=== PATIENT | female | born 1975 | race Caucasian/White ===

== ENCOUNTER 2021-12-11 12:40 | Outpatient (REF) | payer BC, SELFPAY ==
--- NOTE | ~2021-12-11 | US_ITS ---
EXAMINATION: US PELVIS CLINICAL INFORMATION: Abnormal uterine bleeding. COMPARISON: None. TECHNIQUE: Ultrasound of the pelvis is performed using both transabdominal and transvaginal transducers along with Doppler. Transvaginal imaging is performed due to inadequate visualization transabdominally. FINDINGS: UTERUS: The uterus is anteverted, retroflexed and measures 8.8 cm in length, 3.6 mL in AP and 5.4 cm in transverse dimension. The double wall endometrial thickness is 0.9 cm. The uterus is smooth in contour and has normal myometrial echogenicity. No visible fibroid. ADNEXA: Both ovaries are visualized. There is normal color flow to the adnexa. There is no ovarian torsion. There is no pelvic ascites or fluid collection. Right ovary measures 2.2 x 2.6 x 1.9 cm. Left ovary measures 3.1 x 2.0 x 1.8 cm cm. US/US pelvic and transvaginal IMPRESSION: Unremarkable uterus and ovaries.
== END 2021-12-11 12:41 | disposition home or self-care (01) ==
LOC: HO.US 12:40
PROVIDERS: Visit Provider Family Medicine
DX: N93.9 Abnormal uterine and vaginal bleeding, unspecified (principal); N39.9 Disorder of urinary system, unspecified
CPT/HCPCS: 76830; 76856

== ENCOUNTER 2022-01-14 08:00 | Outpatient (REF) | payer OTHER, SELFPAY ==
--- NOTE | ~2022-01-14 | MR_ITS ---
EXAMINATION: MR BREAST WITHOUT AND WITH CONTRAST, BILATERAL CLINICAL INFORMATION: 46-year-old for high-risk screening. COMPARISON: MRI 12/14/2019, 04/09/2019, 02/20/2018 and 01/28/2017. Correlation to mammogram of 03/14/2021. TECHNIQUE: Imaging was performed with a dedicated breast coil. Prior to the administration of contrast, bilateral axial T1 and bilateral axial T2-weighted sequences were obtained. After the uneventful administration of?9 mL of Gadavist, dynamic contrast-enhanced VIBRANT series through the breasts in the axial plane were performed. Subtracted images were performed and reviewed. A delayed sagittal sequence through both breasts was acquired. Additionally, CAD post-processing, including maximum intensity projections, 3-D reconstructions and kinetic analysis, were performed an independent workstation and reviewed by the interpreting radiologist is a portion of this exam. FINDINGS: Breast tissue is heterogeneously dense. The patient's fibroglandular tissue demonstrates moderate background enhancement. LEFT BREAST: There are scattered foci of enhancement demonstrating subthreshold and progressive-type kinetics. There are no new areas of mass or non-mass enhancement. There are no secondary signs of malignancy such as nipple inversion or duct enhancement. There are no additional findings on T2-weighted imaging or kinetic curve analysis. RIGHT BREAST: There is a susceptibility artifact at 2 o'clock, 3 cm from the nipple, from prior benign ultrasound biopsy. There is no associated enhancement. There are scattered foci of enhancement demonstrating subthreshold and progressive-type kinetics. There is a stable area of non-mass enhancement at 10 o'clock, 3.3 cm from the nipple, which has been present on MRIs dating back to 2017 and considered benign (axial MR sequence #100, image 46/114). There are no new areas of mass or non-mass enhancement suspicious of malignancy. The previously described oval mass consistent with a biopsy-proven fibroadenoma has been surgically removed. There are no additional findings on T2-weighted imaging or kinetic curve analysis. There is no suspicious internal mammary chain or axillary adenopathy. Limited views of the chest and abdomen are unremarkable. MR/MR breast BI wo/w con IMPRESSION: No new MRI findings suspicious of malignancy in either breast. ASSESSMENT: Left Breast: BI-RADS Category 2 - Benign Right Breast: BI-RADS Category 2 - Benign RECOMMENDATIONS: Routine mammographic imaging as per most recent study and MRI as per high-risk protocol.
== END 2022-01-14 08:01 | disposition home or self-care (01) ==
LOC: HO.MRI 08:00
PROVIDERS: Visit Provider Family Medicine
DX: N64.89 Other specified disorders of breast (principal); Z80.3 Family history of malignant neoplasm of breast
CPT/HCPCS: 77049; A9585

== ENCOUNTER 2022-10-11 19:37 | Outpatient (REF) | payer MEDICAID, SELFPAY ==
[2022-10-12 05:51] LABS: CT PCR NOT DETECTED (Not Detect.); NG PCR NOT DETECTED (Not Detect.)
[2022-10-12 12:06] LABS: BV Int Neg Control Negative (Negative); BV Int Pos Control Positive (Positive)
[2022-10-16 09:44] LABS: HPV mRNA E6/E7 rflx Not Detected (Not Detected)
== END 2022-10-11 19:38 | disposition home or self-care (01) ==
LOC: HO.HHCLNP 19:37
PROVIDERS: Visit Provider Advanced Practice Midwife
DX: Z12.4 Encounter for screening for malignant neoplasm of cervix (principal); N93.9 Abnormal uterine and vaginal bleeding, unspecified; Z20.2 Contact with and (suspected) exposure to infections with a predominantly sexual mode of transmission
CPT/HCPCS: 0353U; 87480; 87510; 87624; 87660; 88142

== ENCOUNTER 2022-12-01 11:02 | Outpatient (REF) | payer MEDICAID, SELFPAY ==
--- NOTE | ~2022-12-01 | US_ITS ---
EXAMINATION: US PELVIS COMPLETE CLINICAL INFORMATION: Abnormal uterine bleeding COMPARISON: Pelvic ultrasound 12/11/2021 TECHNIQUE: Transabdominal and transvaginal imaging was performed. FINDINGS: The uterus is of normal size and echogenicity measuring 7.9 x 3.6 x 4.8 cm. A regular homogeneous endometrium is identified measuring 0.8 cm. Nabothian cysts in the cervix. Few dystrophic calcifications in the cervix. Right ovary is normal in size and appearance. The right ovary measures 2.2 x 0.9 x 2.0 cm for a volume of 2.0 mL. The left ovary was not identified. No adnexal mass. There is no pelvic free fluid. US/US pelvic and transvaginal IMPRESSION: 1. Endometrium measures 8 mm in thickness. 2. Unremarkable right ovary. The left ovary was not identified. No adnexal mass.
== END 2022-12-01 11:03 | disposition home or self-care (01) ==
LOC: HO.US 11:02
PROVIDERS: Visit Provider Advanced Practice Midwife
DX: N93.9 Abnormal uterine and vaginal bleeding, unspecified (principal)
CPT/HCPCS: 76830; 76856

== ENCOUNTER 2023-02-07 07:25 | Outpatient (AMB) | payer MEDICAID, SELFPAY ==
--- NOTE | 2023-02-07 07:26 | MHC.OFFVIS ---
Intake Vital Signs 02/07/23 07:33 Height 5 ft 4 in Weight 203 lb BMI 34.8 Intake Visit Reasons: AUB/EMB/PCP Referral Air Bag Buffer Required: Yes Air Bag Buffer Language: Community Fundraiser Name: Chika HORAN Information Interpreted: non-clinical & clinical Sales Contract Administrator: Sales Contract Administrator Present (Chika HORAN) Accompanied by: Self / Same As Patient Allergies aspirin Allergy (Unknown, Unverified 02/07/23 07:34) swelling, itchy eyes;swelling of face Is last menstrual period known: Yes Last menstrual period: 02/04/23 HPI HPI Comments History of Present Illness Details Presenting referred from PCP regarding abnormal uterine bleeding and endometrial cells on co testing done in 10/27 which showed Negative Pap/HPV, endometrial cells present. Ultrasound done in 11/27 showed the following: IMPRESSION: 1. Endometrium measures 8 mm in thickness. 2. Unremarkable right ovary. The left ovary was not identified. No adnexal mass. Last screening mammogram was in 03/29, the patient scheduled for another screening mammogram in 03/30 [facility] Medical History Anxiety Depression Surgical History H/O breast biopsy Hx of tubal ligation Family History Father HTN (hypertension) Diabetes Parkinson disease Mother Diabetes Maternal Aunt Breast cancer Paternal Grandmother Breast cancer Social History Household Members: Significant Other Housing: Apartment Alcohol intake: current Alcohol intake frequency: holidays/special occasions only Patient Tobacco Use Status: Never used Tobacco Current occupational status: employed 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 Sexual orientation: Straight/Heterosexual Gender identity: Female Female Reproductive History Menstrual Date of last menstrual period: 02/04/23 Review of Systems Const All systems reviewed & are unremarkable except as noted in HPI and below Card Reports as per HPI Resp Reports as per HPI GI Reports as per HPI and Reports no additional complaints Reports as per HPI Physical Exam Vital Signs: BMI result Body Mass Index 34.8 Const General: cooperative, healthy appearing and comfortable Chest Chest palpation & inspection: normal inspection of the chest and normal palpation of entire chest wall Breast/axilla inspection: normal inspection of the breasts and normal inspection of the axillae Breast/axilla palpation: normal palpation of the breasts, normal palpation of the axillae and no axillary lymphadenopathy Resp Effort & Inspection: normal respiratory effort Auscultation: clear to auscultation bilaterally Percussion: percussion normal Cardio Palpation: normal PMI Rate: regular rate Rhythm: regular rhythm Heart sounds: no murmurs and no rubs Peripheral pulses: Peripheral pulses 2+ throughout GI Inspection: Yes normal to inspection Palpation (GI): Soft to palpation, nontender, no guarding, not rigid and No hepatosplenomegaly present Percussion: Yes normal to percussion Auscultation: normal bowel sounds Rectal Exam - Female: deferred General: Yes bladder normal to palpation External Female Exam: No lesion Speculum Exam - Vagina: normal appearance of the vagina, normal palpation, normal vaginal discharge and not erythematous Speculum Exam - Cervix: normal appearance of the cervix and normal palpation Bimanual exam- vagina & uterus: normal bimanual exam, normal palpation, uterine size normal, bladder normal to palpation, consistency normal and normal palpation Bimanual Exam- Adnexa, other: normal adnexae, no masses and no tenderness Office Procedures Endometrial Biopsy Details: The patient was counseled regarding the indication and benefits of endometrial sampling to rule out endometrial pathology including not limited to endometrial hyperplasia or endometrial cancer and others; The alternatives (Either do nothing vs. hysteroscopy D&C) & the risks were discussed with the patient including but not limited: pain, uterine perforation, bleeding, infection, possible injury to bladder, bowel, ureter, possible need for blood transfusion with all its possible risks. The patient verbalized understanding all questions answered and signed consent. UPT done in the office was negative The patient was placed into the dorsal lithotomy position; a speculum was inserted in the vagina. Using aseptic technique for the procedure, the cervix was cleansed with Betadine. The anterior lip of the cervix was grasped with a single tooth tenaculum. The uterus was sounded to 7 cm with a 4 mm Pipelle was used. Tissues samples were obtained and placed in formalin, in a patient labeled container and sent to the pathology department. At the end of the procedure, there was minimal bleeding noted The patient tolerated the procedure well and was discharged in good condition with the following instructions: Nothing in the vagina until the bleeding stops. No sex until the bleeding stops, to call if any of the following occurs: fever (>100.4), flu-like symptoms, abdominal pain, heavy bleeding, four smelling vaginal discharge. The patient was instructed to schedule a Follow up appointment in 2 weeks to discuss pathology results of the biopsy and treatment options. This note was generated with a voice recognition program. Some errors may have been overlooked during the review of this note. Sometimes these errors may affect the content or meaning of a given sentence. [id number] Biopsy Assessment & Plan Assessment & Plan (1) Abnormal uterine bleeding: Code(s): N93.9 - Abnormal uterine and vaginal bleeding, unspecified Plan: GC and chlamydia taken CBC, TSH, prolactin, FSH/LH, HCG order and pelvic ultrasound recently done and was unremarkable. Discussed with the patient the different causes of abnormal bleeding including thyroid disorders, uterine and ovarian pathology, endometrial hyperplasia, carcinoma and other potential causes. Discussed with the patient the work up including CBC (to r/o anemia), TSH, pelvic Ultrasound, endometrial biopsy to r/o endometrial pathology. All questions answered and the patient verbalized understanding. Instructed the patient to schedule an appointment for an endometrial biopsy in 2 weeks. (2) Unexplained endometrial cells on cervical Pap smear: Code(s): R87.618 - Other abnormal cytological findings on specimens from cervix uteri Plan: Discussed the patient the finding on Pap smear, endometrial cells present, recommended endometrial sampling to rule out endometrial pathology including hyperplasia , polyp or cancer were discussed with the patient. Recommended to the patient that the next step is an endometrial sampling via hysteroscopy D&C possible polypectomy versus endometrial biopsy to r/o endometrial pathology including hyperplasia or cancer. All the pros and cons risks and benefits of each approach were discussed with the patient, endometrial biopsy being less invasive, office procedure with less sensitivity and inability diagnose a polyp and removal versus hysteroscopy done under anesthesia more invasive more sensitive to endometrial cancer and possibility of diagnosing and endometrial polyp with the possibility of polypectomy. All questions were answered pt verbalized understanding and decided to proceed with endometrial biopsy. EMB done, see procedure (3) Family history of breast cancer: Code(s): Z80.3 - Family history of malignant neoplasm of breast Plan: Discussed with the patient her family history of breast cancer might increased her risk for Breast ca. Mammogram scheduled for 03/30, no Breast MRI ordered Will refer to Dr Mazzucco for possible Genetic Ca counseling and possible testing. All questions answered, the patient verbalized understanding and agreed with the plan Orders: Orders TSH reflex Free T4 Today N93.9 - Abnormal uterine and vaginal bleeding, unspecified Prolactin Today N93.9 - Abnormal uterine and vaginal bleeding, unspecified AMB Endometrial Biopsy Today N93.9 - Abnormal uterine and vaginal bleeding, unspecified, R87.618 - Other abnormal cytological findings on specimens from cervix uteri Lutenizing Hormone Today N93.9 - Abnormal uterine and vaginal bleeding, unspecified HCG Quantitative Today N93.9 - Abnormal uterine and vaginal bleeding, unspecified Follicle Stimulating Hormone Today N93.9 - Abnormal uterine and vaginal bleeding, unspecified Complete Blood Count no Diff Today N93.9 - Abnormal uterine and vaginal bleeding, unspecified US pelvic and transvaginal Today N93.9 - Abnormal uterine and vaginal bleeding, unspecified Coding Level of Care Code New Pt Level 3 (75197) Procedure Only Diagnoses Abnormal uterine bleeding N93.9 Unexplained endometrial cells on cervical Pap smear R87.618 Family history of breast cancer Z80.3 CPT Codes Endometrial Biopsy - CPT: 42912-Ydmgksaoupe Biopsy ([id number])
[2023-02-07 07:33] VITALS: BMI 34.8
== END 2023-02-07 08:07 | disposition home or self-care (01) ==
LOC: HO.HWS 07:25
PROVIDERS: PCP Family Medicine; Visit Provider Obstetrics & Gynecology
DX: N93.9 Abnormal uterine and vaginal bleeding, unspecified (principal); R87.618 Other abnormal cytological findings on specimens from cervix uteri; Z80.3 Family history of malignant neoplasm of breast; Z32.02 Encounter for pregnancy test, result negative
CPT/HCPCS: 58100; 99203

== ENCOUNTER 2023-02-07 07:25 | Outpatient (REF) | payer MEDICAID, SELFPAY | END 2023-02-07 07:26 | disposition home or self-care (01) | LOC: HO.LNP 07:25 | PROVIDERS: PCP Family Medicine; Visit Provider Obstetrics & Gynecology | DX: N93.9 Abnormal uterine and vaginal bleeding, unspecified (principal); R87.618 Other abnormal cytological findings on specimens from cervix uteri; Z80.3 Family history of malignant neoplasm of breast | CPT/HCPCS: 0353U; 58100; 81025; 83001; 83002; 84146; 84443; 84702; 85027; 88305; 99202 ==

== ENCOUNTER 2023-02-07 08:16 | Outpatient (REF) | payer MEDICAID, SELFPAY ==
[2023-02-07 09:16] LABS: Hematocrit 43.5 % (37.0-47.0); Hemoglobin 14.3 g/dl (12.0-16.0); Mean Corpuscular HGB Conc 32.9 g/dl (31.0-35.0); Mean Corpuscular Volume 91.4 fL (80.0-98.0); Mean Platelet Volume 11.3 fL (9.4-12.3); Platelet Count 293 X10*3/uL (160-400); Red Blood Count 4.76 X10*6/uL (4.20-5.50); Red Cell Distribution Width 12.2 % (11.0-16.0); White Blood Count 6.6 X10*3/uL (4.8-10.8)
[2023-02-07 10:10] LABS: HCG Quantitative < 2 mIU/mL; TSH reflex Free T4 0.99 uIU/mL (0.32-4.0)
[2023-02-08 10:57] LABS: CT PCR NOT DETECTED (Not Detect.); NG PCR NOT DETECTED (Not Detect.)
[2023-02-08 13:04] LABS: Follicle Stimulating Hormone 24.3 mIU/mL; Lutenizing Hormone 19.4 mIU/mL; Prolactin 16.2 ng/mL
== END 2023-02-07 08:17 | disposition home or self-care (01) ==
LOC: HO.LAB 08:16
PROVIDERS: PCP Family Medicine; Visit Provider Obstetrics & Gynecology
DX: N93.9 Abnormal uterine and vaginal bleeding, unspecified (principal)
CPT/HCPCS: 0353U; 83001; 83002; 84146; 84443; 84702; 85027

== ENCOUNTER 2023-03-10 10:17 | Outpatient (REF) | payer MEDICAID, SELFPAY | END 2023-03-10 10:18 | disposition home or self-care (01) | LOC: HO.US 10:17 | PROVIDERS: PCP Family Medicine; Visit Provider Obstetrics & Gynecology | DX: N93.9 Abnormal uterine and vaginal bleeding, unspecified (principal) | CPT/HCPCS: 76830; 76856 ==

== ENCOUNTER 2023-03-17 09:13 | Outpatient (AMB) | payer MEDICAID, SELFPAY ==
--- NOTE | 2023-03-17 09:22 | MHC.OFFVIS ---
Intake Vital Signs 03/17/23 09:31 Height 5 ft 4 in Weight 202 lb 13.204 oz BMI 34.8 BP 120/82 Intake Visit Reasons: EMB results/Ultrasound follow up Corn Crop Supervisor Required: Yes Corn Crop Supervisor Language: Mesmerist Name: Chika HORAN Information Interpreted: non-clinical & clinical Accompanied by: Mother Allergies aspirin Allergy (Unknown, Unverified 03/17/23 09:32) swelling, itchy eyes;swelling of face Post menopausal: Yes HPI HPI Comments History of Present Illness Details The patient is presenting for follow-up to discuss the results of her abnormal uterine bleeding workup and options of treatment. The following workup was done.: H&H= 14.3/43.5 TSH, hCG, prolactin GC and chlamydia were negative. FSH 24.3/LH 19.4 post in the menopausal range Endometrial biopsy pathology showed lytic endometrium with no evidence of hyperplasia and/or malignancy. Co testing was done was negative. Mammogram scheduled for 03/26/22 at [facility] Pelvic ultrasound showed the following: Uterus: The uterus is anteverted and anteflexed. The uterus measures 8.8 x 3.9 x 5.2 cm. There is trace endocervical free fluid. Cervical calcifications are suspected. The double wall endometrial thickness is 0.8 mm. The uterus is smooth in contour and has normal myometrial echogenicity. No visible fibroid. Adnexa: Both ovaries are visualized. There is normal color flow to the adnexa. There is no ovarian torsion. There is no pelvic ascites or fluid collection. Right ovary measures 1.8 x 0.7 x 0.8 cm, volume 0.5 mL. Left ovary measures 2.0 x 1.0 x 1.2 cm, volume 1.3 mL. 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 Sexual orientation: Straight/Heterosexual Gender identity: Female Review of Systems Const All systems reviewed & are unremarkable except as noted in HPI and below Reports as per HPI and Reports no additional complaints GI Reports no additional complaints Reports no additional complaints Physical Exam Vital Signs: Last Vital Signs BP 120/82 03/17/23 09:31 BMI result Body Mass Index 34.8 Assessment & Plan Assessment & Plan (1) Abnormal uterine bleeding: Code(s): N93.9 - Abnormal uterine and vaginal bleeding, unspecified Plan: Discussed with the patient the results of the work up done and options of treatment including Lysteda, BCP's, Mirena IUD, endometrial ablation and hysterectomy. All pros, cons, risks and benefits if each option was discussed with the patient and the patient decided to think about it and get back to us. All questions answered the patient verbalized understanding. (2) Unexplained endometrial cells on cervical Pap smear: Code(s): R87.618 - Other abnormal cytological findings on specimens from cervix uteri Plan: Discussed with the patient the results are EMB, the patient was reassured. Instructions given the patient to call in case of recurrence of her abnormal uterine bleeding. All questions answered, the patient verbalized understanding. Coding Level of Care Code Est Pt Level 3 (68377) Diagnoses Abnormal uterine bleeding N93.9 Unexplained endometrial cells on cervical Pap smear R87.618
[2023-03-17 09:31] VITALS: BP 120/82; BMI 34.8
== END 2023-03-17 09:46 | disposition home or self-care (01) ==
LOC: HO.HWS 09:13
PROVIDERS: PCP Family Medicine; Referring Provider Family Medicine; Visit Provider Obstetrics & Gynecology
DX: N93.9 Abnormal uterine and vaginal bleeding, unspecified (principal); R87.618 Other abnormal cytological findings on specimens from cervix uteri
CPT/HCPCS: 99213

== ENCOUNTER → 2023-03-17 09:13 | Outpatient (BNVA) | payer MEDICAID, SELFPAY | PROVIDERS: PCP Family Medicine; Visit Provider Obstetrics & Gynecology | DX: N93.9 Abnormal uterine and vaginal bleeding, unspecified (principal); R87.618 Other abnormal cytological findings on specimens from cervix uteri | CPT/HCPCS: 99212 ==

== ENCOUNTER 2023-04-11 08:03 | Outpatient (REF) | payer MEDICAID, SELFPAY ==
--- NOTE | ~2023-04-11 | MR_ITS ---
EXAMINATION: MR BREAST WITHOUT AND WITH CONTRAST, BILATERAL CLINICAL INFORMATION: High-risk screening. COMPARISON: MRI 01/14/2022. Outside MRI 12/14/2019. TECHNIQUE: Imaging was performed with a dedicated breast coil. Prior to the administration of contrast, bilateral axial T1 and bilateral axial T2 weighted sequences were obtained. After the uneventful administration of?9 mL of Gadavist, dynamic contrast-enhanced VIBRANT series through the breasts in the axial plane were performed. Subtracted images were performed and reviewed. A delayed sagittal sequence through both breasts was acquired. Additionally, CAD post-processing, including maximum intensity projections, 3-D reconstructions and kinetic analysis, were performed an independent workstation and reviewed by the interpreting radiologist is a portion of this exam. FINDINGS: The patient's fibroglandular tissue demonstrates moderate background enhancement. LEFT BREAST: There are patchy areas of nonmass enhancement present diffusely throughout the left breast. No definite suspicious masslike or non-masslike enhancement. No abnormal skin thickening or nipple retraction. No abnormal architectural distortion. Review of the T2 weighted images demonstrates no fibrocystic changes or dilated ducts. Review of kinetic images reveals no additional findings. RIGHT BREAST: Similar to the contralateral side, there are patchy areas of nonmass enhancement present diffusely throughout the right breast. Relative nonmass enhancement along the lateral aspect of the right breast is a stable finding compared to the 2021 and 2019 MRI's. No suspicious masslike or non-masslike enhancement. No abnormal skin thickening or nipple retraction. No abnormal architectural distortion. Review of the T2 weighted images demonstrates no fibrocystic changes or dilated ducts. Review of kinetic images reveals no additional findings. There is no suspicious internal mammary chain or axillary adenopathy. Limited views of the chest and abdomen are unremarkable. MR/MR breast BI wo/w con IMPRESSION: Mildly limited exam. No MR specific evidence of malignancy. ASSESSMENT: LEFT BREAST: BI-RADS 1-Negative RIGHT BREAST: BI-RADS 1-Negative RECOMMENDATIONS: Clinical follow-up. Continued annual mammographic surveillance. Further breast MRI as risk factors dictate.
[2023-04-11] MEDS: gadobutroL 10 ML VIAL IVPUSH (09:08)
== END 2023-04-11 08:04 | disposition home or self-care (01) ==
LOC: HO.MRI 08:03
PROVIDERS: PCP Family Medicine; Visit Provider Family Medicine
DX: Z91.89 Other specified personal risk factors, not elsewhere classified (principal); Z80.3 Family history of malignant neoplasm of breast
CPT/HCPCS: 77049; A9585

== ENCOUNTER 2023-06-22 08:45 | Outpatient (REF) | payer MEDICAID, SELFPAY ==
--- NOTE | ~2023-06-22 | XR_ITS ---
EXAMINATION: XR SHOULDER, LEFT CLINICAL INFORMATION: Left shoulder pain COMPARISON: None available. TECHNIQUE: AP external rotation, Grashey, scapular Y, and axillary views of the left shoulder. FINDINGS: The bones and soft tissues are normal. No fracture. Glenohumeral and acromioclavicular alignment is anatomic with normal joint space. No abnormal soft tissue calcifications. XR/XR shoulder LT min 2V IMPRESSION: Normal left shoulder.
--- NOTE | ~2023-06-22 | XR_ITS ---
EXAMINATION: XR SHOULDER, RIGHT CLINICAL INFORMATION: Right shoulder pain COMPARISON: None available. TECHNIQUE: AP external rotation, Grashey, scapular Y, and axillary views of the right shoulder. FINDINGS: The bones and soft tissues are normal. No fracture. Glenohumeral and acromioclavicular alignment is anatomic with normal joint space. No abnormal soft tissue calcifications. XR/XR shoulder RT min 2V IMPRESSION: Normal right shoulder.
[2023-06-22 09:45] LABS: MANUAL DIFF FLAG NO
[2023-06-22 10:14] LABS: Basophils Percent Auto 0.6 % (0-2); Eosinophils Absolute Auto 0.2 X10*3/uL (0.0-0.4); Eosinophils Percent Auto 2.6 % (0-4); Hematocrit 42.2 % (37.0-47.0); Hemoglobin 14.3 g/dl (12.0-16.0); Imm Gran Abs Auto 0.02 X10*3/uL (0.00-0.03); Imm Gran Pct Auto 0.3 % (0.0-0.4); Lymphocytes Absolute Auto 1.9 X10*3/uL (1.2-4.9); Lymphocytes Percent Auto 27.1 % (20-40); Mean Corpuscular HGB Conc 33.9 g/dl (31.0-35.0); Mean Corpuscular Hemoglobin 30.2 pg (27.0-33.0); Mean Platelet Volume 11.1 fL (9.4-12.3); Monocytes Absolute Auto 0.5 X10*3/uL (0.1-1.2); Monocytes Percent Auto 6.8 % (2-11); Neutrophils Absolute Auto 4.4 x10*3/uL (2.0-8.3); Neutrophils Percent Auto 62.6 % (45-73); Platelet Count 289 X10*3/uL (160-400); Red Blood Count 4.74 X10*6/uL (4.20-5.50); Red Cell Distribution Width 12.2 % (11.0-16.0)
[2023-06-22 11:31] LABS: Alanine Aminotransferase 18 U/L (0-31); Albumin Level 4.2 g/dL (3.5-5.0); Alkaline Phosphatase 87 U/L (39-117); Anion Gap 10 (12-20); Aspartate Amino Transferase 17 U/L (5-31); Bilirubin Total 0.3 mg/dL (0.0-1.0); Blood Urea Nitrogen 10 mg/dL (9-16); Calcium 9.4 mg/dL (8.4-10.2); Carbon Dioxide 26 mmol/L (22-29); Chloride 106 mmol/L (96-108); Estimated Glomerular Filt Rate > 60; Glucose Random 95 mg/dL (60-115); Potassium 4.3 mmol/L (3.3-5.1); Sodium 138 mmol/L (135-145); Total Protein 7.8 g/dL (6.5-8.0)
[2023-06-22 11:41] LABS: Erythrocyte Sedimentation Rate 13 MM/HR (0-20)
[2023-06-23 20:48] LABS: Transglutaminase IgA <1.0 U/mL
[2023-06-25 12:59] LABS: Endomysial IgA Antibody Negative (Negative)
== END 2023-06-22 08:46 | disposition home or self-care (01) ==
LOC: HO.XRAY 08:45
PROVIDERS: PCP Family Medicine; Visit Provider Physician Assistant
DX: K52.9 Noninfective gastroenteritis and colitis, unspecified (principal); R10.9 Unspecified abdominal pain; K21.9 Gastro-esophageal reflux disease without esophagitis; M25.511 Pain in right shoulder; G89.29 Other chronic pain; M25.512 Pain in left shoulder
CPT/HCPCS: 36415; 73030; 80053; 85025; 85652; 86140; 86231; 86364; 99212

== ENCOUNTER 2023-06-22 08:45 | Outpatient (AMB) | payer MEDICAID, SELFPAY ==
--- NOTE | 2023-06-22 08:55 | MHC.OFFVIS ---
Intake Vital Signs 06/22/23 08:58 Height 5 ft 4 in Weight 202 lb BMI 34.7 BP 133/57 L Blood Pressure Location Lt brachial Position Sitting Pulse 76 Intake Visit Reasons: Chronic Diarrhea Intake Note: Patient new consult for Chronic diarrhea. Patient cc: nauseas, abdominal pain with bloating, acid reflex, between diarrhea and constipation. Channel Supervisor Required: Yes Channel Supervisor Name: [facility] [place] Accompanied by: Self / Same As Patient Allergies aspirin Allergy (Unknown, Verified 06/22/23 08:55) swelling, itchy eyes;swelling of face Medication List - Last Reconciled 06/22/23 by Julieta Das PA-C albuterol sulfate 90 mcg/actuation (Ventolin HFA) 2 puffs inhalation Q4H PRN amitriptyline 10 mg PO BEDTIME kfwjosekpt-sosqinpphrhfb-iprd 50-325-40 mg 1 tab PO Q12H PRN cetirizine 10 mg PO QAM cholecalciferol (vitamin D3) 50 mcg PO QAM fluoxetine 20 mg PO DAILY fluticasone propionate 50 mcg/actuation 2 sprays intranasal DAILY hydroxyzine pamoate 25 mg PO Q6H PRN omeprazole 20 mg PO DAILY HPI HPI Comments History of Present Illness Details 48-year-old female referred with chronic diarrhea- for 3 year- 3-4 times a esi-etsmgix-ood has never had stool study Occasional nonspecific abdominal cramping-she is being followed by [facility] for abnormal menses- She was taking iron supplements however is no longer taking them, she is unsure of reasoning She has had no recent travel or new medications- 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 Colonoscopy- 5 yrs ago - normal-she saw pcp- given fiber - no better- actuallly worse Appetite ok- no wt loss Acid reflux for years- never had an EGD- has breakthrough sx- for years- She has no nausea, vomiting, hematemesis, hematochezia fever chills PFSH Medical History (Updated 06/22/23 @ 09:40 by Julieta Das PA-C) Anxiety Depression Surgical History H/O breast biopsy Hx of tubal ligation Family History Father HTN (hypertension) Diabetes Parkinson disease Mother Diabetes Maternal Aunt Breast cancer Paternal Grandmother Breast cancer Social History Household Members: Significant Other Housing: Apartment Alcohol intake: current Alcohol intake frequency: holidays/special occasions only Patient Tobacco Use Status: Never used Tobacco Current occupational status: employed 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 Sexual orientation: Straight/Heterosexual Gender identity: Female Review of Systems Const All systems reviewed & are unremarkable except as noted in HPI and below Card Denies chest pain and Denies dyspnea Resp Denies dyspnea GI Denies abdominal pain, Denies hematochezia, Reports GI cramping, Reports heartburn, Reports diarrhea, Denies nausea, Denies vomiting and Denies hematemesis Reports abnormal menses Psych Reports anxiety Physical Exam Vital Signs: Last Vital Signs Pulse 76 06/22/23 08:58 BP 133/57 L 06/22/23 08:58 BMI result Body Mass Index 34.7 Const General: cooperative, healthy appearing, comfortable and no acute distress Orientation/consciousness: patient oriented x3 Limitations: language barrier Eyes Sclerae: sclerae normal Resp Effort & Inspection: normal respiratory effort and able to speak in complete sentences Auscultation: clear to auscultation bilaterally Cardio Rate: regular rate Rhythm: regular rhythm Heart sounds: S1 normal heart sound present and S2 normal heart sound present GI Palpation (GI): Soft to palpation and nontender Auscultation: normal bowel sounds Rectal Exam - Female: deferred Skin General skin exam: no rashes or lesions noted Neuro General: patient oriented x3 Extrem General: Yes full ROM Psych Appearance: grossly normal and well kempt Mental Status: mental status grossly normal Speech and movement: Normal speech and movement present and Clear speech present Affect: normal affect Attitude: cooperative Thought content: Normal thought content present Insight: Good insight present (Psych) Judgement: Good judgement present (Psych) Assessment & Plan Assessment & Plan (1) Chronic diarrhea: Comment: r/o infectious vs chronic Code(s): K52.9 - Noninfective gastroenteritis and colitis, unspecified Plan: Lab Stool study Colonoscopy (2) Abdominal pain: Comment: Diffuse, non specific, intermittent Code(s): R10.9 - Unspecified abdominal pain Plan: Monitor CBC (3) Acid reflux: Code(s): K21.9 - Gastro-esophageal reflux disease without esophagitis Plan: Continue PPI Reflux precaution Avoid culprit EGDr/o pud, nonulcer despite, esophagitis other findings to account for her sx Orders: Orders Calprotectin, Fecal Today R19.7 - Diarrhea, unspecified Endomysial IgA rflx Titer Today K21.9 - Gastro-esophageal reflux disease without esophagitis, K52.9 - Noninfective gastroenteritis and colitis, unspecified, R10.9 - Unspecified abdominal pain GI Panel Today R19.7 - Diarrhea, unspecified EGD/Spencer Combo - GI Use Only Today K21.9 - Gastro-esophageal reflux disease without esophagitis, K52.9 - Noninfective gastroenteritis and colitis, unspecified, R10.9 - Unspecified abdominal pain Comprehensive Met. Panel Today K58.9 - Irritable bowel syndrome without diarrhea Complete Blood Count Auto Diff Today K52.9 - Noninfective gastroenteritis and colitis, unspecified C Reactive Protein Today K21.9 - Gastro-esophageal reflux disease without esophagitis, K52.9 - Noninfective gastroenteritis and colitis, unspecified, R10.9 - Unspecified abdominal pain CDiff Gene PCR Today R19.7 - Diarrhea, unspecified Transglutaminase IgA Today R19.7 - Diarrhea, unspecified Erythrocyte Sedimentation Rate Today R19.7 - Diarrhea, unspecified Medications: New polyethylene glycol 3350 (Miralax) Take as directed by mouth the day before your procedure. 238 grams PO ONCE 1 day PRN 238 grams 0RF laxative effect bisacodyl (Dulcolax (bisacodyl)) Day before procedure @ 12 noon Take 4 tablets by mouth followed by large glass of water 20 mg (4 x 5 mg) PO ONCE 1 day PRN 4 tabs 0RF colonoscopy prep Z12.11 - Encounter for screening for malignant neoplasm of colon Patient Instructions: EGD colonoscopy MiraLax Gatorade prep Labs and stool studies Imodium, Reflux precautions PPI Avoid culprits Will follow-up 46 weeks for progress and review lab Coding Level of Care Code New Pt Level 3 (11972) Diagnoses Chronic diarrhea K52.9 Abdominal pain R10.9 Acid reflux K21.9 Time Spent (min) 30 Comment 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
[2023-06-22 08:58] VITALS: BP 133/57; PULSE 76; BMI 34.7
== END 2023-06-22 09:50 | disposition home or self-care (01) ==
PROVIDERS: PCP Family Medicine; Visit Provider Physician Assistant
DX: K52.9 Noninfective gastroenteritis and colitis, unspecified (principal); R10.9 Unspecified abdominal pain; K21.9 Gastro-esophageal reflux disease without esophagitis
CPT/HCPCS: 99203

== ENCOUNTER 2023-07-07 17:30 | Outpatient (REF) | payer MEDICAID, SELFPAY ==
[2023-07-07 18:53] LABS: CDiff Gene PCR NEGATIVE (Negative)
[2023-07-08 15:27] LABS: Adenovirus F 40/41 Not Detected (Not Detect.); Astrovirus Not Detected (Not Detect.); Campylobacter Not Detected (Not Detect.); Cryptosporidium Not Detected (Not Detect.); Cyclospora cayetanensis Not Detected (Not Detect.); E. coli EAEC Not Detected (Not Detect.); E. coli EPEC Not Detected (Not Detect.); E. coli ETEC Not Detected (Not Detect.); E. coli STEC Not Detected (Not Detect.); Entamoeba histolytica Not Detected (Not Detect.); Giardia lamblia Not Detected (Not Detect.); Norovirus GI/GII Not Detected (Not Detect.); Plesiomonas shigelloides Not Detected (Not Detect.); Rotavirus A Not Detected (Not Detect.); Salmonella Not Detected (Not Detect.); Sapovirus Not Detected (Not Detect.); Shigella sp./EIEC Not Detected (Not Detect.); Vibrio Not Detected (Not Detect.); Vibrio Cholerae Not Detected (Not Detect.); Yersinia enterocolitica Not Detected (Not Detect.)
[2023-07-14 23:19] LABS: Calprotectin, Fecal 20 mcg/g
== END 2023-07-07 17:31 | disposition home or self-care (01) ==
LOC: HO.LNP 17:30
PROVIDERS: Visit Provider Physician Assistant
DX: R19.7 Diarrhea, unspecified (principal)
CPT/HCPCS: 83993; 87493; 87507

== ENCOUNTER 2023-07-12 09:54 | Outpatient (REF) | payer MEDICAID, SELFPAY | END 2023-07-12 09:55 | disposition home or self-care (01) | LOC: HO.MAMMO 09:54 | PROVIDERS: PCP Family Medicine; Visit Provider Surgery | DX: M79.621 Pain in right upper arm (principal) | CPT/HCPCS: 99202 ==

== ENCOUNTER 2023-07-12 09:54 | Outpatient (AMB) | payer MEDICAID, SELFPAY ==
--- NOTE | 2023-07-12 09:56 | A.OFFVIS_ITS ---
Vital Signs 07/12/23 10:13 Height 5 ft 4 in Weight 202 lb BMI 34.7 BP 134/70 Blood Pressure Location Rt brachial Position Sitting Pulse 79 Intake Visit Reasons: axillary mass Intake Note: This patient presents for an assessment for right axillary mass. Patient c/o; Onset 2 months, reports there was a bulge, reports occasional pain and burning sensation, reports increase in size. Supervisor Machine Workers Required: Yes Supervisor Machine Workers Language: Meal Cook Name: Liliane Accompanied by: Self / Same As Patient Allergies aspirin Allergy (Unknown, Verified 06/22/23 08:55) swelling, itchy eyes;swelling of face Medication List - Last Reconciled 07/12/23 by Corky Goodrich MD albuterol sulfate 90 mcg/actuation (Ventolin HFA) 2 puffs inhalation Q4H PRN amitriptyline 10 mg PO BEDTIME bisacodyl (Dulcolax (bisacodyl)) 20 mg (4 x 5 mg) PO ONCE PRN 1 day ngcjusctbv-cigirrfowsazg-zegh 50-325-40 mg 1 tab PO Q12H PRN cetirizine 10 mg PO QAM cholecalciferol (vitamin D3) 50 mcg PO QAM fluoxetine 20 mg PO DAILY fluticasone propionate 50 mcg/actuation 2 sprays intranasal DAILY hydroxyzine pamoate 25 mg PO Q6H PRN omeprazole 20 mg PO DAILY polyethylene glycol 3350 (Miralax) 238 grams PO ONCE PRN 1 day HPI Comments Details: 48-year-old female patient presenting for evaluation of pain in the right axilla. She reports a previous lump in the right axilla that was excised at an outside institution approximately 4 years ago. This was reported as benign although the exact diagnosis is not known by the patient. She tolerated the procedure well but now reports the onset of pain for the past 2 months in the right axilla. She reports this started after receiving an immunization in the right shoulder. She denies palpating any enlarged mass in either axilla. She denies fever, chills, or other associated symptoms. She previously underwent MRI of the breast due to a high risk status which was negative for any suspicious findings in the axilla (April 2023). 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 Sexual orientation: Straight/Heterosexual Gender identity: Female Review of Systems Const All systems reviewed & are unremarkable except as noted in HPI and below Denies chills, Denies fever(s), Denies headache(s), Denies poor appetite and Denies weakness ENT Denies headache(s) Card Denies chest pain, Denies irregular heart rhythm, Denies palpitations and Denies dyspnea Resp Denies cough, Denies excessive phlegm production and Denies dyspnea GI Denies abdominal pain, Denies bloating, Denies change in bowel habits, Denies constipation, Denies heartburn, Denies diarrhea, Denies nausea and Denies vomiting Denies urinary frequency Musc Denies back pain, Denies muscle weakness and Denies numbness Skin/Breast Details: Right axillary pain as noted in HPI Denies changing lesions and Denies unusual bruising Neuro Denies headache(s), Denies numbness, Denies paresthesias and Denies weakness Psych Denies anxiety and Denies depression Endo Denies palpitations Moody/Lymph Denies lymphadenopathy Physical Exam Const General: cooperative and no acute distress Nutritional Appearance: well nourished Orientation/consciousness: patient oriented x3 Limitations: no limitations HEENT Head: Yes normocephalic and Yes atraumatic Ears: hearing grossly normal bilaterally Chest Other: Right axilla with a well-healed incision. No definite palpable masses appreciated. There is tenderness to deep palpation. Left axilla with no palpable lymphadenopathy or tenderness. Resp Effort & Inspection: normal respiratory effort, no audible wheezes, no cough and no respiratory distress Cardio Jugular venous distension: no JVD GI Inspection: Yes normal to inspection Skin Other: Warm, dry, no rash Neuro General: patient oriented x3 Extrem General: Yes no clubbing, cyanosis or edema Assessment & Plan Assessment & Plan (1) Pain in right axilla: Code(s): M79.621 - Pain in right upper arm Category: Medical Plan 48-year-old female patient presenting with complaints of pain in the right axilla which may be related to previous immunization performed in the right arm. Examination reveals tenderness but no definite palpable lymphadenopathy. The pain does seem to radiate down the right arm as well which is also suggestive of lymphadenopathy. I recommended further evaluation with an ultrasound of the right axilla. She will return following the study to review the results and discuss treatment options. She expressed understanding and agrees with the plan. Orders: Orders US breast RT limited Today M79.621 - Pain in right upper arm Coding Level of Care Code New Pt Level 4 (13583) Diagnoses Pain in right axilla M79.621
[2023-07-12 10:13] VITALS: BP 134/70; PULSE 79; BMI 34.7
== END 2023-07-12 10:22 | disposition home or self-care (01) ==
PROVIDERS: PCP Family Medicine; Referring Provider Family Medicine; Visit Provider Surgery
DX: M79.621 Pain in right upper arm (principal)
CPT/HCPCS: 99204

== ENCOUNTER 2023-07-13 12:44 | Outpatient (REF) | payer MEDICAID, SELFPAY ==
--- NOTE | ~2023-07-13 | US_ITS ---
EXAMINATION: US DIAGNOSTIC ULTRASOUND BREAST, RIGHT CLINICAL INFORMATION: Palpable abnormality right axillary region. Recent immunizations. COMPARISON: Correlation made with MRI breast 04/11/2023. TECHNIQUE: Ultrasound of the right breast and axilla was performed with real-time carr scale imaging and color Doppler. FINDINGS: There is no focal suspicious finding. There is no solid mass, architectural abnormality, or edema in the soft tissue planes. There are no pathologic right axillary lymph nodes. Approximately 4 right axillary lymph nodes are visualized, all with no evidence of abnormal cortical thinning, and all with normal morphology. Results are discussed with the patient at time of visit. US/US breast RT limited mamm only IMPRESSION: Normal appearing lymph nodes within the right axilla. No pathologic nodes identified. No suspicious masses. Recommend clinical management. ASSESSMENT: BI-RADS 2 - Benign Findings RECOMMENDATION: 1. Patient should be managed based on the clinical impression. 2. Otherwise, routine annual screening mammography. This patient's information was entered into a reminder system with a target due date for their next mammogram.
== END 2023-07-13 12:45 | disposition home or self-care (01) ==
LOC: HO.MAMMO 12:44
PROVIDERS: PCP Family Medicine; Visit Provider Surgery
DX: M79.621 Pain in right upper arm (principal)
CPT/HCPCS: 76642

== ENCOUNTER → 2023-07-13 13:00 | Outpatient (BNV) | payer MEDICAID, SELFPAY | PROVIDERS: PCP Family Medicine; Visit Provider Radiology Diagnostic Radiology | DX: N63.31 Unspecified lump in axillary tail of the right breast (principal) | CPT/HCPCS: 76642 ==

== ENCOUNTER 2023-07-20 14:47 | Outpatient (AMB) | payer MEDICAID, SELFPAY ==
--- NOTE | 2023-07-20 14:49 | A.OFFVIS_ITS ---
Vital Signs 07/20/23 14:50 Height 5 ft 4 in Weight 202 lb BMI 34.7 BP 119/56 L Blood Pressure Location Lt brachial Position Sitting Pulse 81 Intake Visit Reasons: 4 week follow up Intake Note: Patient follow up for abdominal pain and lab results. Patient cc: abdominal pain with bloating, diarrhea, and acid reflex Civil Design Specialist Required: Yes Accompanied by: Self / Same As Patient Allergies aspirin Allergy (Unknown, Verified 07/20/23 14:49) swelling, itchy eyes;swelling of face Medication List - Last Reconciled 07/20/23 by Julieta Das PA-C albuterol sulfate 90 mcg/actuation (Ventolin HFA) 2 puffs inhalation Q4H PRN amitriptyline 10 mg PO BEDTIME bisacodyl (Dulcolax (bisacodyl)) 20 mg (4 x 5 mg) PO ONCE PRN 1 day zbgxuikhms-yrtbovkzsqyzs-trok 50-325-40 mg 1 tab PO Q12H PRN cetirizine 10 mg PO QAM cholecalciferol (vitamin D3) 50 mcg PO QAM fluoxetine 20 mg PO DAILY fluticasone propionate 50 mcg/actuation 2 sprays intranasal DAILY hydroxyzine pamoate 25 mg PO Q6H PRN omeprazole 20 mg PO DAILY polyethylene glycol 3350 (Miralax) 238 grams PO ONCE PRN 1 day HPI Comments Details: A 40-year-old female see in initially with multiple GI complaints chronic diarrhea, acid reflux-she was scheduled for EGD colonoscopy here today follow-up for progress , she is doing fairly well appetite has been okay she has made dietary modifications-PPI daily Bowels -loose Imodium is beneficial-abdominal cramping typically resolved after BM Reviewed blood were celiac panel normal, stool studies are negative She has no nausea, vomiting fever or chills PFSH Medical History Anxiety Depression Surgical History H/O breast biopsy Hx of tubal ligation Family History Father HTN (hypertension) Diabetes Parkinson disease Mother Diabetes Maternal Aunt Breast cancer Paternal Grandmother Breast cancer Maternal Grandmother Colon cancer Social History Household Members: Significant Other Housing: Apartment Alcohol intake: current Alcohol intake frequency: holidays/special occasions only Patient Tobacco Use Status: Never used Tobacco Current occupational status: employed 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 Sexual orientation: Straight/Heterosexual Gender identity: Female Review of Systems Const All systems reviewed & are unremarkable except as noted in HPI and below Card Denies chest pain GI Denies abdominal pain, Reports heartburn, Denies nausea and Denies vomiting Physical Exam Vital Signs: Last Vital Signs Pulse 81 07/20/23 14:50 BP 119/56 L 07/20/23 14:50 BMI result Body Mass Index 34.7 Const General: cooperative, healthy appearing, comfortable, no acute distress and well developed Orientation/consciousness: patient oriented x3 Cardio Rate: regular rate Rhythm: regular rhythm Heart sounds: S1 normal heart sound present and S2 normal heart sound present GI Palpation (GI): Soft to palpation and nontender Auscultation: normal bowel sounds Neuro General: patient oriented x3 Extrem General: Yes full ROM Psych Appearance: grossly normal and well kempt Mental Status: mental status grossly normal Speech and movement: Normal speech and movement present Affect: Anxious affect present Attitude: cooperative Thought process: Normal thought process present Thought content: Normal thought content present Assessment & Plan Assessment & Plan (1) Acid reflux: Code(s): K21.9 - Gastro-esophageal reflux disease without esophagitis Category: Medical (2) Chronic diarrhea: Comment: r/o infectious vs chronic Code(s): K52.9 - Noninfective gastroenteritis and colitis, unspecified Category: Medical Plan Reviewed EGD colonoscopy-order resubmitted Reflux precautions Continue PPI avoid culprits Patient Instructions: Reviewed EGD colonoscopy Reflux precautions Continue PPI avoid culprits Coding Level of Care Code Est Pt Level 3 (08927) Diagnoses Acid reflux K21.9 Chronic diarrhea K52.9 Time Spent (min) 25
[2023-07-20 14:50] VITALS: BP 119/56; PULSE 81; BMI 34.7
== END 2023-07-20 16:32 | disposition home or self-care (01) ==
PROVIDERS: PCP Family Medicine; Visit Provider Physician Assistant
DX: K21.9 Gastro-esophageal reflux disease without esophagitis (principal); K52.9 Noninfective gastroenteritis and colitis, unspecified
CPT/HCPCS: 99213

== ENCOUNTER → 2023-07-20 14:47 | Outpatient (BNVA) | payer MEDICAID, SELFPAY | PROVIDERS: PCP Family Medicine; Visit Provider Physician Assistant | DX: K21.9 Gastro-esophageal reflux disease without esophagitis (principal); K52.9 Noninfective gastroenteritis and colitis, unspecified | CPT/HCPCS: 99212 ==

== ENCOUNTER 2023-07-26 13:36 | Outpatient (AMB) | payer MEDICAID, SELFPAY ==
--- NOTE | 2023-07-26 13:38 | MHC.OFFVIS ---
Vital Signs 07/26/23 13:45 Height 5 ft 4 in Weight 205 lb BMI 35.2 BP 140/65 H Blood Pressure Location Lt brachial Position Sitting Pulse 72 Intake Visit Reasons: Breast US follow-up Intake Note: Patient is seen in office for ultrasound results, following pain in right upper arm. Pt c/o: here for results, no changes since last visit us: 07/13/23 Insulation Manager Required: Yes Insulation Manager Language: Die Engraving Supervisor Name: Lacey HORAN Information Interpreted: non-clinical & clinical Accompanied by: Self / Same As Patient Allergies aspirin Allergy (Unknown, Verified 07/26/23 13:43) swelling, itchy eyes;swelling of face Medication List - Last Reconciled 07/26/23 by Corky Goodrich MD albuterol sulfate 90 mcg/actuation (Ventolin HFA) 2 puffs inhalation Q4H PRN amitriptyline 10 mg PO BEDTIME bisacodyl (Dulcolax (bisacodyl)) 20 mg (4 x 5 mg) PO ONCE PRN 1 day qpoldhnakm-glutraoqkkqor-ppyj 50-325-40 mg 1 tab PO Q12H PRN cetirizine 10 mg PO QAM cholecalciferol (vitamin D3) 50 mcg PO QAM fluoxetine 20 mg PO DAILY fluticasone propionate 50 mcg/actuation 2 sprays intranasal DAILY hydroxyzine pamoate 25 mg PO Q6H PRN omeprazole 20 mg PO DAILY polyethylene glycol 3350 (Miralax) 238 grams PO ONCE PRN 1 day HPI Comments Details: 48-year-old female patient presenting for evaluation of pain in the right axilla. She reports a previous lump in the right axilla that was excised at an outside institution approximately 4 years ago. This was reported as benign although the exact diagnosis is not known by the patient. She tolerated the procedure well but now reports the onset of pain for the past 2 months in the right axilla. She reports this started after receiving an immunization in the right shoulder. She denies palpating any enlarged mass in either axilla. She denies fever, chills, or other associated symptoms. She previously underwent MRI of the breast due to a high risk status which was negative for any suspicious findings in the axilla (April 2023). She returns today following a right breast ultrasound with examination of the right axilla. This revealed for mildly enlarged lymph nodes with normal architecture felt to be benign. The patient continues to have discomfort in the armpit essentially unchanged from the previous visit. 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 Sexual orientation: Straight/Heterosexual Gender identity: Female Review of Systems Const All systems reviewed & are unremarkable except as noted in HPI and below Denies chills, Denies fever(s), Denies headache(s), Denies poor appetite and Denies weakness ENT Denies headache(s) Card Denies chest pain, Denies irregular heart rhythm, Denies palpitations and Denies dyspnea Resp Denies cough, Denies excessive phlegm production and Denies dyspnea GI Denies abdominal pain, Denies bloating, Denies change in bowel habits, Denies constipation, Denies heartburn, Denies diarrhea, Denies nausea and Denies vomiting Denies urinary frequency Musc Denies back pain, Denies muscle weakness and Denies numbness Skin/Breast Details: Right axillary pain as noted in HPI Denies changing lesions and Denies unusual bruising Neuro Denies headache(s), Denies numbness, Denies paresthesias and Denies weakness Psych Denies anxiety and Denies depression Endo Denies palpitations Moody/Lymph Denies lymphadenopathy Physical Exam Vital Signs: Last Vital Signs Pulse 72 07/26/23 13:45 BP 140/65 H 07/26/23 13:45 BMI result Body Mass Index 35.2 Const General: cooperative and no acute distress Nutritional Appearance: well nourished Orientation/consciousness: patient oriented x3 Limitations: no limitations HEENT Head: Yes normocephalic and Yes atraumatic Ears: hearing grossly normal bilaterally Chest Other: Exam deferred Resp Effort & Inspection: normal respiratory effort, no audible wheezes, no cough and no respiratory distress Cardio Jugular venous distension: no JVD GI Inspection: Yes normal to inspection Skin Other: Warm, dry, no rash Neuro General: patient oriented x3 Extrem General: Yes no clubbing, cyanosis or edema Assessment & Plan Assessment & Plan (1) Pain in right axilla: Code(s): M79.621 - Pain in right upper arm Category: Medical Plan 48-year-old female patient presenting for evaluation of right axillary pain. Workup with an ultrasound did reveal for lymph nodes with normal architecture in the right axilla corresponding to the area of pain. Pathologic nodes were identified. A copy of the report was provided to the patient. These appear to be reactive nodes possibly due to her previous immunizations. I recommended observation with no surgical intervention. She expressed understanding and agrees with the plan. Coding Level of Care Code Est Pt Level 3 (60282) Diagnoses Pain in right axilla M79.621
[2023-07-26 13:45] VITALS: BP 140/65; PULSE 72; BMI 35.2
== END 2023-07-26 14:16 | disposition home or self-care (01) ==
PROVIDERS: PCP Family Medicine; Visit Provider Surgery
DX: M79.621 Pain in right upper arm (principal)
CPT/HCPCS: 99213

== ENCOUNTER → 2023-07-26 13:36 | Outpatient (BNVA) | payer MEDICAID, SELFPAY | PROVIDERS: PCP Family Medicine; Visit Provider Surgery | DX: M79.621 Pain in right upper arm (principal) | CPT/HCPCS: 99212 ==

== ENCOUNTER 2023-11-24 06:59 | Day surgery (SDC) | payer MEDICAID, SELFPAY ==
[2023-11-22 11:26] VITALS: BMI 34.7
--- NOTE | 2023-11-23 10:02 | HO.ANESPROP2 ---
Documented by User: Isatu Sena NP 11/23/23 10:03 HPI - Anesthesia Eval Consult details Narrative: 48yo F for Upper Endoscopy and Colonoscopy PMFSH Active Problems Active Problems: All Active Problems Pain in right axilla (Acute) Acid reflux (Acute) Abdominal pain (Acute) Chronic diarrhea (Acute) Family history of breast cancer (Acute) Unexplained endometrial cells on cervical Pap smear (Acute) Abnormal uterine bleeding (Acute) Past Medical History Medical History Anxiety Depression Family History Family History Father HTN (hypertension) Diabetes Parkinson disease Mother Diabetes Maternal Aunt Breast cancer Paternal Grandmother Breast cancer Maternal Grandmother Colon cancer Surgical History Surgical History H/O breast biopsy Hx of tubal ligation Social History Social History Household Members: Significant Other Housing: Apartment Alcohol intake: current Alcohol intake frequency: holidays/special occasions only Patient Tobacco Use Status: Never used Tobacco Advance Directives: No Advance Directives Information Provided: Yes Current occupational status: employed 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 Sexual orientation: Straight/Heterosexual Gender identity: Female Meds Allergies Allergy/AdvReac Type Severity Reaction Status Date / Time aspirin Allergy Unknown swelling, Verified 07/26/23 13:43 itchy eyes;swelling of face Home Medications ?Medication ?Instructions ?Recorded ?Confirmed ?Last Taken ?Type albuterol sulfate 90 mcg/actuation 2 puff inhalation Q4H PRN wheezing 02/07/23 07/26/23 Unknown History aerosol inhaler (Ventolin HFA) amitriptyline 10 mg tablet 10 mg PO BEDTIME 02/07/23 07/26/23 Unknown History rlcfdwsqyk-[id number]-rrwaiiii 1 tab PO Q12H PRN headache 02/07/23 07/26/23 Unknown History 50 mg-325 mg-40 mg tablet cetirizine 10 mg tablet 10 mg PO QAM 02/07/23 07/26/23 Unknown History cholecalciferol (vitamin D3) 50 50 mcg PO QAM 02/07/23 07/26/23 Unknown History mcg (2,000 unit) capsule fluoxetine 20 mg capsule 20 mg PO DAILY 02/07/23 07/26/23 Unknown History fluticasone propionate 50 2 spray intranasal DAILY 02/07/23 07/26/23 Unknown History mcg/actuation nasal spray,suspension hydroxyzine pamoate 25 mg capsule 25 mg PO Q6H PRN anxiety 02/07/23 07/26/23 Unknown History omeprazole 20 mg capsule,delayed 20 mg PO DAILY 02/07/23 07/26/23 Unknown History release Exam Height,Weight and Vital Signs: Height 5 ft 4 in Weight 91.626 kg Assessment and Plan Assessment Anesthesia Assessment: Chart Reviewed Documented by User: Kaylyn Medina MD 11/24/23 07:36 [facility] Past Medical History Medical History Anxiety Depression Functional capacity: wheelchair bound Family History Family History Father HTN (hypertension) Diabetes Parkinson disease Mother Diabetes Maternal Aunt Breast cancer Paternal Grandmother Breast cancer Maternal Grandmother Colon cancer Family history of problems with anesthesia: No Surgical History Surgical History H/O breast biopsy Hx of tubal ligation History of Problems with Anesthesia: No Social History Social History Household Members: Significant Other Housing: Apartment Alcohol intake: current Alcohol intake frequency: holidays/special occasions only Patient Tobacco Use Status: Never used Tobacco Advance Directives: No Advance Directives Information Provided: Yes Current occupational status: employed 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 Sexual orientation: 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/Heterosexual Gender identity: Female Meds Allergies Allergy/AdvReac Type Severity Reaction Status Date / Time aspirin Allergy Unknown swelling, Verified 07/26/23 13:43 itchy eyes;swelling of face Home Medications ?Medication ?Instructions ?Recorded ?Confirmed ?Last Taken ?Type albuterol sulfate 90 mcg/actuation 2 puff inhalation Q4H PRN wheezing 02/07/23 07/26/23 Unknown History aerosol inhaler (Ventolin HFA) amitriptyline 10 mg tablet 10 mg PO BEDTIME 02/07/23 07/26/23 Unknown History ddulzxddcj-gdbpysslnmqoj-dcytnfrc 1 tab PO Q12H PRN headache 02/07/23 07/26/23 Unknown History 50 mg-325 mg-40 mg tablet cetirizine 10 mg tablet 10 mg PO QAM 02/07/23 07/26/23 Unknown History cholecalciferol (vitamin D3) 50 50 mcg PO QAM 02/07/23 07/26/23 Unknown History mcg (2,000 unit) capsule fluoxetine 20 mg capsule 20 mg PO DAILY 02/07/23 07/26/23 Unknown History fluticasone propionate 50 2 spray intranasal DAILY 02/07/23 07/26/23 Unknown History mcg/actuation nasal spray,suspension hydroxyzine pamoate 25 mg capsule 25 mg PO Q6H PRN anxiety 02/07/23 07/26/23 Unknown History omeprazole 20 mg capsule,delayed 20 mg PO DAILY 02/07/23 07/26/23 Unknown History release Exam Airway Mallampati Class: II (crown lateral) TM Dist: >3cm Neck ROM: Full Heart: rrr Lungs: cta Assessment and Plan Assessment Anesthesia Assessment: Anesthesia Plan Discussed Final Anesthetic Review Family History of Problems with Anesthesia: No History of Problems with Anesthesia: No NPO: Yes ASA Class: II Final Preanesthetic Review: No Changes in Pt Med Stat, Meds/Allgs Chart Reviewed and Consent Obtained/Reviewed Patient Risk: Low Procedure Risk: Low Anesthetic Plan Anesthetic Plan: MAC: Disposition: Standard PACU
[2023-11-24 07:24] VITALS: BMI 35.9
--- NOTE | 2023-11-24 07:34 | P.HPSUR_ITS ---
Pre-Procedural Eval Section A - 24 Hr Update-Section A only Date of Service: 11/24/23 Section B - Complete if H&P > 30 days Chief Complaint: Noninfective gastroenteritis and colitis,gerd, Details of Present Illness: mother with advanced polyp Relevant Family History (Specify if Yes): Yes Relevant Social History: None Present Medications: see Short Stay Collaborative assessment Medical History: Significant History (Anxiety Depression) History of Previous Operations: Relevant previous surgery/procedure and date(s) (H/O breast biopsy Hx of tubal ligation) Allergies: Allergies Allergy/AdvReac Type Severity Reaction Status Date / Time aspirin Allergy Unknown swelling, Verified 07/26/23 13:43 itchy eyes;swelling of face Review of Systems Sugical H&P ROS: Negative: Constitution, Cardiovascular, Respiratory, Neuro logical, Psychiatric, Hem-Onc, Allergic/Immunologic, Gastrointestinal, Genitourinary, Musculoskeletal, Integumentary, Endocrine and Eyes/Ears/Nose/Throat Exam Surgical H&P Exam: Normal: HEENT, Normal: Heart, Normal: Lungs, Normal: Extremities, Normal: Abdomen, Normal: Skin and Normal: Neurological Plan Diagnosis/Plan: Unchanged I have reviewed the history and physical and performed a pertinent physical examination on my patient. No changes have occurred unless specified. Time Spent With Patient Time: Total time managing care of this patient today ____ minutes.
[2023-11-24 07:50] VITALS: BP 149/83; PULSE 90; RESP 18; TEMP 36.7; O2SAT 96
[2023-11-24] MEDS: Lactated Ringers 1,000 ML 100 ML IVCONT (07:56)
--- NOTE | 2023-11-24 08:28 | P.OPN-COLO_ITS ---
Colonoscopy Operative Note Operative Note Date of Service: 11/24/23 Narrative: Operative Information Procedure Description: EGD, Colonoscopy Indication: bloating, gerd, diarrhea Anesthesia: MAC FLEXIBLE TRANSORAL UPPER GASTROINTESTINAL ENDOSCOPY AND COLONOSCOPY PROCEDURE NOTE UPPER ENDOSCOPY Consent: Indications for the procedure and potential complications of bleeding, perforation, reaction to medications and missed diagnosis were discussed with the patient and informed consent was obtained. Instrument: Olympus GIF H 190 J mid size upper endoscope Monitoring: Vital signs and clinical assessment, continuous EKG monitoring, Pulse oximetry, Carbon Dioxide monitoring and blood pressure monitoring were done throughout the procedure. Procedure: The patient was placed in the left lateral decubitis position and pre-procedure medications were administered and a bite block was placed. The endoscope was inserted into the mouth and advanced under direct vision to the third part of duodenum. A careful inspection was made as the upper endoscope was withdrawn including a retroflexed examination of the proximal stomach; Findings and interventions are described below. Findings: Larynx:normal Esophagus: GE junction at 38 cm, diaphragm hiatus at 38 cm, mild erythema at GEJ bx taken from GEj and distal esophagus Stomach: Patchy erythema, scarring. Biopsies were obtained. Grade 2 flap valve on retroflexed examination of the cardia. small gastric polyp 3-4 mm removed with cold forceps Duodenum: Normal bulb and descending duodenum, bx taken Intervention: Biopsies as noted above, COLONOSCOPY Instrument: Olympus variable stiffness pediatric scope 190L Colonoscopy Monitoring: Vital signs and clinical assessment, continuous EKG monitoring, Pulse oximetry, Carbon Dioxide monitoring and blood pressure monitoring were done throughout the procedure. Colon withdrawal time was 10 minutes. Procedure: The patient was placed in the left lateral decubitis position and pre-procedure medications were administered. After a digital rectal examination of the ano-rectum, the video colonoscope was inserted into the rectum and advanced through the colon to the cecum/TI. The colonoscope was slowly withdrawn in a retrograde panoramic fashion and the colon mucosa was carefully examined including a retroflexed view of the rectum. Findings and interventions are described below. Procedure Difficulty:moderate Findings: Terminal Ileum-normal, bx taken Random colon bx taken Cecum:normal Ascending Colon: 8 mm sessile polyp removed with cold snare Transverse Colon -normal Descending Colon:normal Sigmoid Colon: mild diverticulosis Rectum: Retroflexion with small internal hemorrhoids, grade I Anorectum - normal Colon preparation: [place] Bowel Preparation Scale Right colon; 2 Transverse colon: 2 Left colon; 2 (0 = Unprepared colon segment with mucosa not seen due to solid stool that cannot be cleared. 1 = Portion of mucosa of the colon segment seen, but other areas of the colon segment not well seen due to staining, residual stool and/or opaque liquid. 2 = Minor amount of residual staining, small fragments of stool and/or opaque liquid, but mucosa of colon segment seen well. 3 = Entire mucosa of colon segment seen well with no residual staining, small fragments of stool or opaque liquid) Impression and Post Procedure Diagnosis: Endoscopy Findings: gastric polyp gastritis esophagitis, mild Colonoscopy Findings: diverticulosis colon polyp internal hemorrhoids Plan: Await Pathology results Repeat Colonoscopy in 5 years due to polyp or earlier if clinically indicated High fiber diet leaflet avoid straining at stool, epsom salts and sitz bath, anusol supps or cream if H pylori pos then treat Above findings were reviewed with the patient and relevant handouts were provided if indicated.
[2023-11-24 08:52] VITALS: BP 101/58; PULSE 94; RESP 16; TEMP 36.6; O2SAT 96
[2023-11-24 09:07] VITALS: BP 130/64; PULSE 86; RESP 18; TEMP 36.4; O2SAT 95
== END 2023-11-24 09:49 | disposition home or self-care (01) ==
PROVIDERS: PCP Family Medicine; Visit Provider Internal Medicine Gastroenterology
PROC: (CPT 43239; principal; 2023-11-24 08:50)
DX: K31.7 Polyp of stomach and duodenum (principal); K29.70 Gastritis, unspecified, without bleeding; K20.80 Other esophagitis without bleeding; D12.2 Benign neoplasm of ascending colon; K57.30 Diverticulosis of large intestine without perforation or abscess without bleeding; K64.0 First degree hemorrhoids; K21.9 Gastro-esophageal reflux disease without esophagitis; K52.9 Noninfective gastroenteritis and colitis, unspecified
CPT/HCPCS: 43239; 45385; 45380; 88305; 88313; 88342; J1100; J1596; J2250; J2704

== ENCOUNTER → 2023-11-24 06:59 | Outpatient (BNV) | payer MEDICAID, SELFPAY | PROVIDERS: PCP Family Medicine; Visit Provider Internal Medicine Gastroenterology | DX: K21.00 Gastro-esophageal reflux disease with esophagitis, without bleeding (principal); K31.7 Polyp of stomach and duodenum; K29.70 Gastritis, unspecified, without bleeding; R19.7 Diarrhea, unspecified; K57.30 Diverticulosis of large intestine without perforation or abscess without bleeding; D12.2 Benign neoplasm of ascending colon; K64.0 First degree hemorrhoids | CPT/HCPCS: 43239; 45380; 45385 ==

== ENCOUNTER 2023-11-25 06:01 | Outpatient (REF) | payer MEDICAID, SELFPAY ==
[2023-11-25 07:58] LABS: Hematocrit 38.9 % (37.0-47.0); Hemoglobin 13.1 g/dl (12.0-16.0); Mean Corpuscular HGB Conc 33.7 g/dl (31.0-35.0); Mean Corpuscular Hemoglobin 29.8 pg (27.0-33.0); Mean Corpuscular Volume 88.6 fL (80.0-98.0); Mean Platelet Volume 11.1 fL (9.4-12.3); Platelet Count 276 X10*3/uL (160-400); Red Blood Count 4.39 X10*6/uL (4.20-5.50); Red Cell Distribution Width 12.7 % (11.0-16.0); White Blood Count 8.5 X10*3/uL (4.8-10.8)
[2023-11-25 08:06] LABS: Estimated Average Glucose 105 mg/dL; Hemoglobin A1c % 5.3 % (<6.0); Total Hemoglobin (HGBA1C) 3256.7163 umol/L
[2023-11-25 08:30] LABS: Alanine Aminotransferase 22 U/L (0-31); Albumin Level 4.1 g/dL (3.5-5.0); Alkaline Phosphatase 76 U/L (39-117); Anion Gap 12 (12-20); Aspartate Amino Transferase 20 U/L (5-31); Bilirubin Direct 0.1 mg/dL (0.0-0.5); Bilirubin Total 0.3 mg/dL (0.0-1.0); Blood Urea Nitrogen 6 mg/dL (9-16); Calcium 9.2 mg/dL (8.4-10.2); Carbon Dioxide 25 mmol/L (22-29); Chloride 106 mmol/L (96-108); Cholesterol 265 mg/dL (<200); Estimated Glomerular Filt Rate > 60; Glucose Random 94 mg/dL (60-115); HDL Cholesterol 72 mg/dL (>40); Iron 75 mcg/dL (30-160); LDL Cholesterol Calculated 163 mg/dL (<100); Percent Iron Saturation 24 % (15-50); Potassium 3.3 mmol/L (3.3-5.1); Sodium 140 mmol/L (135-145); Total Iron Binding Capacity 311 mcg/dL (228-428); Total Protein 7.6 g/dL (6.5-8.0); Triglycerides 151 mg/dL (<150); Unsaturated Iron Binding 236 ug/dL
[2023-11-25 08:58] LABS: Ferritin 40 ng/mL (10-250); Thyroid Stimulating Hormone 0.67 uIU/mL (0.32-4.0); Vitamin D 25-OH Total 41.1 ng/mL (>30)
[2023-11-25 09:02] LABS: Folate 13.3 ng/mL (> or = 4.0); Vitamin B12 837 pg/mL (200-900)
[2023-11-25 09:05] LABS: Hepatitis A Antibody IgG REACTIVE (Nonreactive); ~Hepatitis A Antibody IgG 11.65 S/CO (0.00-0.99)
[2023-11-25 09:10] LABS: HBc Num1 0.12 S/CO (0.00-0.79); HBsAGNum1 0.28 S/CO (0.00-0.99); HIV AB/AG Nonreactive (Nonreactive); HIV Num 1 0.05 S/CO (0.00-0.99); Hepatitis B Core Antibody Nonreactive (Nonreactive); Hepatitis B Surface Antigen Negative (Negative); ~HepC Num1 0.08 S/CO (0.00-0.79); ~Hepatitis B Surface Antibody REACTIVE (Nonreactive); ~Hepatitis C Antibody Nonreactive (Nonreactive)
[2023-11-28 13:08] LABS: RPR Rapid Plasma Reagin NON-REACTIVE (NON-REACTIVE)
== END 2023-11-25 06:02 | disposition home or self-care (01) ==
LOC: HO.LAB 06:01
PROVIDERS: PCP Family Medicine; Visit Provider Family Medicine
DX: Z00.00 Encounter for general adult medical examination without abnormal findings (principal); F41.9 Anxiety disorder, unspecified; J45.20 Mild intermittent asthma, uncomplicated; G43.909 Migraine, unspecified, not intractable, without status migrainosus; K21.9 Gastro-esophageal reflux disease without esophagitis; K52.9 Noninfective gastroenteritis and colitis, unspecified; N93.9 Abnormal uterine and vaginal bleeding, unspecified; D64.9 Anemia, unspecified; Z80.3 Family history of malignant neoplasm of breast; M79.601 Pain in right arm; M79.602 Pain in left arm; R03.0 Elevated blood-pressure reading, without diagnosis of hypertension; Z68.36 Body mass index [BMI] 36.0-36.9, adult
CPT/HCPCS: 80048; 80061; 80076; 82306; 82607; 82728; 82746; 83036; 83540; 84439; 84443; 85027; 86592; 86704; 86706; 86708; 86803; 87340; 87389; 87491; 87591

== ENCOUNTER 2023-12-05 17:57 | Outpatient (REF) | payer MEDICAID, SELFPAY ==
[2023-12-06 04:40] LABS: CT PCR NOT DETECTED (Not Detect.); NG PCR NOT DETECTED (Not Detect.)
== END 2023-12-05 17:58 | disposition home or self-care (01) ==
LOC: HO.HHCLNP 17:57
PROVIDERS: Visit Provider Family Medicine
DX: Z11.3 Encounter for screening for infections with a predominantly sexual mode of transmission (principal)
CPT/HCPCS: 87491; 87591

== ENCOUNTER 2023-12-06 08:50 | Outpatient (REF) | payer MEDICAID, SELFPAY ==
--- NOTE | 2023-12-06 09:19 | EMG_ITS ---
Bilateral median and ulnar motor and sensory studies were performed. Bilateral antecubital, medial, and lateral sensory studies were performed, and bilateral radial sensory studies were performed. Needle examination was performed. IMPRESSION: 1. Mild bilateral median neuropathy across carpal tunnel. 2. Mild left ulnar neuropathy across cubital tunnel. MD JOSE Morales/RENETTA / [phone]
== END 2023-12-06 08:51 | disposition home or self-care (01) ==
LOC: HO.NEURO 08:50
PROVIDERS: PCP Family Medicine; Visit Provider Family Medicine
DX: M79.601 Pain in right arm (principal); M79.602 Pain in left arm
CPT/HCPCS: 95886; 95913

== ENCOUNTER 2023-12-30 10:32 | Emergency (ER) | payer MEDICAID, SELFPAY ==
[2023-12-30 10:50] VITALS: BP 129/60; PULSE 98; RESP 16; TEMP 36.8; O2SAT 98; BMI 36.1
--- NOTE | 2023-12-30 11:04 | ECG_ITS ---
Test Reason : DIZZINESS Blood Pressure : / mmHG Vent. Rate : 100 BPM Atrial Rate : 100 BPM P-R Int : 148 ms QRS Dur : 078 ms QT Int : 350 ms P-R-T Axes : 023 044 -08 degrees QTc Int : 451 ms Normal sinus rhythm Possible Left atrial enlargement ST & T wave abnormality, consider inferior ischemia Abnormal ECG No previous ECGs available Referred By: Hilary Kang Electronically Signed By:Pepe Baker
--- NOTE | 2023-12-30 11:05 | ED_ITS ---
HPI - General Adult General Chief complaint: Abdominal Pain Stated complaint: dizziness-abd pain Time Seen by Provider: 12/30/23 13:33 Source: patient and dna sequencing associate (all interactions with this patient were facilitated with an [facility] seismic interpreter) Mode of arrival: ambulatory Limitations: language barrier (all interactions with this patient were facilitated with an [facility] seismic interpreter) History of Present Illness ED Provider: Fely Arciniega PA-C HPI narrative: Patient is a 48 year old assigned female at with no reported medical history presenting to the emergency department today with dizziness and nausea after using a medication not prescribed to her. Patient states that her doctor prescribed semaglutide but insurance declined it and the patient used her brother's instead. Patient's brother's dose was higher than her prescribed dose. Patient states that since then she has had dizziness and nausea. Patient denies any lightheadedness, abdominal pain, vomiting, fever, chills, blurry vision, double vision, loss of vision, chest pain, difficulty breathing, shortness of breath, back pain, night sweats, pain with urination, increased urinary frequency, increased urinary urgency, blood in her urine or stool, syncope or a near syncopal episode, recent trauma or falls, bowel incontinence, bladder incontinence, or any other complaints at this time. Relieving factors: none Exacerbating factors: none Associated symptoms: nausea/vomiting Treatments prior to arrival: none Related Data Home Medications ?Medication ?Instructions ?Recorded ?Confirmed albuterol sulfate 90 mcg/actuation 2 puff inhalation Q4H PRN wheezing 02/07/23 11/24/23 aerosol inhaler (Ventolin HFA) amitriptyline 10 mg tablet 10 mg PO BEDTIME 02/07/23 11/24/23 oikagumygw-lepekqkplvjvt-ncuwcqfa 1 tab PO Q12H PRN headache 02/07/23 11/24/23 50 mg-325 mg-40 mg tablet cetirizine 10 mg tablet 10 mg PO QAM 02/07/23 11/24/23 cholecalciferol (vitamin D3) 50 50 mcg PO QAM 02/07/23 11/24/23 mcg (2,000 unit) capsule fluoxetine 20 mg capsule 20 mg PO DAILY 02/07/23 11/24/23 fluticasone propionate 50 2 spray intranasal DAILY 02/07/23 11/24/23 mcg/actuation nasal spray,suspension hydroxyzine pamoate 25 mg capsule 25 mg PO Q6H PRN anxiety 02/07/23 11/24/23 omeprazole 20 mg capsule,delayed 20 mg PO DAILY 02/07/23 11/24/23 release Allergies Allergy/AdvReac Type Severity Reaction Status Date / Time aspirin Allergy Unknown swelling, Verified 12/30/23 11:01 itchy eyes;swelling of face Review of Systems 2 Constitutional: Constitutional: Reports no additional constitutional complaints, Denies chills, Denies fever(s) and Denies night sweats Eyes: Eyes: Reports no additional eye complaints, Denies blurry vision, Denies change in vision, Denies diplopia, Denies eye discharge, Denies loss of vision and Denies eye pain ENT: Reports dizziness Cardiovascular: Cardiovascular: Reports no additional cardiovascular complaints, Denies chest pain, Denies lightheadedness, Denies Loss of Consciousness and Denies dyspnea Respiratory: Respiratory: Reports no additional respiratory complaints and Denies dyspnea Gastrointestinal: Gastrointestinal: Reports no additional gastrointestinal complaints, Denies abdominal pain, Denies melena, Denies hematochezia, Denies change in bowel habits, Denies change in stool character and Reports nausea Genitourinary: Genitourinary: Denies hematuria, Denies urinary frequency, Denies dysuria, Denies urinary incontinence, Denies urinary hesitancy and Denies urinary urgency Musculoskeletal: Musculoskeletal: Reports no additional musculoskeletal complaints, Denies numbness and Denies tingling Neurologic: Reports dizziness, Denies loss of vision, Denies numbness and Denies tingling Psychiatric: Psychiatric: Reports no additional psychiatric complaints Endocrine: Endocrine: Reports no additional endocrine complaints Hematologic/Lymphatic: Hematologic/Lymphatic: Reports no additional hematologic/lymphatic complaints Allergic/Immunologic: Allergic/Immunologic: Reports no additional allergic/immunologic complaints [facility] Past Medical History Attestation statement: The following information was validated with the patient. Source: old records reviewed and nursing notes reviewed Medical History Asthma Anxiety Depression Surgical History H/O breast biopsy Hx of tubal ligation Family History Family History Father HTN (hypertension) Diabetes Parkinson disease Mother Diabetes Maternal Aunt Breast cancer Paternal Grandmother Breast cancer Maternal Grandmother Colon cancer Social History Social History Household Members: Significant Other Housing: Apartment Are you a primary specialist wound care to a significant other at home: No Do you presently have visiting nurse or other home services: No Alcohol intake: current Alcohol intake frequency: holidays/special occasions only Patient Tobacco Use Status: Never used Tobacco Advance Directives: No Advance Directives Information Provided: No Current occupational status: employed 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 Sexual orientation: Straight/Heterosexual Gender identity: Female Physical Exam ED Vital Signs: Vital Signs - 24 hr 12/30/23 10:50 Temperature 98.3 F Pulse Rate 98 Respiratory Rate 16 Blood Pressure 129/60 Pulse Oximetry 98 Oxygen Delivery Method Room Air BMI result Body Mass Index 36.1 Const General: cooperative, no acute distress, alert and awake Nutritional Appearance: well nourished Orientation/consciousness: patient oriented x3 Limitations: no limitations HENMT Head: Yes normal to inspection and Yes atraumatic Ears: hearing grossly normal bilaterally and external ears normal General nose exam: Normal external nose present, no nasal discharge noted and no epistaxis Face and sinus: Yes normal facial exam, No abrasion and No laceration Mouth: Normal oral and palatal mucosa present, no drooling and no muffled voice Eyes General: appearance normal, both eyes and all related structures Periorbital: periorbital findings normal Eyelids: Yes eyelids normal Conjunctivae: conjunctivae normal Pupils: Equal, round and reactive pupils present EOM: EOMs intact bilaterally Neck Neck: Yes normal visual inspection, Yes full ROM and Yes no lymphadenopathy Chest Chest palpation & inspection: normal inspection of the chest Resp Effort & Inspection: normal respiratory effort and able to speak in complete sentences GI Inspection: Yes normal to inspection Neuro General: patient oriented x3 and moves all extremities Cranial nerves: Yes Equal, round and reactive pupils present Cognition (Neuro): normal cognition Extrem General: Yes normal to inspection, Yes full ROM and Yes capillary refill normal Psych Appearance: grossly normal Mental Status: mental status grossly normal Affect: normal affect Attitude: cooperative Thought process: Normal thought process present Thought content: Normal thought content present Insight: Good insight present (Psych) Course Course Course Narrative: This is an RME performed by Judy Kang CNP: Additional HPI, ROS, PE not included below will be deferred to primary provider. Patient is a 48-year-old female who presents emergency department for evaluation. She reports that recently her doctor had tried to prescribe her semaglutide, unfortunately her insurance would not cover the medication. She reports on 12/26/2023 she took an injection of her brother's semaglutide, and of note the dosage was higher than the dosage her doctor was going to start her on but she did not know this at that time. She reports soon after she started feeling dizziness, nausea, chills, does balance, and continues to feel this way. Discussed with patient this may be secondary to medication side effect especially if she has taken a higher dose Exam: Vital signs stable, steady gait, no neurological deficits Plan: Serum labs, ECG Medical Decision Making Medical Decision Making [facility] Narrative: Patient is a 48 year old assigned female at with no reported medical history presenting to the emergency department today with dizziness and nausea after using a medication that was not prescribed to her. Patient's physical exam was unremarkable. Patient's blood work was unremarkable. Patient's urine showed no acute process. Patient's EKG was unremarkable. I explained my physical exam findings as well as all test results to the patient. I answered all questions asked by the patient. I stressed the importance of the patient taking her medication as directed (either prescribed or as the over the counter packaging recommends). I stressed the importance of the patient following up with her primary care provider. I stressed the importance of the patient returning to the emergency department immediately if her symptoms were to worsen or if she were to develop any dizziness, shortness of breath, difficulty breathing, chest pain, blurry vision, loss of vision, nausea, vomiting, abdominal pain, fever, chills, back pain, or any other complaints. Patient verbalized agreement and understanding with this treatment plan and discharge. Differential Diagnosis Differential Diagnoses: The differential diagnosis associated with the presentation includes Medication reaction Adverse medication effect Admission/Observation Consideration of admission/observation: Escalation of care including admission/observation considered Patient would have been admitted to the hospital had her work up had any findings where hospital admission was appropriate and her clinical presentation warranted hospital admission. Lab Data [facility] Lab Attestation statement: I reviewed the patient's lab results. My interpretation of these results are in the [facility] Rationale portion of this note. 12/30/23 11:23 12/30/23 11:23 Labs: Lab Results 12/30/23 Range/Units 11:23 WBC 8.1 (4.8-10.8) X10*3/uL RBC 5.39 D (4.20-5.50) X10*6/uL Hgb 15.8 D (12.0-16.0) g/dl Hct 45.5 (37.0-47.0) % MCV 84.4 (80.0-98.0) fL MCH 29.3 (27.0-33.0) pg MCHC 34.7 (31.0-35.0) g/dl RDW 12.1 (11.0-16.0) % Plt Count 365 D (160-400) X10*3/uL MPV 10.7 (9.4-12.3) fL Immature Gran % (Auto) 0.4 (0.0-0.4) % Neut % (Auto) 61.2 (45-73) % Lymph % (Auto) 26.3 (20-40) % [place] % (Auto) 9.5 (2-11) % Eos % (Auto) 2.1 (0-4) % Baso % (Auto) 0.5 (0-2) % Lymph # (Auto) 2.1 (1.2-4.9) X10*3/uL [place] # (Auto) 0.8 (0.1-1.2) X10*3/uL Eos # (Auto) 0.2 (0.0-0.4) X10*3/uL Baso # (Auto) 0.0 (0.0-0.2) X10*3/uL Abs Immat Gran (auto) 0.03 (0.00-0.03) X10*3/uL Absolute Neuts (auto) 5.0 (2.0-8.3) x10*3/uL Absolute Nucleated RBC 0.000 (0.0-0.012) X10*3/uL Nucleated RBC % (auto) 0.0 (0.0-0.2) /100WBC PT 11.6 (10.9-12.4) SEC INR 1.0 (0.9-1.1) Sodium 136 (135-145) mmol/L Potassium 3.2 L (3.3-5.1) mmol/L Chloride 95 L (96-108) mmol/L Carbon Dioxide 28 (22-29) mmol/L Anion Gap 16 (12-20) BUN 14 (9-16) mg/dL Creatinine 1.02 (0.5-1.4) mg/dL Estim Creat Clear Calc 78.3 Estimated GFR 58 Random Glucose 101 (60-115) mg/dL Calcium 10.1 D (8.4-10.2) mg/dL Magnesium 2.1 (1.6-2.6) mg/dL Total Bilirubin 0.5 (0.0-1.0) mg/dL AST 62 H (5-31) U/L ALT 115 H (0-31) U/L Alkaline Phosphatase 102 (39-117) U/L Troponin I High Sens < 2.7 (<3.5-17.0) ng/L B-Natriuretic Peptide < 10 (<100) pg/mL Total Protein 9.0 H (6.5-8.0) g/dL Albumin 4.8 (3.5-5.0) g/dL Lipase 25 (8-78) U/L Urine Color Dark Yellow Urine Appearance Cloudy Urine pH 5.0 (5.0-9.0) Ur Specific [place] >= 1.030 H (1.005-1.025) Urine Protein 30 (1+) H (Neg-Trace) mg/dL Urine Glucose (UA) Negative (Negative) mg/dL Urine Ketones Trace (Negative) mg/dL Urine Blood Large (3+) H (Negative) Urine Nitrite Negative (Negative) Ur Leukocyte Esterase Trace H (Negative) Urine RBC >20 H (0-2) /HPF Urine WBC 6-10 H (0-5) /HPF Ur Squamous Epith Cells >20 (0-2) /HPF Urine Bacteria Trace (None Seen) Hyaline Casts 11-20 (0-2) /LPF Granular Casts Present Influenza Type A (PCR) NEGATIVE (Negative) Influenza Type B (PCR) NEGATIVE (Negative) RSV RNA Qual (PCR) NEGATIVE (Negative) SARS-CoV-2 RNA (RT-PCR) NEGATIVE (Negative) Independent Interpretation I performed an independent interpretation of an: EKG Interpretation: Vent. Rate: 100 BPM Atrial Rate: 100 BPM P-R Int: 148 ms QRS Dur: 078 ms QT Int: 350 ms P-R-T Axes: 023 044 -08 degrees QTc Int: 451 ms Normal sinus rhythm Possible Left atrial enlargement ST & T wave abnormality, consider inferior ischemia Abnormal ECG No previous ECGs available DD/ 1105 Discharge Plan Discharge Clinical Impression: Adverse drug effect Patient Disposition: Home, Self-Care Instructions: Medication Safety for Older Adults (ED) Additional Instructions: Please do not take others medications. Please only take medications prescribed to you. Follow up with your primary care provider. Return to the emergency department immediately if your symptoms worsen or if you develop any dizziness, shortness of breath, difficulty breathing, chest pain, blurry vision, loss of vision, nausea, vomiting, abdominal pain, fever, chills, back pain, or any other complaints. No tome medicamentos de otras personas. [place] s?lo los medicamentos que le hayan recetado. Scar un seguimiento con miramontes m?dico de cabecera. Acuda inmediatamente al servicio de urgencias si kaela s?ntomas empeoran o si presenta mareos, falta de aire, dificultad para respirar, dolor tor?cico, visi?n borrosa, p?rdida de visi?n, n?useas, v?mitos, dolor abdominal, fiebre, escalofr?os, dolor de espalda o cualquier otra molestia. Prescriptions: No Action ebmepvggor-dhpjixfevtbsu-linz 50-325-40 mg tablet 1 tab PO Q12H PRN (Reason: headache) fluticasone propionate 50 mcg/actuation spray,suspension 2 spray intranasal DAILY albuterol sulfate [Ventolin HFA] 90 mcg/actuation HFA aerosol inhaler 2 puff inhalation Q4H PRN (Reason: wheezing) hydroxyzine pamoate 25 mg capsule 25 mg PO Q6H PRN (Reason: anxiety) amitriptyline 10 mg tablet 10 mg PO BEDTIME omeprazole 20 mg capsule,delayed release(DR/EC) 20 mg PO DAILY cholecalciferol (vitamin D3) 50 mcg (2,000 unit) capsule 50 mcg PO QAM cetirizine 10 mg tablet 10 mg PO QAM fluoxetine 20 mg capsule 20 mg PO DAILY Referrals: Ada Caruso DO [Primary Care Provider] - Print Language: French
[2023-12-30 11:31] LABS: MANUAL DIFF FLAG NO
[2023-12-30 11:34] LABS: Basophils Percent Auto 0.5 % (0-2); Eosinophils Absolute Auto 0.2 X10*3/uL (0.0-0.4); Eosinophils Percent Auto 2.1 % (0-4); Hematocrit 45.5 % (37.0-47.0); Hemoglobin 15.8 g/dl (12.0-16.0); Imm Gran Abs Auto 0.03 X10*3/uL (0.00-0.03); Imm Gran Pct Auto 0.4 % (0.0-0.4); Lymphocytes Absolute Auto 2.1 X10*3/uL (1.2-4.9); Lymphocytes Percent Auto 26.3 % (20-40); Mean Corpuscular HGB Conc 34.7 g/dl (31.0-35.0); Mean Corpuscular Hemoglobin 29.3 pg (27.0-33.0); Mean Corpuscular Volume 84.4 fL (80.0-98.0); Mean Platelet Volume 10.7 fL (9.4-12.3); Monocytes Absolute Auto 0.8 X10*3/uL (0.1-1.2); Monocytes Percent Auto 9.5 % (2-11); Neutrophils Percent Auto 61.2 % (45-73); Platelet Count 365 X10*3/uL (160-400); Red Blood Count 5.39 X10*6/uL (4.20-5.50); Red Cell Distribution Width 12.1 % (11.0-16.0); White Blood Count 8.1 X10*3/uL (4.8-10.8)
[2023-12-30 11:37] LABS: Prothrombin Time 11.6 SEC (10.9-12.4)
[2023-12-30 11:43] LABS: Appearance Urine Cloudy; Color Urine Dark Yellow; Glucose Urine UA Negative (Negative); Leukocyte Esterase Urine Trace (Negative); Nitrite Urine Negative (Negative); Specific Gravity - Urine >= 1.030 (1.005-1.025); UMIC TRIGGER UACC YES; Urine Blood Large (3+) (Negative); Urine Ketones Trace mg/dL (Negative); Urine Protein 30 (1+) mg/dL (Neg-Trace)
[2023-12-30 11:46] LABS: Alanine Aminotransferase 115 U/L (0-31); Albumin Level 4.8 g/dL (3.5-5.0); Alkaline Phosphatase 102 U/L (39-117); Anion Gap 16 (12-20); Aspartate Amino Transferase 62 U/L (5-31); Bilirubin Total 0.5 mg/dL (0.0-1.0); Blood Urea Nitrogen 14 mg/dL (9-16); Calcium 10.1 mg/dL (8.4-10.2); Carbon Dioxide 28 mmol/L (22-29); Chloride 95 mmol/L (96-108); Creatinine Clr Calc Pharmacy 78.3; Estimated Glomerular Filt Rate 58; Glucose Random 101 mg/dL (60-115); Lipase 25 U/L (8-78); Magnesium 2.1 mg/dL (1.6-2.6); Potassium 3.2 mmol/L (3.3-5.1); Sodium 136 mmol/L (135-145)
[2023-12-30 11:51] LABS: B Type Natriuretic Peptide < 10 pg/mL (<100)
[2023-12-30 11:56] LABS: Troponin-I High Sensitivity < 2.7 ng/L (<3.5-17.0)
[2023-12-30 12:02] LABS: Bacteria Urine Trace (None Seen); Granular Casts Urine Present; RBC Urine >20 /HPF (0-2); Squamous Epithelial Cell Urine >20 /HPF (0-2); UACC Culture Trigger YES
[2023-12-30 12:09] LABS: Influenza A PCR NEGATIVE (Negative); Influenza B PCR NEGATIVE (Negative); Resp Syncy Virus RNA Qual PCR NEGATIVE (Negative); SARS COV2 PCR INHOUSE NEGATIVE (Negative)
[2023-12-30 13:54] VITALS: BP 123/79; PULSE 101; RESP 16; TEMP 36.3; O2SAT 96
== END 2023-12-30 13:55 | disposition home or self-care (01) ==
PROVIDERS: Nurse Practitioner Family; Emergency Provider Emergency Medicine Emergency Medical Services; PCP Family Medicine
DX: R42 Dizziness and giddiness (principal); R11.0 Nausea; R10.9 Unspecified abdominal pain; R94.31 Abnormal electrocardiogram [ECG] [EKG]; Z79.899 Other long term (current) drug therapy; Z03.818 Encounter for observation for suspected exposure to other biological agents ruled out; Z79.85 Long-term (current) use of injectable non-insulin antidiabetic drugs
CPT/HCPCS: 0241U; 36415; 80053; 81001; 83690; 83735; 83880; 84484; 85025; 85610; 87086; 93005; 99283

== ENCOUNTER → 2023-12-30 11:04 | Outpatient (BNV) | payer MEDICAID, SELFPAY | PROVIDERS: Emergency Provider Emergency Medicine Emergency Medical Services; PCP Family Medicine; Visit Provider Internal Medicine Cardiovascular Disease | DX: R42 Dizziness and giddiness (principal); R94.31 Abnormal electrocardiogram [ECG] [EKG] | CPT/HCPCS: 93010 ==

== ENCOUNTER 2024-02-06 09:04 | Outpatient (REF) | payer MEDICAID, SELFPAY ==
[2024-02-07 15:01] LABS: H Pylori Breath Test Positive (Negative)
== END 2024-02-06 09:05 | disposition home or self-care (01) ==
LOC: HO.LNP 09:04
PROVIDERS: PCP Family Medicine; Visit Provider Internal Medicine Gastroenterology
DX: A04.8 Other specified bacterial intestinal infections (principal)
CPT/HCPCS: 83013; 99211

== ENCOUNTER 2024-04-16 09:43 | Outpatient (AMB) | payer BC, SELFPAY ==
--- NOTE | 2024-04-16 10:05 | AM.OFFVISNUR ---
Intake Visit Reasons: H Pylori Re-test Allergies aspirin Allergy (Unknown, Verified 02/20/24 11:53) swelling, itchy eyes;swelling of face Nursing Note Patient presents for collection of?H Pylori?breath test. Patient has been fasting for 1 hour (nothing to eat, drink, no chewing gum or smoking) has not taken any antacid medication for at least 2 weeks and has no allergies to artificial sweeteners.?? Assessment & Plan Assessment & Plan (1) H. pylori infection: Code(s): A04.8 - Other specified bacterial intestinal infections Category: Medical (2) Acid reflux: Code(s): K21.9 - Gastro-esophageal reflux disease without esophagitis Category: Medical (3) Abdominal pain: Comment: Diffuse, non specific, intermittent Code(s): R10.9 - Unspecified abdominal pain Category: Medical Plan Patient presents for collection of?H Pylori?breath test. Patient has been fasting for 1 hour (nothing to eat, drink, no chewing gum or smoking) has not taken any antacid medication for at least 2 weeks and has no allergies to artificial sweeteners.???This test checks for an overgrowth of bacteria in your stomach. We all have bacteria but some may have more than others. It is treatable. if the test comes back negative there is nothing else to do. If the test result is positive we will treat you with 2 antibiotics and a medication to decrease the acid in your stomach (PPI) for 2 weeks. Two weeks after you have completed the treatment we will retest you to make sure the overgrowth has resolved. Patient Instructions: Process for specimen collection and reason for testing was explained to the patient. Specimen collection. Patient instructed to take a deep breath and then exhale into the blue bag, filling it up as much as possible. Patient instructed to drink a mixture of water and the artificial sweetener with a straw. A 15 minute wait period was observed. Patient instructed to take a deep breath and then exhale into the pink bag, filling it up as much as possible. Coding Level of Care Code Established Pt Est Pt Level 1 (45766) Patient Type Established Medical Decision Making Straight Forward Diagnoses H. pylori infection A04.8 Acid reflux K21.9 Abdominal pain R10.9
== END 2024-04-16 10:21 | disposition home or self-care (01) ==
PROVIDERS: PCP Family Medicine; Visit Provider Internal Medicine Gastroenterology
DX: A04.8 Other specified bacterial intestinal infections (principal); K21.9 Gastro-esophageal reflux disease without esophagitis; R10.9 Unspecified abdominal pain

== ENCOUNTER 2024-04-16 09:43 | Outpatient (REF) | payer BC, SELFPAY ==
--- OUTSIDE RECORDS SUMMARY | 2024-04-16 16:48 | XMS_ITS | Encounter Summary ---
Author Organization [employer] Address [address] [place] [address] Care Team Providers Care Managing Cognitive Engineer Name Role Phone Ada Caruso Primary Care Provider [phone] Encounter Details Date Type Department Care Team ([facility] st Contact Info) Description 05/14/2022 Orders Only [facility] MEDICINE [address] [place], [place] [phone] Karin Shepherd MD [address] [place], [place] [phone] Iron deficiency anemia, unspecified iron deficiency anemia type (Primary Dx) Social History Tobacco Use Types Packs/Day Years Used Date Smoking Tobacco: Never Passive Smoke Exposure: Never Smokeless Tobacco: Never Alcohol Use Standard Drinks/Week Comments Never 0 (1 standard drink = 0.6 oz pur e alcohol) Comments Unknown Sex and Gender Information Value Date Recorded Sex Assigned at Female 01/04/2022 10:15 AM EDT Legal Sex Female 10:15 AM EDT Gender Identity Female 01/04/2022 10:15 AM EDT Sexual Orientation Straight 01/04/2022 10 :15 AM EDT COVID-19 Exposure Response Date Recorded In the last 10 days, have jen bucio been in contact with someone who was confirmed or suspected to have Coronavirus/COVID-19? No / Unsure 05/12/2022 9:58 AM EST documented as of this encounter Miscellaneous Notes * Result Encounter Note - Karin Shepherd MD - 05/14/2022 3:57 PM EST Please let patent know that her hemoglobin has gone up to 8.5, great work! She needs to stay on thehigh dose supplement until her hemoglobin is between 10 and 11. Is she having any side effects that we need to manage? We can recheck her hemoglobin in 2-3 months and followup with PCP for ongoing mgmt. Thank you documented in this encounter Plan of Treatment Not on file documented as of this encounter Procedures Procedure Name Priority Date/Time Associated Diagnosis Comments CBC MORPHOLOGY Routine 05/27/2022 1:42 PM EDT CBC WITH AUTO DIFFERENTIAL Routine 05/27/2022 1:42 PM EDT Iron deficiency anemia, unspecified iron deficiency anemia type documented in this encounter Results * CBC MORPHOLOGY (05/27/2022 1:42 PM EDT) Pathologist [facility] [place] CBC MORPHOLOGY [facility] Comment:Polychromasia 1 + 05/27/2022 1:42 PM EDT 05/27/2022 1:42 PM EDT us Karin Shepherd MD LAB BLOOD ORDERABLES Final Res ult [facility] [address], [place] [address] [facility] [place] [facility] [address] [place] [address] * (ABNORMAL) CBC auto differential (05/27/2022 1:42 PM EDT) Pathologist [facility] [place] White Blood Cell Count 8.6 3.8 - 10.8 Thousand/ uL [facility] Red Blood Cell Count 4.04 3.80 - 5.10 Million/u L [facility] Hemoglobin 8.5(L) 11.7 - 15.5 g/dL [facility] Hematocrit 28.2(L) 35.0 - 45.0 % [facility] MCV 69.8(L) 80.0 - 100.0 fL [facility] MCH 21.0(L) 27.0 - 33.0 pg [facility] MCHC 30.1(L) 32.0 - 36.0 g/dL [facility] RDW 19.3(H) 11.0 - 15.0 % [facility] Platelet Count 223 140 - 400 Thousand/ uL [facility] [place] [facility] MPV 10.5 7.5 - 12.5 fL [facility] Absolute Neutrophils 4,223 1,500 - 7,800 cells/uL [facility] Absolute Lymphocytes 3,552 850 - 3,900 cells/uL [facility] Absolute Monocytes 619 200 - 950 cells/uL [facility] Absolute Eosinophils 146 15 - 500 cells/uL [facility] Absolute Basophils 60 0 - 200 cells/uL [facility] [place] [facility] Neutrophils 49.1 % [facility] [place] [facility] Lymphocytes 41.3 % [facility] [place] [facility] Monocytes 7.2 % [facility] [place] [facility] Eosinophils 1.7 % [facility] [place] [facility] Basophils 0.7 % [facility] Referrals [place] [facility] Blood Venous blood specimen / Unknown 05/27/2022 1:42 PM EDT 05/27/2022 1:42 PM EDT us Karin Shepherd MD LAB BLOOD ORDERABLES Final Res ult Performing Organization Address City/State/[facility] Co de Phone Number [facility] [address], [place] [address] [place] [facility] [address] [place] [address] documented in this encounter Visit Diagnoses Diagnosis Iron deficiency anemia, unspecified iron deficiency anemia type- Primary documented in this encounter Additional Health Concerns Assessment Noted Time PHQ-9 Depression Total Score: 9 05/13/19 23 10:46 AM EST documented as of this encounter Care Teams Managing Cognitive Engineer Relationship Specialty Start Date End Date Ada Caruso DO [address] [place] [id number] PCP - General Family Medicine 07/13/21 documented as of this encounter
--- OUTSIDE RECORDS SUMMARY | 2024-04-16 16:48 | XMS_ITS | Encounter Summary ---
Author Organization [employer] Address [address] [facility] [address] [place] [address] Care Team Providers Care Digitizer Name Role Phone Ada Caruso DO Primary Care Provider [phone] Reason for Visit * Reason Comments Med Refill Encounter Details Date Type Department Care Team (Late st Contact Info) Description 09/24/2023 Refill [facility] [address] [place], [place] [id number] Ada Caruso DO [address] [place] [address] Nonintractable chronic migraine Social History Tobacco Use Types Packs/Day Years Used Date Smoking Tobacco: Never Passive Smoke Exposure: Never Smokeless Tobacco: Never Alcohol Use Standard Drinks/Week Comments Never 0 (1 standard drink = 0.6 oz pur e alcohol) Depression Answer Date Recorded Patient Health Questionnaire-9 Score 0 08/11/2022 Housing Stability Answer Date Recorded What is your housing situation today? I have margot andre 12/28/[address] you li ve. Do you have problems with any of the following? None of the above 12/28/2022 Food Insecurity Answer Date Recorded Within the past 12 months, y ou worried that your food would run out before you got money to buy more: Never True 06/16/2023 Within the past 12 months,th e food you bought just didn't last and you didn't have enough money to get more: Never True 01/2024 Transportation Answer Date Recorded In the past 12 months, has l ack of transportation kept you from medical appts, meetings, work or from getting things needed for daily living? No 12/28/2022 Utilities Answer Date Recorded In the past 12 months, has t he electric, gas, oil or water company threatened to shut off services in your home? No 12/28/2022 Depression Answer Date Recorded Patient Health Questionnaire-2 Score 0 08/11/2022 Comments No Sex and Gender Information Value Date Recorded Sex Assigned at Female 01/04/2022 10:15 AM EDT Legal Sex Female 10:15 AM EDT Gender Identity Female 01/04/2022 10:15 AM EDT Sexual Orientation Straight 01/04/2022 10 :15 AM EDT documented as of this encounter Plan of Treatment Not on file documented as of this encounter Visit Diagnoses Diagnosis Nonintractable chronic migraine documented in this encounter Additional Health Concerns Assessment Noted Time PHQ-9 Depression Total Score: 0 08/12/19 23 9:19 AM EDT documented as of this encounter Care Teams Digitizer Relationship Specialty Start Date End Date Ada Caruso DO [address] [place] [id number] PCP - General Family Medicine 07/13/21 documented as of this encounter
--- OUTSIDE RECORDS SUMMARY | 2024-04-16 16:48 | XMS_ITS | Clinical Summary ---
Author Organization [facility] Address [address] [place] [address] Phone Care Team Providers Care Fire Boss Name Role Phone Yari Lerma MD Primary Care Provider [phone] Allergies Active Allergy Reactions Criticality Noted Date Comments Aspirin Wheezing High 12/28/2016 Other Reaction(s): Hives/Urticaria Reaction occurred 1997 Ibuprofen 04/16/2019 Graded challenge, patient developed diffuse itching and red splotches on face with 100 mg dose Other 11/15/2018 Beta-blockers, beta adrenergic blocking agents-GERD Topiramate Hallucinations 04/14/2021 Medications cholecalciferol (VITAMIN D-3) 50 mcg (2,000 unit) capsule Take 1 capsule (2,000 Units total) by mouth 1 (one) time each day. 10/13/19 22 Active propranoloL (INDERAL) 10 mg tablet Take 10 mg by mouth 2 times daily. Active albuterol HFA (PROAIR HFA ; PROVENTIL HFA ; VENTOLIN HFA) 90 mcg/actuation inhaler Inhale 2 Puffs into the lungs every 4 hours as needed for Cough or Wheezing. 05/20/19 22 Active fluticasone propionate (FLONASE) 50 mcg/actuation nasal spray SPRAY 2 SPRAYS INTO EACH NOSTRIL EVERY DAY 02/01/20 23 Active clobetasoL (TEMOVATE) 0.05 % cream Apply 1 Application topically 2 (two) times a day. 04/14/19 22 Active triamcinolone (KENALOG) 0.1 % cream Apply to affected area BID up to 2 weeks 04/14/19 22 Active cetirizine (ZyrTEC) 10 mg tablet Take 1 tablet by mouth Once. Take 1 Tab by mouth Once. 04/14/19 22 Active omeprazole (PriLOSEC) [address] capsule Take 1 capsule (20 mg total) by mouth 1 (one) time each day. 02/13/20 21 Active butalbital-acetami nophen-caffeine (FIORICET, ESGIC) 50-325-40 mg per tablet TAKE 1 TABLET BY MOUTH AT ONCE FOR MIGRAINE, MAY REPAEAT ONCE IN 2 HOURS IF NEEDED, MAX 2 TABLETS DAILY 01/07/20 21 Active olopatadine (PATANOL) 0.1 % ophthalmic solution Place 1 Drop into both eyes 2 times daily as needed for Allergies. 08/08/19 20 Active acetaminophen (TYLENOL) 500 mg tablet Take 2 tablets (1,000 mg total) by mouth every 8 (eight) hours. 30 tablet 03/23/19 25 Active ondansetron ODT (ZOFRAN-ODT) 4 mg disintegrating tablet Let 1 tablet dissolve under the tongue three times daily as needed for nausea or vomiting. 10 tablet 03/23/19 25 025 Active Problems Problem Noted Date Diagnosed Date Asthma 02/21/2024 Migraine headache 02/21/2024 GERD (gastroesophageal reflux disease) 9 Irritable bowel syndrome 11/15/2018 Perennial allergic rhinitis 11/15/2018 Prediabetes 11/15/2018 Eczema 08/17/2018 Nasal polyps 08/17/2018 Encounters Date Type Department Care Team Description 03/28/2024 2:28 PM EST - 03/28/2024 11:59 PM [facility] Hospital Encounter Radiology Department [address] [address] Encounter for screening mammogram for breast cancer Discharge Disposition: Home or Self Care 03/23/2024 12:43 AM EST - 03/23/2024 5:35 AM [facility] Emergency [facility] [address] [place] [address] Generalized abdominal pain (Primary Dx); Enterocolitis Discharge Disposition: Home or Self Care from Last 3 Months Immunizations Name Administration Dates Next Due Hepatitis B (Zewfogx-M-Vrmjr , Recombivax HB-Adult) 19yo and older 03/29/2007,07/30/2004,07/03/2004 Influenza Quadravalent, MDCK , 0.5ml, preservative free (Flucelvax) 6mo and older 12/10/2020,11/27/2019 Influenza, Unspecified 12/05/2018 Pfizer (ages 12 & older) Bivalent, COVID-19 11/06 Pfizer SARS-CoV-2 COVID-19, mRNA, LNP-S, preservative free 12/31/2020 Td Tetanus diptheria (Tdvax) 7yo and older 04/14,02/09/2000 Tdap Tetanus diptheria acell ular pertussis (Boostrix; Adacel) 7yo and older 01/09/2009 Surgical History Surgery Date Site/Laterality Comments OTHER SURGICAL HISTORY PROCEDURE: [place] LIG/TRNSXJ FLP TUBE ABDL/VAG APPR UNI/BI OTHER SURGICAL HISTORY 02/27/2016 Right PROCEDURE: ---- OTHER ----; COMMENT: Excision of lipoma of the right axilla BREAST BIOPSY 05/26/2015 Right PROCEDURE: BX BREAST; PERC NEEDLE CORE W/IMAG GUID; COMMENT: fibroadenoma COLONOSCOPY 04/12/2019 PROCEDURE: HISTORICAL COLONOSCOPY; COMMENT: negative BREAST SURGERY PROCEDURE: [place] UNLISTED PROCEDURE BREAST Medical History Medical History Date Comments Asthma DX:Asthma Migraine headache DX:Migraine he adache At high risk for breast cancer 03/23/2018 D X:At high risk for breast cancer; COMMENT: 07/2016 patient Genetic testing negative; recommend annual MRI and mammography, clincial breast exam q 6 months Eczema 08/17/2018 DX:Eczema Nasal polyps 08/17/2018 DX:Nasal polyps Allergic rhinitis 11/15/2018 DX:Allergic rh initis Irritable bowel syndrome 11/15/2018 DX:Irri table bowel syndrome GERD (gastroesophageal reflux disease) 11/15/2018 DX:GERD (gastroesophageal reflux disease) Prediabetes 11/15/2018 DX:Prediabetes Abnormal MRI, breast 03/2019 DX:Abnormal MRI, breast; COMMENT: us ordered History of colonoscopy 04/2019 DX:Histor y of colonoscopy; COMMENT: repeat in 5 yrs Family History Medical History Relation Name Comments Breast cancer Aunt maternal Melanoma Brother Prostate cancer Father 01/2017 skin cancer Colon cancer Maternal Grandmother Diabetes Mother hypertension, a rthritis, melanoma, cancer colon Breast cancer Other 1 maternal first cousin Breast cancer Other 2 Maternal cousin Uterine cancer Other 2 Maternal cousin Prostate cancer Paternal Grandfather Breast cancer Paternal Grandmother Relation Name Status Comments Aunt maternal Other Brother Other Father Alive Maternal Grandmother Other Mother Alive Other 1 maternal Other 2 Maternal cousin Alive Paternal Grandfather Other Paternal Grandmother Other Social History Tobacco Use Types Packs/Day Years Used Date Smoking Tobacco: Never Smokeless Tobacco: Never Alcohol Use Standard Drinks/Week Comments No 0 (1 standard drink = 0.6 oz pur e alcohol) Comments No Sex and Gender Information Value Date Recorded Sex Assigned at Female 03/23/2024 12:51 AM EST Legal Sex Female 8:55 PM EST Gender Identity Female 03/23/2024 12:51 AM EST Sexual Orientation Straight 03/23/2024 12 :51 AM EST Obstetrics History Para Term AB IAB SAB Ectopic Multiple Livin g Live Births 2 2 2 2 Date Outcome GA Total Labor Labor/2nd/3rd Weight Sex Type Anes PTL Hanh A1 A5 Name Clin Term Term Last Filed Vital Signs Vital Sign Reading Time Taken Comments Blood Pressure 113/55 03/23/2024 5:05 AM EST Pulse 82 03/23/2024 5:05 AM EST Temperature 36.7 ??C (98.1 ??F) 03/23/2024 5:05 AM ES T Respiratory Rate 18 03/23/2024 5:05 AM EST Oxygen Saturation 96% 03/23/2024 5:05 AM EST Inhaled Oxygen Concentration - - Weight 92.1 kg (203 lb) 03/22/2024 9:39 PM EST Height 162.6 cm (5' 4 ) 03/22/2024 9:39 PM EST Body Mass Index 34.84 03/22/2024 9:39 PM EST Plan of Treatment Health Maintenance Due Date Last Done Comments Social Influencers of Health Screening 02/13/2022 Colorectal Cancer Screening: Colonoscopy 04/12/2024 04/12/2019 Depression Screening 11/22/2024 11/23/2023 Hypertension/CHF/CAD Annual BMP Blood Test 03/22/2025 03/22/2024, 12/30/2023, 01/06/2021 Cervical Cancer Screening: HPV 11/24/2025 11/24/2020 Breast Cancer Screening 03/28/2026 03/28/19 25, 03/26/2023, 03/20/2022, Additional history exists Cholesterol Screening (Lipid Panel) 11/24/2028 11/25/2023, 01/06/2021 DTaP,Tdap,and Td Vaccines (4 - Td or Tdap) 04/14/2031 04/14/2021, 01/09/2009, 02/09/2000 Hepatitis B Vaccines Completed 06/16/2023, 03/29/2007, 07/30/2004, Additional history exists Pneumococcal Vaccine: Pediatrics (0 to 5 Years) and At-Risk Patients (6 to 64 Years) Completed 06/16/2023 Influenza Vaccine Completed 11/23/2023, , 11/23/2021, Additional history exists HIV Screening Completed 11/25/2023, 01/06/2021 Hepatitis C Screening Completed 11/25/2023, 021 COVID-19 Vaccine Completed 12/23/2023, 08/2022, 11/27/2021, Additional history exists HIB Vaccines Aged Out No longer eligi ble based on patient's age to complete this topic HPV Vaccines Aged Out No longer eligi ble based on patient's age to complete this topic Hepatitis A Vaccines Aged Out No long er eligible based on patient's age to complete this topic IPV Vaccines Aged Out No longer eligi ble based on patient's age to complete this topic MMR Vaccines Aged Out No longer eligi ble based on patient's age to complete this topic Meningococcal ACWY Vaccine Aged Out N o longer eligible based on patient's age to complete this topic Meningococcal B Vacine Aged Out No lo nger eligible based on patient's age to complete this topic RSV Immunization Patients Under 20 months Aged Out No longer eligible based on patient's age to complete this topic Varicella Vaccines Aged Out No longer eligible based on patient's age to complete this topic Procedures Procedure Name Priority Date/Time Associated Diagnosis Comments MG MAMMO DIGITAL SCREENING W FAWAD BILAT Routine 03/28/2024 2:38 PM EST Encounter for screening mammogram for breast cancer CT ABDOMEN PELVIS W CONTRAST STAT 03/23/2024 4:16 AM EST POC , URINE DIAGNOSTIC STAT 03/23/2024 3:45 AM EST KEMP URINE CULTURE TUBE STAT 03/23/2024 3:45 AM EST URINALYSIS WITH REFLEX MICROSCOPIC AND CULTURE STAT 03/23/2024 3:45 AM EST URINALYSIS WITH REFLEX MICROSCOPIC AND CULTURE STAT 03/23/2024 3:45 AM EST CBC WITH AUTO DIFFERENTIAL STAT 03/22/2024 10:07 PM EST LIPASE STAT 03/22/2024 10:07 PM EST COMPREHENSIVE METABOLIC PANEL STAT 03/22/2024 10:07 PM EST CBC AND DIFFERENTIAL STAT 03/22/2024 10:07 PM EST RESPIRATORY VIRUS PANEL MOLECULAR STUDY STAT 03/22/2024 9:42 PM EST HEPATITIS C SCREENING Routine 01/06/2021 HIV SCREENING Routine 01/06/2021 LIPID PANEL Routine 01/06/2021 HM HPV Routine 11/24/2020 HM COLONOSCOPY Routine 04/12/2019 from Last 3 Months or Most Recently Relevant to Health Maintenance Results * MG Mammo Digital Screening w Fawad bilat (03/28/2024 2:38 PM EST) Anatomical Region Laterality Modality Breast Bilateral Mammography 03/29/2024 1:01 PM EST Impressions 03/29/2024 1:08 PM EST 1. No mammographic evidence of malignancy 2. Heterogeneous breast parenchyma BI-RADS CATEGORY: 2 - BENIGN RECOMMENDATION: Screening bilateral mammogram is recommended in 1 year. Mammo Location: [facility], [address] [place] [address], [id number], . -------- FINAL REPORT -------- Dictated By: Nicki Underwood Dictated Date: 03/29/2024 13:01 ET Assigned Physician: Nicki Underwood Reviewed and Electronically Signed By: Nicki Underwood Signed Date: 03/29/2024 13:08 ET Workstation ID: [id number] Transcribed By: Self Edit Transcribed Date: 03/29/2024 13:01 ET Narrative 03/29/2024 1:08 PM EST A BILATERAL DIGITAL 3D SCREENING MAMMOGRAPHY HISTORY: Routine screening. ??Family history of breast cancer in grandmother and aunt COMPARISON: Multiple priors dating back to 03/14/2021 Technique: Bilateral full field digital mammography (3D) was performed using standard CC and MLO projections CAD ??was used to evaluate this mammogram. FINDINGS: Right: No suspicious masses, groups of microcalcification or areas of architectural distortion identified. Stable typically benign parenchymal asymmetries. Left: No suspicious masses, groups of microcalcification or areas of architectural distortion identified. Stable typically benign parenchymal asymmetries. BREAST DENSITY: C - The breasts are heterogeneously dense which may obscure small masses. Procedure Note Nicki Underwood MD - 03/29/2024 A BILATERAL DIGITAL 3D SCREENING MAMMOGRAPHY HISTORY: Routine screening. Family history of breast cancer ingrandmother and aunt COMPARISON: Multiple priors dating back to 03/14/2021 Technique: Bilateral full field digital mammography (3D) was performedusing standard CC and MLO projections CAD was used to evaluate this mammogram. FINDINGS: Right: No suspicious masses, groups of microcalcification or areas ofarchitectural distortion identified. Stable typically benign parenchymalasymmetries. Left: No suspicious masses, groups of microcalcification or areas ofarchitectural distortion identified. Stable typically benign parenchymalasymmetries. BREAST DENSITY: C - The breasts are heterogeneously dense which mayobscure small masses. IMPRESSION: 1. No mammographic evidence of malignancy 2. Heterogeneous breast parenchyma BI-RADS CATEGORY: 2 - BENIGN RECOMMENDATION: Screening bilateral mammogram is recommended in 1 year. Mammo Location: [facility], [address] [place] [address], [id number], . -------- FINAL REPORT -------- Dictated By: Nicki Underwood Dictated Date: 03/29/2024 13:01 ET Assigned Physician: Nicki Underwood Reviewed and Electronically Signed By: Nicki Underwood Signed Date: 03/29/2024 13:08 ET Workstation ID: [id number] Transcribed By: Self Edit Transcribed Date: 03/29/2024 13:01 ET us Mayo Heath MD IMG BI PROCEDURES Final Result * CT Abdomen Pelvis w Contrast (03/23/2024 4:16 AM EST) Anatomical Region Laterality Modality Body Computed Tomogra phy 03/23/2024 4:36 AM EST Impressions 03/23/2024 4:36 AM EST Possible diffuse enterocolitis. This document has been electronically signed by: Devon Whaley MD on 03/23/2024 04:36:07 Narrative 03/23/2024 4:[address] abdomen and pelvis with contrast Comparison: None Findings: The lung bases are clear. Hepatomegaly with steatosis. Diffuse fluid-filled bowel with mucosal hyperemia throughout the colon and small bowel, suggestive of enterocolitis. Normal appendix. Anteverted uterus with prominent fluid-filled uterine cavity, may be physiologic. Right ovarian cysts measuring 3.2 cm. This may be further evaluated with ultrasound. No acute fracture. Procedure Note Devon Whaley MD - 03/23/2024 CT abdomen and pelvis with contrast Comparison: None Findings: The lung bases are clear. Hepatomegaly with steatosis. Diffuse fluid-filled bowel with mucosal hyperemia throughout the colonand small bowel, suggestive of enterocolitis. Normal appendix. Anteverted uterus with prominent fluid-filled uterine cavity, may be physiologic. Right ovarian cysts measuring 3.2 cm. This may be further evaluated with ultrasound. No acute fracture. IMPRESSION: Possible diffuse enterocolitis. This document has been electronically signed by: Devon Whaley MD on 03/23/2024 04:36:07 us Argelia MOREIRA IMG CT PROCEDURES Final Result * (ABNORMAL) Urinalysis with reflex microscopic and culture (03/23/2024 3:45 AM EST) Specific [place] Urine 1.041(H) 1.003 - 1.030 LAB URINALYSIS - AUTOMATED METHOD 03/23/2024 4:48 AM [facility] pH, Urine 5.0 5.0 - 8.0 pH LAB URINALYSIS - AUTOMATED METHOD 03/23/2024 4:48 AM [facility] Leukocytes, Urine Negative Negative LAB URINALYSIS - AUTOMATED METHOD 03/23/2024 4:48 AM [facility] Nitrite, Urine Negative Negative LAB URINALYSIS - AUTOMATED METHOD 03/23/2024 4:48 AM [facility] Protein, Urine Trace <=Trace mg/dL LAB URINALYSIS - AUTOMATED METHOD 03/23/2024 4:48 AM [facility] Glucose, Urine Negative Negative mg/dL LAB URINALYSIS - AUTOMATED METHOD 03/23/2024 4:48 AM [facility] Ketones, Urine Trace(A) Negative mg/dL LAB URINALYSIS - AUTOMATED METHOD 03/23/2024 4:48 AM [facility] Urobilinogen , Urine 0.2 0.2 - 1.0 mg/dL LAB URINALYSIS - AUTOMATED METHOD 03/23/2024 4:48 AM [facility] Bilirubin, Urine Negative Negative LAB URINALYSIS - AUTOMATED METHOD 03/23/2024 4:48 AM [facility] Blood, Urine Moderate(A) Negative LAB URINALYSIS - AUTOMATED METHOD 03/23/2024 4:48 AM [facility] RBC, Urine 35(H) 0 - 4 /HPF LAB URINALYSIS - AUTOMATED METHOD 03/23/2024 4:48 AM [facility] WBC, Urine 3.2 0 - 4 /HPF LAB URINALYSIS - AUTOMATED METHOD 03/23/2024 4:48 AM [facility] Squamous Epithelial, Urine 69(H) 0 - 60 /LPF LAB URINALYSIS - AUTOMATED METHOD 03/23/2024 4:48 AM [facility] Bacteria, Urine Negative Negative /HPF LAB URINALYSIS - AUTOMATED METHOD 03/23/2024 4:48 AM [facility] Hyaline Casts, Urine 0 0 - 3 /LPF LAB URINALYSIS - AUTOMATED METHOD 03/23/2024 4:48 AM [facility] Urine Urine specimen obtained by clean catch procedure / Unknown Non-blood Collection / Unknown 03/23/2024 3:45 AM EST 03/23/2024 3:57 AM EST us Volodymyr MOREIRA LAB URINE ORDERABLES Final Resul t Performing Organization Address [facility]/ZIP Co de Phone Number [facility] [address] [place] [address], [place] [phone] * Kemp urine culture tube (03/23/2024 3:45 AM EST) Extra Tube Hold for add-ons. 03/23/2024 5:01 AM [facility] Comment:Auto resulted. Urine Urine specimen obtained by clean catch procedure / Unknown Non-blood Collection / Unknown 03/23/2024 3:45 AM EST 03/23/2024 3:57 AM EST Volodymyr MOREIRA LAB URINE ORDERABLES Final Resul t Performing Organization Address [facility]/ZIP Co de Phone Number [facility] [address] [place] [address], [place] [phone] * POC , urine manually resulted (03/23/2024 3:45 AM EST) HCG, Ur POC Negative Negative POC hCG Int QC Pass? Yes Yes EXPIRATION DATE POC 2024-08-02 LOT NUMBER POC [id number] Urine Urine specimen obtained by clean catch procedure / Unknown 03/23/2024 3:45 AM EST Volodymyr MOREIRA POINT OF CARE TEST ENTER/EDIT OR DERABLES Final Result * (ABNORMAL) CBC auto differential (03/22/2024 10:07 PM EST) WBC 11.1(H) 4.8 - 10.8 K/mcL LAB HEMETOLOGY METHOD 03/22/2024 10:23 PM [facility] RBC 4.60 3.80 - 4.80 M/mcL LAB HEMETOLOGY METHOD 03/22/2024 10:23 PM [facility] Hemoglobin 13.1 11.5 - 16.0 g/dL LAB HEMETOLOGY METHOD 03/22/2024 10:23 PM [facility] Hematocrit 40.3 35.0 - 47.0 % LAB HEMETOLOGY METHOD 03/22/2024 10:23 PM [facility] MCV 87.0 79.0 - 98.0 FL LAB HEMETOLOGY METHOD 03/22/2024 10:23 PM [facility] MCH 28.3 27.0 - 32.0 pcg LAB HEMETOLOGY METHOD 03/22/2024 10:23 PM [facility] MCHC 32.5 32.0 - 37.0 g/dL LAB HEMETOLOGY METHOD 03/22/2024 10:23 PM [facility] RDW 13.2 11.0 - 15.0 % LAB HEMETOLOGY METHOD 03/22/2024 10:23 PM [facility] Platelets 287 130 - 400 K/mcL LAB HEMETOLOGY METHOD 03/22/2024 10:23 PM [facility] MPV 10.6 7.0 - 11.0 FL LAB HEMETOLOGY METHOD 03/22/2024 10:23 PM [facility] NRBC 0.0 <1.0 % LAB HEMETOLOGY METHOD 03/22/2024 10:23 PM [facility] NRBC Absolute 0.00 <0.10 K/mcL LAB HEMETOLOGY METHOD 03/22/2024 10:23 PM [facility] Neutrophils Relative 90.1 % LAB HEMETOLOGY METHOD 03/22/2024 10:23 PM [facility] Lymphocytes Relative 4.6 % LAB HEMETOLOGY METHOD 03/22/2024 10:23 PM [facility] Monocytes Relative 4.6 % LAB HEMETOLOGY METHOD 03/22/2024 10:23 PM [facility] Eosinophils Relative 0.2 % LAB HEMETOLOGY METHOD 03/22/2024 10:23 PM [facility] Basophils Relative 0.1 % LAB HEMETOLOGY METHOD 03/22/2024 10:23 PM [facility] Immature Granulocytes Relative 0.4 % LAB HEMETOLOGY METHOD 03/22/2024 10:23 PM [facility] Neutrophils Absolute 10.03(H) 1.50 - 7.00 K/mcL LAB HEMETOLOGY METHOD 03/22/2024 10:23 PM [facility] Lymphocytes Absolute 0.51(L) 1.00 - 5.00 K/mcL LAB HEMETOLOGY METHOD 03/22/2024 10:23 PM [facility] Monocytes Absolute 0.51 0.20 - 1.00 K/mcL LAB HEMETOLOGY METHOD 03/22/2024 10:23 PM [facility] Eosinophils Absolute 0.02 0.00 - 0.50 K/mcL LAB HEMETOLOGY METHOD 03/22/2024 10:23 PM [facility] Basophils Absolute 0.01 0.00 - 0.20 K/mcL LAB HEMETOLOGY METHOD 03/22/2024 10:23 PM EST [facility] Immature Granulocytes Absolute 0.04(H) 0.00 - 0.03 K/mcL LAB HEMETOLOGY METHOD 03/22/2024 10:23 PM [facility] Blood Venous blood specimen / Unknown Venipuncture / Unknown 03/22/2024 10:07 PM EST 03/22/2024 10:16 PM EST [facility] Aldo Foreman LAB BLOOD ORDERABLES Priyanka l Result Performing Organization Address City/[facility]/ZIP Co de Phone Number [facility] [address] [place] [address], [place] [phone] * Lipase (03/22/2024 10:07 PM EST) Pathologist [facility] [place] Lipase 18 13 - 75 unit/L LAB CHEMISTRY METHOD 03/22/2024 10:56 PM [facility] Blood Venous blood specimen / Unknown Venipuncture / Unknown 03/22/2024 10:07 PM EST 03/22/2024 10:16 PM EST Amy Foreman LAB BLOOD ORDERABLES Priyanka l Result Performing Organization Address City/[facility]/ZIP Co de Phone Number [facility] [address] [place] [address], [place] [phone] * (ABNORMAL) Comprehensive metabolic panel (03/22/2024 10:07 PM EST) Sodium 137 133 - 145 mmol/L LAB CHEMISTRY METHOD 03/22/2024 10:56 PM [facility] Potassium 3.5 3.5 - 5.5 mmol/L LAB CHEMISTRY METHOD 03/22/2024 10:56 PM [facility] Chloride 102 96 - 110 mmol/L LAB CHEMISTRY METHOD 03/22/2024 10:56 PM EST [facility] CO2 29 21 - 32 mmol/L LAB CHEMISTRY METHOD 03/22/2024 10:56 PM [facility] Anion Gap 6 3 - 11 LAB CHEMISTRY METHOD 03/22/2024 10:56 PM [facility] Glucose 150(H) 70 - 100 mg/dL LAB CHEMISTRY METHOD 03/22/2024 10:56 PM [facility] BUN 14 5 - 25 mg/dL LAB CHEMISTRY METHOD 03/22/2024 10:56 PM [facility] Creatinine 0.91 0.50 - 1.10 mg/dL LAB CHEMISTRY METHOD 03/22/2024 10:56 PM [facility] eGFR 77 >=60 mL/min/1. 73m2 LAB CHEMISTRY METHOD 03/22/2024 10:56 PM [facility] Comment:Calculation based on the??Chronic Kidney Disease Epidemiology Collaboration (CKD-EPI) equation refit??without adjustment for race. BUN/Creatinine Ratio 15.4 LAB CHEMISTRY METHOD 03/22/2024 10:56 PM [facility] Calcium 8.8 8.5 - 10.5 mg/dL LAB CHEMISTRY METHOD 03/22/2024 10:56 PM [facility] AST (SGOT) 26 10 - 42 unit/L LAB CHEMISTRY METHOD 03/22/2024 10:56 PM [facility] ALT (SGPT) 40 10 - 60 unit/L LAB CHEMISTRY METHOD 03/22/2024 10:56 PM [facility] Alkaline Phosphatase 95 42 - 121 unit/L LAB CHEMISTRY METHOD 03/22/2024 10:56 PM [facility] Total Protein 7.8 6.0 - 8.0 g/dL LAB CHEMISTRY METHOD 03/22/2024 10:56 PM [facility] Albumin 3.7 3.2 - 5.0 g/dL LAB CHEMISTRY METHOD 03/22/2024 10:56 PM [facility] Total Bilirubin 0.4 0.0 - 1.4 mg/dL LAB CHEMISTRY METHOD 03/22/2024 10:56 PM EST [facility] Blood Venous blood specimen / Unknown Venipuncture / Unknown 03/22/2024 10:07 PM EST 03/22/2024 10:16 PM EST Amy Foreman DO LAB BLOOD ORDERABLES Priyanka l Result [facility] [address] [place] [address], [place] [phone] * Respiratory virus panel molecular study (03/22/2024 9:42 PM EST) Pathologist [facility] [place] Adenovirus Detection by PCR Not Detected Not Detected LAB MICROBIOLOGY METHOD 03/22/2024 10:56 PM [facility] Influenza A PCR Not Detected Not Detected LAB MICROBIOLOGY METHOD 03/22/2024 10:56 PM [facility] Influenza B PCR Not Detected Not Detected LAB MICROBIOLOGY METHOD 03/22/2024 10:56 PM EST [facility] Coronavirus 229E Not Detected Not Detected LAB MICROBIOLOGY METHOD 03/22/2024 10:56 PM [facility] Coronavirus HKU1 Not Detected Not Detected LAB MICROBIOLOGY METHOD 03/22/2024 10:56 PM [facility] Coronavirus OC43 Not Detected Not Detected LAB MICROBIOLOGY METHOD 03/22/2024 10:56 PM EST [facility] Coronavirus NL63 Not Detected Not Detected LAB MICROBIOLOGY METHOD 03/22/2024 10:56 PM [facility] Parainfluenza Virus 1 Not Detected Not Detected LAB MICROBIOLOGY METHOD 03/22/2024 10:56 PM [facility] Parainfluenza Virus 2 Not Detected Not Detected LAB MICROBIOLOGY METHOD 03/22/2024 10:56 PM [facility] Parainfluenza Virus 3 Not Detected Not Detected LAB MICROBIOLOGY METHOD 03/22/2024 10:56 PM EST [facility] Parainfluenza Virus 4 Not Detected Not Detected LAB MICROBIOLOGY METHOD 03/22/2024 10:56 PM EST [facility] RSV PCR Not Detected Not Detected LAB MICROBIOLOGY METHOD 03/22/2024 10:56 PM [facility] Human Metapneumovirus A and B Not Detected Not Detected LAB MICROBIOLOGY METHOD 03/22/2024 10:56 PM [facility] Rhinovirus/Entero virus Not Detected Not Detected LAB MICROBIOLOGY METHOD 03/22/2024 10:56 PM EST [facility] Bordetella pertussis Not Detected Not Detected LAB MICROBIOLOGY METHOD 03/22/2024 10:56 PM [facility] Bordetella parapertussis Not Detected Not Detected LAB MICROBIOLOGY METHOD 03/22/2024 10:56 PM [facility] Mycoplasma pneumo by PCR Not Detected Not Detected LAB MICROBIOLOGY METHOD 03/22/2024 10:56 PM [facility] Chlamydia pneumoniae Not Detected Not Detected LAB MICROBIOLOGY METHOD 03/22/2024 10:56 PM [facility] SARS COV-2 Not Detected Not Detected LAB MICROBIOLOGY METHOD 03/22/2024 10:56 PM [facility] Swab Both anterior nares / Unknown Non-blood Collection / Unknown 03/22/2024 9:42 PM EST 03/22/2024 10:03 PM EST [facility] - 03/22/2024 10:56 PM EST Testing was performed using the [employer] Respiratory Pathogen PCR Assay. All results must be correlated with the clinical findings. Results should not be used as the sole basis for diagnosis. False Negative results may occur from the presence of sequence variants in the region targeted by the assay or the presence of inhibitors. Results may be affected by concurrent antiviral/antimicrobial therapy or levels of organisms that are below the limit of detection. Amy Foreman DO LAB MICROBIOLOGY - GENERA L ORDERABLES Final Result [facility] [address] [place] [address], * HIV Screening (01/06/2021) [facility] HIV Screening abstracted [facility] Provider HEALTH MAINTENANCE Final Result * Hepatitis C Screening (01/06/2021) [facility] Hepatitis C Screening abstracted [facility] Provider HEALTH MAINTENANCE Final Result * (ABNORMAL) Lipid panel (01/06/2021) [facility] LDL/HDL Ratio 4 0 - 4 Triglycerides 174(A) 0 - 150 mg/dL Cholesterol 211(A) 0 - 200 mg/dL HDL 61 >=40 mg/dL LDL Cholesterol 116(A) 0 - 100 mg/dL Blood Venous blood specimen / Unknown [facility] Provider LAB BLOOD ORDERABLES Priyanka l Result * Cervical Cancer Screening: HPV (11/24/2020) [facility] Cervical Cancer Screening: HPV abstracted, negative [facility] Provider HEALTH MAINTENANCE Final Result * Colonoscopy (04/12/2019) [facility] Colonoscopy abstracted, no interpretation Anatomical Region Laterality Modality Other [facility] Provider HEALTH MAINTENANCE Final Result from Last 3 Months or Most Recently Relevant to Health Maintenance Additional Health Concerns Infection Onset Date Last Indicated Gastrointestinal Rule-Out 03/23/20242024 Insurance Setup DOMESTIC Care Teams Fire Boss Relationship Specialty Start Date End Date Yari Lerma MD [address] [place] [address] PCP - General Internal Medicine 10/31/20
--- OUTSIDE RECORDS SUMMARY | 2024-04-16 16:48 | XMS_ITS | Encounter Summary ---
Author Organization [employer] Address [address] [place] [address] Care Team Providers Care Language And Literature Division Chair Name Role Phone Yari Lerma MD Primary Care Provider Reason for Visit * Imaging (Routine) - Pending Review Specialty Diagnoses / Procedures Referred By Elizabeth sharma Referred To Contact Radiology Diagnoses Encounter for screening mammogram for breast cancer Procedures MG Mammo Digital Screening w Fawad bilat MG Mammo Digital Screening w Fawad bilat MG Mammo Digital Screening w Fawad bilat Mayo Heath MD [address] [place] [address] [address] [facility] [employer] [place] [address] Phone: tel: fax: [facility] Referral ID Status Reason Start Date Expiration Date V isits Requested Visits Authorized [id number] Pending Review 12/22/2023 12/21/2024 1 1 Encounter Details Date Type Department Care Team (Latest Contact Info) Description 03/28/2024 2:28 PM EST - 03/28/2024 11:59 PM EST Hospital Encounter Radiology Department - [address] [address] Encounter for screening mammogram for breast cancer Discharge Disposition: Home or Self Care Social History Tobacco Use Types Packs/Day Years [...] Orientation Straight 03/23/2024 12 :51 AM EST documented as of this encounter Functional Status * Are you deaf or do you have serious difficulty hearing? Answer Date of Assessment Author No 03/23/2024 1:12 AM Andreina Lindquist RN * Are you blind or do you have serious difficulty seeing, even when wearing glasses? Answer Date of Assessment Author No 03/23/2024 1:12 AM Andreina Lindquist RN * Do you have serious difficulty walking or climbing stairs? Answer Date of Assessment Author No 03/23/2024 1:12 AM Andreina Lindquist RN * Do you have serious difficulty dressing or bathing? Answer Date of Assessment Author No 03/23/2024 1:12 AM Andreina Lindquist RN * Because of a physical, mental, or emotional condition, do you have serious difficulty doing errandsalone such as visiting the doctor? Answer Date of Assessment Author No 03/23/2024 1:12 AM Andreina Lindquist RN documented as of this encounter Mental Status * Because of a physical, mental, or emotional condition, do you have serious difficulty concentrating, remembering, or making decisions? (5 years old or older) Answer Entry Date Author No 03/23/2024 1:12 AM Andreina Lindquist RN documented in this encounter Medications at Time of Discharge acetaminophen (TYLENOL) 500 mg tablet Take 2 tablets (1,000 mg total) by mouth every 8 (eight) hours. 30 tablet 03/23/2024 albuterol HFA (PROAIR HFA ; PROVENTIL HFA ; VENTOLIN HFA) 90 mcg/actuation inhaler Inhale 2 Puffs into the lungs every 4 hours as needed for Cough or Wheezing. 05/19/2021 butalbital-acetamin ophen-caffeine (FIORICET, ESGIC) 50-325-40 mg per tablet TAKE 1 TABLET BY MOUTH AT ONCE FOR MIGRAINE, MAY REPAEAT ONCE IN 2 HOURS IF NEEDED, MAX 2 TABLETS DAILY 01/06/2021 cetirizine (ZyrTEC) 10 mg tablet Take 1 tablet by mouth Once. Take 1 Tab by mouth Once. 04/14/2021 cholecalciferol (VITAMIN D-3) 50 mcg (2,000 unit) capsule Take 1 capsule (2,000 Units total) by mouth 1 (one) time each day. 10/12/2021 clobetasoL (TEMOVATE) 0.05 % cream Apply 1 Application topically 2 (two) times a day. 04/14/2021 fluticasone propionate (FLONASE) 50 mcg/actuation nasal spray SPRAY 2 SPRAYS INTO EACH NOSTRIL EVERY DAY 01/31/2023 olopatadine (PATANOL) 0.1 % ophthalmic solution Place 1 Drop into both eyes 2 times daily as needed for Allergies. 08/08/2019 omeprazole (PriLOSEC) [address] capsule Take 1 capsule (20 mg total) by mouth 1 (one) time each day. 02/12/2021 propranoloL (INDERAL) 10 mg tablet Take 10 mg by mouth 2 times daily. triamcinolone (KENALOG) 0.1 % cream Apply to affected area BID up to 2 weeks 04/14/2021 ondansetron ODT (ZOFRAN-ODT) 4 mg disintegrating tablet Let 1 tablet dissolve under the tongue three times daily as needed for nausea or vomiting. 10 tablet 03/23/2024 03/30/19 25 documented as of this encounter Discharge Disposition Disposition Code Departure Means Destination Home or Self Care documented in this encounter Plan of Treatment Not on file documented as of this encounter Procedures Procedure Name Priority Date/Time Associated Diagnosis Comments MG MAMMO DIGITAL SCREENING W FAWAD BILAT Routine 03/28/2024 2:38 PM EST Encounter for screening mammogram for breast cancer documented in this encounter Results * MG Mammo Digital Screening w Fawad bilat (03/28/2024 2:38 PM EST) Anatomical Region Laterality Modality Breast Bilateral Mammography 03/29/2024 1:01 PM EST Impressions 03/29/2024 1:08 PM EST 1. No mammographic evidence of malignancy 2. Heterogeneous breast parenchyma BI-RADS CATEGORY: 2 - BENIGN RECOMMENDATION: Screening bilateral mammogram is recommended in 1 year. Mammo Location: [facility], [address] [place] [address], [id number], . -------- FINAL REPORT -------- Dictated By: Nicki Underwood Dictated Date: 03/29/2024 13:01 ET Assigned Physician: Nicki Underwood Reviewed and Electronically Signed By: Nicki Underwood Signed Date: 03/29/2024 13:08 ET Workstation ID: [id number] Transcribed By: Self Edit Transcribed Date: 03/29/2024 [...] is recommended in 1 year. Mammo Location: [facility], [address] [place] [address], [address], . -------- FINAL REPORT -------- Dictated By: Nicki Underwood Dictated Date: 03/29/2024 13:01 ET Assigned Physician: Nicki Underwood Reviewed and Electronically Signed By: Nicki Underwood Signed Date: 03/29/2024 13:08 ET Workstation ID: [id number] Transcribed By: Self Edit Transcribed Date: 03/29/2024 13:01 ET Mayo Heath MD IMG BI PROCEDURES Final Result documented in this encounter Visit Diagnoses Diagnosis Encounter for screening mammogram for breast cancer documented in this encounter Additional Health Concerns Infection Onset Date Last Indicated Resolved Time Gastrointestinal Rule-Out 03/23/2024 03/23/2024 documented as of this encounter Care Teams Language And Literature Division Chair Relationship Specialty Start Date End Date Yari Lerma MD [address] [place] [address] PCP - General Internal Medicine 10/31/20 documented as of this encounter
--- OUTSIDE RECORDS SUMMARY | 2024-04-16 16:48 | XMS_ITS | Encounter Summary ---
Author Organization [facility] Address [address] [place] [address] Care Team Providers Care Car Supplier Name Role Phone Yari Lerma MD Primary Care Provider [phone] [facility], Pcp Primary Care Provider Unavailabl e Encounter Details Date Type Department Care Team Description 01/07/2021 Orders Only Adult Medicine [address] [address] Teresa Murray PA-C Social History Tobacco Use Types Packs/Day Years Used Date Smoking Tobacco: Never Smokeless Tobacco: Never Alcohol Use Standard Drinks/Week Comments No 0 (1 standard drink = 0.6 oz pur e alcohol) occ Sex Assigned at Date Recorded Not on file Job Start Date Occupation Industry Not on file Not on file Not on file COVID-19 Exposure Response Date Recorded In the last month, have you been in contact with someone who was confirmed or suspected to have Coronavirus / COVID-19? No / Unsure 01/06/2021 8:24 AM EDT documented as of this encounter Plan of Treatment Not on file documented as of this encounter Visit Diagnoses Not on filedocumented in this encounter Care Teams Car Supplier Relationship Specialty Start Date End Date Yari Lerma MD [address] [place] [address] PCP - General Internal Medicine 10/31/20 03/24/23 [facility], [address] [address] PCP - General Internal Medicine 03/25/23 documented as of this encounter
--- OUTSIDE RECORDS SUMMARY | 2024-04-16 16:48 | XMS_ITS | Encounter Summary ---
Author Organization [facility] Address [address] [place] [address] Care Team Providers Care It Investment/Portfolio Manager Name Role Phone Porsche Etienne DO Primary Care Pro vider Unavailable Yari Lerma MD Primary Care Provider [phone] [facility] Primary Care Provider Unavailabl e Reason for Visit * Reason Onset Date Comments refill request 12/25/2018 Encounter Details Date Type Department Care Team Description 12/25/2018 Telephone Adult Medicine [address] [address] Porsche Etienne DO refill request Social History Tobacco Use Types Packs/Day Years Used Date Smoking Tobacco: Never Smokeless Tobacco: Never Alcohol Use Standard Drinks/Week Comments No 0 (1 standard drink = 0.6 oz pur e alcohol) occ Sex Assigned at Date Recorded Not on file Job Start Date Occupation Industry Not on file Not on file Not on file documented as of this encounter Miscellaneous Notes * Telephone Encounter - Jooj Galvan L.P.N. - 12/27/2018 1:58 PM EDT Patient states she takes the Fioricet when she rios her menses , before and after, also she does need it prn at night rq # 60 tablets * Telephone Encounter - Porsche Talavera DO - 12/26/2018 3:28 PM EDT How many does the insurance allow? * Telephone Encounter - Rosa Freeman M.A. - 12/26/2018 3:00 PM EDT Pt would like to know why she only got 9 tablets for Fioricet 50-325-40mg. Please advise * Telephone Encounter - Porsche Talavera DO - 12/26/2018 2:39 PM EDT Albuterol and omeprazole sent in . Was there something else? * Telephone Encounter - Ina Linder M.A. - 12/25/2018 9:36 AM EDT Pt was seen 12/20/18 by pcp. Pt states she was advised that new meds would be sent to her pharmacy,however no meds ordered, please advise * Telephone Encounter - Lynda Rivera - 12/25/2018 9:26 AM EDT Who is calling? The patient Name of the medication What is the specific problem or interaction? Patient was seen on 12/20/18 and was told by provider she will fax new medications to her pharmacy, patient does not know the names of which medication, patient has went to pharmacy and nothing was faxed to pharmacy. Please advise. If the patient is having a problem with taking the med - how long has the problem been going on? N/A documented in this encounter Plan of Treatment Not on file documented as of this encounter Visit Diagnoses Not on filedocumented in this encounter Care Teams It Investment/Portfolio Manager Relationship Specialty Start Date End Date Porsche Etienne DO PCP - General Internal Medicine 10/18/18 10/30/20 Yari Lerma MD [address] [place] [address] PCP - General Internal Medicine 10/31/20 03/24/[address] [address] PCP - General Internal Medicine 03/25/23 documented as of this encounter
--- OUTSIDE RECORDS SUMMARY | 2024-04-16 16:48 | XMS_ITS | Encounter Summary ---
Author Organization [facility] Address [address] [place] [address] Care Team Providers Care Vending Machine Filler Name Role Phone Yari Crabtree MD Primary Care Provider [phone] [facility], Pcp Primary Care Provider Unavailabl e Reason for Visit * Reason Onset Date Comments APPOINTMENT 03/25/2021 Encounter Details Date Type Department Care Team Description 03/25/2021 Telephone Adult Medicine [address] [phone] Yari Crabtree MD [address] [place] [phone] APPOINTMENT Social History Tobacco Use Types Packs/Day Years [...] have Coronavirus / COVID-19? No / Unsure 03/14/2021 12:58 PM EST documented as of this encounter Miscellaneous Notes * Telephone Encounter - Kyle Clem - 03/27/2021 2:04 PM EST Spoke with Darcy @ 1:55P today (03/27/21) and scheduled her for a Follow-up appointment with PCP on 04/14/2021. * Telephone Encounter - Sailaja Kathleen M.A. - 03/26/2021 10:05 AM EST Left voicemail for pt to call back * Telephone Encounter - Yari Crabtree MD - 03/25/2021 12:16 PM EST Can offer routine next available appt * Telephone Encounter - Karolina Ackerman - 03/25/2021 11:[address] crabtree Patient requesting a in office viist to discuss csc for butabital please advise * Telephone Encounter - Kyle Nj - 03/25/2021 11:40 AM EST Darcy needs an In-office appointment scheduled as soon as possible to see PCP for Contract. Thereare no appointments available. Please schedule. documented in this encounter Plan of Treatment Not on file documented as of this encounter Visit Diagnoses Not on filedocumented in this encounter Care Teams Vending Machine Filler Relationship Specialty Start Date End Date Yari Crabtree MD [address] [place] [address] PCP - General Internal Medicine 10/31/20 03/24/23 [facility], [address] [address] PCP - General Internal Medicine 03/25/23 documented as of this encounter
--- OUTSIDE RECORDS SUMMARY | 2024-04-16 16:48 | XMS_ITS | Encounter Summary ---
Author Organization [facility] Address [address] [place] [address] Care Team Providers Care Fashion Designer Name Role Phone Porsche Etienne DO Primary Care Pro vider Unavailable Yari Lerma MD Primary Care Provider [phone] [facility], Pcp Primary Care Provider Unavailabl e Encounter Details Date Type Department Care Team Description 12/10/2019 Finance Consultant Report Medical Records [address] [place] [address] Abstract, Provider Social History Tobacco Use Types Packs/Day Years [...] have Coronavirus / COVID-19? No / Unsure 11/27/2019 8:07 AM EDT documented as of this encounter Plan of Treatment Not on file documented as of this encounter Visit Diagnoses Not on filedocumented in this encounter Care Teams Fashion Designer Relationship Specialty Start Date End Date Porsche Etienne DO PCP - General Internal Medicine 10/18/18 10/30/20 Yari Lerma MD [address] [place] [id number] PCP - General Internal Medicine 10/31/20 03/24/23 [facility], Pcp [address] [place] [address] PCP - General Internal Medicine 03/25/23 documented as of this encounter
--- OUTSIDE RECORDS SUMMARY | 2024-04-16 16:48 | XMS_ITS | Encounter Summary ---
Author Organization [facility] Address [address] [place] [address] [address] [place] [address] Care Team Providers Care Securities Analyst Name Role Phone Ada Caruso DO Primary Care Provider Reason for Visit * Reason Onset Date Comments Nurse Triage 10/07/2022 Encounter Details Date Type Department Care Team ([facility] st Contact Info) Description 10/07/2022 Telephone [facility] MEDICINE [address] [place], [place] [phone] Ada Caruso DO [address] [place], [place] [phone] Nurse Triage Social History Tobacco Use Types Packs/Day Years Used Date Smoking Tobacco: Never Passive Smoke Exposure: Never Smokeless Tobacco: Never Alcohol Use Standard Drinks/Week Comments Never 0 (1 standard drink = 0.6 oz pur e alcohol) Depression Answer Date Recorded Patient Health Questionnaire-9 Score 0 08/11/2022 Depression Answer Date Recorded Patient Health Questionnaire-2 Score 0 08/11/2022 Comments Unknown Sex and Gender Information Value Date Recorded Sex Assigned at Female 01/04/2022 10:15 AM EDT Legal Sex Female 10:15 AM EDT Gender Identity Female 01/04/2022 10:15 AM EDT Sexual Orientation Straight 01/04/2022 10 :15 AM EDT documented as of this encounter Miscellaneous Notes * Telephone Encounter - Amanda Randolph RN - 10/07/2022 11:09 AM EDT Triage call with [employer] Chronic Condition Nurse ID [id number] Pt reports period in September was from to . Pt reports for several months now has had spottingbetween periods and pain. Pt reports after Pt had two days of spotting which was very mucus like and transparent. Apt with TERRANCE Bhagat 10/11/22 @ 1000AM. Insurance is verified as active prior to booking. Protocol Used: Vaginal Bleeding - Abnormal (Adult) Protocol-Based Disposition: See in Office or Video Visit within 2 Weeks Positive Triage Question: * Bleeding or spotting between regular periods occurs more than three cycles (3 months) this past year * All higher-acuity triage questions were negative Care Advice Discussed: * Reasons To Call Back - Severe abdomen pain or lightheadedness occurs - test is positive - Bleeding worsens - Bleeding or spotting lasts over 7 days - You become worse * Telephone Encounter - Amanda Randolph RN - 10/07/2022 9:52 AM EDT Triage call with [employer] Chronic Condition Nurse ID [id number] Pt didn't answer. Left voice message to call [facility] At [phone]. * Telephone Encounter - Sarah Reardon - 10/07/2022 9:37 AM EDT Symptom: Vaginal Bleeding - Not Outcome: Schedule an appointment to be seen within 24 hours Reason: unusual color/discharge The caller accepted this outcome Please contact pt at [phone] (Czech) documented in this encounter Plan of Treatment Not on file documented as of this encounter Visit Diagnoses Not on filedocumented in this encounter Additional Health Concerns Assessment Noted Time PHQ-9 Depression Total Score: 0 08/12/19 23 9:19 AM EDT documented as of this encounter Care Teams Securities Analyst Relationship Specialty Start Date End Date Ada Caruso DO [address] [place] [address] PCP - General Family Medicine 07/13/21 documented as of this encounter
--- OUTSIDE RECORDS SUMMARY | 2024-04-16 16:48 | XMS_ITS | Encounter Summary ---
Author Organization [facility] Address [address] [place] [address] Care Team Providers Care Brake Adjuster Name Role Phone Porsche Etienne DO Primary Care Pro vider Unavailable Yari Lerma MD Primary Care Provider [phone] [facility], [facility] Primary Care Provider Unavailabl e Reason for Visit * Reason Comments E-prescribe Rx Request Encounter Details Date Type Department Care Team Description 01/02/2020 Refill Adult Medicine [address] [address] Porsche Etienne DO E-prescribe Rx Request Social History Tobacco Use Types Packs/Day Years [...] encounter Miscellaneous Notes * Telephone Encounter - Irma Mccain M.A. - 01/03/2020 4:[address] Raymundo Talavera, Pt asking to have Fioricet filled Pt is not on csc for this. please review and advise * Telephone Encounter - Theresa Davis PA-C - 01/03/2020 10:19 AM EDT Not appropriate for refills. Will need to see PCP to see if this is appropriate for continued use. * Telephone Encounter - Araceli Clayton - 01/03/2020 9:27 AM EDT Patient would like script to be: E-PRESCRIBED/FAXED TO PHARMACY WHEN WAS THE PATIENT'S LAST APPOINTMENT IN ADULT MEDICINE? 11/27/19 WHEN WAS THE LAST TIME THE PATIENT SAW THEIR PCP? Same as above Does patient have an upcoming appointment? No-patient refused appointment, will call back to book appointment (THE MEDICATION REQUESTED IS ON THE MED LIST ABOVE) All of the medications requested were on the CURRENT MEDS list Did you check the Pharmacy information above?: YES Patient wants: 30 -day supply Is this a mail order prescription request ? NO If the refill is from a FAXED refill request what is the RX # listed on the fax? N/A Patients current insurance carrier is: Payor: [employer] / Plan: POS $20/30 TRE [facility] [id number] [facility] TRADITNAL / Product Type: POS [id number] documented in this encounter Plan of Treatment Not on file documented as of this encounter Visit Diagnoses Not on filedocumented in this encounter Care Teams Brake Adjuster Relationship Specialty Start Date End Date Porsche Etienne DO PCP - General Internal Medicine 10/18/18 10/30/20 Yari Lerma MD [address] [place] [address] PCP - General Internal Medicine 10/31/20 03/24/23 [facility], Pcp [address] [place] [address] PCP - General Internal Medicine 03/25/23 documented as of this encounter
--- OUTSIDE RECORDS SUMMARY | 2024-04-16 16:48 | XMS_ITS | Encounter Summary ---
Author Organization [employer] Address [address] [facility] 7[address] [place] [address] Care Team Providers Care Programming Intern Name Role Phone Ada Caruso DO Primary Care Provider [phone] Reason for Visit * Reason Comments Med Refill Encounter Details Date Type Department Care Team (Late st Contact Info) Description 03/23/2023 Refill [facility] MEDICINE [address] [place], [place] [phone] Ada Caruso DO [address] [place] [address] Depression, unspecified depression type Social History Tobacco Use Types Packs/Day Years [...] before you got money to buy more: Not on file 12/28/2022 Within the past 12 months,th e food you bought just didn't last and you didn't have enough money to get more: Never True Transportation Answer Date Recorded In the past [...] as of this encounter Visit Diagnoses Diagnosis Depression, unspecified depression type documented in this encounter Additional Health Concerns Assessment Noted Time PHQ-9 Depression Total Score: 0 08/12/19 23 9:19 AM EDT documented as of this encounter Care Teams Programming Intern Relationship Specialty Start Date End Date Ada Caruso DO [address] [place] [address] PCP - General Family Medicine 07/13/21 documented as of this encounter
--- OUTSIDE RECORDS SUMMARY | 2024-04-16 16:48 | XMS_ITS | Encounter Summary ---
Author Organization [facility] Address [address] [place] [address] Care Team Providers Care Squeegee Finisher Name Role Phone Porsche Etienne DO Primary Care Pro vider Unavailable Yari Lerma MD Primary Care Provider [phone] [facility], Pcp Primary Care Provider Unavailabl e Encounter Details Date Type Department Care Team Description 12/26/2018 Orders Only Adult Medicine [address] [address] Porsche Etienne DO Social History Tobacco Use Types Packs/Day Years Used Date Smoking Tobacco: Never Smokeless Tobacco: Never Alcohol Use Standard Drinks/Week Comments No 0 (1 standard drink = 0.6 oz pur e alcohol) occ Sex Assigned at Date Recorded Not on file Job Start Date Occupation Industry Not on file Not on file Not on file documented as of this encounter Plan of Treatment Not on file documented as of this encounter Visit Diagnoses Not on filedocumented in this encounter Care Teams Squeegee Finisher Relationship Specialty Start Date End Date Porsche Etienne DO PCP - General Internal Medicine 10/18/18 10/30/20 Yari Lerma MD [address] [place] [address] [phone] PCP - General Internal Medicine 10/31/20 03/24/23 [facility], [address] [address] PCP - General Internal Medicine 03/25/23 documented as of this encounter
--- OUTSIDE RECORDS SUMMARY | 2024-04-16 16:48 | XMS_ITS | Clinical Summary ---
Author Organization [employer] Address [address] [place] [address] [address] [place] [address] Care Team Providers Care Gas Welder Name Role Phone ZulyAda Primary Care Provider [phone] Allergies Active Allergy Reactions Criticality Noted Date Comments Aspirin Wheezing High 05/01/2010 Other reaction(s): Facial swelling & difficulty breathing, Hives/Urticaria, swelling: facial Reaction occurred 1997 Other Reaction(s): swelling, itchy eyes;swelling of face Allergy Beta Adrenergic Blockers 05/01/2010 Beta-blockers, beta adrenergic blocking agents-GERD Other reaction(s): GERD Ibuprofen 04/16/2019 Graded challenge, patient developed diffuse itching and red splotches on face with 100 mg dose Topiramate Hallucinations 04/14/2021 Medications biotin 1 MG capsule Active ferrous gluconate (Fergon) 324 (38 Fe) MG tabletIndicatio ns:Iron deficiency anemia, unspecified iron deficiency anemia type TAKE 1 TABLET BY MOUTH WITH BREAKFAST 90 tablet 3 05/08/19 24 Active polycarbophil (FiberCon) 625 MG tablet Take 1 tablet (625 mg) by mouth 2 times daily. 180 tablet 3 06/16/19 24 025 Active Probiotic Product (Probiotic Daily) capsule Take 1 capsule by mouth in the morning. 90 capsule 3 06/16/19 24 025 Active cetirizine (ZyrTEC) 10 MG tablet TAKE 1 TABLET BY MOUTH EVERY DAY IN THE MORNING 90 tablet 3 07/27/19 24 Active fluticasone (Flonase) 50 MCG/ACT nasal spray SPRAY 2 SPRAYS INTO EACH NOSTRIL EVERY DAY 48 mL 08/08/19 24 Active cholecalciferol VITAMIN D (Vitamin D-3) 50 MCG (1999 UT) capsule TAKE 1 CAPSULE BY MOUTH EVERY MORNING 90 capsule 3 08/23/19 24 Active albuterol 108 (90 Base) MCG/ACT inhaler INHALE 2 PUFFS INTO THE LUNGS EVERY 4 HOURS NEEDED FOR COUGH OR WHEEZING. 8.5 g 11 11/21/19 24 Active Blood Pressure kit 1 each 1 (one) time per week. 1 kit 11/23/19 24 Active hydroCHLOROthia zide (HYDRODiuril) 25 MG tablet Take 1 tablet (25 mg) by mouth Once per day. 90 tablet 3 12/23/19 24 Active Semaglutide-Billy ght Management (Wegovy) 0.25 MG/0.5ML solution auto-injectorIn dications:BMI 36.0-36.9,adult Inject 0.25 mg under the skin 1 (one) time per week. 2 mL 3 12/23/19 24 Active ondansetron (Zofran) 4 MG tablet Take 1 tablet (4 mg) by mouth every 8 (eight) hours if needed for nausea or vomiting. 12 tablet 12/27/19 24 Active Semaglutide-Billy ght Management (Wegovy) 0.5 MG/0.5ML solution auto-injector INJECT ONE PEN (=0.5 MG) SUBCUTANEOUSLY ONCE A WEEK 2 mL 01/11/20 24 Active omeprazole (PriLOSEC) [address] capsule Take 1 capsule (20 mg) by mouth before breakfast and before evening meal. TAKE 1 CAPSULE BY MOUTH EVERY DAY BEFORE A MEAL 180 capsule 3 01/17/20 24 025 Active amitriptyline (Elavil) 10 MG tablet Take 1 tablet (10 mg) by mouth at bedtime. 30 tablet 5 01/17/20 24 025 Active hydrOXYzine pamoate (Vistaril) 25 MG capsuleIndicati ons:Depression, unspecified depression type TAKE 1 CAPSULE BY MOUTH EVERY 6 HOURS NEEDED FOR ANXIETY 40 capsule 3 01/17/20 24 Active baclofen (Lioresal) 10 MG tablet Take 1 tablet (10 mg) by mouth if needed in the morning, at noon, and at bedtime for muscle spasms. 60 tablet 3 01/17/20 24 025 Active lidocaine (Lidoderm) 5 % patch Apply 1 patch topically if needed each day for mild pain (pain). Remove & discard patch within 12 hours or as directed by MD. 30 patch 3 01/17/20 24 Active acetaminophen (Tylenol 8 Hour) 650 MG ER tablet Take 1 tablet (650 mg) by mouth every 8 (eight) hours if needed for mild pain. Do not crush, chew, or split. 60 tablet 1 01/17/20 24 025 Active famotidine (Pepcid) 40 MG/5ML suspension Take 5 mL (40 mg) by mouth at bedtime. 150 mL 3 01/18/20 24 025 Active FLUoxetine (PROzac) 40 MG capsule Take 1 capsule (40 mg) by mouth Once per day. 90 capsule 3 03/09/19 25 026 Active butalbital-acet aminophen-caffe ine 50-325-40 MG tabletIndicatio ns:Nonintractab le chronic migraine TAKE 1 TABLET BY MOUTH EVERY 12 HOURS NEEDED FOR HEADACHE 20 tablet 1 03/14/19 25 Active Active Problems Problem Noted Date Diagnosed Date Chronic diarrhea 07/25/2023 Anxiety 12/10/2022 Anemia 12/10/2022 Family history of breast cancer 12/10/2022 History of COVID-19 05/12/2022 Chronic gastroesophageal reflux disease 11/16/19 19 Prediabetes 11/15/2018 Nasal polyps 08/17/2018 Mild intermittent asthma 04/02/2015 Eczema 04/02/2015 Irritable bowel syndrome 04/02/2015 Chronic migraine 04/02/2015 Allergic rhinitis 04/02/2015 Resolved Problems Problem Noted Date Diagnosed Date Resolved Date Asthma 04/21/2022 12/10/2022 Encounters Date Type Department Care Team Description 03/13/2024 Refill [facility] [address] [place] [address] [place] MD Nonintractable chronic migraine 03/09/2024 Refill [facility] [address] [place] [address] Ada Caruso DO 02/10/2024 Telephone [facility] [address] [place] [address] Ada Caruso DO Medication Question 02/10/2024 Telephone [facility] [address] [place] [phone] Ada Caruso DO Prior Authorization ([employer] [facility] Request: Stephanie) 01/20/2024 Orders Only [facility] [address] [place] [phone] Ada Caruso DO Bilateral carpal tunnel syndrome (Primary Dx) 01/18/2024 Refill [facility] [address] [place] [address] Ada Caruso DO 01/17/2024 12:00 PM EST Office Visit [address] [address] Ada Caruso DO Chronic gastroesophageal reflux disease (Primary Dx); Neck pain; Acute bilateral low back pain without sciatica; Depression, unspecified depression type 01/17/[address] [address] Ada Caruso DO 01/17/2024 Travel from Last 3 Months Immunizations Name Administration Dates Next Due Hep B, Adolescent or Pediatric 03/29/2007,2004,07/03/2004 Hep B, adult 06/16/2023 Influenza Injectable Quadriv alant Preservative Free IIV4 MDCK 12/10/2020,11/27/2019 Influenza injectable quadriv alent preservative free 12/10/2022,11/23/2021 Influenza, IIV3, injectable 12/20/2020 Influenza, Unspecified 12/05/2018 Influenza, seasonal, injecta ble, preservative free 11/23/2023 Pfizer Covid-19 Vaccine 12+ 12/23/2023,1 ,12/31/2020,2020,03/05/2020 Pfizer Covid-19 Vaccine 12+ Bivalent 11/27/2021 Pneumococcal Conjugate PCV 20 06/16/2023 TD (adult), 2 Lf tetanus tox oid, preservative free, adsorbed 04/14/2021,02/09/2000 Tdap 01/09/2009 Social History Tobacco Use Types Packs/Day Years Used Date Smoking Tobacco: Never Passive Smoke Exposure: Never Smokeless Tobacco: Never Tobacco Cessation:Counseling Given: Not Answered Alcohol Use Standard Drinks/Week Comments Never 0 (1 standard drink = 0.6 oz pur e alcohol) Depression Answer Date Recorded Patient Health Questionnaire-9 Score 4 11/23/2023 Patient Health Questionnaire-9 Score 4 11/23/2023 Last PHQ-9: Questionnaire Data Not on file 0 11/23/2023 Housing Stability Answer Date Recorded What is [...] Answer Date Recorded Patient Health Questionnaire-2 Score 2 11/23/2023 Comments No Sex and Gender Information Value Date Recorded Sex Assigned at Female 01/04/2022 10:15 AM EDT Legal Sex Female 10:15 AM EDT Gender Identity Female 01/04/2022 10:15 AM EDT Sexual Orientation Straight 01/04/2022 10 :15 AM EDT Last Filed Vital Signs Vital Sign Reading Time Taken Comments Blood Pressure 139/78 01/17/2024 12:15 PM EST Pulse 77 01/17/2024 12:15 PM EST Temperature 36.1 ??C (97 ??F) 01/17/2024 12:15 PM EST Respiratory Rate 18 01/17/2024 12:15 PM EST Oxygen Saturation 98% 01/17/2024 12:15 PM EST Inhaled Oxygen Concentration - - Weight 94.1 kg (207 lb 6.4 oz) 01/17/2024 12:15 PM EST Height 162.6 cm (5' 4 ) 01/17/2024 12:15 PM EST Body Mass Index 35.6 01/17/2024 12:15 PM EST Plan of Treatment Health Maintenance Due Date Last Done Comments CT Colonography 1975 Colonoscopy 1975 Colorectal Cancer Screening 1975 FIT DNA/Cologuard 1975 FIT 1975 FOBT 1975 Sigmoidoscopy 1975 Alcohol/Substance Use Screening 1987 Family Planning (PISQ) 1990 Hepatitis B Vaccines (2 of 3 - 19+ 3-dose series) 07/14/2023 06/16/2023, 03/29/2007, 03/29/2007, Additional history exists SDOH Screening 06/15/2024 06/16/2023 Depression Screening 11/22/2024 11/23/2023, 11/23/19 Diabetes: Hemoglobin A1C 11/24/2024 11/25/2023, 03/0 11/2022 Tobacco Screening 01/16/2025 01/17/2024 Zoster Vaccines (1 of 2) 2025 Pap Smear 10/11/2025 10/11/2022 Mammogram 03/28/2026 03/28/2024, 05/0 10/2023, 04/11/2023, Additional history exists Cervical Cancer Screening 10/12/2027 HPV/Cotest 10/12/2027 10/11/2022 Lipid Panel 11/24/2028 11/25/2023, 05/13/2022 DTaP/Tdap/Td Vaccines (3 - Td or Tdap) 04/14/2031 04/14/2021, 01/09/2009, 02/09/2000 RSV Patients and Patients Aged 60 years or older (1 - 1-dose 75+ series) 2050 Pneumococcal Vaccine: Pediatrics (0 to 5 Years) and At-Risk Patients (6 to 49) Years) Completed 06/16/2023 Influenza Vaccine Completed 11/23/2023, , 11/23/2021, Additional history exists HIV Screening Completed 11/25/2023, 05/13/2022 Hepatitis C Screening Completed 11/25/2023, 023 COVID-19 Vaccine Completed 12/23/2023, 08/2022, 11/27/2021, Additional [...] patient's age to complete this topic Meningococcal Vaccine Aged Out No sonal dominic eligible based on patient's age to complete this topic RSV under 20 months Aged Out No longe r eligible based on patient's age to complete this topic Rotavirus Vaccines Aged Out No longer eligible based on patient's age to complete this topic Procedures Procedure Name Priority Date/Time Associated Diagnosis Comments HEPATITIS C AB W/REFL TO HCV RNA, QN, PCR Routine 11/25/2023 6:16 AM EDT Healthcare maintenance HIV 1/2 ANTIGEN/ANTIBODY, FOURTH GENERATION W/RFL Routine 11/25/2023 6:16 AM EDT Healthcare maintenance HEMOGLOBIN A1C Routine 11/25/2023 6:16 AM EDT Healthcare maintenance LIPID PANEL, STANDARD Routine 11/25/2023 6:16 AM EDT Healthcare maintenance BI US BREAST LIMITED RIGHT Routine 07/13/2023 1:25 PM EDT HPV MRNA E6/E7 REFLEX TO HPV 16, 18/45 Routine 10/11/2022 10:21 AM EDT PAP SMEAR Routine 10/11/2022 10:21 AM EDT from Last 3 Months or Most Recently Relevant to Health Maintenance Results * Hepatitis C Antibody with Reflex to HCV, RNA, Quantitative, Real-Time PCR (11/25/2023 6:16 AM EDT) Hepatitis C Antibody Nonreactive Nonreactive [facility] Comment:Antibodies to HCV no t detected; does not exclude early acuteHCV infection. Blood Venous blood specimen / Unknown 11/25/2023 6:16 AM EDT 11/25/2023 6:16 AM EDT Ada Zuly DO LAB BLOOD ORDERABLES Final R esult Performing Organization Address City/[facility]/ZIP Co de Phone Number [facility] [address] [place] [address] [phone] * HIV-1/2 Antigen and Antibodies, Fourth Generation, with Reflexes (11/25/2023 6:16 AM EDT) HIV AB/AG Nonreactive Nonreactive [facility] Comment:HIV-1 p24 Ag and/or HIV-1/HIV-2 Ab not detected.A test result that is nonreactive does not exclude thepossibility of exposure to or infection with HIV-1 and/orHIV-2. Nonreactive results in this assay for individualswith prior exposure to HIV-1 and/or HIV-2 may be due toantigen and antibody levels that are below the limit ofdetection of this assay.The iSpot[employer]tv HIV Ag/Ab Combo assay result andsupplemental assay results should be interpreted inconjunction with the patient's clinical presentation,history and other laboratory results. If the results areinconsistent with clinical evidence, additional testing issuggested to confirm the result. Blood Venous blood specimen / Unknown 11/25/2023 6:16 AM EDT 11/25/2023 6:16 AM EDT Ada Caruso DO LAB BLOOD ORDERABLES Final R esult [facility] [address] [place] [address] [phone] * Hemoglobin A1c (11/25/2023 6:16 AM EDT) Hemoglobin A1c 5.3 <6.0 % [facility] Comment:Hemoglobin A1C Refer ence Range Adults: 4.8 - 6.0 % Non diabetic: < 6.0 % Goal: < 7.0 %Additional Action Suggested: > 8.0 %Note: Hemoglobin A1c results are invalid for patients with abnormal amounts of HbF. Blood transfusions may impact the HbA1c concentration in the patient sample. Estimated Average Glucose 105 mg/dL [facility] Comment:eAG = Estimated ave rage glucose which is %A1C expressed asaverage glucose, using the formula of the U6D-PnnucoeVgmtxwd Glucose study (ADAG), Diabetes Care, Vol.31,#8,Oct. 2007 Blood Venous blood specimen / Unknown 11/25/2023 6:16 AM EDT 11/25/2023 6:16 AM EDT us Ada Caruso DO LAB BLOOD ORDERABLES Final R esult [facility] [address] [place] [address] [phone] * (ABNORMAL) Lipid Panel, Standard (11/25/2023 6:16 AM EDT) Triglycerides 151(H) <150 mg/dL [facility] Comment:Desirable Triglyceri de: less than 150 mg/dLBorderline High Triglyceride 150-199 mg/dLHigh Triglyceride: 200-499 mg/dLVery High Triglyceride: greater than or equal to 5OO mg/dL Cholesterol 265(H) <200 mg/dL [facility] Comment:Desirable Cholestero l: less than 200 mg/dLBorderline High Cholesterol: 200-239 mg/dLHigh Cholesterol: greater than 239 mg/dL LDL Cholesterol Calculated 163(H) <100 mg/dL [facility] Comment:Desirable LDL: less than 100 mg/dLNear Optimal/Above Optimal LDL: 110- 129 mg/dLBorderline High LDL: 130-159 mg/dLHigh LDL: 160-189 mg/dLVery High LDL: greater than or equal to 190 mg/dL HDL Cholesterol 72 >40 mg/dL [facility] Comment:Desirable HDL: great er than 40 mg/dL Note: This HDL assay may give artificially low results in patients with liver disease. Blood Venous blood specimen / Unknown 11/25/2023 6:16 AM EDT 11/25/2023 6:16 AM EDT us Ada Caruso DO LAB BLOOD ORDERABLES Final R esult Performing Organization Address [facility]/ZIP Co de Phone Number [facility] [address] [place] [address] [phone] * HPV mRNA E6/E7 w/Reflex to HPV Genotypes 16, 18/45 (10/11/2022 10:21 AM EDT) HPV nRNA E6/E7 Not Detected Not Detected [facility] Comment:Methodology: Transcr iption-Mediated AmplificationThis assay detects E6/E7 viral messenger RNA (mRNA) from 14high-risk HPV types (16,18,31,33,35,39,45,51,52,56,58,59,66,68).Cervical sources are required for HPV testing.If a vaginal source from a patient who has had atotal hysterectomy with removal of cervix wassubmitted, please contact the testing laboratoryfor alternative testing options.For additional information, please refer tohttp://education.Storefront/faq/CCZ769y6(This link if provided for information/educational purposes only.)THIS TEST WAS PERFORMED AT:[address] [place] [id number] JEFFREY MD HPV mRNA E6/E7 [facility] HPV 16 RNA [facility] HPV 18/45 RNA [facility] 10/11/2022 10:2 1 AM EDT 10/12/2022 10:40 AM EDT Rachel Curry CNM LAB CYTOLOGY ORDERABLES F inal Result Performing Organization Address [facility] Co de Phone Number [facility] [address] [place] [address] [phone] * Pap Smear (10/11/2022 10:21 AM EDT) 10/11/2022 10:2 1 AM EDT 10/12/2022 10:40 AM EDT [facility] - 11/01/2022 10:24 AM EDT ----- ------- Name: Colon,Darcy ?Age/Sex: 47/F ? : 1975 Unit#: [id number] ?? Attend Dr: RACHEL CURRY CNM ?Re10/11/22 ?Status: DEP REF ? Location: HO.HHCLNP ? Disch: ? ----- ------- SPEC : [id number] ?RECD: 10/12/22-1040 ? STATUS: ??SOUT ? REQ NUM: [id number] ? CARLOS: 10/11/22-1021 ? SUBM DR: RACHEL CURRY CNM ? ENTERED: ??10/13/22-1159 ?SP TYPE: Pap Smr ?OTHR : ? ORDERED: ??Pap Smear ? Interpretation ?? Satisfactory for evaluation. ?? Negative for intraepithelial lesion or malignancy. ?? Comment: Endometrial cells after age 45, particularly out of phase or after menopause, ?? may be associated with benign endometrium, hormonal alterations or, less commonly, ?? endometrial/uterine abnormalities. ??Please correlate with clinical findings. ? HPV mRNA E6/E7: ?NOT DETECTED ? This assay detects E6/E7 viral messenger RNA (mRNA) from 14 high-risk HPV types (16, 18, ?? 31, 33, 35, 39, 45, 51, 52, 56, 58, 59, 66, 68) ? HPV testing performed by [facility], [place], [place]. ??See reference laboratory ?? portion of the EMR for entire report. ?Clinical Information LMP: Unknown date Previous PAP test: 2020, unknown findings Other history: Abnormal bleeding ? Material Received ?? ThinPrep-Cervical ----- ------- Signed (signature on file) Cassandra Isaac MD 08/28/23 1024 ? ----- ------- ? END OF REPORT ? us Rachel Curry CN LAB CYTOLOGY ORDERABLES F inal Result [facility] [address] [place] [address] [phone] from Last 3 Months or Most Recently Relevant to Health Maintenance Insurance [facility] [employer] Care Teams Gas Welder Relationship Specialty Start Date End Date Ada Caruso DO [address] [place] [address] PCP - General Family Medicine 07/13/21
--- OUTSIDE RECORDS SUMMARY | 2024-04-16 16:48 | XMS_ITS | Encounter Summary ---
Author Organization [facility] Address [address] [place] [address] Care Team Providers Care Needle Setter Name Role Phone Dinora Trimble MD Primary Care Provider Un available Ljkoenedina Colasacco, Porsche DO Primary Care Pro vider Unavailable Yari Lerma MD Primary Care Provider [phone] [facility], [facility] Primary Care Provider Unavailabl e Encounter Details Date Type Department Care Team Description 05/17/2018 Orders Only General Surgery [address] [place] [address] Arabella Conner NP Breast lump in female Social History Tobacco Use Types Packs/Day Years Used Date Smoking Tobacco: Never Smokeless Tobacco: Never Alcohol Use Standard Drinks/Week Comments No 0 (1 standard drink = 0.6 oz pur e alcohol) Sex Assigned at Date Recorded Not on file Job Start Date Occupation Industry Not on file Not on file Not on file documented as of this encounter Plan of Treatment Not on file documented as of this encounter Procedures Procedure Name Priority Date/Time Associated Diagnosis Comments DX MAMMO INCL CAD UNI Routine 04/04/2018 Breast lump in female SONO BREAST, LIMITED Routine 04/04/2018 Breast lump in female documented in this encounter Results * DX MAMMO INCL CAD UNI (04/04/2018) Arabella Conner SERVER MAMMOGRAPHY * SONO BREAST, LIMITED (04/04/2018) Arabella Ubaldo SERVER MAMMOGRAPHY documented in this encounter Visit Diagnoses Diagnosis Breast lump in female Lump or mass in breast documented in this encounter Care Teams Needle Setter Relationship Specialty Start Date End Date Dinora Trimble MD PCP - General Internal Medicine 03/23/18 Porsche Etienne DO PCP - General Internal Medicine 10/18/18 10/30/20 Yari Lerma MD [address] [place] [address] PCP - General Internal Medicine 10/31/20 03/24/[address] [address] PCP - General Internal Medicine 03/25/23 documented as of this encounter
--- OUTSIDE RECORDS SUMMARY | 2024-04-16 16:48 | XMS_ITS | Encounter Summary ---
Author Organization [facility] Address [address] [place] [address] [address] [place] [address] Care Team Providers Care Pet Trainer Name Role Phone Ada Caruso DO Primary Care Provider [phone] Reason for Visit * Reason Comments Med Change Request Encounter Details Date Type Department Care Team ([facility] st Contact Info) Description 10/06/2022 Refill [facility] [address] [place] [address] Ada Caruso DO [address] [place] [address] Nonintractable chronic migraine Social History Tobacco Use [...] documented as of this encounter Care Teams Pet Trainer Relationship Specialty Start Date End Date Ada Caruso DO [address] [place] [address] PCP - General Family Medicine 07/13/21 documented as of this encounter
--- OUTSIDE RECORDS SUMMARY | 2024-04-16 16:48 | XMS_ITS | Encounter Summary ---
Author Organization [employer] [facility] Address [address] [place] [address] [address] [place] [address] Care Team Providers Care Drag Seiner Name Role Phone Ada Caruso DO Primary Care Provider [phone] Reason for Visit * Reason Comments Med Refill Encounter Details Date Type Department Care Team (Late st Contact Info) Description 04/29/2022 Refill [facility] [address] [place], [place] [phone] Ada Caruso DO [address] [place], [place] [phone] Depression, unspecified depression type Social History Tobacco Use Types Packs/Day Years Used Date Smoking Tobacco: Never Assessed Comments Unknown Sex and Gender Information Value Date Recorded Sex Assigned at Female 01/04/2022 10:15 AM EDT Legal Sex Female 10:15 AM EDT Gender Identity Female 01/04/2022 10:15 AM EDT Sexual Orientation Straight 01/04/2022 10 :15 AM EDT COVID-19 Exposure Response Date Recorded In the last 10 days, have yo u been in contact with someone who was confirmed or suspected to have Coronavirus/COVID-19? No / Unsure 04/21/2022 1:36 PM EST documented as of this encounter Plan of Treatment Not on file documented as of this encounter Visit Diagnoses Diagnosis Depression, unspecified depression type documented in this encounter Care Teams Drag Seiner Relationship Specialty Start Date End Date Ada Caruso DO [address] [place], [place] [phone] PCP - General Family Medicine 07/13/21 documented as of this encounter
--- OUTSIDE RECORDS SUMMARY | 2024-04-16 16:48 | XMS_ITS | Encounter Summary ---
Author Organization [employer] Address [address] [facility] [address]t [place] [address] Care Team Providers Care Lead Sharepoint Developer Name Role Phone Ada Caruso DO Primary Care Provider [phone] Reason for Visit * Reason Onset Date Comments Med Refill 11/25/2023 Encounter Details Date Type Department Care Team ([facility] st Contact Info) Description 11/25/2023 Refill [facility] [address] [place] [address] Ada Caruso DO [address] [place] [address] Social History Tobacco Use Types Packs/Day Years [...] Assessment Noted Time PHQ-9 Depression Total Score: 4 11/23/19 24 11:01 AM EDT documented as of this encounter Care Teams Lead Sharepoint Developer Relationship Specialty Start Date End Date Ada Caruso DO [address] [place] [address] PCP - General Family Medicine 07/13/21 documented as of this encounter
--- OUTSIDE RECORDS SUMMARY | 2024-04-16 16:48 | XMS_ITS | Encounter Summary ---
Author Organization [facility] Address [address] [place] [address] Care Team Providers Care Shoe Sewing Machine Operator And Tender Name Role Phone Porsche Etienne DO Primary Care Pro vider Unavailable Yari Lerma MD Primary Care Provider [phone] [facility] Primary Care Provider Unavailabl e Reason for Visit * Reason Comments E-prescribe Rx Request Encounter Details Date Type Department Care Team Description 02/11/2020 Refill Adult Medicine [address] [address] Porsche Etienne DO E-prescribe Rx Request Social [...] have Coronavirus / COVID-19? No / Unsure 01/24/2020 12:43 PM EST documented as of this encounter Miscellaneous Notes * Telephone Encounter - Lacey Marsh - 02/12/2020 8:00 AM EST Patient would like script to be: E-PRESCRIBED/FAXED TO PHARMACY WHEN WAS THE PATIENT'S LAST APPOINTMENT IN ADULT MEDICINE? 11/27/2019 WHEN WAS THE LAST TIME THE PATIENT SAW THEIR PCP? Same as above Does patient have an upcoming appointment? Yes 04/16/20 (THE MEDICATION REQUESTED IS ON THE MED LIST ABOVE) All of the medications requested were on the CURRENT MEDS list Did you check the Pharmacy information above?: YES Patient wants: 90 -day supply Is this a mail order prescription request ? NO If the refill is from a FAXED refill request what is the RX # listed on the fax? N/A Patients current insurance carrier is: Payor: [employer] / Plan: POS $20/30 TRE VAIL [id number] [facility] / Product Type: POS [id number]-Hycjzmt documented in this encounter Plan of Treatment Not on file documented as of this encounter Visit Diagnoses Not on filedocumented in this encounter Care Teams Shoe Sewing Machine Operator And Tender Relationship Specialty Start Date End Date Porsche Etienne DO PCP - General Internal Medicine 10/18/18 10/30/20 Yari Lerma MD [address] [place], [place] [id number] PCP - General Internal Medicine 10/31/20 03/24/[address] [address] PCP - General Internal Medicine 03/25/23 documented as of this encounter
--- OUTSIDE RECORDS SUMMARY | 2024-04-16 16:48 | XMS_ITS | Encounter Summary ---
Author Organization [facility] Address [address] [place] [address] Care Team Providers Care Prep Room Supervisor Name Role Phone Yari Lerma MD Primary Care Provider [phone] [facility], Pcp Primary Care Provider Unavailabl e Encounter Details Date Type Department Care Team Description 05/18/2021 Senior Manufacturing Test Engineer Report Medical Records [address] [place] [id number] Chacorta Gómez MD Social History Tobacco Use Types Packs/Day Years [...] have Coronavirus / COVID-19? No / Unsure 05/19/2021 10:59 AM EDT documented as of this encounter Plan of Treatment Not on file documented as of this encounter Visit Diagnoses Not on filedocumented in this encounter Care Teams Prep Room Supervisor Relationship Specialty Start Date End Date Yari Lerma MD [address] [place] [id number] PCP - General Internal Medicine 10/31/20 03/24/23 [facility], [address] [address] PCP - General Internal Medicine 03/25/23 documented as of this encounter
--- OUTSIDE RECORDS SUMMARY | 2024-04-16 16:48 | XMS_ITS | Encounter Summary ---
Author Organization [employer] Address [address] [facility] [address] [place] [address] Care Team Providers Care Supervisor Hardboard Name Role Phone Ada Caruso DO Primary Care Provider [phone] Reason for Visit * Reason Onset Date Comments Prior Authorization 01/04/2024 Encounter Details Date Type Department Care Team ([facility] st Contact Info) Description 01/04/2024 Telephone [facility] [address] [place] [place], [place] [phone] Ada Caruso DO [address] [place] [address] Prior Authorization Social History Tobacco Use Types Packs/Day Years [...] encounter Miscellaneous Notes * Telephone Encounter - Susannah Brower - 01/04/2024 12:03 PM EDT Tc from pt stating script for Semaglutide-Weight Management (Wegovy) 0.25 MG/0.5ML solution auto-injector requires a PA. documented in this encounter Plan of Treatment Not on file documented as of this encounter Visit Diagnoses Not on filedocumented in this encounter Additional Health Concerns Assessment Noted Time PHQ-9 Depression Total Score: 4 11/23/19 24 11:01 AM EDT documented as of this encounter Care Teams Supervisor Hardboard Relationship Specialty Start Date End Date Ada Caruso DO [address] [place] [id number] PCP - General Family Medicine 07/13/21 documented as of this encounter
--- OUTSIDE RECORDS SUMMARY | 2024-04-16 16:48 | XMS_ITS | Encounter Summary ---
Author Organization [facility] Address [address] [place] [address] Care Team Providers Care Central Supply Supervisor Name Role Phone Community, Pcp Primary Care Provider Unavailabl e Ada Caruso DO Primary Care Provider Unava ilable Dinora Trimble MD Primary Care Provider Un available Porsche Etienne DO Primary Care Pro vider Unavailable Yari Lerma MD Primary Care Provider [phone] [facility], Pcp Primary Care Provider Unavailabl e Encounter Details Date Type Department Care Team Description 12/29/2016 Transfer Records Medical Records [address] [place] [id number] Abstract, Provider Social History Tobacco Use Types Packs/Day Years Used Date Smoking Tobacco: Never Smokeless Tobacco: Never Alcohol Use Standard Drinks/Week Comments Yes 0 (1 standard drink = 0.6 oz pur e alcohol) Sex Assigned at Date Recorded Not on file Job Start Date Occupation Industry Not on file Not on file Not on file documented as of this encounter Plan of Treatment Not on file documented as of this encounter Visit Diagnoses Not on filedocumented in this encounter Care Teams Central Supply Supervisor Relationship Specialty Start Date End Date Marv, Pcp PCP - General Internal Medicine 12/28/16 03/07/18 Ada Caruso DO PCP - General Internal Medicine 03/08/18 03/22/18 Dinora Trimble MD PCP - General Internal Medicine 03/23/18 Porsche Etienne DO PCP - General Internal Medicine 10/18/18 10/30/20 Yari Lerma MD [address] [place] [address] PCP - General Internal Medicine 10/31/20 03/24/23 [facility], Pcp PCP - General Internal Medicine 03/25/23 documented as of this encounter
--- OUTSIDE RECORDS SUMMARY | 2024-04-16 16:48 | XMS_ITS | Encounter Summary ---
Author Organization [facility] Address [address] [place] [address] [address] [place] [address] Care Team Providers Care Printed Circuit Board Pcb Designer Name Role Phone Ada Caruso DO Primary Care Provider Encounter Details Date Type Department Care Team (Late st Contact Info) Description 04/01/2022 Orders Only [facility] MED[facility]INE [address] [place] [address] aCllie Lugo LPN Social History Tobacco Use Types Packs/Day Years [...] on filedocumented in this encounter Care Teams Printed Circuit Board Pcb Designer Relationship Specialty Start Date End Date Ada Caruso DO [address] [place] [address] PCP - General Family Medicine 07/13/21 documented as of this encounter
--- OUTSIDE RECORDS SUMMARY | 2024-04-16 16:48 | XMS_ITS | Clinical Summary ---
Author Organization [facility] Address [address] [place] [address] Care Team Providers Care Ruffler Name Role Phone Community, Pcp Primary Care Provider Unavailabl e Allergies Active Allergy Reactions Severity Noted Date Comments Aspirin Hives/Urticaria,SOB, Wheezing High 12/28/2016 Reaction occurred 1998 Ibuprofen 04/16/2019 Graded challenge, patient developed diffuse itching and red splotches on face with 100 mg dose Other (No Interaction Warnings) 11/15/2018 Beta-blockers, beta adrenergic blocking agents-GERD Topiramate hallucinations 04/14/2021 Medications Medication Sig Dispensed Refills Start Date End Date Status olopatadine (PATANOL) 0.1 % ophthalmic solution Place 1 Drop into both eyes 2 times daily as needed for Allergies. 1 Bottle 5 08/08/2019 Active CUNAKYVQZY-YJEQ-LITD EINE 50-325-40 MG OR TABS (FIORICET, ESGIC) per tablet TAKE 1 TABLET BY MOUTH AT ONCE FOR MIGRAINE, MAY REPAEAT ONCE IN 2 HOURS IF NEEDED, MAX 2 TABLETS DAILY 30 tablet 0 01/06/2021 Active omeprazole (PRILOSEC) 20 MG capsule Take 1 capsule by mouth daily. 90 capsule 1 02/12/2021 Active fluticasone 50 MCG/ACT nasal spray INSTILL 2 SPRAY IN EACH NOSTRIL DAILY. 16 mL 1 04/14/2021 Active clobetasol (TEMOVATE) 0.05 % cream APPLY TO AFFECTED AREA TWICE A DAY 30 g 1 04/14/2021 Active triamcinolone (KENALOG) 0.1 % cream Apply to affected area BID up to 2 weeks 30 g 0 04/14/2021 Active cetirizine (ZyrTEC Allergy) 10 MG tablet Take 1 tablet by mouth Once. Take 1 Tab by mouth Once. 90 tablet 1 04/14/2021 Active propranolol (INDERAL) 10 MG tablet Take 10 mg by mouth 2 times daily. 0 Active ALBUTEROL SULFATE 108 (90 Base) MCG/ACT Aero Soln Inhale 2 Puffs into the lungs every 4 hours as needed for Cough or Wheezing. 8.5 g 0 05/19/2021 Active Cholecalciferol (Vitamin D3) 50 MCG (1999 UT) Cap TAKE 1 CAPSULE BY MOUTH DAILY 90 Capsule 1 10/12/2021 Active Active Problems Problem Noted Date Perennial allergic rhinitis 11/15/2018 Irritable bowel syndrome 11/15/2018 GERD (gastroesophageal reflux disease) 0 11/15/2018 Prediabetes 11/15/2018 Eczema 08/17/2018 Nasal polyps 08/17/2018 At high risk for breast cancer 9 Overview: 07/2016 patient Genetic testing negative; recommend annual MRI and mammography, clincial breast exam q 6 months Migraine headache Asthma Resolved Problems Problem Noted Date Resolved Date Aspirin allergy 04/16/2019 04/03/2021 Allergic conjunctivitis of both eyes 04/16/2019 04/03/2021 Allergy to NSAIDs 04/16/2019 04/03/2021 Family history of melanoma 12/20/201804/03 Immunizations Name Administration Dates Next Due COVID-19 (Pfizer) 12/31/2020,03/26/2020,03/05/20 20 Covid-19 Bivalent (Pfizer) 11/27/2021 Hepatitis B > 19yrs 03/29/2007,07/30/2004,2004 Hepatitis L-Xuycb-Obtedmze + 08/20/2015 Influenza Flu (PT Reported) 12/05/2018 Influenza Vaccine-preservati ve Free-quadrivalent 4 Years 12/10/2020,11/27/2019 TD (STATE SUPPLIED FOR ADULTS AND CHILDREN) 02/0 10/2021,02/09/2000 Tdap 01/09/2009 Family History Medical History Relation Name Comments CA Breast Aunt maternal Cancer of the Breast Aunt maternal Melanoma Brother Cancer of the Prostate Father 11/20 17 skin cancer Cancer of the Colon Maternal Grandmother Diabetes Mother hypertension, a rthritis, melanoma, cancer colon CA Breast Other 1 maternal Cancer of the Breast Other 1 maternal first c ousin CA Breast Other 2 Maternal cousin Uterine Cancer Other 2 Maternal cousin Cancer of the Prostate Paternal Grandfather Cancer of the Breast Paternal Grandmother Relation Name Status Comments Aunt [...] file Not on file Not on file Last Filed Vital Signs Vital Sign Reading Time Taken Comments Blood Pressure 114/68 05/19/2021 11:05 AM EDT Pulse 86 05/19/2021 11:05 AM EDT Temperature 36.4 ??C (97.5 ??F) 05/19/2021 11:05 AM E DT Respiratory Rate 18 05/19/2021 11:05 AM EDT Oxygen Saturation 99% 04/16/2019 11:12 AM EST Inhaled Oxygen Concentration - - Weight 88.9 kg (196 lb) 04/14/2021 8:50 AM EST Height 165.1 cm (5' 5 ) 05/19/2021 11:05 AM EDT Body Mass Index 32.62 04/14/2021 8:50 AM EST Plan of Treatment Health Maintenance Due Date Last Done Comments PNEUMOCOCCAL VACCINE FOR HIG H RISK PATIENTS (#1) 1994 BASELINE HEALTH EXAM 40-64 03/20/202103/20 (Completed), 03/20/2019 Covid-19 Vaccine (2022-2 4 season) 2023 11/27/2021, 12/31/2020, 03/26/2020, Additional history exists INFLUENZA (#1) 2023 12/10/2020, 11/06, 12/05/2018 (External Completion of Vaccination per patient), Additional history exists CERVICAL CANCER SCREENING 11/25/20232020, 10/18/2013, 07/19/2012, Additional history exists BMI CHECK/ADVISE 2024 05/19/2021 (Com pleted), 01/06/2021, 11/24/2020, Additional history exists MAMMOGRAM 03/26/2024 03/26/2023, 03/07, 03/14/2021, Additional history exists COLON CANCER SCREENING 04/12/2024 0 (Completed), 04/12/2019 CHOLESTEROL SCREENING 01/06/2026 01/06/2021, 020 DTAP/TDAP/TD (3 - Td or Tdap) 04/14/2031, 01/09/2009, 02/09/2000 Care Teams Ruffler Relationship Specialty Start Date End Date Community, Pcp PCP - General Internal Medicine 03/25/23
--- OUTSIDE RECORDS SUMMARY | 2024-04-16 16:48 | XMS_ITS | Encounter Summary ---
Author Organization [facility] Address [address] [place] [address] Care Team Providers Care Passenger Relations Representative Name Role Phone Yari Lerma MD Primary Care Provider [phone] Reason for Visit * Reason Comments Abdominal Pain Abdominal pain with nausea, vomiting, body aches and headache since this am. Encounter Details Date Type Department Care Team ([facility] st Contact Info) Description 03/23/2024 12:43 AM EST - 03/23/2024 5:35 AM EST Emergency [facility] Emergency [address] [place] [id number] Generalized abdominal pain (Primary Dx); Enterocolitis Discharge Disposition: Home or Self Care Social [...] AM EST documented as of this encounter Last Filed Vital Signs Vital Sign Reading [...] Mass Index 34.84 03/22/2024 9:39 PM EST documented in this encounter Functional Status * Are you deaf or do you have serious difficulty hearing? Answer Date of Assessment Author No 03/23/2024 1:12 AM EST Andreina Pedro RN * Are you blind or do [...] Andreina Lindquist RN documented in this encounter Discharge Instructions * Discharge Instructions* HARISH Aguila - 03/23/2024 5:23 AM EST Thank you for choosing [facility]'s Emergency Department for your care today. Thankfully your laboratory evaluation is reassuring and your symptoms have improved following interventions in the ED. Your CT did show evidence of inflammation of your small bowel and colon, a condition known as enterocolitis. This is most often caused by a virus. Seeing as you have had no objective fever, and your laboratory workup does not support a bacterial infection, there is no indication for antibiotics at this time. There is no indication for admission to the hospital or continued ED observation, and it is safe to discharge you home. Please take Tylenol every 6 hours for pain or fever. Please take Zofran as directed as needed for nausea. Please follow up with your primary care physician for re-evaluation, additional management of your symptoms, and continued preventative care. If you do not have a primary care physician, please call the [facility] at [phone] toestablish a new primary care physician. Please return to the emergency department if you develop a sudden severe change in your symptoms, afever over 100.4,, severe or recurrent vomiting,, or a sudden increase in pain, or if you experience any other new or worsening symptoms or concerns. * Attachments The following attachments cannot be sent through Care Everywhere. * Colitis (Guatemalan) * Colitis: General Info (Guatemalan) * Gastroenteritis ([place]) documented in this encounter Medications at Time [...] 03/30/19 25 documented as of this encounter Ordered Prescriptions Prescription Sig Dispense Quantity Refills Last Filled Start Date End Date acetaminophen (TYLENOL) 500 mg tablet Take 2 tablets (1,000 mg total) by mouth every 8 (eight) hours. 30 tablet 03/23/2024 ondansetron ODT (ZOFRAN-ODT) 4 mg disintegrating tablet Let 1 tablet dissolve under the tongue three times daily as needed for nausea or vomiting. 10 tablet 03/23/2024 5 documented in this encounter Discharge Disposition Disposition Code Departure Means Destination Comment s Home or Self Half-Way documented in this encounter Progress Notes * Hilary Leong RN - 03/22/2024 9:36 PM EST Pt to ER with complaints of upper abd pain that started this AM. +nausea/vomiting/diarrhea. C/O body aches as well. Has been taking Dayquil for the body aches. PCP prescribed her Zofran which has notbeen effective. * HARISH Anglin - 03/22/2024 9:27 PM EST Emergency Medicine Note Patient Name: Darcy Farnsworth Initial Evaluation: 03/22/2024 : 1975 Patient's PCP: Yari Lerma MD Emergency Physician: HARISH Anglin History of Present Illness Chief Complaint: Chief Complaint Patient presents with Abdominal Pain Abdominal pain with nausea, vomiting, body aches and headache since this am. HPI: 49-year-old female with history of asthma, allergic rhinitis, GERD, migraines presenting for abdominal pain, vomiting and diarrhea. Onset earlier today, associated headache, body aches, chills. She does report that her mother has similar symptoms. No upper respiratory concerns including cough,runny nose, sore throat, chest pain or dyspnea. Denies change in diet or change in medications. Bebeto report recent treatment for H. pylori but she completed her medication regiment 3 weeks ago and has follow-up upcoming to check if infection is cleared. ROS: I have performed a ROS with the pertinent positives and negatives documented in the history ofpresent illness. Previous History Past Medical History: Diagnosis Date Abnormal MRI, breast 03/2019 DX:Abnormal MRI, breast; COMMENT: us ordered Allergic rhinitis 11/15/2018 DX:Allergic rhinitis Asthma DX:Asthma At high risk for breast cancer 03/23/2018 DX:At high risk for breast cancer; COMMENT: 07/2016 patient Genetic testing negative; recommend annual MRI and mammography, clincial breast exam q 6 months Eczema 08/17/2018 DX:Eczema GERD (gastroesophageal reflux disease) 11/15/2018 DX:GERD (gastroesophageal reflux disease) History of colonoscopy 04/2019 DX:History of colonoscopy; COMMENT: repeat in 5 yrs Irritable bowel syndrome 11/15/2018 DX:Irritable bowel syndrome Migraine headache DX:Migraine headache Nasal polyps 08/17/2018 DX:Nasal polyps Prediabetes 11/15/2018 DX:Prediabetes Past Surgical History: Procedure Laterality Date BREAST BIOPSY Right 05/26/2015 PROCEDURE: BX BREAST; PERC NEEDLE CORE W/IMAG GUID; COMMENT: fibroadenoma BREAST SURGERY PROCEDURE: IL UNLISTED PROCEDURE BREAST COLONOSCOPY 04/12/2019 PROCEDURE: HISTORICAL COLONOSCOPY; COMMENT: negative OTHER SURGICAL HISTORY PROCEDURE: IL LIG/TRNSXJ FLP TUBE ABDL/VAG APPR UNI/BI OTHER SURGICAL HISTORY Right 02/27/2016 PROCEDURE: ---- OTHER ----; COMMENT: Excision of lipoma of the right axilla Social History Tobacco Use Smoking status: Never Smokeless tobacco: Never Substance Use Topics Alcohol use: No Drug use: No Family History Problem Relation Name Age of Onset Diabetes Mother hypertension, arthritis, melanoma, cancer colon Prostate cancer Father 01/2017 skin cancer Colon cancer Maternal Grandmother 85.00 Breast cancer Paternal Grandmother 69.00 Prostate cancer Paternal Grandfather Melanoma Brother Breast cancer Aunt maternal Breast cancer Aunt maternal 50.00 Breast cancer Other maternal Breast cancer Other maternal 41.00 first cousin Breast cancer Other Maternal cousin Uterine cancer Other Maternal cousin is allergic to aspirin, ibuprofen, other, and topiramate. No current facility-administered medications on file prior to encounter. Current Outpatient Medications on File Prior to Encounter Medication Sig Dispense Refill albuterol HFA (PROAIR HFA ; PROVENTIL HFA ; VENTOLIN HFA) 90 mcg/actuation inhaler Inhale 2 Puffs into the lungs every 4 hours as needed for Cough or Wheezing. cnyurxquhp-eqtkhhiuvahic-igdpqfyg (FIORICET, ESGIC) 50-325-40 mg per tablet TAKE 1 TABLET BY MOUTH AT ONCE FOR MIGRAINE, MAY REPAEAT ONCE IN 2 HOURS IF NEEDED, MAX 2 TABLETS DAILY cetirizine (ZyrTEC) 10 mg tablet Take 1 tablet by mouth Once. Take 1 Tab by mouth Once. cholecalciferol (VITAMIN D-3) 50 mcg (2,000 unit) capsule Take 1 capsule (2,000 Units total) by mouth 1 (one) time each day. clobetasoL (TEMOVATE) 0.05 % cream Apply 1 Application topically 2 (two) times a day. fluticasone propionate (FLONASE) 50 mcg/actuation nasal spray SPRAY 2 SPRAYS INTO EACH NOSTRIL EVERY DAY olopatadine (PATANOL) 0.1 % ophthalmic solution Place 1 Drop into both eyes 2 times daily as neededfor Allergies. omeprazole (PriLOSEC) [address] capsule Take 1 capsule (20 mg total) by mouth 1 (one) time each day. propranoloL (INDERAL) 10 mg tablet Take 10 mg by mouth 2 times daily. triamcinolone (KENALOG) 0.1 % cream Apply to affected area BID up to 2 weeks Physical Exam ED Triage Vitals [03/22/242138] Temp Heart Rate Resp BP 37.3 ??C (99.1 ??F) 105 20 122/76 SpO2 Temp Source Heart Rate Source Patient Position 93 % Oral -- -- BP Location FiO2 (%) -- -- Physical Exam Vitals and nursing note reviewed. Constitutional: General: She is awake. She is not in acute distress. Appearance: Normal appearance. She is not ill-appearing or toxic-appearing. HENT: Head: Normocephalic and atraumatic. Eyes: Conjunctiva/sclera: Conjunctivae normal. Pulmonary: Effort: Pulmonary effort is normal. No respiratory distress or retractions. Abdominal: General: Abdomen is flat. Bowel sounds are normal. Palpations: Abdomen is soft. Tenderness: There is generalized abdominal tenderness. There is no guarding or rebound. Musculoskeletal: General: Normal range of motion. Cervical back: Normal range of motion and neck supple. Skin: General: Skin is warm and dry. Neurological: Mental Status: She is alert, oriented to person, place, and time and easily aroused. Mental status is at baseline. Gait: Gait normal. Psychiatric: Mood and Affect: Mood normal. Behavior: Behavior normal. Thought Content: Thought content normal. Judgment: Judgment normal. Results Labs Reviewed COMPREHENSIVE METABOLIC PANEL - Abnormal Result Value Sodium 137 Potassium 3.5 Chloride 102 CO2 29 Anion Gap 6 Glucose 150 (*) BUN 14 Creatinine 0.91 eGFR 77 BUN/Creatinine Ratio 15.4 Calcium 8.8 AST (SGOT) 26 ALT (SGPT) 40 Alkaline Phosphatase 95 Total Protein 7.8 Albumin 3.7 Total Bilirubin 0.4 CBC WITH AUTO DIFFERENTIAL - Abnormal WBC 11.1 (*) RBC 4.60 Hemoglobin 13.1 Hematocrit 40.3 MCV 87.0 MCH 28.3 MCHC 32.5 RDW 13.2 Platelets 287 MPV 10.6 NRBC 0.0 NRBC Absolute 0.00 Neutrophils Relative 90.1 Lymphocytes Relative 4.6 Monocytes Relative 4.6 Eosinophils Relative 0.2 Basophils Relative 0.1 Immature Granulocytes Relative 0.4 Neutrophils Absolute 10.03 (*) Lymphocytes Absolute 0.51 (*) Monocytes Absolute 0.51 Eosinophils Absolute 0.02 Basophils Absolute 0.01 Immature Granulocytes Absolute 0.04 (*) RESPIRATORY VIRUS PANEL MOLECULAR STUDY - Normal Adenovirus Detection by PCR Not Detected Influenza A PCR Not Detected Influenza B PCR Not Detected Coronavirus 229E Not Detected Coronavirus HKU1 Not Detected Coronavirus OC43 Not Detected Coronavirus NL63 Not Detected Parainfluenza Virus 1 Not Detected Parainfluenza Virus 2 Not Detected Parainfluenza Virus 3 Not Detected Parainfluenza Virus 4 Not Detected RSV PCR Not Detected Human Metapneumovirus A and B Not Detected Rhinovirus/Enterovirus Not Detected Bordetella pertussis Not Detected Bordetella parapertussis Not Detected Mycoplasma pneumo by PCR Not Detected Chlamydia pneumoniae Not Detected SARS COV-2 Not Detected Narrative: Testing was performed using the [employer] Respiratory Pathogen PCR Assay. All results must [...] that are below the limit of detection. LIPASE - Normal Lipase 18 GASTROINTESTINAL PATHOGENS MOLECULAR STUDY CBC AND DIFFERENTIAL Narrative: The following orders were created for panel order CBC and differential. Procedure Abnormality Status --------- ------ CBC auto differential[[id number]] Abnormal Final result Please view results for these tests on the individual orders. Abnormal Labs Reviewed COMPREHENSIVE METABOLIC PANEL - Abnormal; Notable for the following components: Result Value Glucose 150 (*) All other components within normal limits CBC WITH AUTO DIFFERENTIAL - Abnormal; Notable for the following components: WBC 11.1 (*) Neutrophils Absolute 10.03 (*) Lymphocytes Absolute 0.51 (*) Immature Granulocytes Absolute 0.04 (*) All other components within normal limits CT Abdomen Pelvis w Contrast (Results Pending) I have discussed the incidental/abnormal imaging and/or lab abnormalities with the patient and haveinstructed them the need for further evaluation and workup with their primary care doctor. I have provided the patient with a paper copy of the abnormality. The laboratory results, imaging results and other diagnostic exam results were reviewed in the EMR. EKG Interpretation Critical Care Time None ? Medical Decision Making DDX: Viral GI illness, enteritis, colitis, appendicitis low suspicion 49-year-old female with abdominal generalized discomfort and tenderness, nausea, vomiting and diarrhea. Highest clinical suspicion for viral GI illness. She has had 2 total episodes of diarrhea today. No blood or black reported. Low clinical concern for infectious illness in this capacity. Zofran at home has been ineffective, she does feel agreeable to oral medication, will try meclizine and attempt a p.o. challenge. Medications sodium chloride 0.9 % bolus 1,000 mL (has no administration in time range) acetaminophen (TYLENOL) tablet 1,000 mg (has no administration in time range) meclizine (ANTIVERT) tablet 25 mg (25 mg oral Given 03/23/24 0130) ED Course as of 03/23/24 0242 TueMar 23, 2024 0234 Patient able to tolerate small amount of water although she does indicate that this makes her pain and distention significantly worse. Will send for CT imaging. [EN] ED Course User Index [EN] HARISH Anglin Clinical Impressions as of 03/23/24 0242 Generalized abdominal pain Procedures Procedures Diagnosis 1. Generalized abdominal pain Disposition Data Unavailable ED Prescriptions None Physician Attestation HARISH Anglin 03/23/24 0123 HARISH Anglin 03/23/24241 Cosigned by Radha Ramirez MD at 03/23/2024 7:45 AM EST documented in this encounter Plan of Treatment Scheduled Orders Name Type Priority Associated Diagnoses Order Schedule Gastrointestinal pathogens molecular study Microbiology STAT Once f or 1 Occurrences starting 03/23/2024 until 03/23/2024 documented as of this encounter Procedures Procedure Name Priority Date/Time Associated Diagnosis Comments CT ABDOMEN PELVIS W CONTRAST STAT 03/23/2024 4:16 AM EST URINALYSIS WITH REFLEX MICROSCOPIC AND CULTURE STAT 03/23/2024 3:45 AM EST KEMP URINE CULTURE TUBE STAT 03/23/2024 3:45 AM EST URINALYSIS WITH REFLEX MICROSCOPIC AND CULTURE STAT 03/23/2024 3:45 AM EST POC , URINE DIAGNOSTIC STAT 03/23/2024 3:45 AM EST CBC WITH AUTO DIFFERENTIAL STAT 03/22/2024 10:07 PM EST CBC AND DIFFERENTIAL STAT 03/22/2024 10:07 PM EST LIPASE STAT 03/22/2024 10:07 PM EST COMPREHENSIVE METABOLIC PANEL STAT 03/22/2024 10:07 PM EST RESPIRATORY VIRUS PANEL MOLECULAR STUDY STAT 03/22/2024 9:42 PM EST documented in this encounter Results * CT Abdomen Pelvis w Contrast (03/23/2024 [...] by: Devon Whaley MD on 03/23/2024 04:36:[address] PROCEDURES Final Result * Kemp urine culture tube (03/23/2024 3:45 AM EST) Extra Tube Hold for add-ons. 03/23/2024 5:01 AM [facility] Comment:Auto resulted. Urine Urine specimen obtained by clean catch procedure / Unknown Non-blood Collection / Unknown 03/23/2024 3:45 AM EST 03/23/2024 3:57 AM EST Volodymyr MOREIRA LAB URINE ORDERABLES Final Resul t [facility] [address] [place] [address], [place] [phone] * (ABNORMAL) Urinalysis with reflex microscopic and culture (03/23/2024 3:45 AM EST) Specific [place] Urine 1.041(H) 1.003 - 1.030 LAB URINALYSIS - AUTOMATED METHOD 03/23/2024 4:48 AM [facility] pH, Urine 5.0 5.0 - 8.0 pH LAB URINALYSIS - AUTOMATED METHOD 03/23/2024 4:48 AM [facility] Leukocytes, Urine Negative Negative LAB URINALYSIS - AUTOMATED METHOD 03/23/2024 4:48 AM [facility] Nitrite, Urine Negative Negative LAB URINALYSIS - AUTOMATED METHOD 03/23/2024 4:48 AM [facility] Protein, Urine Trace <=Trace mg/dL LAB URINALYSIS - AUTOMATED METHOD 03/23/2024 4:48 AM [facility] Glucose, Urine Negative Negative mg/dL LAB URINALYSIS - AUTOMATED METHOD 03/23/2024 4:48 AM [facility] Ketones, Urine Trace(A) Negative mg/dL LAB URINALYSIS - AUTOMATED METHOD 03/23/2024 4:48 AM [facility] Urobilinogen , Urine 0.2 0.2 - 1.0 mg/dL LAB URINALYSIS - AUTOMATED METHOD 03/23/2024 4:48 AM [facility] Bilirubin, Urine Negative Negative LAB URINALYSIS - AUTOMATED METHOD 03/23/2024 4:48 AM [facility] Blood, Urine Moderate(A) Negative LAB URINALYSIS - AUTOMATED METHOD 03/23/2024 4:48 AM [facility] RBC, Urine 35(H) 0 - 4 /HPF LAB URINALYSIS - AUTOMATED METHOD 03/23/2024 4:48 AM [facility] WBC, Urine 3.2 0 - 4 /HPF LAB URINALYSIS - AUTOMATED METHOD 03/23/2024 4:48 AM [facility] Squamous Epithelial, Urine 69(H) 0 - 60 /LPF LAB URINALYSIS - AUTOMATED METHOD 03/23/2024 4:48 AM [facility] Bacteria, Urine Negative Negative /HPF LAB URINALYSIS - AUTOMATED METHOD 03/23/2024 4:48 AM [facility] Hyaline Casts, Urine 0 0 - 3 /LPF LAB URINALYSIS - AUTOMATED METHOD 03/23/2024 4:48 AM [facility] Urine Urine specimen obtained by clean catch procedure / Unknown Non-blood Collection / Unknown 03/23/2024 3:45 AM EST 03/23/2024 3:57 AM EST us Volodymyr MOREIRA LAB URINE ORDERABLES Final Resul t [facility] [address] [place] [address], * POC , urine manually resulted (03/23/2024 3:45 AM EST) HCG, Ur POC Negative Negative POC hCG Int QC Pass? Yes Yes EXPIRATION DATE POC 2024-08-02 LOT NUMBER POC [id number] Urine Urine specimen obtained by clean catch procedure / Unknown 03/23/2024 3:45 AM EST us Volodymyr MOREIRA POINT OF CARE TEST ENTER/EDIT OR DERABLES Final Result * (ABNORMAL) CBC auto differential (03/22/2024 10:07 PM EST) [facility] [address] WBC 11.1(H) 4.8 - 10.8 K/mcL LAB HEMETOLOGY METHOD 03/22/2024 10:23 PM [facility] RBC 4.60 3.80 - 4.80 M/mcL LAB HEMETOLOGY METHOD 03/22/2024 10:23 PM [facility] Hemoglobin 13.1 11.5 - 16.0 g/dL LAB HEMETOLOGY METHOD 03/22/2024 10:23 PM [facility] Hematocrit 40.3 35.0 - 47.0 % LAB HEMETOLOGY METHOD 03/22/2024 10:23 PM [facility] MCV 87.0 79.0 - 98.0 FL LAB HEMETOLOGY METHOD 03/22/2024 10:23 PM [facility] MCH 28.3 27.0 - 32.0 pcg LAB HEMETOLOGY METHOD 03/22/2024 10:23 PM [facility] MCHC 32.5 32.0 - 37.0 g/dL LAB HEMETOLOGY METHOD 03/22/2024 10:23 PM [facility] RDW 13.2 11.0 - 15.0 % LAB HEMETOLOGY METHOD 03/22/2024 10:23 PM [facility] Platelets 287 130 - 400 K/mcL LAB HEMETOLOGY METHOD 03/22/2024 10:23 PM [facility] MPV 10.6 7.0 - 11.0 FL LAB HEMETOLOGY METHOD 03/22/2024 10:23 PM [facility] NRBC 0.0 <1.0 % LAB HEMETOLOGY METHOD 03/22/2024 10:23 PM [facility] NRBC Absolute 0.00 <0.10 K/mcL LAB HEMETOLOGY METHOD 03/22/2024 10:23 PM [facility] Neutrophils Relative 90.1 % LAB HEMETOLOGY METHOD 03/22/2024 10:23 PM [facility] Lymphocytes Relative 4.6 % LAB HEMETOLOGY METHOD 03/22/2024 10:23 PM [facility] Monocytes Relative 4.6 % LAB HEMETOLOGY METHOD 03/22/2024 10:23 PM [facility] Eosinophils Relative 0.2 % LAB HEMETOLOGY METHOD 03/22/2024 10:23 PM [facility] Basophils Relative 0.1 % LAB HEMETOLOGY METHOD 03/22/2024 10:23 PM [facility] Immature Granulocytes Relative 0.4 % LAB HEMETOLOGY METHOD 03/22/2024 10:23 PM [facility] Neutrophils Absolute 10.03(H) 1.50 - 7.00 K/mcL LAB HEMETOLOGY METHOD 03/22/2024 10:23 PM [facility] Lymphocytes Absolute 0.51(L) 1.00 - 5.00 K/mcL LAB HEMETOLOGY METHOD 03/22/2024 10:23 PM [facility] Monocytes Absolute 0.51 0.20 - 1.00 K/mcL LAB HEMETOLOGY METHOD 03/22/2024 10:23 PM [facility] Eosinophils Absolute 0.02 0.00 - 0.50 K/mcL LAB HEMETOLOGY METHOD 03/22/2024 10:23 PM [facility] Basophils Absolute 0.01 0.00 - 0.20 K/mcL LAB HEMETOLOGY METHOD 03/22/2024 10:23 PM [facility] Immature Granulocytes Absolute 0.04(H) 0.00 - 0.03 K/mcL LAB HEMETOLOGY METHOD 03/22/2024 10:23 PM [facility] Blood Venous blood specimen / Unknown Venipuncture / Unknown 03/22/2024 10:07 PM EST 03/22/2024 10:16 PM EST Mat Aldo Foreman LAB BLOOD ORDERABLES Priyanka l Result Performing Organization Address City/[facility]/ZIP Co de Phone Number [facility] [address] [place] [address], [place] [phone] * Lipase (03/22/2024 10:07 PM EST) Pathologist [facility] Lipase 18 13 - 75 unit/L LAB CHEMISTRY METHOD 03/22/2024 10:56 PM [facility] Blood Venous blood specimen / Unknown Venipuncture / Unknown 03/22/2024 10:07 PM EST 03/22/2024 10:16 PM EST [facility] LAB BLOOD ORDERABLES Priyanka l Result Performing Organization Address [facility]/ZIP Co de Phone Number [facility] [address] [place] [address], [place] [phone] * (ABNORMAL) Comprehensive metabolic panel (03/22/2024 10:07 PM EST) [facility] [address] Sodium 137 133 - 145 mmol/L LAB CHEMISTRY METHOD 03/22/2024 10:56 PM [facility] Potassium 3.5 3.5 - 5.5 mmol/L LAB CHEMISTRY METHOD 03/22/2024 10:56 PM [facility] Chloride 102 96 - 110 mmol/L LAB CHEMISTRY METHOD 03/22/2024 10:56 PM [facility] CO2 29 21 - 32 mmol/L LAB CHEMISTRY METHOD 03/22/2024 10:56 PM [facility] Anion Gap 6 3 - 11 LAB CHEMISTRY METHOD 03/22/2024 10:56 PM [facility] Glucose 150(H) 70 - 100 mg/dL LAB CHEMISTRY METHOD 03/22/2024 10:56 PM [facility] BUN 14 5 - 25 mg/dL LAB CHEMISTRY METHOD 03/22/2024 10:56 PM [facility] Creatinine 0.91 0.50 - 1.10 mg/dL LAB CHEMISTRY METHOD 03/22/2024 10:56 PM [facility] eGFR 77 >=60 mL/min/1. 73m2 LAB CHEMISTRY METHOD 03/22/2024 10:56 PM [facility] Comment:Calculation based on the??Chronic Kidney Disease Epidemiology Collaboration (CKD-EPI) equation refit??without adjustment for race. BUN/Creatinine Ratio 15.4 LAB CHEMISTRY METHOD 03/22/2024 10:56 PM [facility] Calcium 8.8 8.5 - 10.5 mg/dL LAB CHEMISTRY METHOD 03/22/2024 10:56 PM [facility] AST (SGOT) 26 10 - 42 unit/L LAB CHEMISTRY METHOD 03/22/2024 10:56 PM [facility] ALT (SGPT) 40 10 - 60 unit/L LAB CHEMISTRY METHOD 03/22/2024 10:56 PM [facility] Alkaline Phosphatase 95 42 - 121 unit/L LAB CHEMISTRY METHOD 03/22/2024 10:56 PM [facility] Total Protein 7.8 6.0 - 8.0 g/dL LAB CHEMISTRY METHOD 03/22/2024 10:56 PM [facility] Albumin 3.7 3.2 - 5.0 g/dL LAB CHEMISTRY METHOD 03/22/2024 10:56 PM [facility] Total Bilirubin 0.4 0.0 - 1.4 mg/dL LAB CHEMISTRY METHOD 03/22/2024 10:56 PM [facility] Blood Venous blood specimen / Unknown Venipuncture / Unknown 03/22/2024 10:07 PM EST 03/22/2024 10:16 PM EST us Amy Foreman DO LAB BLOOD ORDERABLES Priyanka l Result [facility] [address] [place] [address], [place] [phone] * Respiratory virus panel molecular study (03/22/2024 9:42 PM EST) Pathologist [facility] Adenovirus Detection by PCR Not Detected Not Detected LAB MICROBIOLOGY METHOD 03/22/2024 10:56 PM EST [facility] Influenza A PCR Not Detected Not Detected LAB MICROBIOLOGY METHOD 03/22/2024 10:56 PM EST [facility] Influenza B PCR Not Detected Not Detected LAB MICROBIOLOGY METHOD 03/22/2024 10:56 PM EST [facility] Coronavirus 229E Not Detected Not Detected LAB MICROBIOLOGY METHOD 03/22/2024 10:56 PM EST [facility] Coronavirus HKU1 Not Detected Not Detected LAB MICROBIOLOGY METHOD 03/22/2024 10:56 PM EST [facility] Coronavirus OC43 Not Detected Not Detected LAB MICROBIOLOGY METHOD 03/22/2024 10:56 PM EST [facility] Coronavirus NL63 Not Detected Not Detected LAB MICROBIOLOGY METHOD 03/22/2024 10:56 PM EST [facility] Parainfluenza Virus 1 Not Detected Not Detected LAB MICROBIOLOGY METHOD 03/22/2024 10:56 PM EST [facility] Parainfluenza Virus 2 Not Detected Not Detected LAB MICROBIOLOGY METHOD 03/22/2024 10:56 PM EST [facility] Parainfluenza Virus 3 Not Detected Not Detected LAB MICROBIOLOGY METHOD 03/22/2024 10:56 PM EST [facility] Parainfluenza Virus 4 Not Detected Not Detected LAB MICROBIOLOGY METHOD 03/22/2024 10:56 PM EST [facility] RSV PCR Not Detected Not Detected LAB MICROBIOLOGY METHOD 03/22/2024 10:56 PM EST [facility] Human Metapneumovirus A and B Not Detected Not Detected LAB MICROBIOLOGY METHOD 03/22/2024 10:56 PM EST [facility] Rhinovirus/Entero virus Not Detected Not Detected LAB MICROBIOLOGY METHOD 03/22/2024 10:56 PM EST [facility] Bordetella pertussis Not Detected Not Detected LAB MICROBIOLOGY METHOD 03/22/2024 10:56 PM EST [facility] Bordetella parapertussis Not Detected Not Detected LAB MICROBIOLOGY METHOD 03/22/2024 10:56 PM EST [facility] Mycoplasma pneumo by PCR Not Detected Not Detected LAB MICROBIOLOGY METHOD 03/22/2024 10:56 PM [facility] Chlamydia pneumoniae Not Detected Not Detected LAB MICROBIOLOGY METHOD 03/22/2024 10:56 PM [facility] SARS COV-2 Not Detected Not Detected LAB MICROBIOLOGY METHOD 03/22/2024 10:56 PM [facility] Swab Both anterior nares / Unknown Non-blood Collection / Unknown 03/22/2024 9:42 PM EST 03/22/2024 10:03 PM EST [facility] - 03/22/2024 10:56 PM EST Testing was performed using the Biofire Respiratory Pathogen PCR Assay. All results must [...] that are below the limit of detection. us Amy Foreman DO LAB MICROBIOLOGY - GENERA L ORDERABLES Final Result [facility] [address] [place] [address], [place] [phone] documented in this encounter Visit Diagnoses Diagnosis Generalized abdominal pain- Primary Abdominal pain, generalized Enterocolitis Other and unspecified noninfectious gastroenteritis and colitis documented in this encounter Administered Medications Inactive Administered Medications - up to 3 most recent administrations Medication Order MAR Action Action Date Dose Rate Site acetaminophen (TYLENOL) tablet 1,000 mg 1,000 mg, oral, Once, On Tue03/23/24 at 0236, For 1 dose Given 03/23/2024 2:58 AM EST 1,000 mg iopamidoL (ISOVUE-370) 370 mg iodine /mL (76 %) injection 90 mL 90 mL, intravenous, Once in imaging, Starting on Tue03/23/24 at 0412, For 1 dose Given 03/23/2024 4:13 AM EST 94 mL meclizine (ANTIVERT) tablet 25 mg 25 mg, oral, Once, On Tue03/23/24 at 0109, For 1 dose Given 03/23/2024 1:30 AM EST 25 mg sodium chloride 0.9 % bolus 1,000 mL 1,000 mL, intravenous, at 2,000 mL/hr, Administer over 30 Minutes, Once, On Tue03/23/24 at 0236, For 1 dose New Bag 03/23/2024 3:00 AM EST 1,000 mL 2000 mL/hr sodium chloride 0.9 % flush 10 mL 10 mL, intravenous, Once, On Tue03/23/24 at 0413, For 1 dose Given 03/23/2024 4:13 AM EST 10 mL documented in this encounter Active and Recently Administered Medications Times are shown in EST. Scheduled Medication Order 03/21/2024 03/22/2024 03/23/2024 acetaminophen (TYLENOL) tablet 1,000 mg (COMPLETED) 1,000 mg, oral, Once, On Tue03/23/24 at 0236, For 1 dose 0258 (Given - Provid er: Kacey Pedro RN) iopamidoL (ISOVUE-370) 370 mg iodine /mL (76 %) injection 90 mL (COMPLETED) 90 mL, intravenous, Once in imaging, Starting on Tue03/23/24 at 0412, For 1 dose 0413 (Given - Provid er: Tiburcio Barajas) meclizine (ANTIVERT) tablet 25 mg (COMPLETED) 25 mg, oral, Once, On Tue03/23/24 at 0109, For 1 dose 0130 (Given - Provid er: Kacey Pedro, DAQUAN) sodium chloride 0.9 % bolus 1,000 mL (COMPLETED) 1,000 mL, intravenous, at 2,000 mL/hr, Administer over 30 Minutes, Once, On Tue03/23/24 at 0236, For 1 dose 0300 (New Bag - Prov ider: Kacey Pedro RN)0505 (Stopped - Provider: Alicia Haley RN) sodium chloride 0.9 % flush 10 mL (COMPLETED) 10 mL, intravenous, Once, On Tue03/23/24 at 0413, For 1 dose 0413 (Given - Provid er: Patria Lira) documented in this encounter Additional Health Concerns Infection Onset Date Last Indicated Resolved Time Gastrointestinal Rule-Out 03/23/2024 03/23/2024 documented as of this encounter Care Teams Passenger Relations Representative Relationship Specialty Start Date End Date Yari Lerma MD [address] [place] [address] PCP - General Internal Medicine 10/31/20 documented as of this encounter
--- OUTSIDE RECORDS SUMMARY | 2024-04-16 16:49 | XMS_ITS | Encounter Summary ---
Author Organization [facility] Address [address] [place] [address] Care Team Providers Care Glass Ribbon Machine Operator Assistant Name Role Phone Porsche Etienne DO Primary Care Pro vider Unavailable Yari Lerma MD Primary Care Provider [phone] [facility], [facility] Primary Care Provider Unavailabl e Reason for Visit * Reason Onset Date Comments APPOINTMENT 06/11/2019 Please reschedul e this nonessential full skin exam unless the patient has a concern Encounter Details Date Type Department Care Team Description 06/11/2019 Telephone [address] [place] [address] Juan Burgos PA-C APPOINTMENT (Please reschedule this nonessential full skin exam unless the patient has a concern) Social History Tobacco Use Types Packs/Day Years [...] encounter Miscellaneous Notes * Telephone Encounter - Juan Burgos PA-C - 06/11/2019 6:41 AM EDT Please reschedule this nonessential full skin exam .... if the patient has a concern I would be happy to see them for that issue documented in this encounter Plan of Treatment Not on file documented as of this encounter Visit Diagnoses Not on filedocumented in this encounter Care Teams Glass Ribbon Machine Operator Assistant Relationship Specialty Start Date End Date Porsche Etienne DO PCP - General Internal Medicine 10/18/18 10/30/20 Yari Lerma MD [address] [place] [address] PCP - General Internal Medicine 10/31/20 03/24/[address] [address] PCP - General Internal Medicine 03/25/23 documented as of this encounter
--- OUTSIDE RECORDS SUMMARY | 2024-04-16 16:49 | XMS_ITS | Encounter Summary ---
Author Organization [facility] Address [address] [place] [address] Care Team Providers Care Senior Ui Ux Developer Name Role Phone Porsche Etienne DO Primary Care Pro vider Unavailable Yari Lerma MD Primary Care Provider [phone] [facility], [facility] Primary Care Provider Unavailabl e Reason for Visit * Reason Comments E-prescribe Rx Request Encounter Details Date Type Department Care Team Description 08/20/2019 Refill Adult Medicine [address] [address] Porsche Etienne DO E-prescribe Rx Request Social [...] encounter Miscellaneous Notes * Telephone Encounter - Rosa Freeman M.A. - 08/20/2019 4:18 PM EDT Last ov 03/20/19 * Telephone Encounter - Sebastian Dimas - 08/20/2019 1:39 PM EDT Patient would like script to be: E-PRESCRIBED/FAXED TO PHARMACY WHEN WAS THE PATIENT'S LAST APPOINTMENT IN ADULT MEDICINE? 03/20/2019 WHEN WAS THE LAST TIME THE PATIENT SAW THEIR PCP? Same as above Does patient have an upcoming appointment? Letter sent to book next appointment (THE MEDICATION REQUESTED IS ON THE [...] is: Payor: [employer] / Plan: POS $20/30 [place] [id number] [facility] TR[facility]NAL / Product Type: POS [id number] documented in this encounter Plan of Treatment Not on file documented as of this encounter Visit Diagnoses Not on filedocumented in this encounter Care Teams Senior Ui Ux Developer Relationship Specialty Start Date End Date Porsche Etienne DO PCP - General Internal Medicine 10/18/18 10/30/20 Yari Lerma MD [address] [place] [address] PCP - General Internal Medicine 10/31/20 03/24/[address] [address] PCP - General Internal Medicine 03/25/23 documented as of this encounter
[2024-04-17 10:39] LABS: H Pylori Breath Test Negative (Negative)
== END 2024-04-16 09:44 | disposition home or self-care (01) ==
LOC: HO.LNP 09:43
PROVIDERS: PCP Family Medicine; Visit Provider Internal Medicine Gastroenterology
DX: A04.8 Other specified bacterial intestinal infections (principal)
CPT/HCPCS: 83013; 99211

== ENCOUNTER 2024-06-23 08:53 | Outpatient (REF) | payer BC, SELFPAY | END 2024-06-23 08:54 | disposition home or self-care (01) | LOC: HO.XRAY 08:53 | PROVIDERS: PCP Family Medicine; Visit Provider Family Medicine | DX: M54.50 Low back pain, unspecified (principal); M54.2 Cervicalgia | CPT/HCPCS: 72040; 72100 ==

== ENCOUNTER → 2024-06-23 09:30 | Outpatient (BNV) | payer BC, SELFPAY | PROVIDERS: PCP Family Medicine; Visit Provider Radiology Diagnostic Radiology | DX: M54.50 Low back pain, unspecified (principal); M54.2 Cervicalgia | CPT/HCPCS: 72040; 72100 ==

== ENCOUNTER 2024-06-29 08:57 | Outpatient (REF) | payer BC, SELFPAY ==
--- OUTSIDE RECORDS SUMMARY | 2024-06-29 09:05 | XMS_ITS | Encounter Summary ---
Author Organization [facility] Address [address] [place] [address] Care Team Providers Care Greige Goods Marker Name Role Phone Porsche Etienne DO Primary Care Pro vider Unavailable Yari Lerma MD Primary Care Provider [phone] [facility], Pcp Primary Care Provider Unavailabl e Encounter Details Date Type Department Care Team Description 04/19/2019 Release of Information Medical Records [address] [place] [id number] Abstract, Provider Social History Tobacco Use Types [...] on filedocumented in this encounter Care Teams Greige Goods Marker Relationship Specialty Start Date End Date Porsche Etienne DO PCP - General Internal Medicine 10/18/18 10/30/20 Yari Lerma MD [address] [place], [place] [id number] PCP - General Internal Medicine 10/31/20 03/24/23 [facility], Pcp [address] [place], [place] [id number] PCP - General Internal Medicine 03/25/23 documented as of this encounter
--- OUTSIDE RECORDS SUMMARY | 2024-06-29 09:05 | XMS_ITS | Encounter Summary ---
Author Organization [employer] Address [address] [facility] [address] [place] [address] Care Team Providers Care Network Systems Administrator Name Role Phone Ada Caruso DO Primary Care Provider [phone] Reason for Visit * Reason Onset Date Comments Nurse Triage 10/07/2022 Encounter Details Date Type Department Care Team (Late st Contact Info) Description 10/07/2022 Telephone [facility] MEDICINE [address] [place] [address] Ada Caruso DO [address] [place] [address] Nurse Triage Social History Tobacco Use Types [...] 10/07/2022 11:09 AM EDT Triage call with [place] Senior Environmental Technician [place] [id number] Pt reports period in September was from to . Pt reports for several months now has had spottingbetween periods and pain. Pt reports after Pt had two days of spotting which was very mucus like and transparent. Apt with MICHELLEFrancisco Bhagat 10/11/22 @ 1000AM. Insurance is verified [...] 10/07/2022 9:52 AM EDT Triage call with [place] Senior Environmental Technician [place] [id number] Pt didn't answer. Left voice message to call [facility] At [phone]. * Telephone Encounter - Sarah Reardon - 10/07/2022 9:37 AM EDT Symptom: Vaginal Bleeding - Not Outcome: Schedule an appointment to be seen within 24 hours Reason: unusual color/discharge The caller accepted this outcome Please contact pt at [phone] ([place]atorial [place]ine[place]) documented in this encounter Plan of Treatment Not on file documented as of this encounter Visit Diagnoses Not on filedocumented in this encounter Additional Health Concerns Assessment Noted Time PHQ-9 Depression Total Score: 0 08/12/19 23 9:19 AM EDT documented as of this encounter Care Teams Network Systems Administrator Relationship Specialty Start Date End Date Ada Caruso DO [address] [place] [address] PCP - General Family Medicine 07/13/21 documented as of this encounter
--- OUTSIDE RECORDS SUMMARY | 2024-06-29 09:05 | XMS_ITS | Encounter Summary ---
Author Organization [facility] Address [address] [place] [address] Care Team Providers Care Stringed Instrument Tuner Name Role Phone Yari Lerma MD Primary Care Provider [phone] [facility], [facility] Primary Care Provider Unavailabl e Reason for Visit * Reason Comments E-prescribe Rx Request Encounter Details Date Type Department Care Team Description 02/12/2021 Refill Adult Medicine [address] [address] Porsche Etienne DO E-prescribe Rx Request Social [...] encounter Miscellaneous Notes * Telephone Encounter - Araceli Hawkinsirez - 02/13/2021 8:05 AM EST Patient would like script to be: E-PRESCRIBED/FAXED TO PHARMACY WHEN WAS THE PATIENT'S LAST APPOINTMENT IN ADULT MEDICINE? 01/06/21 WHEN WAS THE LAST TIME THE PATIENT SAW THEIR PCP? Never seen pcp Does patient have an upcoming appointment? to early to call (THE MEDICATION REQUESTED IS ON THE MED [...] N/A Patients current insurance carrier is: Payor: STEPHAN[employer]LIZY POS / Plan: PPO $20 [employer] [id number] / ProductType: PPO [id number] documented in this encounter Plan of Treatment Not on file documented as of this encounter Visit Diagnoses Not on filedocumented in this encounter Care Teams Stringed Instrument Tuner Relationship Specialty Start Date End Date Yari Lerma MD [address] [place] [address] PCP - General Internal Medicine 10/31/20 03/24/[address] [address] PCP - General Internal Medicine 03/25/23 documented as of this encounter
--- OUTSIDE RECORDS SUMMARY | 2024-06-29 09:05 | XMS_ITS | Encounter Summary ---
Author Organization [facility] Address [address] [place] [address] Care Team Providers Care Conventional Underwriter Name Role Phone Yari Lerma MD Primary Care Provider [phone] [facility], Pcp Primary Care Provider Unavailabl e Encounter Details Date Type Department Care Team Description 04/21/2021 Talent Specialist Report Medical Records [address] [place] [address] Chacorta Gómez MD Social History Tobacco Use [...] have Coronavirus / COVID-19? No / Unsure 04/14/2021 8:42 AM EST documented as of this encounter Plan of Treatment Not on file documented as of this encounter Visit Diagnoses Not on filedocumented in this encounter Care Teams Conventional Underwriter Relationship Specialty Start Date End Date Yari Lerma MD [address] [place] [address] PCP - General Internal Medicine 10/31/20 03/24/23 [facility], [address] [address] PCP - General Internal Medicine 03/25/23 documented as of this encounter
--- OUTSIDE RECORDS SUMMARY | 2024-06-29 09:05 | XMS_ITS | Encounter Summary ---
Author Organization [facility] Address [address] [place] [address] Care Team Providers Care Flooring Professional Name Role Phone Dinora Trimble MD Primary Care Provider Un available Porsche Etienne DO Primary Care Pro vider Unavailable Yari Lerma MD Primary Care Provider [phone] [facility], Pcp Primary Care Provider Unavailabl e Encounter Details Date Type Department Care Team Description 09/26/2018 Orders Only General Surgery [address] [place] [address] Arabella Conner NP Social History Tobacco Use Types Packs/Day Years [...] on filedocumented in this encounter Care Teams Flooring Professional Relationship Specialty Start Date End Date Dinora Trimble MD PCP - General Internal Medicine 03/23/18 Porsche Etienne DO PCP - General Internal Medicine 10/18/18 10/30/20 Yari Lerma MD [address] [place] [id number] PCP - General Internal Medicine 10/31/20 03/24/23 [facility], Pcp [address] [place] [address] PCP - General Internal Medicine 03/25/23 documented as of this encounter
--- OUTSIDE RECORDS SUMMARY | 2024-06-29 09:05 | XMS_ITS | Encounter Summary ---
Author Organization [facility] Address [address] [place] [address] Care Team Providers Care Relief Cook Name Role Phone Porsche Etienne DO Primary Care Pro vider Unavailable Yari Lerma MD Primary Care Provider [phone] [facility], [facility] Primary Care Provider Unavailabl e Reason for Visit * Reason Onset Date Comments refill request 12/25/2018 Encounter Details Date Type Department Care Team Description 12/25/2018 Telephone Adult Medicine [address] [address] Porsche Etienne DO refill request Social History [...] encounter Miscellaneous Notes * Telephone Encounter - Jojo Galvan L.P.N. - 12/27/2018 1:58 PM EDT [...] on filedocumented in this encounter Care Teams Relief Cook Relationship Specialty Start Date End Date Porsche Etienne DO PCP - General Internal Medicine 10/18/18 10/30/20 Yari Lerma MD [address] [place] [address] PCP - General Internal Medicine 10/31/20 03/24/[address] [address] PCP - General Internal Medicine 03/25/23 documented as of this encounter
--- OUTSIDE RECORDS SUMMARY | 2024-06-29 09:05 | XMS_ITS | Encounter Summary ---
Author Organization [employer] Address [address] [place] [address] [address] [place] [address] Care Team Providers Care Video Machines Mechanic Name Role Phone Ada Caruso DO Primary Care Provider [phone] Reason for Visit * Reason Comments Med Refill Encounter Details Date Type Department Care Team (Late st Contact Info) Description 04/29/2022 Refill [facility] [address] [place] [address] Ada Caruso DO [address] [place] [address] Depression, unspecified depression type Social History Tobacco [...] type documented in this encounter Care Teams Video Machines Mechanic Relationship Specialty Start Date End Date Ada Caruso DO [address] [place] [address] PCP - General Family Medicine 07/13/21 documented as of this encounter
--- OUTSIDE RECORDS SUMMARY | 2024-06-29 09:05 | XMS_ITS | Clinical Summary ---
Author Organization [facility] Address [address] [place] [address] Phone Care Team Providers Care Senior Director Finance Name Role Phone Yari Lerma MD Primary Care Provider [phone] Allergies Active Allergy Reactions Criticality Noted Date [...] by mouth 1 (one) time each day. 2 Active propranoloL (INDERAL) 10 mg tablet Take 10 mg by mouth 2 times daily. Active albuterol HFA (PROAIR HFA ; PROVENTIL HFA ; VENTOLIN HFA) 90 mcg/actuation inhaler Inhale 2 Puffs into the lungs every 4 hours as needed for Cough or Wheezing. 2 Active fluticasone propionate (FLONASE) 50 mcg/actuation nasal spray SPRAY 2 SPRAYS INTO EACH NOSTRIL EVERY DAY 3 Active clobetasoL (TEMOVATE) 0.05 % cream Apply 1 Application topically 2 (two) times a day. 2 Active triamcinolone (KENALOG) 0.1 % cream Apply to affected area BID up to 2 weeks 2 Active cetirizine (ZyrTEC) 10 mg tablet Take 1 tablet by mouth Once. Take 1 Tab by mouth Once. 2 Active omeprazole (PriLOSEC) [address] capsule Take 1 capsule (20 mg total) by mouth 1 (one) time each day. 1 Active butalbital-acet aminophen-caffe ine (FIORICET, ESGIC) 50-325-40 mg per tablet TAKE 1 TABLET BY MOUTH AT ONCE FOR MIGRAINE, MAY REPAEAT ONCE IN 2 HOURS IF NEEDED, MAX 2 TABLETS DAILY 1 Active olopatadine (PATANOL) 0.1 % ophthalmic solution Place 1 Drop into both eyes 2 times daily as needed for Allergies. 0 Active acetaminophen (TYLENOL) 500 mg tablet Take 2 tablets (1,000 mg total) by mouth every 8 (eight) hours. 30 tablet 5 Active Active Problems Problem Noted Date Diagnosed Date Asthma 02/21/2024 Migraine headache 02/21/2024 GERD (gastroesophageal reflux disease) 9 Irritable bowel syndrome 11/15/2018 Perennial allergic rhinitis 11/15/2018 Prediabetes 11/15/2018 Eczema 08/17/2018 Nasal polyps 08/17/2018 Immunizations Name Administration Dates Next Due Hepatitis B (Knpfver-S-Umxpg , Recombivax HB-Adult) 19yo and older 03/29/2007,07/30/2004,07/03/2004 [...] Date Site/Laterality Comments OTHER SURGICAL HISTORY PROCEDURE: AK LIG/TRNSXJ FLP TUBE ABDL/VAG APPR UNI/BI OTHER SURGICAL HISTORY 02/27/2016 Right PROCEDURE: ---- OTHER ----; COMMENT: Excision of lipoma of the right axilla BREAST BIOPSY 05/26/2015 Right PROCEDURE: BX BREAST; PERC NEEDLE CORE W/IMAG GUID; COMMENT: fibroadenoma COLONOSCOPY 04/12/2019 PROCEDURE: HISTORICAL COLONOSCOPY; COMMENT: negative BREAST SURGERY PROCEDURE: AK UNLISTED PROCEDURE BREAST Medical History Medical History [...] HPV 11/24/2025 11/24/2020 Breast Cancer Screening 03/28/2026 03/28/19, 03/26/2023, 03/20/2022, Additional history exists Cholesterol Screening [...] age to complete this topic Meningococcal B Vaccine Aged Out No l onger eligible based on patient's age to complete [...] Encounter for screening mammogram for breast cancer COMPREHENSIVE METABOLIC PANEL STAT 03/22/2024 10:07 PM EST HEPATITIS C SCREENING Routine 01/06/2021 HIV SCREENING Routine 01/06/2021 LIPID PANEL Routine 01/06/2021 HPV Routine 11/24/2020 COLONOSCOPY Routine 04/12/2019 from Last 3 Months [...] is recommended in 1 year. Mammo Location: [facility], [address] [place] [address], [id number], . -------- FINAL REPORT -------- Dictated By: Nicki Underwood Dictated Date: 03/29/2024 13:01 ET Assigned Physician: Nicki Underwood Reviewed and Electronically Signed By: Nicki Underwood Signed Date: 03/29/2024 13:08 ET Workstation ID: [id number] Transcribed By: Self Edit Transcribed Date: 03/29/2024 [...] is recommended in 1 year. Mammo Location: [facility], [address] [place] [address], [address], . -------- FINAL REPORT -------- Dictated By: Nicki Underwood Dictated Date: 03/29/2024 13:01 ET Assigned Physician: Nicki Underwood Reviewed and Electronically Signed By: Nicki Underwood Signed Date: 03/29/2024 13:08 ET Workstation ID: [id number] Transcribed By: Self Edit Transcribed Date: 03/29/2024 13:01 ET Mayo Heath MD IM BI PROCEDURES Final Result * (ABNORMAL) Comprehensive metabolic panel (03/22/2024 10:07 PM EST) Sodium 137 133 - 145 mmol/L LAB CHEMISTRY METHOD 03/22/2024 10:56 PM [facility] Potassium 3.5 3.5 - 5.5 mmol/L LAB CHEMISTRY METHOD 03/22/2024 10:56 PM [facility] Chloride 102 96 - 110 mmol/L LAB CHEMISTRY METHOD 03/22/2024 10:56 PM [facility] CO2 29 21 - 32 mmol/L LAB CHEMISTRY METHOD 03/22/2024 10:56 PM [facility] Anion Gap 6 3 - 11 LAB CHEMISTRY METHOD 03/22/2024 10:56 PM [facility] Glucose 150(H) 70 - 100 mg/dL LAB CHEMISTRY METHOD 03/22/2024 10:56 PM [facility] BUN 14 5 - 25 mg/dL LAB CHEMISTRY METHOD 03/22/2024 10:56 PM [facility] Creatinine 0.91 0.50 - 1.10 mg/dL LAB CHEMISTRY METHOD 03/22/2024 10:56 PM [facility] eGFR 77 >=60 mL/min/1. 73m2 LAB CHEMISTRY METHOD 03/22/2024 10:56 PM [facility] Comment:Calculation based on the??Chronic Kidney Disease Epidemiology Collaboration (CKD-EPI) equation refit??without adjustment for race. BUN/Creatinine Ratio 15.4 LAB CHEMISTRY METHOD 03/22/2024 10:56 PM [facility] Calcium 8.8 8.5 - 10.5 mg/dL LAB CHEMISTRY METHOD 03/22/2024 10:56 PM [facility] AST (SGOT) 26 10 - 42 unit/L LAB CHEMISTRY METHOD 03/22/2024 10:56 PM [facility] ALT (SGPT) 40 10 - 60 unit/L LAB CHEMISTRY METHOD 03/22/2024 10:56 PM [facility] Alkaline Phosphatase 95 42 - 121 unit/L LAB CHEMISTRY METHOD 03/22/2024 10:56 PM [facility] Total Protein 7.8 6.0 - 8.0 g/dL LAB CHEMISTRY METHOD 03/22/2024 10:56 PM [facility] Albumin 3.7 3.2 - 5.0 g/dL LAB CHEMISTRY METHOD 03/22/2024 10:56 PM [facility] Total Bilirubin 0.4 0.0 - 1.4 mg/dL LAB CHEMISTRY METHOD 03/22/2024 10:56 PM [facility] Blood Venous blood specimen / Unknown Venipuncture / Unknown 03/22/2024 10:07 PM EST 03/22/2024 10:16 PM EST us Amy Foreman DO LAB BLOOD ORDERABLES Priyanka l Result [facility] [address] [place] [address], [place] [phone] * HIV Screening (01/06/2021) HIV Screening abstracted [facility] Provider HEALTH MAINTENANCE Final Result * Hepatitis C Screening (01/06/2021) [facility] Hepatitis C Screening abstracted [facility] Provider HEALTH MAINTENANCE Final Result * (ABNORMAL) Lipid panel (01/06/2021) [facility] LDL/HDL Ratio 4 0 - 4 Triglycerides 174(A) 0 - 150 mg/dL Cholesterol 211(A) 0 - 200 mg/dL HDL 61 >=40 mg/dL LDL Cholesterol 116(A) 0 - 100 mg/dL Blood Venous blood specimen / Unknown Result [facility] Provider LAB BLOOD ORDERABLES Priyanka l Result * Cervical Cancer Screening: HPV (11/24/2020) [facility] Cervical Cancer Screening: HPV abstracted, negative Result [facility] Provider HEALTH MAINTENANCE Final Result * Colonoscopy (04/12/2019) [facility] Colonoscopy abstracted, no interpretation Anatomical Region Laterality Modality Other Result [facility] Provider HEALTH MAINTENANCE Final Result from Last 3 Months or Most Recently Relevant to Health Maintenance Insurance [facility] Care Teams Senior Director Finance Relationship Specialty Start Date End Date Yari Lerma MD [address] [place] [id number] PCP - General Internal Medicine 10/31/20
--- OUTSIDE RECORDS SUMMARY | 2024-06-29 09:05 | XMS_ITS | Encounter Summary ---
Author Organization [facility] Address [address] [place] [address] Care Team Providers Care Business Applications Specialist Name Role Phone Porsche Etienne DO Primary Care Pro vider Unavailable Yari Lerma MD Primary Care Provider [phone] [facility], [facility] Primary Care Provider Unavailabl e Reason for Visit * Reason Comments E-prescribe Rx Request Encounter Details Date Type Department Care Team Description 05/17/2020 Refill Adult Medicine [address] [address] Porsche Etienne DO E-prescribe Rx Request Social [...] encounter Miscellaneous Notes * Telephone Encounter - Shamika Ziegler R.N. - 05/19/2020 3:16 PM EDT [phone] (home) [phone] (work) I left a message for the patient to return my call. * Telephone Encounter - Amadeo Handy L.P.N. - 05/19/2020 3:15 PM EDT Spoke with Aarti in POD she will close it * Telephone Encounter - Porsche Talavera DO - 05/19/2020 2:07 PM EDT As this was filled 1 month ago patient is utilizing too much of the medication this is not a daily med. * Telephone Encounter - Irma Mccain M.A. - 05/19/2020 8:42 AM EDT Last office visit 11/27/19 Not contracted last refill 04/25/20 for 60 tabs. * Telephone Encounter - Miriam Torres - 05/18/2020 11:31 AM EDT Patient would like script to be: E-PRESCRIBED/FAXED TO PHARMACY WHEN WAS THE PATIENT'S LAST APPOINTMENT IN ADULT MEDICINE? 11/25/2019 WHEN WAS THE LAST TIME THE PATIENT [...] AETNA / Plan: POS $20/30 TRE VAIL [id number] [facility] TRADITNAL / Product Type: POS [id number]-Klsjhjk documented in this encounter Plan of Treatment Not on file documented as of this encounter Visit Diagnoses Not on filedocumented in this encounter Care Teams Business Applications Specialist Relationship Specialty Start Date End Date Porsche Etienne DO PCP - General Internal Medicine 10/18/18 10/30/20 Yari Lerma MD [address] [place] [id number] PCP - General Internal Medicine 10/31/20 03/24/[address] [address] PCP - General Internal Medicine 03/25/23 documented as of this encounter
--- OUTSIDE RECORDS SUMMARY | 2024-06-29 09:05 | XMS_ITS | Encounter Summary ---
Author Organization [employer] Address [address] [facility] 7[address] [place] [address] Care Team Providers Care Computer Numerical Control Programmer Name Role Phone Ada Caruso DO Primary Care Provider [phone] Reason for Visit * Reason Onset Date Comments Durable Medical Equipment 06/22/2024 DME Re quest: Bilateral Wrist Splints Encounter Details Date Type Department Care Team (Late st Contact Info) Description 06/22/2024 Telephone [facility] [address] [place] [address] Ada Caruso DO [address] [place] [address] Durable Medical Equipment (DME Request: Bilateral Wrist Splints) Social History Tobacco Use Types Packs/Day Years Used Date Smoking Tobacco: Never Passive Smoke Exposure: Never Smokeless Tobacco: Never Alcohol Use Standard Drinks/Week Comments Never 0 (1 standard drink = 0.6 oz pur e alcohol) Depression Answer Date Recorded Patient Health Questionnaire-9 Score 20 06/22/2024 Patient Health Questionnaire-9 Score 20 06/22/2024 Last PHQ-9: Questionnaire Data Not on file 0 06/22/2024 Housing Stability Answer Date Recorded What is [...] Answer Date Recorded Patient Health Questionnaire-2 Score 6 06/22/2024 Comments No Sex and Gender Information Value Date Recorded Sex Assigned at Female 01/04/2022 10:15 AM EDT Legal Sex Female 10:15 AM EDT Gender Identity Female 01/04/2022 10:15 AM EDT Sexual Orientation Straight 01/04/2022 10 :15 AM EDT documented as of this encounter Miscellaneous Notes * Telephone Encounter - Danae Hinson - 06/27/2024 4:17 PM EDT DME RX for Bilateral Wrist Splints generated and placed on providers desk for signature. * Telephone Encounter - Ada Caruso DO - 06/22/2024 1:56 PM EDT Please initiate rx for b/l wrist splints for CTS. Thank you. documented in this encounter Plan of Treatment Not on file documented as of this encounter Visit Diagnoses Not on filedocumented in this encounter Additional Health Concerns Assessment Noted Time PHQ-9 Depression Total Score: 20 025 12:04 PM EDT documented as of this encounter Care Teams Computer Numerical Control Programmer Relationship Specialty Start Date End Date Ada Caruso DO [address] [place] [address] PCP - General Family Medicine 07/13/21 documented as of this encounter
--- OUTSIDE RECORDS SUMMARY | 2024-06-29 09:05 | XMS_ITS | Clinical Summary ---
Author Organization [facility] Address [address] [place] [address] Care Team Providers Care Automatic I Threading Machine Feeder Name Role Phone Community, Pcp Primary Care [...] for Allergies. 1 Bottle 5 08/08/2019 Active [id number] EINE 50-325-40 MG OR TABS (FIORICET, ESGIC) [...] 11/27/2021 Hepatitis B > 19yrs 03/29/2007,07/30/2004,2004 Hepatitis P-Vcztk-Dfruauky + 08/20/2015 Influenza Flu (PT Reported) 12/05/2018 [...] EXAM 40-64 03/20/202103/20 (Completed), 03/20/2019 Covid-19 Vaccine (5 - 3-2 4 season) 2023 11/27/2021, 12/31/2020, 03/26/2020, Additional history exists CERVICAL CANCER SCREENING 11/25/20232020, 10/18/2013, 07/19/2012, Additional history exists BMI CHECK/ADVISE 2024 05/19/2021 (Com pleted), 01/06/2021, 11/24/2020, Additional history exists MAMMOGRAM 03/26/2024 03/26/2023, 03/07, 03/14/2021, Additional history exists COLON CANCER SCREENING 04/12/2024 0 (Completed), 04/12/2019 INFLUENZA (Season Ended) 2024 021, 11/27/2019, 12/05/2018 (External Completion of Vaccination per patient), Additional history exists CHOLESTEROL SCREENING 01/06/2026 01/06/2021, 020 DTAP/TDAP/TD (3 - Td or Tdap) 04/14/2031, 01/09/2009, 02/09/2000 Care Teams Automatic I Threading Machine Feeder Relationship Specialty Start Date End Date Community, Pcp PCP - General Internal Medicine 03/25/23
--- OUTSIDE RECORDS SUMMARY | 2024-06-29 09:05 | XMS_ITS | Encounter Summary ---
Author Organization [facility] Address [address] [place] [address] Care Team Providers Care Engineer Chief Name Role Phone Porsche Etienne DO Primary Care Pro vider Unavailable Yari Lerma MD Primary Care Provider [phone] [facility], [facility] Primary Care Provider Unavailabl e Reason for Visit * Reason Onset Date Comments APPOINTMENT 06/11/2019 Please reschedul e this nonessential full skin exam unless the patient has a concern Encounter Details Date Type Department Care Team Description 06/11/2019 Telephone [address] [place] [address] Juan Burgos PA-C APPOINTMENT (Please reschedule this [...] on filedocumented in this encounter Care Teams Engineer Chief Relationship Specialty Start Date End Date Porsche Etienne DO PCP - General Internal Medicine 10/18/18 10/30/20 Yari Lerma MD [address] [place] [address] PCP - General Internal Medicine 10/31/20 03/24/[address] [address] PCP - General Internal Medicine 03/25/23 documented as of this encounter
--- OUTSIDE RECORDS SUMMARY | 2024-06-29 09:05 | XMS_ITS | Encounter Summary ---
Author Organization [employer] Address [address] [facility] [address] [place] [address] Care Team Providers Care Airline Lounge Receptionist Name Role Phone Ada Caruso DO Primary Care Provider [phone] Reason for Visit * Reason Onset Date Comments Medication Question 06/26/2024 Encounter Details Date Type Department Care Team ([facility] st Contact Info) Description 06/26/2024 Telephone [facility] [address] [place] [address] Ada Caruso DO [address] [place] [address] Medication Question Social History Tobacco Use Types Packs/Day Years [...] encounter Miscellaneous Notes * Telephone Encounter - Marian Wagner RN - 06/26/2024 12:07 PM EDT TC placed to patient [phone] in regards to below message. Patient informed MVI RX was sent d/tpatients anemia per last OV note 06/22/24. Patient verbalized understanding. Patient to f/u PRN. * Telephone Encounter - Theresa Martino - 06/26/2024 9:51 AM EDT Tc from pt requesting a call back would like to further discuss why she was prescribed medication Multiple Vitamin (multivitamin) tablet . documented in this encounter Plan of Treatment Not on file documented as of this encounter Visit Diagnoses Not on filedocumented in this encounter Additional Health Concerns Assessment Noted Time PHQ-9 Depression Total Score: 20 025 12:04 PM EDT documented as of this encounter Care Teams Airline Lounge Receptionist Relationship Specialty Start Date End Date Ada Caruso DO [address] [place] [address] PCP - General Family Medicine 07/13/21 documented as of this encounter
--- OUTSIDE RECORDS SUMMARY | 2024-06-29 09:05 | XMS_ITS | Encounter Summary ---
Author Organization [facility] Address [address] [place] [address] Care Team Providers Care Tablet Coater Name Role Phone Porsche Etienne DO Primary Care Pro vider Unavailable Yari Lerma MD Primary Care Provider [phone] [facility], [facility], Pcp Primary Care Provider Unavailabl e Encounter Details Date Type Department Care Team Description 03/31/2020 Orders Only General Surgery [address] [place] [address] Arabella Conner NP At high risk for breast cancer Social History Tobacco Use Types Packs/Day Years [...] Procedure Name Priority Date/Time Associated Diagnosis Comments SCR MAMMO BI INCL CAD Routine 07/31/2019 At high risk for breast cancer documented in this encounter Results * SCR MAMMO BI INCL CAD (07/31/2019) Arabella Conner NP MAMMOGRAPHY documented in this encounter Visit Diagnoses Diagnosis At high risk for breast cancer documented in this encounter Care Teams Tablet Coater Relationship Specialty Start Date End Date Porsche Etienne DO PCP - General Internal Medicine 10/18/18 10/30/20 Yari Lerma MD [address] [place] [address] PCP - General Internal Medicine 10/31/20 03/24/23 [facility], [facility], Pcp [address] [place] [address] PCP - General Internal Medicine 03/25/23 documented as of this encounter
--- OUTSIDE RECORDS SUMMARY | 2024-06-29 09:05 | XMS_ITS | Encounter Summary ---
Author Organization [employer] Address [address] [facility] 7[address] [place] [address] Care Team Providers Care Mediator Name Role Phone Ada Caruso DO Primary Care Provider [phone] Encounter Details Date Type Department Care Team (Late st Contact Info) Description 06/02/2022 Orders Only [facility] MED[facility]INE [address] [place] [address] Karin Shepherd MD [address] [place] [address] Social History Tobacco Use Types Packs/Day Years [...] documented as of this encounter Care Teams Mediator Relationship Specialty Start Date End Date Ada Caruso DO [address] [place] [address] PCP - General Family Medicine 07/13/21 documented as of this encounter
--- OUTSIDE RECORDS SUMMARY | 2024-06-29 09:05 | XMS_ITS | Encounter Summary ---
Author Organization [facility] Address [address] [place] [address] Care Team Providers Care Business Intelligence Engineer Name Role Phone Yari Lerma MD Primary Care Provider [phone] [facility], Pcp Primary Care Provider Unavailabl e Reason for Visit * Reason Comments E-prescribe Rx Request Encounter Details Date Type Department Care Team Description 03/18/2021 Refill Adult Medicine [address] [address] Teresa Murray PA-C E-prescribe Rx Request Social History Tobacco Use [...] encounter Miscellaneous Notes * Telephone Encounter - Teresa Murray PA-C - 03/18/2021 4:35 PM EST Please review the message attached to the previous rx. No further refills until seen by pcpc. Patient was advised of this. This is a controlled substance Thank you Teresa Murray PA-C * Telephone Encounter - Karolina Ackerman - 03/18/2021 4:04 PM EST Abdifatah 01/06/21 Lab Results Component Value Date NA 138 01/06/2021 K 4.5 01/06/2021 CO2 27 01/06/2021 CL 106 01/06/2021 BUN 8 01/06/2021 CREAT 0.57 01/06/2021 GLU 95 01/06/2021 CA 9.0 01/06/2021 GFR > 60 01/06/2021 * Telephone Encounter - Teresa Olivas - 03/18/2021 1:34 PM EST Patient would like script to be: E-PRESCRIBED/FAXED TO PHARMACY WHEN WAS THE PATIENT'S LAST APPOINTMENT IN ADULT MEDICINE? 01/06/21 WHEN WAS THE LAST TIME THE PATIENT SAW THEIR PCP? Has not seen Does patient have an upcoming appointment? No-unable to reach left [facility] to call for appointment due to refill request. (THE MEDICATION REQUESTED IS ON THE MED [...] N/A Patients current insurance carrier is: Payor: [employer]/PPO POS / Plan: PPO $20 [employer] [id number] / ProductType: PPO [id number] documented in this encounter Plan of Treatment Not on file documented as of this encounter Visit Diagnoses Not on filedocumented in this encounter Care Teams Business Intelligence Engineer Relationship Specialty Start Date End Date Yari Lerma MD [address] [place] [address] PCP - General Internal Medicine 10/31/20 03/24/23 [place] [address] PCP - General Internal Medicine 03/25/23 documented as of this encounter
--- OUTSIDE RECORDS SUMMARY | 2024-06-29 09:05 | XMS_ITS | Encounter Summary ---
Author Organization [facility] Address [address] [place] [address] Care Team Providers Care Customer Contact Specialist Name Role Phone Yari Lerma MD Primary Care Provider [phone] [facility], Pcp Primary Care Provider Unavailabl e Encounter Details Date Type Department Care Team Description 03/24/2021 Manager Market Intelligence Report Medical Records [address] [place] [address] Chacorta Gómez MD Social History Tobacco Use [...] on filedocumented in this encounter Care Teams Customer Contact Specialist Relationship Specialty Start Date End Date Yari Lerma MD [address] [place] [address] PCP - General Internal Medicine 10/31/20 03/24/23 [facility], [address] [address] PCP - General Internal Medicine 03/25/23 documented as of this encounter
--- OUTSIDE RECORDS SUMMARY | 2024-06-29 09:05 | XMS_ITS | Encounter Summary ---
Author Organization [facility] Address [address] [place] [address] Care Team Providers Care Home Care Rn Name Role Phone Porsche Etienne DO Primary Care Pro vider Unavailable Yari Lerma MD Primary Care Provider [phone] [facility] Primary Care Provider Unavailabl e Reason for Visit * Reason Comments E-prescribe Rx Request Encounter Details Date Type Department Care Team Description 02/11/2020 Refill Adult Medicine [address] [address] Porsche Etienne DO E-prescribe Rx Request Social [...] AETNA / Plan: POS $20/30 TRE VAIL [id number] [facility] TRADITNAL / Product Type: POS Npb-aal-Oeizoic documented in this encounter Plan of Treatment Not on file documented as of this encounter Visit Diagnoses Not on filedocumented in this encounter Care Teams Home Care Rn Relationship Specialty Start Date End Date Porsche Etienne DO PCP - General Internal Medicine 10/18/18 10/30/20 Yari Lerma MD [address] [place], [place] [id number] PCP - General Internal Medicine 10/31/20 03/24/[address] [address] PCP - General Internal Medicine 03/25/23 documented as of this encounter
--- OUTSIDE RECORDS SUMMARY | 2024-06-29 09:05 | XMS_ITS | Clinical Summary ---
Author Organization [employer] Address [address] [facility] 7[address] [place] [address] Care Team Providers Care Decorator Mannequin Name Role Phone Ada Caruso DO Primary Care Provider [phone] Allergies Active Allergy Reactions Criticality Noted Date Comments Aspirin Wheezing High 05/01/2010 Other reaction(s): Facial swelling & difficulty breathing, Hives/Urticaria, swelling: facial Reaction occurred 1997 Other Reaction(s): swelling, itchy eyes;swelling of face Allergy Other Reaction(s): Hives/Urticaria Reaction occurred 1997 Beta Adrenergic Blockers 05/01/2010 Beta-blockers, beta adrenergic blocking agents-GERD Other reaction(s): GERD Ibuprofen 04/16/2019 Graded challenge, patient developed diffuse itching and red splotches on face with 100 mg dose Other 11/15/2018 Beta-blockers, beta adrenergic blocking agents-GERD Topiramate Hallucinations 04/14/2021 Medications * This document contains information received from the source organization and may not represent a complete record from that organization. biotin 1 MG capsule Active cetirizine (ZyrTEC) 10 MG tablet TAKE 1 TABLET BY MOUTH EVERY DAY IN THE MORNING 90 tablet 3 024 Active fluticasone (Flonase) 50 MCG/ACT nasal spray SPRAY 2 SPRAYS INTO EACH NOSTRIL EVERY DAY 48 mL 024 Active cholecalcifero l VITAMIN D (Vitamin D-3) 50 MCG (1999 UT) capsule TAKE 1 CAPSULE BY MOUTH EVERY MORNING 90 capsule 3 024 Active albuterol 108 (90 Base) MCG/ACT inhaler INHALE 2 PUFFS INTO THE LUNGS EVERY 4 HOURS NEEDED FOR COUGH OR WHEEZING. 8.5 g 11 024 Active Blood Pressure kit 1 each 1 (one) time per week. 1 kit Active hydroCHLOROthi azide (HYDRODiuril) 25 MG tablet Take 1 tablet (25 mg) by mouth Once per day. 90 tablet 3 024 2024 Active ondansetron (Zofran) 4 MG tablet Take 1 tablet (4 mg) by mouth every 8 (eight) hours if needed for nausea or vomiting. 12 tablet Active hydrOXYzine pamoate (Vistaril) 25 MG capsuleIndicat ions:Depressio n, unspecified depression type TAKE 1 CAPSULE BY MOUTH EVERY 6 HOURS NEEDED FOR ANXIETY 40 capsule 3 Active baclofen (Lioresal) 10 MG tablet Take 1 tablet (10 mg) by mouth if needed in the morning, at noon, and at bedtime for muscle spasms. 60 tablet 3 024 2024 Active lidocaine (Lidoderm) 5 % patch Apply 1 patch topically if needed each day for mild pain (pain). Remove & discard patch within 12 hours or as directed by MD. 30 patch 3 Active acetaminophen (Tylenol 8 Hour) 650 MG ER tablet Take 1 tablet (650 mg) by mouth every 8 (eight) hours if needed for mild pain. Do not crush, chew, or split. 60 tablet 1 024 2024 Active famotidine (Pepcid) 40 MG/5ML suspension Take 5 mL (40 mg) by mouth at bedtime. 150 mL 3 024 2024 Active FLUoxetine (PROzac) 40 MG capsule Take 1 capsule (40 mg) by mouth Once per day. 90 capsule 3 025 2025 Active butalbital-nba taminophen-caf feine 50-325-40 MG tabletIndicati ons:Nonintract able chronic migraine TAKE 1 TABLET BY MOUTH EVERY 12 HOURS NEEDED FOR HEADACHE 20 tablet 1 Active pantoprazole (ProtoNix) 20 MG EC tablet Take 1 tablet by mouth Once per day. Active metroNIDAZOLE (Metrogel) 0.75 % gel Apply topically 2 times daily. 45 g 3 025 2025 Active amitriptyline (Elavil) 10 MG tablet Take 1 tablet (10 mg) by mouth at bedtime. 30 tablet 5 025 2024 Active Multiple Vitamin (multivitamin) tablet Take 1 tablet by mouth Once per day. 30 tablet 11 025 2025 Active ferrous gluconate (Fergon) 324 (38 Fe) MG tabletIndicati ons:Iron deficiency anemia, unspecified iron deficiency anemia type TAKE 1 TABLET BY MOUTH WITH BREAKFAST 90 tablet 3 024 2024 Discontinued polycarbophil (FiberCon) 625 MG tablet Take 1 tablet (625 mg) by mouth 2 times daily. 180 tablet 3 024 2024 Probiotic Product (Probiotic Daily) capsule Take 1 capsule by mouth in the morning. 90 capsule 3 024 2024 Semaglutide-We ight Management (Wegovy) 0.25 MG/0.5ML solution auto-injectorI ndications:BMI 36.0-36.9,adul t Inject 0.25 mg under the skin 1 (one) time per week. 2 mL 3 024 2024 Discontinued Semaglutide-We ight Management (Wegovy) 0.5 MG/0.5ML solution auto-injector INJECT ONE PEN (=0.5 MG) SUBCUTANEOUSLY ONCE A WEEK 2 mL 024 2024 Discontinued omeprazole (PriLOSEC) [address] capsule Take 1 capsule (20 mg) by mouth before breakfast and before evening meal. TAKE 1 CAPSULE BY MOUTH EVERY DAY BEFORE A MEAL 180 capsule 3 024 2024 Discontinued amitriptyline (Elavil) 10 MG tablet Take 1 tablet (10 mg) by mouth at bedtime. 30 tablet 5 024 2024 Discontinued(R eorder (will not trigger notification to Pharmacy)) butalbital-nba taminophen-caf feine 50-325-40 MG tabletIndicati ons:Nonintract able chronic migraine TAKE 1 TABLET BY MOUTH EVERY 12 HOURS NEEDED FOR HEADACHE 20 tablet 1 025 2024 Discontinued Active Problems Problem Noted Date Diagnosed Date Severe episode of recurrent major depressive disorder, without psychotic features 06/22/2024 Chronic diarrhea 07/25/2023 Severe anxiety 12/10/2022 Anemia 12/10/2022 Family history of breast cancer 12/10/2022 History of COVID-19 05/12/2022 Chronic gastroesophageal reflux disease 11/16/19 19 Prediabetes 11/15/2018 Nasal polyps 08/17/2018 Mild intermittent asthma 04/02/2015 Eczema 04/02/2015 Irritable bowel syndrome 04/02/2015 Chronic migraine 04/02/2015 Allergic rhinitis 04/02/2015 Resolved Problems Problem Noted Date Diagnosed Date Resolved Date Asthma 04/21/2022 12/10/2022 Encounters * This document contains information received from the source organization and may not represent a complete record from that organization. Date Type Department Care Team Description 06/26/2024 Telephone [facility] [address] [place] [phone] Ada Caruso DO Medication Question 06/22/2024 9:15 AM EDT Office Visit [facility] [address] [place] [address] [phone] Ada Caruso DO Essential hypertension (Primary Dx); Anxiety; Chronic migraine; Chronic gastroesophageal reflux disease; Chronic diarrhea; Abnormal uterine bleeding; Anemia, unspecified type; Family history of breast cancer; Bilateral carpal tunnel syndrome; Ulnar neuropathy at elbow, left; Neck pain; Acute bilateral low back pain without sciatica; Polyarthralgia; Rosacea; Multiple acquired skin tags; Subcutaneous nodule; Healthcare maintenance 06/22/2024 Telephone [facility] [address] [place] [address] [phone] Ada Caruso DO Durable Medical Equipment (DME Request: Bilateral Wrist Splints) 06/22/2024 Travel 06/15/2024 Travel 06/13/2024 Patient Outreach [facility] [address] [place] [phone] Ada Caruso DO Pre-visit Planning ((Unable to reach for PVP screening or LVM)) 06/01/2024 Refill [facility] [address] [place] [phone] Ada Caruso DO Nonintractable chronic migraine 04/27/2024 10:00 AM EST Office Visit [facility] [address] [place] [address] Cleveland Mills MD Acute conjunctivitis of right eye, unspecified acute conjunctivitis type (Primary Dx); Pharyngitis, unspecified etiology 04/26/2024 Telephone [facility] [address] [place] [address] Ada Caruso DO Recall Appt. 04/26/2024 Travel from Last 3 Months Immunizations Name [...] Answer Date Recorded Patient Health Questionnaire-9 Score 06/22/2024 Patient Health Questionnaire-9 Score 20 06/22/2024 [...] Sign Reading Time Taken Comments Blood Pressure 124/78 06/22/2024 9:26 AM EDT Pulse 75 06/22/2024 9:26 AM EDT Temperature 36.3 ??C (97.3 ??F) 06/22/2024 9:26 AM ED T Respiratory Rate 20 06/22/2024 9:26 AM EDT Oxygen Saturation 95% 06/22/2024 9:26 AM EDT Inhaled Oxygen Concentration - - Weight 95 kg (209 lb 8 oz) 06/22/2024 9:26 AM ED T Height 162.6 cm (5' 4 ) 06/22/2024 9:26 AM EDT Body Mass Index 35.96 06/22/2024 9:26 AM EDT Plan of Treatment Health Maintenance Due Date Last Done Comments CT Colonography 1975 Colonoscopy 1975 Colorectal Cancer Screening 1975 FIT DNA/Cologuard 1975 FIT 1975 FOBT 1975 Sigmoidoscopy 1975 Family Planning (PISQ) 1990 Hepatitis B Vaccines (2 of 3 - 19+ 3-dose series) 07/14/2023 06/16/2023, 03/29/2007, 03/29/2007, Additional history exists SDOH Screening 06/15/2024 06/16/2023 Diabetes: Hemoglobin A1C 11/24/2024 11/25/2023, 03/0 11/2022 Zoster Vaccines (1 of 2) 2025 Alcohol/Substance Use Screening 06/22/2025 06/22/2024 Depression Screening 06/22/2025 06/22/2024, 06/23/19 25 Tobacco Screening 06/22/2025 06/22/2024 Pap Smear 10/11/2025 10/11/2022 Mammogram 03/28/2026 03/28/2024, 03/08, 07/13/2023, Additional history exists Cervical Cancer Screening 10/12/2027 [...] Procedure Name Priority Date/Time Associated Diagnosis Comments XR LUMBAR SPINE 2-3 VIEWS Routine 06/26/2024 7:33 PM EDT Acute bilateral low back pain without sciatica XR CERVICAL SPINE 3V Routine 06/26/2024 7:30 PM EDT HEPATITIS C AB W/REFL TO HCV RNA, [...] Recently Relevant to Health Maintenance Results * XR Lumbar Spine 2-3 Views (06/26/2024 7:33 PM EDT) Anatomical Region Laterality Modality Spine, L-spine Radiographic Lexie ging 06/26/2024 7:33 PM EDT Narrative 06/26/2024 7:34 PM EDT ? [facility] ?[address] ?[place] [address] ?XRay Report ? Signed ? Patient: Colon Tomas,Darcy ?MR#: [id number] ?? [id number] ? : 1975 ?Acct:[id number] ? Age/Sex: 49 / F ?ADM Date: 06/23/24 ? Loc: HO.XRAY ? Attending Dr: Ada Caruso DO ? Ordering Physician: Ada Caruso DO ?? Date of Service: 06/23/24 ?? Procedure(s): XR lumbar spine 2-3V ?? Accession Number(s): [id number] ? cc: Ada Caruso DO ? CLINICAL HISTORY: ACUTE BILATERAL LOW BACK PAIN WITHOUT SCIATICA ? Lumbar spine three views ? Comparison: None ? Findings: ? No acute fracture or dislocation. ?? Posterior alignment is normal. ?? Mild degenerative change. ?? No radiopaque foreign bodies. ? Impression: ? No acute processes ? This document has been electronically signed by: Allen Goodwin MD on ?? 06/26/2024 19:33:32 ? Dictated By: ?Allen Goodwin MD ? Signed By: ?<Electronically signed by Allen Goodwin MD in OV> ? 06/26/24 1934 ? DD/ 32 ? TD/TT: 06/26/241932 ? [employer]onder: ? Procedure Note Luh, Image - 06/26/2024 [place] [address] XRay Report Signed Patient: Anish Ordaz#: [id number] : 1975Acct:[id number] Age/Sex: 49 / FADM Date: 06/23/24 Loc: [facility] Attending Dr: Ada Caruso DO Ordering Physician: Ada Caruso DO Date of Service: 06/23/24 Procedure(s): XR lumbar spine 2-3V Accession Number(s): [id number] cc: Ada Caruso DO CLINICAL HISTORY: ACUTE BILATERAL LOW BACK PAIN WITHOUT SCIATICA Lumbar spine three views Comparison: None Findings: No acute fracture or dislocation. Posterior alignment is normal. Mild degenerative change. No radiopaque foreign bodies. Impression: No acute processes This document has been electronically signed by: Allen Goodwin MD on 06/26/2024 19:33:32 Dictated By: Allen Goodwin MD Signed By: <Electronically signed by Allen Goodwin MD in OV> 06/26/241933 DD/ 32 TD/TT: 06/26/241932 [employer]onder: us Ada Caruso DO IMG XR PROCEDURES Final Resu lt * XR CERVICAL SPINE 3V (06/26/2024 7:30 PM EDT) Anatomical Region Laterality Modality Abdomen Radiographic Lexie ging 06/26/2024 7:30 PM EDT Narrative 06/26/2024 7:32 PM EDT ? [facility] ?[address] ?[place] [address] ?XRay Report ? Signed ? Patient: Colon Tomas,Darcy ?MR#: [id number] ?? [id number] ? : 1975 ?Acct:[id number] ? Age/Sex: 49 / F ?ADM Date: 06/23/24 ? Loc: HO.XRAY ? Attending Dr: Ada Caruso DO ? Ordering Physician: Ada Caruso DO ?? Date of Service: 06/23/24 ?? Procedure(s): XR cervical spine 3V ?? Accession Number(s): [id number] ? cc: Ada Caruso DO ? CLINICAL HISTORY: NECK PAIN ? Cervical spine 4 views ? Comparison: None ? Findings: ? No acute fracture or dislocation. ?? Posterior alignment is normal. ?? Moderate degenerative change. ?? No radiopaque foreign bodies. ? Impression: ? No acute processes ? This document has been electronically signed by: Allen Goodwin MD on ?? 06/26/2024 19:30:56 ? Dictated By: ?Allen Goodwin MD ? Signed By: ?<Electronically signed by Allen Goodwin MD in OV> ? 06/26/241931 ? DD/ 29 ? TD/TT: 06/26/241929 ? [employer]onder: ? Procedure Note Clive Arvizu - 06/26/2024 [facility] [address] [place] [address] XRay Report Signed Patient: Anish Ordaz#: [id number] : 1975Acct:[id number] Age/Sex: 49 / FADM Date: 06/23/24 Loc: [place] Attending Dr: Ada Caruso DO Ordering Physician: Ada Caruso DO Date of Service: 06/23/24 Procedure(s): XR cervical spine 3V Accession Number(s): [id number] cc: Ada Caruso DO CLINICAL HISTORY: NECK PAIN Cervical spine 4 views Comparison: None Findings: No acute fracture or dislocation. Posterior alignment is normal. Moderate degenerative change. No radiopaque foreign bodies. Impression: No acute processes This document has been electronically signed by: Allen Goodwin MD on 06/26/2024 19:30:56 Dictated By: Allen Goodwin MD Signed By: <Electronically signed by Allen Goodwin MD in OV> 06/26/241931 DD/ 29 TD/TT: 06/26/241929 [employer]: us Ada Caruso DO IMG XR PROCEDURES Final Resu lt * Hepatitis C Antibody with Reflex to HCV, RNA, Quantitative, Real-Time PCR (11/25/2023 6:16 AM EDT) Hepatitis C Antibody Nonreactive Nonreactive [facility] Comment:Antibodies to HCV no t detected; does not exclude early acuteHCV infection. Blood Venous blood specimen / Unknown 11/25/2023 6:16 AM EDT 11/25/2023 6:16 AM EDT Ada Caruso DO LAB BLOOD ORDERABLES Final R esult [facility] [address] [place] [address] [phone] * HIV-1/2 Antigen and Antibodies, Fourth Generation, with Reflexes (11/25/2023 6:16 AM EDT) HIV AB/AG Nonreactive Nonreactive [facility] Comment:HIV-1 p24 Ag and/or HIV-1/HIV-2 Ab not detected.A test result that is nonreactive does not exclude thepossibility of exposure to or infection with HIV-1 and/orHIV-2. Nonreactive results in this assay for individualswith prior exposure to HIV-1 and/or HIV-2 may be due toantigen and antibody levels that are below the limit ofdetection of this assay.The Animated DynamicsniLeosphere HIV Ag/Ab Combo assay result andsupplemental assay results should be interpreted inconjunction with the patient's clinical presentation,history and other laboratory results. If the results areinconsistent with clinical evidence, additional testing issuggested to confirm the result. Blood Venous blood specimen / Unknown 11/25/2023 6:16 AM EDT 11/25/2023 6:16 AM EDT Ada Caruso DO LAB BLOOD ORDERABLES Final R esult [facility] [address] [place] [phone] * Hemoglobin A1c (11/25/2023 6:16 AM EDT) Hemoglobin A1c 5.3 <6.0 % [facility] Comment:Hemoglobin A1C Refer ence Range Adults: 4.8 - 6.0 % Non diabetic: < 6.0 % Goal: < 7.0 %Additional Action Suggested: > 8.0 %Note: Hemoglobin A1c results are invalid for patients with abnormal amounts of HbF. Blood transfusions may impact the HbA1c concentration in the patient sample. Estimated Average Glucose 105 mg/dL [facility] Comment:eAG = Estimated ave rage glucose which is %A1C expressed asaverage glucose, using the formula of the X8T-PimyuyuQiganfx Glucose study (ADAG), Diabetes Care, Vol.31,#8,Oct. 2007 Blood Venous blood specimen / Unknown 11/25/2023 6:16 AM EDT 11/25/2023 6:16 AM EDT Ada Caruso DO LAB BLOOD ORDERABLES Final R esult [facility] [address] [place] [address] [phone] * (ABNORMAL) Lipid Panel, Standard (11/25/2023 6:16 AM EDT) Triglycerides 151(H) <150 mg/dL [facility] Comment:Desirable Triglyceri de: less than 150 mg/dLBorderline High Triglyceride 150-199 mg/dLHigh Triglyceride: 200-499 mg/dLVery High Triglyceride: greater than or equal to 5OO mg/dL Cholesterol 265(H) <200 mg/dL [facility] Comment:Desirable Cholestero l: less than 200 mg/dLBorderline High Cholesterol: 200-239 mg/dLHigh Cholesterol: greater than 239 mg/dL LDL Cholesterol Calculated 163(H) <100 mg/dL [facility] Comment:Desirable LDL: less than 100 mg/dLNear Optimal/Above Optimal LDL: 110- 129 mg/dLBorderline High LDL: 130-159 mg/dLHigh LDL: 160-189 mg/dLVery High LDL: greater than or equal to 190 mg/dL HDL Cholesterol 72 >40 mg/dL [facility] Comment:Desirable HDL: great er than 40 mg/dL Note: This HDL assay may give artificially low results in patients with liver disease. Blood Venous blood specimen / Unknown 11/25/2023 6:16 AM EDT 11/25/2023 6:16 AM EDT Ada Caruso DO LAB BLOOD ORDERABLES Final R esult [facility] [address] [place] [address] [phone] * BI US Breast Limited Right (07/13/2023 1:25 PM EDT) Anatomical Region Laterality Modality Breast Right Ultrasound 07/13/2023 1:25 PM EDT Narrative 07/13/2023 1:51 PM EDT ? [facility] ? [address] ?[place] [address] ? Ultrasound Report ? Signed ? Patient: Colon,Darcy ?MR#: [id number] ?? [id number] ? : 1975 ?Acct:[id number] ? Age/Sex: 48 / F ?ADM Date: 07/13/23 ? Loc: HO.MAMMO ? Attending Dr: Corky Goodrich MD ? Ordering Physician: Corky Goodrich MD ?? Date of Service: 07/13/23 ?? Procedure(s): US breast RT limited mamm only ?? Accession Number(s): [id number] ? cc: Ada Caruso DO; Corky Goodrich MD ? EXAMINATION: ?? US DIAGNOSTIC ULTRASOUND BREAST, RIGHT ? CLINICAL INFORMATION: ? Palpable abnormality right axillary region. Recent immunizations. ? COMPARISON: ?? Correlation made with MRI breast 04/11/2023. ? TECHNIQUE: ?? Ultrasound of the right breast and axilla was performed with real-time ?? carr scale imaging and color Doppler. ? FINDINGS: ?? There is no focal suspicious finding. ??There is no solid mass, ?? architectural abnormality, or edema in the soft tissue planes. There ?? are no pathologic right axillary lymph nodes. Approximately 4 right ?? axillary lymph nodes are visualized, all with no evidence of abnormal ?? cortical thinning, and all with normal morphology. ? Results are discussed with the patient at time of visit. ? US/US breast RT limited mamm only ?? IMPRESSION: ?? Normal appearing lymph nodes within the right axilla. No pathologic ?? nodes identified. No suspicious masses. ? Recommend clinical management. ? ASSESSMENT: ? BI-RADS 2 - Benign Findings ? RECOMMENDATION: ?? 1. Patient should be managed based on the clinical impression. ?2. ?? Otherwise, routine annual screening mammography. ? This patient's information was entered into a reminder system with a ?? target due date for their next mammogram. ? Dictated By: ?Volodymyr Pereira MD ? Signed By: ?<Electronically signed by Volodymyr Pereira MD in OV> ?07/13/23 1348 ? DD/ 1325 ? TD/TT: ? [employer]: ? Procedure Note Donotuseinterpreter, Image - 07/13/[address] [place] [address] Ultrasound Report Signed Patient: Anish Farnsworth#: [id number] : 1975Acct:[id number] Age/Sex: 48 / FADM Date: 07/13/23 Loc: HO.MAMMO Attending Dr: Corky Goodrich MD Ordering Physician: Corky Goodrich MD Date of Service: 07/13/23 Procedure(s): US breast RT limited mamm only Accession Number(s): [id number] cc: Ada Caruso DO; Corky Goodrich MD EXAMINATION: US DIAGNOSTIC ULTRASOUND BREAST, RIGHT CLINICAL INFORMATION: Palpable abnormality right axillary region. Recent immunizations. COMPARISON: Correlation made with MRI breast 04/11/2023. TECHNIQUE: Ultrasound of the right breast and axilla was performed with real-time carr scale imaging and color Doppler. FINDINGS: There is no focal suspicious finding. There is no solid mass, architectural abnormality, or edema in the soft tissue planes. There are no pathologic right axillary lymph nodes. Approximately 4 right axillary lymph nodes are visualized, all with no evidence of abnormal cortical thinning, and all with normal morphology. Results are discussed with the patient at time of visit. US/US breast RT limited mamm only IMPRESSION: Normal appearing lymph nodes within the right axilla. No pathologic nodes identified. No suspicious masses. Recommend clinical management. ASSESSMENT: BI-RADS 2 - Benign Findings RECOMMENDATION: 1. Patient should be managed based on the clinical impression. 2. Otherwise, routine annual screening mammography. This patient's information was entered into a reminder system with a target due date for their next mammogram. Dictated By: Volodymyr Pereira MD Signed By: <Electronically signed by Volodymyr Pereira MD in OV> 07/13/23 1348 DD/ 1325 TD/TT: [employer]onder: us [facility] External Provider IMG US PROCEDURES Final Result * HPV mRNA E6/E7 w/Reflex to HPV Genotypes 16, 18/45 (10/11/2022 10:21 AM EDT) HPV nRNA E6/E7 Not Detected Not Detected [facility] Comment:Methodology: Transcr iption-Mediated AmplificationThis assay detects E6/E7 viral messenger RNA (mRNA) from 14high-risk HPV types (16,18,31,33,35,39,45,51,52,56,58,59,66,68).Cervical sources are required for HPV testing.If a vaginal source from a patient who has had atotal hysterectomy with removal of cervix wassubmitted, please contact the testing laboratoryfor alternative testing options.For additional information, please refer [email or web address]/faq/PXK968k9(This link if provided for information/educational purposes only.)THIS TEST WAS PERFORMED AT:[facility] [place] [phone] JEFFREY MD HPV mRNA E6/E7 [facility] HPV 16 RNA [facility] HPV 18/45 RNA [facility] 10/11/2022 10:2 1 AM EDT 10/12/2022 10:40 AM EDT Malachi Curry [facility] CYTOLOGY ORDERABLES F inal Result [facility] [address] [place] [address] [phone] * Pap Smear (10/11/2022 10:21 AM EDT) 10/11/2022 10:2 1 AM EDT 10/12/2022 10:40 AM EDT Narrative [facility] - 11/01/2022 10:24 AM EDT ----- ------- Name: JavadDarcy ?Age/Sex: 47/F ? : 1975 Unit#: [id number] ?? Attend Dr: MALACHI CURRY CNM ?Re10/11/22 ?Status: DEP REF ? Location: HO.HHCLNP ? Disch: ? ----- ------- SPEC : [id number] ?RECD: 10/12/22-1040 ? STATUS: ??SOUT ? REQ NUM: [id number] ? CARLOS: 10/11/22-1021 ? SUBM DR: MALACHI CURRY CNM ? ENTERED: ??10/13/22-7986 ?SP TYPE: Pap Smr ?OTHR : ? [...] 66, 68) ? HPV testing performed by [facility], [place], [place]. ??See reference laboratory ?? portion of the EMR for entire report. ?Clinical Information LMP: Unknown date Previous PAP test: 2020, unknown findings Other history: Abnormal bleeding ? Material Received ?? ThinPrep-Cervical ----- ------- Signed (signature on file) Cassandra Isaac MD 11/01/22 1024 ? ----- ------- ? END OF REPORT ? Malachi Curry CNM LAB CYTOLOGY ORDERABLES F inal Result [facility] [address] [place] [address] [phone] from Last 3 Months or Most Recently Relevant to Health Maintenance Insurance N PARTIAL [employer] PPO Care Teams Decorator Mannequin Relationship Specialty Start Date End Date Ada Caruso DO [address] [place] [address] PCP - General Family Medicine 07/13/21
--- OUTSIDE RECORDS SUMMARY | 2024-06-29 09:05 | XMS_ITS | Encounter Summary ---
Author Organization [employer] Address [address] [facility] [address] [place] [address] Care Team Providers Care C Engineer Name Role Phone Ada Caruso DO Primary Care Provider [phone] Reason for Visit * Reason Comments Med Change Request Encounter Details Date Type Department Care Team ([facility] st Contact Info) Description 10/06/2022 Refill [facility] [address] [place] [address] Ada Caruso DO [address] [place] [address] Nonintractable chronic migraine Social History Tobacco Use [...] documented as of this encounter Care Teams C Engineer Relationship Specialty Start Date End Date Ada Caruso DO [address] [place] [address] PCP - General Family Medicine 07/13/21 documented as of this encounter
--- OUTSIDE RECORDS SUMMARY | 2024-06-29 09:05 | XMS_ITS | Encounter Summary ---
Author Organization [employer] Address 75 [facility] 7t [place] [address] Care Team Providers Care Software Sales Executive Name Role Phone Ada Caruso DO Primary Care Provider [phone] Encounter Details Date Type Department Care Team (Late st Contact Info) Description 04/01/2022 Orders Only [facility] MEDICINE [address] [place] [address] Callie Lugo LPN Social History Tobacco Use Types [...] on filedocumented in this encounter Care Teams Software Sales Executive Relationship Specialty Start Date End Date Ada Caruso DO [address] [place] [address] PCP - General Family Medicine 07/13/21 documented as of this encounter
--- OUTSIDE RECORDS SUMMARY | 2024-06-29 09:05 | XMS_ITS | Encounter Summary ---
Author Organization [employer] Address 75 [facility] 7t [place] [address] Care Team Providers Care Production Machine Operator Name Role Phone Ada Caruso DO Primary Care Provider [phone] Encounter Details Date Type Department Care Team (Late st Contact Info) Description 05/14/2022 Orders Only [facility] MED[facility] [address] [place], [place] [phone] Karin Shepherd MD 230 [place], [place] [phone] Iron deficiency anemia, unspecified iron deficiency anemia [...] 11. Is she having any side effects thatwe need to manage? We can recheck her [...] CBC MORPHOLOGY (05/27/2022 1:42 PM EDT) Pathologist [facility] CBC MORPHOLOGY [facility] [facility] Comment:Polychromasia 1 + 05/27/2022 1:42 PM EDT 05/27/2022 1:42 PM EDT us Karin Shepherd MD LAB BLOOD ORDERABLES Final Res ult [address], [place] [address] [facility] [address] [place] [address] * (ABNORMAL) CBC auto differential (05/27/2022 1:42 PM EDT) Pathologist [facility] White Blood Cell Count 8.6 3.8 - 10.8 Thousand/ uL [facility] [place] [facility] Red Blood Cell Count 4.04 3.80 - 5.10 Million/u L [facility] [place] [facility] Hemoglobin 8.5(L) 11.7 - 15.5 g/dL [facility] [place] [facility] Hematocrit 28.2(L) 35.0 - 45.0 % [facility] [place] [facility] MCV 69.8(L) 80.0 - 100.0 fL [facility] MCH 21.0(L) 27.0 - 33.0 pg [facility] [place] [facility] MCHC 30.1(L) 32.0 - 36.0 g/dL [facility] RDW 19.3(H) 11.0 - 15.0 % [facility] Platelet Count 223 140 - 400 Thousand/ uL [facility] [place] [facility] MPV 10.5 7.5 - 12.5 fL [facility] Absolute Neutrophils 4,223 1,500 - 7,800 cells/uL [facility] Absolute Lymphocytes 3,552 850 - 3,900 cells/uL [facility] Absolute Monocytes 619 200 - 950 cells/uL [facility] Absolute Eosinophils 146 15 - 500 cells/uL [facility] Absolute Basophils 60 0 - 200 cells/uL [facility] Neutrophils 49.1 % [facility] [place] [facility] Lymphocytes 41.3 % [facility] [place] [facility] Monocytes 7.2 % [facility] [place] [facility] Eosinophils 1.7 % [facility] [place] [facility] Basophils 0.7 % [facility] [place] [facility] Blood Venous blood specimen / Unknown 05/27/2022 1:42 PM EDT 05/27/2022 1:42 PM EDT us Karin Shepherd MD LAB BLOOD ORDERABLES Final Res ult Performing Organization Address City/State/[facility] Co de Phone Number [facility] [address], [place] [address] [facility] [place] [facility] [address] [place] [address] documented in this encounter Visit Diagnoses Diagnosis Iron deficiency anemia, unspecified iron deficiency anemia type- Primary documented in this encounter Additional Health Concerns Assessment Noted Time PHQ-9 Depression Total Score: 9 05/13/19 23 10:46 AM EST documented as of this encounter Care Teams Production Machine Operator Relationship Specialty Start Date End Date Ada Caruso DO [address] [place] [address] PCP - General Family Medicine 07/13/21 documented as of this encounter
--- OUTSIDE RECORDS SUMMARY | 2024-06-29 09:05 | XMS_ITS | Encounter Summary ---
Author Organization [employer] Address 75 [facility] 7t [place] [address] Care Team Providers Care Tax Investigator Name Role Phone Ada Caruso DO Primary Care Provider + [phone] Reason for Visit * Reason Comments Med Refill Encounter Details Date Type Department Care Team ([facility] st Contact Info) Description 09/24/2023 Refill [facility] MEDICINE 230 [place] [address] Ada Caruso DO [address] [place] [address] Nonintractable chronic migraine Social History Tobacco Use [...] documented as of this encounter Care Teams Tax Investigator Relationship Specialty Start Date End Date Ada Caruso DO [address] [place] [address] PCP - General Family Medicine 07/13/21 documented as of this encounter
--- OUTSIDE RECORDS SUMMARY | 2024-06-29 09:05 | XMS_ITS | Encounter Summary ---
Author Organization [facility] Address [address] [place] [address] Care Team Providers Care Supervisor Lamp Shades Name Role Phone Dinora [place] MD Primary Care Provider Un available Porsche Etienne DO Primary Care Pro vider Unavailable Yari Lerma MD Primary Care Provider [phone] [facility], Pcp Primary Care Provider Unavailabl e Encounter Details Date Type Department Care Team Description 08/16/2018 Release of Information Medical Records [address] [place] [id number] Abstract, Provider Social History Tobacco Use Types [...] on filedocumented in this encounter Care Teams Supervisor Lamp Shades Relationship Specialty Start Date End Date Dinora [place] MD PCP - General Internal Medicine 03/23/18 Porsche Etienne DO PCP - General Internal Medicine 10/18/18 10/30/20 Yari Lerma MD [address] [place] [address] PCP - General Internal Medicine 10/31/20 03/24/23 [facility], [address] [place] [address] PCP - General Internal Medicine 03/25/23 documented as of this encounter
--- OUTSIDE RECORDS SUMMARY | 2024-06-29 09:05 | XMS_ITS | Encounter Summary ---
Author Organization [employer] Address 75 [facility] 7t [place] [address] Care Team Providers Care Educational Fundraising Director Name Role Phone Ada Caruso DO Primary Care Provider + [phone] Reason for Visit * Reason Comments Med Refill Encounter Details Date Type Department Care Team ([facility] st Contact Info) Description 03/23/2023 Refill [facility] MEDICINE 230 [place] [address] Ada Caruso DO 230 [place] [address] Depression, unspecified depression type Social History Tobacco [...] documented as of this encounter Care Teams Educational Fundraising Director Relationship Specialty Start Date End Date Ada Caruso DO [address] [place] [address] PCP - General Family Medicine 07/13/21 documented as of this encounter
--- OUTSIDE RECORDS SUMMARY | 2024-06-29 09:05 | XMS_ITS | Encounter Summary ---
Author Organization [employer] Address 75 [facility] 7t [place] [address] Care Team Providers Care Clinical Support Associate Name Role Phone Ada Caruso DO Primary Care Provider + [phone] Reason for Visit * Reason Onset Date Comments Med Refill 11/25/2023 Encounter Details Date Type Department Care Team (Late st Contact Info) Description 11/25/2023 Refill [facility] MEDICINE [address] [place] [address] Ada Caruso DO 230 [place] [address] Social History Tobacco Use Types Packs/Day Years [...] documented as of this encounter Care Teams Clinical Support Associate Relationship Specialty Start Date End Date Ada Caruso DO [address] [place] [address] PCP - General Family Medicine 07/13/21 documented as of this encounter
[2024-06-29 11:11] LABS: MANUAL DIFF FLAG NO
[2024-06-29 11:13] LABS: Basophils Absolute Auto 0.1 X10*3/uL (0.0-0.2); Basophils Percent Auto 0.8 % (0-2); Eosinophils Absolute Auto 0.1 X10*3/uL (0.0-0.4); Eosinophils Percent Auto 2.4 % (0-4); Hematocrit 37.5 % (37.0-47.0); Hemoglobin 12.2 g/dl (12.0-16.0); Imm Gran Abs Auto 0.02 X10*3/uL (0.00-0.03); Imm Gran Pct Auto 0.3 % (0.0-0.4); Lymphocytes Absolute Auto 2.1 X10*3/uL (1.2-4.9); Lymphocytes Percent Auto 35.9 % (20-40); Mean Corpuscular HGB Conc 32.5 g/dl (31.0-35.0); Mean Corpuscular Volume 86.2 fL (80.0-98.0); Mean Platelet Volume 11.1 fL (9.4-12.3); Monocytes Absolute Auto 0.4 X10*3/uL (0.1-1.2); Monocytes Percent Auto 7.4 % (2-11); Neutrophils Absolute Auto 3.2 x10*3/uL (2.0-8.3); Neutrophils Percent Auto 53.2 % (45-73); Platelet Count 310 X10*3/uL (160-400); Red Blood Count 4.35 X10*6/uL (4.20-5.50); Red Cell Distribution Width 14.1 % (11.0-16.0); White Blood Count 5.9 X10*3/uL (4.8-10.8)
[2024-06-29 11:24] LABS: Estimated Average Glucose 114 mg/dL; Hemoglobin A1C 121.3423 umol/L; Hemoglobin A1c % 5.6 % (<6.0); Total Hemoglobin (HGBA1C) 3249.1317 umol/L
[2024-06-29 11:39] LABS: Alanine Aminotransferase 43 U/L (0-31); Alkaline Phosphatase 102 U/L (39-117); Anion Gap 10 (12-20); Aspartate Amino Transferase 33 U/L (5-31); Bilirubin Direct < 0.2 mg/dL (0.0-0.5); Bilirubin Total 0.2 mg/dL (0.0-1.0); Blood Urea Nitrogen 16 mg/dL (9-16); C Reactive Protein 0.32 mg/dL (< or = 0.50); Calcium 8.8 mg/dL (8.4-10.2); Carbon Dioxide 29 mmol/L (22-29); Chloride 102 mmol/L (96-108); Cholesterol 291 mg/dL (<200); Estimated Glomerular Filt Rate > 60; Glucose Random 93 mg/dL (60-115); HDL Cholesterol 83 mg/dL (>40); Iron 40 mcg/dL (30-160); LDL Cholesterol Calculated 186 mg/dL (<100); Percent Iron Saturation 12 % (15-50); Potassium 3.8 mmol/L (3.3-5.1); Sodium 137 mmol/L (135-145); Total Iron Binding Capacity 341 mcg/dL (228-428); Total Protein 7.6 g/dL (6.5-8.0); Triglycerides 112 mg/dL (<150); Unsaturated Iron Binding 301 ug/dL
[2024-06-29 11:41] LABS: Rheumatoid Factor < 13.0 IU/mL (<15.0)
[2024-06-29 11:47] LABS: HBS Num1 163.17 mIU/mL (0-7.99); HBsAGNum1 0.26 S/CO (0.00-0.99); HIV AB/AG Nonreactive (Nonreactive); HIV Num 1 0.08 S/CO (0.00-0.99); Hepatitis B Surface Antigen Negative (Negative); ~HepC Num1 0.07 S/CO (0.00-0.79); ~Hepatitis B Surface Antibody REACTIVE (Nonreactive); ~Hepatitis C Antibody Nonreactive (Nonreactive)
[2024-06-29 11:55] LABS: Ferritin 8 ng/mL (10-250); Free T4 (Free Thyroxine) 0.72 ng/dL (0.71-1.85); Thyroid Stimulating Hormone 0.73 uIU/mL (0.32-4.0); Vitamin D 25-OH Total 41.6 ng/mL (>30)
[2024-06-29 11:57] LABS: Creatinine Urine 200.18 mg/dL; Microalbum/Creatinine Ratio Ur 3.4 ug/mg cr (<30)
[2024-06-29 12:01] LABS: Erythrocyte Sedimentation Rate 28 MM/HR (0-20)
[2024-06-29 12:03] LABS: Folate 5.4 ng/mL (> or = 4.0); Vitamin B12 696 pg/mL (200-900)
[2024-06-29 13:07] LABS: CT PCR NOT DETECTED (Not Detect.); NG PCR NOT DETECTED (Not Detect.)
[2024-07-01 17:14] LABS: RPR Rapid Plasma Reagin NON-REACTIVE (NON-REACTIVE)
[2024-07-03 03:17] LABS: Lyme Abs Screen <0.90 index
[2024-07-03 11:33] LABS: ANA Pattern 2 Nuclear, Speckled; Anti Nuclear Antibody Screen POSITIVE (NEGATIVE)
== END 2024-06-29 08:58 | disposition home or self-care (01) ==
LOC: HO.HHCL 08:57
PROVIDERS: Visit Provider Family Medicine
DX: Z00.00 Encounter for general adult medical examination without abnormal findings (principal); R22.9 Localized swelling, mass and lump, unspecified; L91.8 Other hypertrophic disorders of the skin; I10 Essential (primary) hypertension; F41.9 Anxiety disorder, unspecified; G43.909 Migraine, unspecified, not intractable, without status migrainosus; K21.9 Gastro-esophageal reflux disease without esophagitis; K52.9 Noninfective gastroenteritis and colitis, unspecified; N93.9 Abnormal uterine and vaginal bleeding, unspecified; D64.9 Anemia, unspecified; Z80.3 Family history of malignant neoplasm of breast; G56.02 Carpal tunnel syndrome, left upper limb; G56.22 Lesion of ulnar nerve, left upper limb; M54.2 Cervicalgia; M54.50 Low back pain, unspecified; M25.50 Pain in unspecified joint; L71.9 Rosacea, unspecified
CPT/HCPCS: 36415; 80048; 80061; 80076; 82043; 82306; 82570; 82607; 82728; 82746; 83036; 83540; 84439; 84443; 85025; 85652; 86038; 86039; 86140; 86431; 86592; 86617; 86618; 86706; 86803; 87340; 87389; 87491; 87591

== ENCOUNTER 2024-07-18 15:04 | Outpatient (REF) | payer BC, SELFPAY ==
--- NOTE | ~2024-07-18 | US_ITS ---
EXAMINATION: US PELVIS TRANSABDOMINAL AND TRANSVAGINAL HISTORY: ABNORMAL UTERINE BLEEDING, IRREGULAR MENSES COMPARISON: Comparison is made with the prior examination dated 03/10/2023. TECHNIQUE: Transabdominal and endovaginal real-time 2D carr-scale ultrasound was performed. FINDINGS: Uterus: The uterus is normal in size, measuring 8.3 x 5.2 x 5.1 cm. Myometrium has a normal echotexture. No fibroids are identified. Endometrium: The endometrial stripe measures 7 mm in thickness. Right ovary: The right ovary measures 2.0 x 1.7 x 1.5 cm. The right ovary is normal in size and echotexture. Left ovary: The left ovary measures 2.0 x 1.4 x 1.3 cm. The left ovary is normal in size and echotexture. Pelvic fluid: none. US/US pelvic and transvaginal IMPRESSION: Unremarkable pelvic ultrasound. Electronically signed by: Ziyad Luevano MD 07/18/2024 03:51 PM EDT
--- OUTSIDE RECORDS SUMMARY | 2024-07-18 15:06 | XMS_ITS | Encounter Summary ---
Author Organization [employer] Address [address] [facility] [address] 7t [place] [address] Care Team Providers Care Bessemer Regulator Name Role Phone Ada Caruso DO Primary Care Provider [phone] Encounter Details Date Type Department Care Team (Late st Contact Info) Description 05/14/2022 Orders Only [facility] MEDICINE 230 [place] [address] Karin [place] MD 230 [place] [address] Iron deficiency anemia, unspecified iron deficiency anemia [...] CBC MORPHOLOGY (05/27/2022 1:42 PM EDT) Pathologist [facility] CBC MORPHOLOGY [facility] [employer] Comment:Polychromasia 1 + 05/27/2022 1:42 PM EDT 05/27/2022 1:42 PM EDT us Karin Shepherd MD LAB BLOOD ORDERABLES Final Res ult [address], [place] [address] [facility] [address] [place] [address] * (ABNORMAL) CBC auto differential (05/27/2022 1:42 PM EDT) Pathologist [facility] White Blood Cell Count 8.6 3.8 - 10.8 Thousand/ uL [facility] [place] [facility] Red Blood Cell Count 4.04 3.80 - 5.10 Million/u L [facility] Hemoglobin 8.5(L) 11.7 - 15.5 g/dL [facility] [place] [facility] Hematocrit 28.2(L) 35.0 - 45.0 % [facility] [place] [facility] MCV 69.8(L) 80.0 - 100.0 fL [facility] [place] [facility] MCH 21.0(L) 27.0 - 33.0 pg [facility] [place] [facility] MCHC 30.1(L) 32.0 - 36.0 g/dL [facility] RDW 19.3(H) 11.0 - 15.0 % [facility] Platelet Count 223 140 - 400 Thousand/ uL [facility] [place] [facility] MPV 10.5 7.5 - 12.5 fL [facility] [place] [facility] Absolute Neutrophils 4,223 1,500 - 7,800 cells/uL [facility] Absolute Lymphocytes 3,552 850 - 3,900 cells/uL [facility] Absolute Monocytes 619 200 - 950 cells/uL [facility] Absolute Eosinophils 146 15 - 500 cells/uL [facility] Absolute Basophils 60 0 - 200 cells/uL [facility] [place] [facility] Neutrophils 49.1 % [facility] [place] [facility] Lymphocytes 41.3 % [facility] [place] [facility] Monocytes 7.2 % [facility] [place] [facility] Eosinophils 1.7 % [facility] [place] [facility] Basophils 0.7 % [facility] [place] [facility] Blood Venous blood specimen / Unknown 05/27/2022 1:42 PM EDT 05/27/2022 1:42 PM EDT us Karin Shepherd MD LAB BLOOD ORDERABLES Final Res ult [facility] [address], [place] [address] [facility] [place] [facility] [address] [place] [address] documented in this encounter Visit Diagnoses Diagnosis Iron deficiency anemia, unspecified iron deficiency anemia type- Primary documented in this encounter Additional Health Concerns Assessment Noted Time PHQ-9 Depression Total Score: 9 05/13/19 23 10:46 AM EST documented as of this encounter Care Teams Bessemer Regulator Relationship Specialty Start Date End Date Ada Caruso DO [address] [place] [address] PCP - General Family Medicine 07/13/21 documented as of this encounter
--- OUTSIDE RECORDS SUMMARY | 2024-07-18 15:06 | XMS_ITS | Encounter Summary ---
Author Organization [employer] Address 75 [facility] 7t [place] [address] Care Team Providers Care X Ray Physician Name Role Phone Ada Caruso DO Primary Care Provider Encounter Details Date Type Department Care Team (Late st Contact Info) Description 04/01/2022 Orders Only [facility] MEDICINE [address] [place] [address] Callie Lugo LPN Social History Tobacco Use [...] on filedocumented in this encounter Care Teams X Ray Physician Relationship Specialty Start Date End Date Ada Caurso DO [address] [place] [address] PCP - General Family Medicine 07/13/21 documented as of this encounter
--- OUTSIDE RECORDS SUMMARY | 2024-07-18 15:06 | XMS_ITS | Encounter Summary ---
Author Organization [facility] Address [address] [place] [address] Care Team Providers Care Radiological Equipment Specialist Name Role Phone Porsche Etienne DO Primary Care Pro vider Unavailable Yari Lerma MD Primary Care Provider [phone] [facility], [facility] Primary Care Provider Unavailabl e Reason for Visit * Reason Comments E-prescribe Rx Request Encounter Details Date Type Department Care Team Description 02/06/2020 Refill Adult Medicine [address] [address] Porsche Etienne DO E-prescribe Rx Request Social [...] encounter Miscellaneous Notes * Telephone Encounter - Ina Linder M.A. - 02/15/2020 8:11 AM EST Lab Results Component Value Date NA 139 03/16/2019 K 4.5 03/16/2019 CO2 26 03/16/2019 CL 107 03/16/2019 BUN 10 03/16/2019 CREAT 0.69 03/16/2019 GLU 93 03/16/2019 CA 8.5 03/16/2019 GFR > 60 03/16/2019 Last refill 01/08/20 #60 * Telephone Encounter - Madalyn Mcgee - 02/07/2020 7:48 AM EST Patient would like script to be: E-PRESCRIBED/FAXED TO PHARMACY WHEN WAS THE PATIENT'S LAST APPOINTMENT IN ADULT MEDICINE? 11/27/2019 WHEN WAS THE LAST TIME THE PATIENT SAW THEIR PCP? Same as above Does patient have an upcoming appointment? No-no answer, no voicemail documented x2 (Please verify telephone contact #'s at next phone call) (THE MEDICATION REQUESTED IS ON THE MED [...] is: Payor: [employer] / Plan: POS $20/30 EL YARED [id number] [employer] [employer] / Product Type: POS [id number]-Xhnjnrh documented in this encounter Plan of Treatment Not on file documented as of this encounter Visit Diagnoses Not on filedocumented in this encounter Care Teams Radiological Equipment Specialist Relationship Specialty Start Date End Date Porsche Etienne DO PCP - General Internal Medicine 10/18/18 10/30/20 Yari Lerma MD [address] [place] [address] PCP - General Internal Medicine 10/31/20 03/24/23 [facility], Pcp [address] [place] [address] PCP - General Internal Medicine 03/25/23 documented as of this encounter
--- OUTSIDE RECORDS SUMMARY | 2024-07-18 15:06 | XMS_ITS | Encounter Summary ---
Author Organization [employer] Address 75 [facility] 7t [place] [address] Care Team Providers Care Master Electrician Name Role Phone Ada Caruso DO Primary Care Provider [phone] Reason for Visit * Reason Comments Med Change Request Encounter Details Date Type Department Care Team ([facility] st Contact Info) Description 10/06/2022 Refill [facility] MEDICINE [address] [place] [address] Ada Crauso DO 230 [place] [address] Nonintractable chronic migraine Social History Tobacco Use [...] documented as of this encounter Care Teams Master Electrician Relationship Specialty Start Date End Date Ada Caruso DO [address] [place] [address] PCP - General Family Medicine 07/13/21 documented as of this encounter
--- OUTSIDE RECORDS SUMMARY | 2024-07-18 15:06 | XMS_ITS | Encounter Summary ---
Author Organization [facility] Address [address] [place] [address] Care Team Providers Care Claims Auditor Name Role Phone Porsche Etienne DO Primary Care Pro vider Unavailable Yari Lerma MD Primary Care Provider [phone] [facility], [facility] Primary Care Provider Unavailabl e Reason for Visit * Reason Comments E-prescribe Rx Request Encounter Details Date Type Department Care Team Description 01/02/2020 Refill Adult Medicine [address] [address] Porsche Etienne DO E-prescribe Rx Request Social [...] Payor: [employer]ET[employer] / Plan: POS $20/30 TRE [facility] [id number] [facility] TRADITNAL / Product Type: POS Kfx-tof-Pmoipie documented in this encounter Plan of Treatment Not on file documented as of this encounter Visit Diagnoses Not on filedocumented in this encounter Care Teams Claims Auditor Relationship Specialty Start Date End Date Porsche Etienne DO PCP - General Internal Medicine 10/18/18 10/30/20 Yari Lerma MD [address] [place] [address] PCP - General Internal Medicine 10/31/20 03/24/23 [facility], Pcp [address] [place] [address] PCP - General Internal Medicine 03/25/23 documented as of this encounter
--- OUTSIDE RECORDS SUMMARY | 2024-07-18 15:06 | XMS_ITS | Clinical Summary ---
Author Organization [facility] Address [address] [place] [address] Phone Care Team Providers Care Wire Stockkeeper Name Role Phone Yari Lerma MD Primary Care Provider Allergies Active Allergy Reactions Criticality Noted Date [...] Name Administration Dates Next Due Hepatitis B (Ofpolpu-D-Bhcnl , Recombivax HB-Adult) 19yo and older 03/29/2007,07/30/2004,07/03/2004 [...] Date Site/Laterality Comments OTHER SURGICAL HISTORY PROCEDURE: ND LIG/TRNSXJ FLP TUBE ABDL/VAG APPR UNI/BI OTHER SURGICAL HISTORY 02/27/2016 Right PROCEDURE: ---- OTHER ----; COMMENT: Excision of lipoma of the right axilla BREAST BIOPSY 05/26/2015 Right PROCEDURE: BX BREAST; PERC NEEDLE CORE W/IMAG GUID; COMMENT: fibroadenoma COLONOSCOPY 04/12/2019 PROCEDURE: HISTORICAL COLONOSCOPY; COMMENT: negative BREAST SURGERY PROCEDURE: ND UNLISTED PROCEDURE BREAST Medical History Medical History [...] 02/13/2022 Colorectal Cancer Screening: Colonoscopy 04/12/2024 04/12/2019 COVID-19 Vaccine (7 - Pfizer risk 2023- season) 2024 12/23/2023, 12/10/2022, 11/27/2021, Additional history exists Hypertension/CHF/CAD Annual BMP Blood Test 03/22/2025 03/22/2024, 12/30/2023, 01/06/2021 Depression Screening 06/22/2025 06/22/2024 Cervical Cancer Screening: HPV 11/24/2025 11/24/2020 Breast [...] 01/06/2021 Hepatitis C Screening Completed 11/25/2023, 021 HIB Vaccines Aged Out No longer eligi [...] is recommended in 1 year. Mammo Location: [facility], [address] [place] [address], [address], . -------- FINAL REPORT -------- Dictated By: Nicki Underwood Dictated Date: 03/29/2024 13:01 ET Assigned Physician: Nicki Underwood Reviewed and Electronically Signed By: Nicki Underwood Signed Date: 03/29/2024 13:08 ET Workstation ID: [id number] Transcribed By: Self Edit Transcribed Date: 03/29/2024 [...] is recommended in 1 year. Mammo Location: [facility], [address] [place] [address], [address], . -------- FINAL REPORT -------- Dictated By: Nicki Underwood Dictated Date: 03/29/2024 13:01 ET Assigned Physician: Nicki Underwood Reviewed and Electronically Signed By: Nicki Udnerwood Signed Date: 03/29/2024 13:08 ET Workstation ID: [id number] Transcribed By: Self Edit Transcribed Date: 03/29/2024 13:01 ET Mayo Heath MD IMG BI PROCEDURES Final Result * (ABNORMAL) Comprehensive metabolic panel (03/22/2024 10:07 PM EST) Sodium 137 133 - 145 mmol/L LAB CHEMISTRY METHOD 03/22/2024 10:56 PM [facility] Potassium 3.5 3.5 - 5.5 mmol/L LAB CHEMISTRY METHOD 03/22/2024 10:56 PM [facility] Chloride 102 96 - 110 mmol/L LAB CHEMISTRY METHOD 03/22/2024 10:56 PM [facility] CO2 29 21 - 32 mmol/L LAB CHEMISTRY METHOD 03/22/2024 10:56 PM [facility] Anion Gap 6 3 - 11 LAB CHEMISTRY METHOD 03/22/2024 10:56 PM [facility] Glucose 150(H) 70 - 100 mg/dL LAB CHEMISTRY METHOD 03/22/2024 10:56 PM [facility] BUN 14 5 - 25 mg/dL LAB CHEMISTRY METHOD 03/22/2024 10:56 PM [facility] Creatinine 0.91 0.50 - 1.10 mg/dL LAB CHEMISTRY METHOD 03/22/2024 10:56 PM [facility] eGFR 77 >=60 mL/min/1. 73m2 LAB CHEMISTRY METHOD 03/22/2024 10:56 PM [facility] Comment:Calculation based on the??Chronic Kidney Disease Epidemiology Collaboration (CKD-EPI) equation refit??without adjustment for race. BUN/Creatinine Ratio 15.4 LAB CHEMISTRY METHOD 03/22/2024 10:56 PM [facility] Calcium 8.8 8.5 - 10.5 mg/dL LAB CHEMISTRY METHOD 03/22/2024 10:56 PM [facility] AST (SGOT) 26 10 - 42 unit/L LAB CHEMISTRY METHOD 03/22/2024 10:56 PM [facility] ALT (SGPT) 40 10 - 60 unit/L LAB CHEMISTRY METHOD 03/22/2024 10:56 PM [facility] Alkaline Phosphatase 95 42 - 121 unit/L LAB CHEMISTRY METHOD 03/22/2024 10:56 PM [facility] Total Protein 7.8 6.0 - 8.0 g/dL LAB CHEMISTRY METHOD 03/22/2024 10:56 PM [facility] Albumin 3.7 3.2 - 5.0 g/dL LAB CHEMISTRY METHOD 03/22/2024 10:56 PM [facility] Total Bilirubin 0.4 0.0 - 1.4 mg/dL LAB CHEMISTRY METHOD 03/22/2024 10:56 PM [facility] Blood Venous blood specimen / Unknown Venipuncture / Unknown 03/22/2024 10:07 PM EST 03/22/2024 10:16 PM EST us Amy Foreman DO LAB BLOOD ORDERABLES Priyanka l Result [facility] [address] [place] [address], * HIV Screening (01/06/2021) [facility] HIV Screening abstracted [facility] Provider HEALTH MAINTENANCE Final Result * Hepatitis C Screening (01/06/2021) [facility] Hepatitis C Screening abstracted [facility] Provider HEALTH MAINTENANCE Final Result * (ABNORMAL) Lipid panel (01/06/2021) [facility] LDL/HDL Ratio 4 0 - 4 Triglycerides 174(A) 0 - 150 mg/dL Cholesterol 211(A) 0 - 200 mg/dL HDL 61 >=40 mg/dL LDL Cholesterol 116(A) 0 - 100 mg/dL Blood Venous blood specimen / Unknown Result [facility] Provider LAB BLOOD ORDERABLES Priyanka l Result * Cervical Cancer Screening: HPV (11/24/2020) [facility] Cervical Cancer Screening: HPV abstracted, negative Result [facility] Provider HEALTH MAINTENANCE Final Result * Colonoscopy (04/12/2019) [facility] Colonoscopy abstracted, no interpretation Anatomical Region Laterality Modality Other [facility] Provider HEALTH MAINTENANCE Final Result from Last 3 Months or Most Recently Relevant to Health Maintenance Insurance [facility] Care Teams Wire Stockkeeper Relationship Specialty Start Date End Date Yari Lerma MD [address] [place] [address] PCP - General Internal Medicine 10/31/20
--- OUTSIDE RECORDS SUMMARY | 2024-07-18 15:06 | XMS_ITS | Encounter Summary ---
Author Organization [employer] Address [address] [facility] 7t [place] [address] Care Team Providers Care Shade Classifier Name Role Phone Ada Caruso DO Primary Care Provider Reason for Visit * Reason Comments Med Refill Encounter Details Date Type Department Care Team (Late st Contact Info) Description 04/29/2022 Refill [facility] [address] [place] [address] Ada Caruso DO [address] [place] [address] Depression, unspecified depression type Social History Tobacco [...] type documented in this encounter Care Teams Shade Classifier Relationship Specialty Start Date End Date Ada Caruso DO [address] [place], [place] [phone] PCP - General Family Medicine 07/13/21 documented as of this encounter
--- OUTSIDE RECORDS SUMMARY | 2024-07-18 15:06 | XMS_ITS | Encounter Summary ---
Author Organization [employer] Address [address] [facility] [address]t [place] [address] Care Team Providers Care Air Duct Mechanic Name Role Phone Ada Caruso DO Primary Care Provider [phone] Reason for Visit * Reason Onset Date Comments Nurse Triage 10/07/2022 Encounter Details Date Type Department Care Team (Late st Contact Info) Description 10/07/2022 Telephone [facility] MEDICINE [address] [place] [address] Ada Caruso DO [address] [place] [address] Nurse Triage Social History Tobacco Use Types [...] 10/07/2022 11:09 AM EDT Triage call with [place] Finishing Machine Operator [place] [id number] Pt reports period in September was from to . Pt reports for several months now has had spottingbetween periods and pain. Pt reports after 21st Pt had two days of spotting which [...] 10/07/2022 9:52 AM EDT Triage call with [email or web address] Finishing Machine Operator [place] [id number] Pt didn't answer. Left voice message to call [facility] At [phone]. * Telephone Encounter - Sarah Reardon - 10/07/2022 9:37 AM EDT Symptom: Vaginal Bleeding - Not Outcome: Schedule an appointment to be seen within 24 hours Reason: unusual color/discharge The caller accepted this outcome Please contact pt at [phone] ([place]) documented in this encounter Plan of Treatment Not on file documented as of this encounter Visit Diagnoses Not on filedocumented in this encounter Additional Health Concerns Assessment Noted Time PHQ-9 Depression Total Score: 0 08/12/19 23 9:19 AM EDT documented as of this encounter Care Teams Air Duct Mechanic Relationship Specialty Start Date End Date Ada Caruso DO [address] [place] [address] PCP - General Family Medicine 07/13/21 documented as of this encounter
--- OUTSIDE RECORDS SUMMARY | 2024-07-18 15:06 | XMS_ITS | Encounter Summary ---
Author Organization [employer] Address [address] [facility] [address] 7[address] [place] [address] Care Team Providers Care Manager Commercial Name Role Phone Ada Caruso DO Primary Care Provider [phone] Encounter Details Date Type Department Care Team ([facility] st Contact Info) Description 06/02/2022 Orders Only [facility] [address] [place] [address] Karin Shepherd MD [address] [place] [address] Social History Tobacco Use Types Packs/Day Years [...] documented as of this encounter Care Teams Manager Commercial Relationship Specialty Start Date End Date Ada Caruso DO [address] [place] [address] PCP - General Family Medicine 07/13/21 documented as of this encounter
--- OUTSIDE RECORDS SUMMARY | 2024-07-18 15:07 | XMS_ITS | Encounter Summary ---
Author Organization [facility] Address [address] [place] [address] Care Team Providers Care Production Utility Worker Name Role Phone Yari Lerma MD Primary Care Provider [phone] [facility], Pcp Primary Care Provider Unavailabl e Encounter Details Date Type Department Care Team Description 05/18/2021 Quote Clerk Report Medical Records [address] [place] [id number] Chacorta Gómez MD Social History Tobacco Use [...] on filedocumented in this encounter Care Teams Production Utility Worker Relationship Specialty Start Date End Date Yari Lerma MD [address] [place] [address] PCP - General Internal Medicine 10/31/20 03/24/23 [facility], [address] [address] PCP - General Internal Medicine 03/25/23 documented as of this encounter
--- OUTSIDE RECORDS SUMMARY | 2024-07-18 15:07 | XMS_ITS | Encounter Summary ---
Author Organization [employer] Address [address] [facility] 7t [place] [address] Care Team Providers Care Marketing Ambassador Name Role Phone Ada Caruso DO Primary Care Provider [phone] Reason for Visit * Reason Onset Date Comments Results 07/13/2024 Encounter Details Date Type Department Care Team ([facility] st Contact Info) Description 07/13/2024 Refill [facility] MEDICINE [address] [place] [address] Ada Caruso DO [address] [place] [address] Social History Tobacco Use Types Packs/Day Years [...] Telephone Encounter - Marian Wagner RN - 07/13/2024 3:03 PM EDT RN reviewed BW results with PCP. Lipid panel returned elevated despite atorvastatin 10mg daily. PCPwill increase atorvastatin dose to 20mg. BW also returned with positive MO and patient will be referred to rheumatology for further evaluation. TC placed to patient [phone] to inform of above results. Patient verbalized understanding and is aware she will be notified of appointment with rheumatology via mail or phone call. Patient to f/u PRN. documented in this encounter Plan of Treatment Not on file documented as of this encounter Visit Diagnoses Not on filedocumented in this encounter Additional Health Concerns Assessment Noted Time PHQ-9 Depression Total Score: 20 025 12:04 PM EDT documented as of this encounter Care Teams Marketing Ambassador Relationship Specialty Start Date End Date Ada Caruso DO [address] [place] [address] PCP - General Family Medicine 07/13/21 documented as of this encounter
--- OUTSIDE RECORDS SUMMARY | 2024-07-18 15:07 | XMS_ITS | Encounter Summary ---
Author Organization [facility] Address [address] [place] [address] Care Team Providers Care Supervising Film Or Videotape Editor Name Role Phone Porsche Etienne DO Primary Care Pro vider Unavailable Yari Lerma MD Primary Care Provider [phone] [facility], [facility] Primary Care Provider Unavailabl e Reason for Visit * Reason Comments E-prescribe Rx Request Encounter Details Date Type Department Care Team Description 05/17/2020 Refill Adult Medicine [address] [address] Porsche Etienne DO E-prescribe Rx Request Social [...] Ziegler R.N. - 05/19/2020 3:16 PM EDT [phone] (home) [phone] (work) I left a message for the [...] [employer] / Plan: POS $20/30 TRE VAIL [id number] THNE TRADITNAL / Product Type: POS [id number] documented in this encounter Plan of Treatment Not on file documented as of this encounter Visit Diagnoses Not on filedocumented in this encounter Care Teams Supervising Film Or Videotape Editor Relationship Specialty Start Date End Date Porsche Etienne DO PCP - General Internal Medicine 10/18/18 10/30/20 Yari Lerma MD [address] [place] [address] PCP - General Internal Medicine 10/31/20 03/24/[address] [address] PCP - General Internal Medicine 03/25/23 documented as of this encounter
--- OUTSIDE RECORDS SUMMARY | 2024-07-18 15:07 | XMS_ITS | Encounter Summary ---
Author Organization [employer] Address [address] [facility] 7t [place] [address] Care Team Providers Care Mine Deputy Name Role Phone Ada Caruso DO Primary Care Provider [phone] Reason for Visit * Reason Onset Date Comments Med Refill 11/25/2023 Encounter Details Date Type Department Care Team (Late st Contact Info) Description 11/25/2023 Refill [facility] MEDICINE [address] [place] [address] Ada Caruso DO [address] [place] [address] Social History Tobacco Use Types Packs/Day Years [...] documented as of this encounter Care Teams Mine Deputy Relationship Specialty Start Date End Date Ada Caruso DO [address] [place] [address] PCP - General Family Medicine 07/13/21 documented as of this encounter
--- OUTSIDE RECORDS SUMMARY | 2024-07-18 15:07 | XMS_ITS | Encounter Summary ---
Author Organization [employer] Address [address] [facility] [address] [place] [address] Care Team Providers Care Furnace Installer Helper Name Role Phone Ada Caruso DO Primary Care Provider [phone] Reason for Visit * Reason Comments Med Refill Encounter Details Date Type Department Care Team ([facility] st Contact Info) Description 03/23/2023 Refill [facility]INE [address] [place] [address] Ada Caruso DO [address] [place] [address] Depression, unspecified depression type Social History Tobacco [...] documented as of this encounter Care Teams Furnace Installer Helper Relationship Specialty Start Date End Date Ada Caruso DO [address] [place] [address] PCP - General Family Medicine 07/13/21 documented as of this encounter
--- OUTSIDE RECORDS SUMMARY | 2024-07-18 15:07 | XMS_ITS | Clinical Summary ---
Author Organization [facility] Address [address] [place] [address] Care Team Providers Care Principal Law Clerk Name Role Phone Community, Pcp Primary Care [...] for Allergies. 1 Bottle 5 08/08/2019 Active [id number]-YVTV-NPOM EINE 50-325-40 MG OR TABS (FIORICET, ESGIC) [...] 11/27/2021 Hepatitis B > 19yrs 03/29/2007,07/30/2004,2004 Hepatitis Y-Gqztu-Bdvjyhkx + 08/20/2015 Influenza Flu (PT Reported) 12/05/2018 [...] or Tdap) 04/14/2031, 01/09/2009, 02/09/2000 Care Teams Principal Law Clerk Relationship Specialty Start Date End Date Community, Pcp PCP - General Internal Medicine 03/25/23
--- OUTSIDE RECORDS SUMMARY | 2024-07-18 15:07 | XMS_ITS | Encounter Summary ---
Author Organization [facility] Address [address] [place] [address] Care Team Providers Care Rail Car Mechanic Name Role Phone Dinora Trimble MD Primary Care Provider Un available Ljkowimaurice Colasacco, Porsche DO Primary Care Pro vider Unavailable Yari Lerma MD Primary Care Provider [phone] [facility], [facility] Primary Care Provider Unavailabl e Encounter Details Date Type Department Care Team Description 05/17/2018 Orders Only General Surgery [address] [place] [address] Arabella Conner NP Breast lump in female [...] MAMMO INCL CAD UNI (04/04/2018) Arabella Conner CAREER SERVICES COORDINATOR MAMMOGRAPHY * SONO BREAST, LIMITED (04/04/2018) Arabella Ubaldo CAREER SERVICES COORDINATOR MAMMOGRAPHY documented in this encounter Visit Diagnoses Diagnosis Breast lump in female Lump or mass in breast documented in this encounter Care Teams Rail Car Mechanic Relationship Specialty Start Date End Date Dinora Trimble MD PCP - General Internal Medicine 03/23/18 Porsche Etienne DO PCP - General Internal Medicine 10/18/18 10/30/20 Yari Lerma MD [address] [place] [address] PCP - General Internal Medicine 10/31/20 03/24/[address] [address] PCP - General Internal Medicine 03/25/23 documented as of this encounter
--- OUTSIDE RECORDS SUMMARY | 2024-07-18 15:07 | XMS_ITS | Encounter Summary ---
Author Organization [facility] Address [address] [place] [address] Care Team Providers Care Councilman Name Role Phone Yari Lerma MD Primary Care Provider [phone] [facility], Pcp Primary Care Provider Unavailabl e Encounter Details Date Type Department Care Team Description 03/24/2021 Airbrush Artist Report Medical Records [address] [place] [address] Chacorta Gómez MD Social History Tobacco Use [...] on filedocumented in this encounter Care Teams Councilman Relationship Specialty Start Date End Date Yari Lerma MD [address] [place] [address] PCP - General Internal Medicine 10/31/20 03/24/23 [facility], [address] [address] PCP - General Internal Medicine 03/25/23 documented as of this encounter
--- OUTSIDE RECORDS SUMMARY | 2024-07-18 15:07 | XMS_ITS | Encounter Summary ---
Author Organization [facility] Address [address] [place] [address] Care Team Providers Care Rn Tele Name Role Phone Dinora Trimble MD Primary Care Provider Un available Porsche Etienne DO Primary Care Pro vider Unavailable Yari Lerma MD Primary Care Provider [phone] [facility], Pcp Primary Care Provider Unavailabl e Encounter Details Date Type Department Care Team Description 03/27/2018 Release of Information Medical Records [address] [place] [id number] Abstract, Provider Social History Tobacco Use Types [...] on filedocumented in this encounter Care Teams Rn Tele Relationship Specialty Start Date End Date Dinora Trimble MD PCP - General Internal Medicine 03/23/18 Porsche Etienne DO PCP - General Internal Medicine 10/18/18 10/30/20 Yari Lerma MD [address] [place] [address] PCP - General Internal Medicine 10/31/20 03/24/23 [facility], [address] [place] [address] PCP - General Internal Medicine 03/25/23 documented as of this encounter
--- OUTSIDE RECORDS SUMMARY | 2024-07-18 15:07 | XMS_ITS | Clinical Summary ---
Author Organization [employer] Address [address] [facility] [address] [place] [address] Care Team Providers Care Trial [employer] Justice Name Role Phone Ada Caruso DO Primary Care Provider Allergies Active Allergy Reactions [...] directed by MD. 30 patch 3 Active famotidine (Pepcid) 40 MG/5ML suspension Take [...] day. 30 tablet 11 025 2025 Active acetaminophen (Tylenol 8 Hour) 650 MG ER tablet Take 1 tablet (650 mg) by mouth every 8 (eight) hours if needed for mild pain. Do not crush, chew, or split. 60 tablet 1 025 2025 Active ferrous sulfate (Fe Tabs) 325 (65 Fe) MG EC tablet Take 1 tablet (325 mg) by mouth 3 (three) times a week. Do not crush, chew, or split. 36 tablet 3 025 2025 Active atorvastatin (Lipitor) 20 MG tablet Take 1 tablet (20 mg) by mouth Once per day. 90 tablet 3 025 2025 Active ferrous gluconate (Fergon) 324 (38 Fe) MG tabletIndicati ons:Iron deficiency anemia, unspecified iron deficiency anemia type TAKE 1 TABLET BY MOUTH WITH BREAKFAST 90 tablet 3 024 2024 Discontinued Semaglutide-We ight Management (Wegovy) 0.25 MG/0.5ML solution [...] DAY BEFORE A MEAL 180 capsule 3 2024 Discontinued amitriptyline (Elavil) 10 MG tablet Take 1 tablet (10 mg) by mouth at bedtime. 30 tablet 5 024 2024 Discontinued(R eorder (will not trigger notification to Pharmacy)) acetaminophen (Tylenol 8 Hour) 650 MG ER tablet Take 1 tablet (650 mg) by mouth every 8 (eight) hours if needed for mild pain. Do not crush, chew, or split. 60 tablet 1 024 2024 Discontinued(R eorder (will not trigger notification to Pharmacy)) cefadroxil (Duricef) 500 MG capsule Take 1 capsule (500 mg) by mouth 2 times daily for 7 days. 14 capsule 025 2024 fluconazole (Diflucan) 150 MG tablet Take 1 tablet (150 mg) by mouth Once per day for 1 dose. 1 tablet 025 2024 atorvastatin (Lipitor) 10 MG tablet Take 1 tablet (10 mg) by mouth Once per day. 90 tablet 3 025 2024 Discontinued(R eorder (will not trigger notification to Pharmacy)) Active Problems Problem Noted Date Diagnosed Date [...] organization. Date Type Department Care Team Description 07/13/2024 Refill [facility] [address] [place] [phone] Ada Caruso DO 07/03/2024 Refill [facility] [address] [place] [phone] Ada Caruso DO 07/03/2024 Telephone [facility] [address] [place] [address] Ada Caruso DO 07/02/2024 11:00 AM EDT Office Visit [facility] [address] [place] [phone] [place] Mills MD Hordeolum internum of left lower eyelid (Primary Dx) 06/29/2024 Orders Only [address] [address] Ada Caruso DO 06/26/[address] [address] Ada Caruso DO Medication Question 06/22/2024 9:15 AM EDT Office Visit [address] [phone] Ada Caruso DO Essential hypertension (Primary Dx); Anxiety; Chronic migraine; Chronic gastroesophageal reflux disease; Chronic diarrhea; Abnormal uterine bleeding; Anemia, unspecified type; Family history of breast cancer; Bilateral carpal tunnel syndrome; Ulnar neuropathy at elbow, left; Neck pain; Acute bilateral low back pain without sciatica; Polyarthralgia; Rosacea; Multiple acquired skin tags; Subcutaneous nodule; Healthcare maintenance 06/22/[address] [address] Ada Caruso DO Durable Medical Equipment (DME Request: Bilateral Wrist Splints) 06/22/2024 Travel 06/15/2024 Travel 06/13/2024 Patient Outreach [address] [address] Ada Caruso DO Pre-visit Planning ((Unable to reach for PVP screening or LVM)) 06/01/2024 Refill [facility] [address] [place] [phone] Ada Caruso DO Nonintractable chronic migraine 04/27/2024 10:00 AM EST Office Visit [facility] [address] [place] [phone] Cleveland Mills MD Acute conjunctivitis of right eye, unspecified acute conjunctivitis type (Primary Dx); Pharyngitis, unspecified etiology 04/26/[address] [address] Ada Caruso DO Recall Appt. 04/26/2024 Travel from Last 3 Months Immunizations Immunization Administration Dates Next Due Hep B, Adolescent [...] Sign Reading Time Taken Comments Blood Pressure 136/76 07/02/2024 11:09 AM EDT Pulse 70 07/02/2024 11:09 AM EDT Temperature 36.6 ??C (97.9 ??F) 07/02/2024 11:09 AM E DT Respiratory Rate 18 07/02/2024 11:09 AM EDT Oxygen Saturation 99% 07/02/2024 11:09 AM EDT Inhaled Oxygen Concentration - - Weight 95.9 kg (211 lb 6.4 oz) 07/02/2024 11:09 AM EDT Height 162.6 cm (5' 4 ) 06/22/2024 9:26 AM EDT Body Mass Index 36.29 06/22/2024 9:26 AM EDT Plan of Treatment Health Maintenance Due Date Last Done Comments CT Colonography 1975 FIT DNA/Cologuard 1975 FIT 1975 FOBT 1975 Sigmoidoscopy 1975 Family Planning (PISQ) 1990 Hepatitis B Vaccines (2 of 3 - 19+ 3-dose series) 07/14/2023 06/16/2023, 03/29/2007, 03/29/2007, Additional history exists SDOH Screening 06/15/2024 06/16/2023 Zoster Vaccines (1 of 2) 2025 Alcohol/Substance Use Screening 06/22/2025 06/22/2024 Depression Screening 06/22/2025 06/22/2024, 06/23/19 25 Diabetes: Hemoglobin A1C 06/29/202506/29/ 025, 11/25/2023, 05/13/2022 Tobacco Screening 07/02/2025 07/02/2024 Pap Smear 10/11/2025 10/11/2022 Mammogram 03/28/2026 03/28/2024, 03/08, 07/13/2023, Additional history exists Cervical Cancer Screening 10/12/2027 HPV/Cotest 10/12/2027 10/11/2022 Colonoscopy 04/12/2029 04/12/2019 Colorectal Cancer Screening 04/12/2029 Lipid Panel 06/29/2029 06/29/2024, 11/06, 05/13/2022 DTaP/Tdap/Td Vaccines (3 - Td or Tdap) 04/14/2031 04/14/2021, 01/09/2009, 02/09/2000 RSV Patients and Patients Aged 60 years or older (1 - 1-dose 75+ series) 2050 Pneumococcal Vaccine: Pediatrics (0 to 5 Years) and At-Risk Patients (6 to 49) Years) Completed 06/16/2023 Influenza Vaccine Completed 11/23/2023, , 11/23/2021, Additional history exists COVID-19 Vaccine Completed 12/23/2023, 08/2022, 11/27/2021, Additional history exists HIV Screening Completed 06/29/2024, 11/06, 05/13/2022 Hepatitis C Screening Completed 06/29/2024 , 11/25/2023, 05/13/2022 HIB Vaccines Aged Out No longer eligi [...] Name Priority Date/Time Associated Diagnosis Comments CBC WITH AUTO DIFFERENTIAL Routine 06/29/2024 9:18 AM EDT HEPATITIS B SURFACE ANTIBODY, QUALITATIVE Routine 06/29/2024 9:18 AM EDT Essential hypertension Anxiety Chronic migraine Chronic gastroesophageal reflux disease Chronic diarrhea Abnormal uterine bleeding Anemia, unspecified type Family history of breast cancer Bilateral carpal tunnel syndrome Ulnar neuropathy at elbow, left Neck pain Acute bilateral low back pain without sciatica Polyarthralgia Rosacea Multiple acquired skin tags Subcutaneous nodule Healthcare maintenance RPR (MONITOR) W/REFL TITER Routine 06/29/2024 9:18 AM EDT Essential hypertension Anxiety Chronic migraine Chronic gastroesophageal reflux disease Chronic diarrhea Abnormal uterine bleeding Anemia, unspecified type Family history of breast cancer Bilateral carpal tunnel syndrome Ulnar neuropathy at elbow, left Neck pain Acute bilateral low back pain without sciatica Polyarthralgia Rosacea Multiple acquired skin tags Subcutaneous nodule Healthcare maintenance HEPATITIS C AB W/REFL TO HCV RNA, QN, PCR Routine 06/29/2024 9:18 AM EDT Essential hypertension Anxiety Chronic migraine Chronic gastroesophageal reflux disease Chronic diarrhea Abnormal uterine bleeding Anemia, unspecified type Family history of breast cancer Bilateral carpal tunnel syndrome Ulnar neuropathy at elbow, left Neck pain Acute bilateral low back pain without sciatica Polyarthralgia Rosacea Multiple acquired skin tags Subcutaneous nodule Healthcare maintenance HIV 1/2 ANTIGEN/ANTIBODY, FOURTH GENERATION W/RFL Routine 06/29/2024 9:18 AM EDT Essential hypertension Anxiety Chronic migraine Chronic gastroesophageal reflux disease Chronic diarrhea Abnormal uterine bleeding Anemia, unspecified type Family history of breast cancer Bilateral carpal tunnel syndrome Ulnar neuropathy at elbow, left Neck pain Acute bilateral low back pain without sciatica Polyarthralgia Rosacea Multiple acquired skin tags Subcutaneous nodule Healthcare maintenance HEPATITIS B SURFACE ANTIGEN, EIA Routine 06/29/2024 9:18 AM EDT Essential hypertension Anxiety Chronic migraine Chronic gastroesophageal reflux disease Chronic diarrhea Abnormal uterine bleeding Anemia, unspecified type Family history of breast cancer Bilateral carpal tunnel syndrome Ulnar neuropathy at elbow, left Neck pain Acute bilateral low back pain without sciatica Polyarthralgia Rosacea Multiple acquired skin tags Subcutaneous nodule Healthcare maintenance IRON AND TOTAL IRON BINDING CAPACITY Routine 06/29/2024 9:18 AM EDT Essential hypertension Anxiety Chronic migraine Chronic gastroesophageal reflux disease Chronic diarrhea Abnormal uterine bleeding Anemia, unspecified type Family history of breast cancer Bilateral carpal tunnel syndrome Ulnar neuropathy at elbow, left Neck pain Acute bilateral low back pain without sciatica Polyarthralgia Rosacea Multiple acquired skin tags Subcutaneous nodule Healthcare maintenance FERRITIN Routine 06/29/2024 9:18 AM EDT Essential hypertension Anxiety Chronic migraine Chronic gastroesophageal reflux disease Chronic diarrhea Abnormal uterine bleeding Anemia, unspecified type Family history of breast cancer Bilateral carpal tunnel syndrome Ulnar neuropathy at elbow, left Neck pain Acute bilateral low back pain without sciatica Polyarthralgia Rosacea Multiple acquired skin tags Subcutaneous nodule Healthcare maintenance VITAMIN B12/FOLATE, SERUM PANEL Routine 06/29/2024 9:18 AM EDT Essential hypertension Anxiety Chronic migraine Chronic gastroesophageal reflux disease Chronic diarrhea Abnormal uterine bleeding Anemia, unspecified type Family history of breast cancer Bilateral carpal tunnel syndrome Ulnar neuropathy at elbow, left Neck pain Acute bilateral low back pain without sciatica Polyarthralgia Rosacea Multiple acquired skin tags Subcutaneous nodule Healthcare maintenance C-REACTIVE PROTEIN Routine 06/29/2024 9: 18 AM EDT Essential hypertension Anxiety Chronic migraine Chronic gastroesophageal reflux disease Chronic diarrhea Abnormal uterine bleeding Anemia, unspecified type Family history of breast cancer Bilateral carpal tunnel syndrome Ulnar neuropathy at elbow, left Neck pain Acute bilateral low back pain without sciatica Polyarthralgia Rosacea Multiple acquired skin tags Subcutaneous nodule Healthcare maintenance SED RATE BY MODIFIED WESTERGREN Routine 06/29/2024 9:18 AM EDT Essential hypertension Anxiety Chronic migraine Chronic gastroesophageal reflux disease Chronic diarrhea Abnormal uterine bleeding Anemia, unspecified type Family history of breast cancer Bilateral carpal tunnel syndrome Ulnar neuropathy at elbow, left Neck pain Acute bilateral low back pain without sciatica Polyarthralgia Rosacea Multiple acquired skin tags Subcutaneous nodule Healthcare maintenance RHEUMATOID FACTOR Routine 06/29/2024 9:1 8 AM EDT Essential hypertension Anxiety Chronic migraine Chronic gastroesophageal reflux disease Chronic diarrhea Abnormal uterine bleeding Anemia, unspecified type Family history of breast cancer Bilateral carpal tunnel syndrome Ulnar neuropathy at elbow, left Neck pain Acute bilateral low back pain without sciatica Polyarthralgia Rosacea Multiple acquired skin tags Subcutaneous nodule Healthcare maintenance LYME DISEASE AB W/REFL TO BLOT (IGG, IGM) Routine 06/29/2024 9:18 AM EDT Essential hypertension Anxiety Chronic migraine Chronic gastroesophageal reflux disease Chronic diarrhea Abnormal uterine bleeding Anemia, unspecified type Family history of breast cancer Bilateral carpal tunnel syndrome Ulnar neuropathy at elbow, left Neck pain Acute bilateral low back pain without sciatica Polyarthralgia Rosacea Multiple acquired skin tags Subcutaneous nodule Healthcare maintenance MO SCREEN, IFA, W/REFL TITER AND PATTERN Routine 06/29/2024 9:18 AM EDT Essential hypertension Anxiety Chronic migraine Chronic gastroesophageal reflux disease Chronic diarrhea Abnormal uterine bleeding Anemia, unspecified type Family history of breast cancer Bilateral carpal tunnel syndrome Ulnar neuropathy at elbow, left Neck pain Acute bilateral low back pain without sciatica Polyarthralgia Rosacea Multiple acquired skin tags Subcutaneous nodule Healthcare maintenance ALBUMIN, RANDOM URINE W/CREATININE Routine 06/29/2024 9:18 AM EDT Essential hypertension Anxiety Chronic migraine Chronic gastroesophageal reflux disease Chronic diarrhea Abnormal uterine bleeding Anemia, unspecified type Family history of breast cancer Bilateral carpal tunnel syndrome Ulnar neuropathy at elbow, left Neck pain Acute bilateral low back pain without sciatica Polyarthralgia Rosacea Multiple acquired skin tags Subcutaneous nodule Healthcare maintenance BASIC METABOLIC PANEL Routine 06/29/2024 9:18 AM EDT Essential hypertension Anxiety Chronic migraine Chronic gastroesophageal reflux disease Chronic diarrhea Abnormal uterine bleeding Anemia, unspecified type Family history of breast cancer Bilateral carpal tunnel syndrome Ulnar neuropathy at elbow, left Neck pain Acute bilateral low back pain without sciatica Polyarthralgia Rosacea Multiple acquired skin tags Subcutaneous nodule Healthcare maintenance HEMOGLOBIN A1C Routine 06/29/2024 9:18 AM EDT Essential hypertension Anxiety Chronic migraine Chronic gastroesophageal reflux disease Chronic diarrhea Abnormal uterine bleeding Anemia, unspecified type Family history of breast cancer Bilateral carpal tunnel syndrome Ulnar neuropathy at elbow, left Neck pain Acute bilateral low back pain without sciatica Polyarthralgia Rosacea Multiple acquired skin tags Subcutaneous nodule Healthcare maintenance HEPATIC FUNCTION PANEL Routine 06/29/2024 9:18 AM EDT Essential hypertension Anxiety Chronic migraine Chronic gastroesophageal reflux disease Chronic diarrhea Abnormal uterine bleeding Anemia, unspecified type Family history of breast cancer Bilateral carpal tunnel syndrome Ulnar neuropathy at elbow, left Neck pain Acute bilateral low back pain without sciatica Polyarthralgia Rosacea Multiple acquired skin tags Subcutaneous nodule Healthcare maintenance TSH Routine 06/29/2024 9:18 AM EDT Essential hypertension Anxiety Chronic migraine Chronic gastroesophageal reflux disease Chronic diarrhea Abnormal uterine bleeding Anemia, unspecified type Family history of breast cancer Bilateral carpal tunnel syndrome Ulnar neuropathy at elbow, left Neck pain Acute bilateral low back pain without sciatica Polyarthralgia Rosacea Multiple acquired skin tags Subcutaneous nodule Healthcare maintenance LIPID PANEL, STANDARD Routine 06/29/2024 9:18 AM EDT Essential hypertension Anxiety Chronic migraine Chronic gastroesophageal reflux disease Chronic diarrhea Abnormal uterine bleeding Anemia, unspecified type Family history of breast cancer Bilateral carpal tunnel syndrome Ulnar neuropathy at elbow, left Neck pain Acute bilateral low back pain without sciatica Polyarthralgia Rosacea Multiple acquired skin tags Subcutaneous nodule Healthcare maintenance VITAMIN D,25-OH,TOTAL,IA Routine 06/29/2024 9:18 AM EDT Essential hypertension Anxiety Chronic migraine Chronic gastroesophageal reflux disease Chronic diarrhea Abnormal uterine bleeding Anemia, unspecified type Family history of breast cancer Bilateral carpal tunnel syndrome Ulnar neuropathy at elbow, left Neck pain Acute bilateral low back pain without sciatica Polyarthralgia Rosacea Multiple acquired skin tags Subcutaneous nodule Healthcare maintenance T4, FREE Routine 06/29/2024 9:18 AM EDT Essential hypertension Anxiety Chronic migraine Chronic gastroesophageal reflux disease Chronic diarrhea Abnormal uterine bleeding Anemia, unspecified type Family history of breast cancer Bilateral carpal tunnel syndrome Ulnar neuropathy at elbow, left Neck pain Acute bilateral low back pain without sciatica Polyarthralgia Rosacea Multiple acquired skin tags Subcutaneous nodule Healthcare maintenance CHLAMYDIA/N. GONORRHOEAE RNA, TMA, UROGENITAL Routine 06/29/2024 9:18 AM EDT Essential hypertension Anxiety Chronic migraine Chronic gastroesophageal reflux disease Chronic diarrhea Abnormal uterine bleeding Anemia, unspecified type Family history of breast cancer Bilateral carpal tunnel syndrome Ulnar neuropathy at elbow, left Neck pain Acute bilateral low back pain without sciatica Polyarthralgia Rosacea Multiple acquired skin tags Subcutaneous nodule Healthcare maintenance XR LUMBAR SPINE 2-3 VIEWS Routine 06/26/2024 7:33 PM EDT Acute bilateral low back pain without sciatica XR CERVICAL SPINE 3V Routine 06/26/2024 7:30 PM EDT BI US BREAST LIMITED RIGHT Routine 07/13/2023 1:25 PM EDT HPV MRNA E6/E7 REFLEX TO HPV 16, 18/45 Routine 10/11/2022 10:21 AM EDT PAP SMEAR Routine 10/11/2022 10:21 AM EDT from Last 3 Months or Most Recently Relevant to Health Maintenance Results * Vitamin D, 25-Hydroxy, Total, Immunoassay (06/29/2024 9:18 AM EDT) Vitamin D 25-OH Total 41.6 >30 ng/mL [facility] Comment: Health Based Reference Values*< 20 ??ng/mL ??Fhtnrmizh83-22 ng/mL ??Insufficient> 30 ??ng/mL ??Sufficient*Ally RAJAN. N Engl J Med. 2007;357:266-280There is no well-established upper level of normal vitamin Dlevels. Some laboratories use 50 ng/mL as an upper limit ofnormal. However, toxicity is patient-dependent and may occurat any level. Careful correlation with the patient'spresentation is necessary and, if there is concern forvitamin D toxicity, treatment should be consideredirrespective of the serum level.Care must be taken in interpreting Vitamin D results fromdifferent laboratories and methodologies. ??Published datademonstrated that results from patients undergoinghemodialysis may show a negative bias when tested withvarious automated 25-OH vitamin D assays when compared toLC- MS/MS.When testing samples from patients whose predominant form ofVitamin D is Vitamin D2, such as patients receiving VitaminD2 supplementation, results that are subtherapeutic shouldbe confirmed with another method such as LC-MS/MS. Blood Venous blood specimen / Unknown 06/29/2024 9:18 AM EDT 06/29/2024 11:06 AM EDT Ada Domingueztikimaurice LAB BLOOD ORDERABLES Final R esult Performing Organization Address City/[facility]/ZIP Co de Phone Number [facility] [address] [place] [phone] * Vitamin B12 (Cobalamin) and Folate Panel, Serum (06/29/2024 9:18 AM EDT) Pathologist [facility] [place] Vitamin B12 696 200 - 900 pg/mL [facility] Comment:NORMAL 200-900 PG/ML INDETERMINATE 160-199 PG/ML DEFICIENT < 160 PG/ML Folate 5.4 > or = 4.0 ng/mL [facility] Comment:Reference Values:> o r = 4.0 ng/mL< 4.0 ng/mL suggests folate deficiency Methotrexate, aminopterin and folinic acid(leucovorin) are chemotherapeutic agents whose molecularstructures are similar to folate; therefore, the Architectfolate assay cannot be used for patients using these drugs. Blood 06/29/2024 9:18 AM EDT 06/29/2024 11:06 AM EDT Ada Zuly LAB BLOOD ORDERABLES Final R esult Performing Organization Address [facility] Co de Phone Number [facility] [address] [place] [phone] * Lyme Disease Ab with Reflex to Blot (IgG, IgM) (06/29/2024 9:18 AM EDT) [facility] Lyme Antibody Screen <0.90 index [facility] Comment:Index Interpretation ----- < 0.90 Negative 0.90-1.09 Equivocal > 1.09 PositiveAs recommended by the Food and Drug Administration(FDA), all samples with positive or equivocalresults in a Borrelia burgdorferi antibody screenwill be tested using a blot method. Positive orequivocal screening test results should not beinterpreted as truly positive until verified as suchusing a supplemental assay (e.g., B. burgdorferi blot).The screening test and/or blot for B. burgdorferiantibodies may be falsely negative in early stagesof Lyme disease, including the period when erythemamigrans is apparent.THIS TEST WAS PERFORMED AT:[employer] [place] [phone] JEFFREY MD Lyme Blot TNP [facility] 06/29/2024 9:18 AM EDT 06/29/2024 11:06 AM EDT Ada Caruso DO LAB BLOOD ORDERABLES Final R esult Performing Organization Address [facility] Co de Phone Number [facility] [address] [place] [phone] * Albumin, Random Urine W/Creatinine (06/29/2024 9:18 AM EDT) Creatinine, Urine 200.18 mg/dL [facility] Microalbumin Urine 7.0 mg/L [facility] Microalbum Creatinine Ratio Ur 3.4 <30 ug/mg cr [facility] Comment:Albumin/Creatinine R atio Reference Ranges: Normal: < 30 ug/mg creatinine Microalbuminuria: 30 - 300 ug/mg creatinineClinical Albuminuria: > 300 ug/mg creatinine Urine (Urine, Random) 06/29/2024 9:18 AM EDT 06/29/2024 11:02 AM EDT Ada Caruso DO LAB URINE ORDERABLES Final R esult Performing Organization Address [facility] Co de Phone Number [facility] [address] [place] [phone] * CBC auto differential (06/29/2024 9:18 AM EDT) White Blood Count 5.9 4.8 - 10.8 X10*3/uL [facility] Red Blood Count 4.35 4.20 - 5.50 X10*6/uL [facility] Hemoglobin 12.2 12.0 - 16.0 g/dl [facility] Hematocrit 37.5 37.0 - 47.0 % [facility] Mean Corpuscular Volume 86.2 80.0 - 98.0 fL [facility] Mean Corpuscular Hemoglobin 28.0 27.0 - 33.0 pg [facility] Mean Corpuscular HGB Conc 32.5 31.0 - 35.0 g/dl [facility] Red Cell Distribution Width 14.1 11.0 - 16.0 % [facility] Platelet Count 310 160 - 400 X10*3/uL [facility] Mean Platelet Volume 11.1 9.4 - 12.3 fL [facility] Neutrophils Percent Auto 53.2 45 - 73 % [facility] Imm Gran Pct Auto 0.3 0.0 - 0.4 % [facility] Lymphocytes Percent Auto 35.9 20 - 40 % [facility] Monocytes Percent Auto 7.4 2 - 11 % [facility] Eosinophils Percent Auto 2.4 0 - 4 % [facility] Basophils Percent Auto 0.8 0 - 2 % [facility] NRBC Pct Auto 0.0 0.0 - 0.2 /100WBC [facility] Neutrophils Absolute Auto 3.2 2.0 - 8.3 x10*3/uL [facility] Imm Gran Abs Auto 0.02 0.00 - 0.03 X10*3/uL [facility] Lymphocytes Absolute Auto 2.1 1.2 - 4.9 X10*3/uL [facility] Monocytes Absolute Auto 0.4 0.1 - 1.2 X10*3/uL [facility] Eosinophils Absolute Auto 0.1 0.0 - 0.4 X10*3/uL [facility] Basophils Absolute Auto 0.1 0.0 - 0.2 X10*3/uL [facility] NRBC Abs Auto 0.000 0.0 - 0.012 X10*3/uL [facility] 06/29/2024 9:18 AM EDT 06/29/2024 11:06 AM EDT us Ada Caruso DO LAB BLOOD ORDERABLES Final R esult Performing Organization Address City/[facility]/ZIP Co de Phone Number [facility] [address] [place] [address] [phone] * Hepatitis C Antibody with Reflex to HCV, RNA, Quantitative, Real-Time PCR (06/29/2024 9:18 AM EDT) Hepatitis C Antibody Nonreactive Nonreactive [facility] Comment:Antibodies to HCV no t detected; does not exclude early acuteHCV infection. Blood Venous blood specimen / Unknown 06/29/2024 9:18 AM EDT 06/29/2024 11:06 AM EDT us Ada Caruso DO LAB BLOOD ORDERABLES Final R esult Performing Organization Address [facility]/ZIP Co de Phone Number [facility] [address] [place] [phone] * (ABNORMAL) Iron And Total Iron Binding Capacity (06/29/2024 9:18 AM EDT) Iron 40 30 - 160 mcg/dL [facility] Total Iron Binding Capacity 341 228 - 428 mcg/dL [facility] Percent Iron Saturation 12(L) 15 - 50 % [facility] Unsaturated Iron Binding 301 ug/dL [facility] Blood Venous blood specimen / Unknown 06/29/2024 9:18 AM EDT 06/29/2024 11:06 AM EDT us Ada Caruso DO LAB BLOOD ORDERABLES Final R esult Performing Organization Address City/[facility]/ZIP Co de Phone Number [facility] [phone] [place] [address] [phone] * Chlamydia/N. Gonorrhoeae RNA, TMA, Urogenitial (06/29/2024 9:18 AM EDT) CT PCR NOT DETECTED Not Detect. [facility] Comment:A not detected test result does not exclude the possibilityof infection because test results can be affected byimproper specimen collection, concurrent antibiotic therapy,or the number of organisms in the specimen which may bebelow the sensitivity of the test. As with many diagnostictests, results from the Xpert CT/NG assay should beinterpreted in conjunction with other laboratory andclinical data available to the clinician.Xpert CT/NG performance has not been evaluated in patientsless than 14 years of age. The assay should not be used forthe evaluationof suspected sexual abuse or for other medico-legalindications. Additional testing is recommended in anycircumstance when false positive or false negative resultscould lead to adverse medical, social or psychologicalconsequences. NG PCR NOT DETECTED Not Detect. [facility] Comment:A not detected test result does not exclude the possibilityof infection because test results can be affected byimproper specimen collection, concurrent antibiotic therapy,or the number of organisms in the specimen which may bebelow the sensitivity of the test. As with many diagnostictests, results from the Xpert CT/NG assay should beinterpreted in conjunction with other laboratory andclinical data available to the clinician.Xpert CT/NG performance has not been evaluated in patientsless than 14 years of age. The assay should not be used forthe evaluationof suspected sexual abuse or for other medico-legalindications. Additional testing is recommended in anycircumstance when false positive or false negative resultscould lead to adverse medical, social or psychologicalconsequences. Urine Urethral structure / Unknown 06/29/2024 9:18 AM EDT 06/29/2024 11:02 AM EDT Narrative [facility] - 06/29/2024 1:07 PM EDT Urine us Ada Caruso DO LAB MICROBIOLOGY - GENERAL O RDERABLES Final Result [facility] [address] [place] [phone] * Hepatitis B surface antigen, EIA (06/29/2024 9:18 AM EDT) Hepatitis B Surface Ag Negative Negative [facility] Blood Venous blood specimen / Unknown 06/29/2024 9:18 AM EDT 06/29/2024 11:06 AM EDT us Ada Zuly DO LAB BLOOD ORDERABLES Final R esult Performing Organization Address [facility] Co de Phone Number [facility] [address] [place] [address] [phone] * RPR (Monitor) with Reflex to??Titer (06/29/2024 9:18 AM EDT) Pathologist [facility] [place] RPR (Monitor) w/Refl Titer NON-REACTI VE NON-REACT RUCHI [facility] Comment:THIS TEST WAS PERFOR MED AT:[employer] [place] [phone] JEFFREY MD Rapid Plasma Reagin Ab Titer TNP [facility] Blood Venous blood specimen / Unknown 06/29/2024 9:18 AM EDT 06/29/2024 11:06 AM EDT us Ada Zuly DO LAB BLOOD ORDERABLES Final R esult Performing Organization Address [facility] Co de Phone Number [facility] [address] [place] [address] [phone] * HIV-1/2 Antigen and Antibodies, Fourth Generation, with Reflexes (06/29/2024 9:18 AM EDT) HIV AB/AG Nonreactive Nonreactive [facility] Comment:HIV-1 p24 Ag and/or HIV-1/HIV-2 Ab not detected.A test result that is nonreactive does not exclude thepossibility of exposure to or infection with HIV-1 and/orHIV-2. Nonreactive results in this assay for individualswith prior exposure to HIV-1 and/or HIV-2 may be due toantigen and antibody levels that are below the limit ofdetection of this assay.The [employer] HIV Ag/Ab Combo assay result andsupplemental assay results should be interpreted inconjunction with the patient's clinical presentation,history and other laboratory results. If the results areinconsistent with clinical evidence, additional testing issuggested to confirm the result. Blood Venous blood specimen / Unknown 06/29/2024 9:18 AM EDT 06/29/2024 11:06 AM EDT Ada Caruso LAB BLOOD ORDERABLES Final R esult Performing Organization Address [facility] Co de Phone Number [facility] [address] [place] [phone] * Hepatitis B Surface Antibody, Qualitative (06/29/2024 9:18 AM EDT) ~Hepatitis B Surface Antibody REACTIVE Nonreactive [facility] Comment:REACTIVE: > 11.99 mI U/mL Blood Venous blood specimen / Unknown 06/29/2024 9:18 AM EDT 06/29/2024 11:06 AM EDT Ada Caruso LAB BLOOD ORDERABLES Final R esult Performing Organization Address [facility] Co de Phone Number [facility] [address] [place] [phone] * (ABNORMAL) Sed Rate by Modified Joselinren (06/29/2024 9:18 AM EDT) Erythrocyte Sedimentation Rate 28(H) 0 - 20 MM/HR [facility] Comment:Patients with polycy themia and many hemoglobin abnormalitiesmay have depressed sed rates whereas patients with anemiamay have elevated sed rates. Blood Venous blood specimen / Unknown 06/29/2024 9:18 AM EDT 06/29/2024 11:06 AM EDT Ada Caruso LAB BLOOD ORDERABLES Final R esult Performing Organization Address [facility] Co de Phone Number [facility] [address] [place] [phone] * Rheumatoid Factor (06/29/2024 9:18 AM EDT) Pathologist [facility] [place] Rheumatoid Factor <13.0 <15.0 IU/mL [facility] Blood Venous blood specimen / Unknown 06/29/2024 9:18 AM EDT 06/29/2024 11:06 AM EDT Ada Caruso LAB BLOOD ORDERABLES Final R esult Performing Organization Address [facility] Co de Phone Number [facility] [address] [place] [phone] * C-reactive Protein (06/29/2024 9:18 AM EDT) Pathologist [facility] [place] C Reactive Protein 0.32 < or = 0.50 mg/dL [facility] Blood Venous blood specimen / Unknown 06/29/2024 9:18 AM EDT 06/29/2024 11:06 AM EDT Ada Caruso LAB BLOOD ORDERABLES Final R esult Performing Organization Address [facility] Co de Phone Number [facility] [address] [place] [phone] * (ABNORMAL) MO Screen,IFA, with Reflex to Titer and Pattern (06/29/2024 9:18 AM EDT) Anti Nuclear Antibody Screen POSITIVE (A) NEGATIVE [facility] Comment:MO IFA is a first l ine screen for detecting thepresence of up to approximately 150 autoantibodies invarious autoimmune diseases. A positive MO IFA resultis suggestive of autoimmune disease and reflexes totiter and pattern. Further laboratory testing may beconsidered if clinically indicated.For additional information, please refer tohttp://education.Uniweb.ru/faq/ZUG260(This link is being provided for informational/educational purposes only.) MO Titer 1:320(A) titer [facility] Comment:Reference Range <1:4 0 Negative 1:40-1:80 Low Antibody Level >1:80 Elevated Antibody Level MO Pattern (A) [facility] Comment:Cytoplasmic, Dense F ine Speckled Abnormal Flag: AThe pattern appears cloudy, almost homogeneousthroughout the cytoplasm (e.g., anti-PL-7, PL-12,ribosomal P proteins). Pattern is associated withanti-synthetase syndrome, polymyositis/dermatomyositis,systemic lupus erythematosus (SLE), juvenile SLE, andneuropsychiatric SLE.AC-19: Dense Fine SpeckledInternational Consensus on MO Patterns(https://doi.org/10.1515/vavx-5724-3224) MO TITER 2 (REF LAB) 1:160(A) titer [facility] Comment:Reference Range <1:4 0 Negative 1:40-1:80 Low Antibody Level >1:80 Elevated Antibody Level MO Pattern 2 Nuclear, Speckled (A) [facility] Comment:Speckled pattern is associated with mixed connectivetissue disease (MCTD), systemic lupus erythematosus(SLE), Sjogren's syndrome, dermatomyositis, andsystemic sclerosis/polymyositis overlap.AC-2,4,5,29: SpeckledInternational Consensus on MO Patterns(https://doi.org/10.1515/ptmo-7717-9356)THIS TEST WAS PERFORMED AT:[employer] [place] [phone] JEFFREY MD MO TITER 3 TNP [facility] MO PATTERN 3 [facility] Blood Venous blood specimen / Unknown 06/29/2024 9:18 AM EDT 06/29/2024 11:06 AM EDT us Ada Caruso DO LAB BLOOD ORDERABLES Final R esult Performing Organization Address City/[facility]/ZIP Co de Phone Number [facility] [address] [place] [phone] * TSH (06/29/2024 9:18 AM EDT) Thyroid Stimulating Hormone 0.73 0.32 - 4.0 uIU/mL [facility] Comment:TSH 3rd Generation ( [facility]) Blood Venous blood specimen / Unknown 06/29/2024 9:18 AM EDT 06/29/2024 11:06 AM EDT Ada Domingueztikimaurice DO LAB BLOOD ORDERABLES Final R esult Performing Organization Address [facility] Co de Phone Number [facility] [address] [place] [phone] * T4, Free (06/29/2024 9:18 AM EDT) Free T4 (Free Thyroxine) 0.72 0.71 - 1.85 ng/dL [facility] Blood Venous blood specimen / Unknown 06/29/2024 9:18 AM EDT 06/29/2024 11:06 AM EDT Ada Domingueztikimaurice DO LAB BLOOD ORDERABLES Final R esult Performing Organization Address City/[facility]/ZIP Co de Phone Number [facility] [address] [place] [phone] * Hemoglobin A1c (06/29/2024 9:18 AM EDT) Hemoglobin A1c 5.6 <6.0 % [facility] Comment:Hemoglobin A1C Refer ence Range Adults: 4.8 - 6.0 % Non diabetic: < 6.0 % Goal: < 7.0 %Additional Action Suggested: > 8.0 %Note: Hemoglobin A1c results are invalid for patients with abnormal amounts of HbF. Blood transfusions may impact the HbA1c concentration in the patient sample. Estimated Average Glucose 114 mg/dL [facility] Comment:eAG = Estimated ave rage glucose which is %A1C expressed asaverage glucose, using the formula of the P7F-JalhcqfJnbbhqr Glucose study (ADAG), Diabetes Care, Vol.31,#8,Oct. 2007 Blood Venous blood specimen / Unknown 06/29/2024 9:18 AM EDT 06/29/2024 11:06 AM EDT [facility] LAB BLOOD ORDERABLES Final R esult Performing Organization Address [facility] Co de Phone Number [facility] [address] [place] [phone] * (ABNORMAL) Ferritin (06/29/2024 9:18 AM EDT) Ferritin 8(L) 10 - 250 ng/mL [facility] Blood Venous blood specimen / Unknown 06/29/2024 9:18 AM EDT 06/29/2024 11:06 AM EDT Ada Zuly LAB BLOOD ORDERABLES Final R esult Performing Organization Address [facility] Co de Phone Number [facility] [address] [place] [phone] * (ABNORMAL) Hepatic Function Panel (06/29/2024 9:18 AM EDT) Bilirubin, Total 0.2 0.0 - 1.0 mg/dL [facility] Bilirubin, Direct <0.2 0.0 - 0.5 mg/dL [facility] Aspartate Amino Transferase 33(H) 5 - 31 U/L [facility] Alanine Aminotransferase 43(H) 0 - 31 U/L [facility] Total Protein 7.6 6.5 - 8.0 g/dL [facility] Albumin Level 4.0 3.5 - 5.0 g/dL [facility] Alkaline Phosphatase 102 39 - 117 U/L [facility] Blood Venous blood specimen / Unknown 06/29/2024 9:18 AM EDT 06/29/2024 11:06 AM EDT us Ada Zuly LAB BLOOD ORDERABLES Final R esult Performing Organization Address [facility] Co de Phone Number [facility] [address] [place] [address] [phone] * (ABNORMAL) Lipid Panel, Standard (06/29/2024 9:18 AM EDT) Triglycerides 112 <150 mg/dL [facility] Comment:Desirable Triglyceri de: less than 150 mg/dLBorderline High Triglyceride 150-199 mg/dLHigh Triglyceride: 200-499 mg/dLVery High Triglyceride: greater than or equal to 5OO mg/dL Cholesterol 291(H) <200 mg/dL [facility] Comment:Desirable Cholestero l: less than 200 mg/dLBorderline High Cholesterol: 200-239 mg/dLHigh Cholesterol: greater than 239 mg/dL LDL Cholesterol Calculated 186(H) <100 mg/dL [facility] Comment:Desirable LDL: less than 100 mg/dLNear Optimal/Above Optimal LDL: 110- 129 mg/dLBorderline High LDL: 130-159 mg/dLHigh LDL: 160-189 mg/dLVery High LDL: greater than or equal to 190 mg/dL HDL Cholesterol 83 >40 mg/dL [facility] Comment:Desirable HDL: great er than 40 mg/dL Note: This HDL assay may give artificially low results in patients with liver disease. Blood Venous blood specimen / Unknown 06/29/2024 9:18 AM EDT 06/29/2024 11:06 AM EDT Ada Caruso DO LAB BLOOD ORDERABLES Final R esult Performing Organization Address City/[facility]/ZIP Co de Phone Number [facility] [address] [place] [address] [phone] * (ABNORMAL) Basic Metabolic Panel (06/29/2024 9:18 AM EDT) Sodium 137 135 - 145 mmol/L [facility] Potassium 3.8 3.3 - 5.1 mmol/L [facility] Chloride 102 96 - 108 mmol/L [facility] Carbon Dioxide 29 22 - 29 mmol/L [facility] Anion Gap 10(L) 12 - 20 [facility] Urea Nitrogen (BUN) 16 9 - 16 mg/dL [facility] Creatinine, Serum 0.62 0.5 - 1.4 mg/dL [facility] Estimated Glomerular Filt Rate >60 [facility] Comment:Chronic Kidney Disea se: Estimated GFR < 60 mL/min/1.56l4Jqjdvi Kidney Disease: Estimated GFR < 15 mL/min/1.73m2 Glucose 93 60 - 115 mg/dL [facility] Calcium 8.8 8.4 - 10.2 mg/dL [facility] Blood Venous blood specimen / Unknown 06/29/2024 9:18 AM EDT 06/29/2024 11:06 AM EDT us Ada Caruso DO LAB BLOOD ORDERABLES Final R esult [facility] [address] [place] [phone] * XR Lumbar Spine 2-3 Views (06/26/2024 7:33 PM EDT) Anatomical Region Laterality Modality Spine, L-spine Radiographic Lexie ging 06/26/2024 7:33 PM EDT Narrative 06/26/2024 7:34 PM EDT ? [facility] ?[address] ?[place] [address] ?XRay Report ? Signed ? Patient: Colon Tomas,Darcy ?MR#: [id number] ?? [id number] ? : 1975 ?Acct:[id number] ? Age/Sex: 49 / F ?ADM Date: 04/19/25 ? Loc: HO.XRAY ? Attending Dr: Ada Caruso DO ? Ordering Physician: dAa Caruso DO ?? Date of Service: 06/23/24 ?? Procedure(s): XR lumbar spine 2-3V ?? Accession Number(s): [id number] ? cc: Ada Caruso DO ? CLINICAL [...] ? DD/ 32 ? TD/TT: 06/26/241932 ? [employer]: ? Procedure Note Dondeshaunrosioruel, Image - 06/26/2024 [place] [address] XRay Report Signed Patient: Anish Ordaz#: [id number] : 1975Acct:[id number] Age/Sex: 49 / FADM Date: 06/23/24 Loc: [place] Attending Dr: Ada Caruso DO Ordering Physician: Ada Caruso DO Date of Service: 06/23/24 Procedure(s): XR lumbar spine 2-3V Accession Number(s): [id number] cc: Ada Caruso DO CLINICAL HISTORY: ACUTE BILATERAL LOW BACK PAIN WITHOUT SCIATICA Lumbar spine three views Comparison: None Findings: No acute fracture or dislocation. Posterior alignment is normal. Mild degenerative change. No radiopaque foreign bodies. Impression: No acute processes This document has been electronically signed by: lAlen Goodwin MD on 06/26/2024 19:33:32 Dictated By: Allen Goodwin MD Signed By: <Electronically signed by Allen Goodwin MD in OV> 06/26/241933 DD/ 32 TD/TT: 06/26/241932 [employer]: us Ada Caruso DO IMG XR PROCEDURES Final Resu lt * XR CERVICAL SPINE 3V (06/26/2024 7:30 PM EDT) Anatomical Region Laterality Modality Abdomen Radiographic Lexie ging 06/26/2024 7:30 PM EDT Narrative 06/26/2024 7:32 PM EDT ? [facility] ?[address] ?[place] [address] ?XRay Report ? Signed ? Patient: Colon Tomas,Darcy ?MR#: [id number] ?? [id number] ? : 1975 ?Acct:[id number] ? Age/Sex: 49 / F ?ADM Date: 06/23/24 ? Loc: HO.XRAY ? Attending Dr: Ada Caruso DO ? Ordering Physician: Ada Caruso DO ?? Date of Service: 06/23/24 ?? Procedure(s): XR cervical spine 3V ?? Accession Number(s): [id number] ? cc: Ada Caruso DO ? CLINICAL [...] ? DD/ 29 ? TD/TT: 06/26/241929 ? [employer]: ? Procedure Note Clive Arvizu - 06/26/[address] [address] XRay Report Signed Patient: Anish Ordaz#: [id number] : 1975Acct:[id number] Age/Sex: 49 / FADM Date: 06/23/24 Loc: [place] Attending Dr: Ada Caruso DO Ordering Physician: Ada Caruso DO Date of Service: 06/23/24 Procedure(s): XR cervical spine 3V Accession Number(s): [id number] cc: Ada Caruso DO CLINICAL HISTORY: NECK [...] in OV> 06/26/241931 DD/ 29 TD/TT: 06/26/241929 [employer]: Ada Caruso DO IMG XR PROCEDURES Final Resu lt * BI US Breast Limited Right (07/13/2023 1:25 PM EDT) Anatomical Region Laterality Modality Breast Right Ultrasound 07/13/2023 1:25 PM EDT Narrative 07/13/2023 1:51 PM EDT ? [facility] [place] ? [address] ?[place] [address] ? Ultrasound Report ? Signed ? Patient: Colon,Darcy ?MR#: [id number] ?? [id number] ? : 1975 ?Acct:[id number] ? Age/Sex: 48 / F ?ADM Date: 07/13/23 ? Loc: HO.MAMMO ? Attending Dr: Corky Goodrich MD ? Ordering Physician: Corky Goodrich MD ?? Date of Service: 07/13/23 ?? Procedure(s): US breast RT limited mamm only ?? Accession Number(s): [id number] ? cc: Ada Caruso DO; Corky Goodrich [...] 1348 ? DD/ 1325 ? TD/TT: ? [employer]: ? Procedure Note Clive Arvizu - 07/13/2023 [facility] [address] [place] [address] Ultrasound Report Signed Patient: Anish Farnsworth#: [id number] : 1975Acct:[id number] Age/Sex: 48 / FADM Date: 07/13/23 Loc: HO.MAMMO Attending Dr: Corky Goodrich MD Ordering Physician: Corky Goodrich MD Date of Service: 07/13/23 Procedure(s): US breast RT limited mamm only Accession Number(s): [id number] cc: Ada Caruso DO; Corky Goodrich MD [...] in OV> 07/13/23 1348 DD/ 1325 TD/TT: [employer]: us [facility] External Provider IMG US PROCEDURES Final Result * HPV mRNA E6/E7 w/Reflex to HPV Genotypes 16, 18/45 (10/11/2022 10:21 AM EDT) HPV nRNA E6/E7 Not Detected Not Detected [facility] Comment:Methodology: Transcr iption-Mediated AmplificationThis assay detects E6/E7 viral messenger RNA (mRNA) from 14high-risk HPV types (16,18,31,33,35,39,45,51,52,56,58,59,66,68).Cervical sources are required for HPV testing.If a vaginal source from a patient who has had atotal hysterectomy with removal of cervix wassubmitted, please contact the testing laboratoryfor alternative testing options.For additional information, please refer tohttp://education.[employer]/faq/LHP370z1(This link if provided for information/educational purposes only.)THIS TEST WAS PERFORMED AT:[employer] [place] [phone] JEFFREY MD HPV mRNA E6/E7 [facility] HPV 16 RNA TNP [facility] HPV 18/45 RNA TNP [facility] 10/11/2022 10:2 1 AM EDT 10/12/2022 10:40 AM EDT us Malachi Curry CNM LAB CYTOLOGY ORDERABLES F inal Result [facility] [address] [place] [phone] * Pap Smear (10/11/2022 10:21 AM EDT) 10/11/2022 10:2 1 AM EDT 10/12/2022 10:40 AM EDT Narrative [facility] - 11/01/2022 10:24 AM EDT ----- ------- Name: Javad,Darcy ?Age/Sex: 47/F ? : 1975 Unit#: [id number] ?? Attend Dr: MALACHI CURRY CNM ?Re10/11/22 ?Status: DEP REF ? Location: HO.HHCLNP ? Disch: ? ----- ------- SPEC : [id number] ?RECD: 10/12/22-1040 ? STATUS: ??SOUT ? REQ NUM: [id number] ? CARLOS: 10/11/22-1021 ? SUBM DR: MALACHI CURRY CNM ? ENTERED: ??10/13/22 ?SP TYPE: Pap Smr ?OTHR : ? [...] 66, 68) ? HPV testing performed by [employer], [place], [place]. ??See reference laboratory ?? portion of the EMR for entire report. ?Clinical Information LMP: Unknown date Previous PAP test: 2020, unknown findings Other history: Abnormal bleeding ? Material Received ?? ThinPrep-Cervical ----- ------- Signed (signature on file) Cassandra Isaac MD 11/01/22 1024 ? ----- ------- ? END OF REPORT ? Malachi Curry [facility] LAB CYTOLOGY ORDERABLES F inal Result [facility] [address] [place] [phone] [phone] from Last 3 Months or Most Recently Relevant to Health Maintenance Insurance N PARTIAL BCBS PPO Care Teams Trial Court Justice Relationship Specialty Start Date End Date Ada Caruso DO [address] [place] [phone] PCP - General Family Medicine 07/13/21
--- OUTSIDE RECORDS SUMMARY | 2024-07-18 15:07 | XMS_ITS | Encounter Summary ---
Author Organization [employer] Address [address] [facility] [address] [place] [address] Care Team Providers Care Chain Repairer Name Role Phone Ada Caruso DO Primary Care Provider [phone] Reason for Visit * Reason Comments Med Refill Encounter Details Date Type Department Care Team ([facility] st Contact Info) Description 09/24/2023 Refill [facility] [address] [place] [address] Ada Caruso DO [address] [place] [address] Nonintractable chronic migraine Social History Tobacco Use [...] documented as of this encounter Care Teams Chain Repairer Relationship Specialty Start Date End Date Ada Caruso DO [address] [place] [address] PCP - General Family Medicine 07/13/21 documented as of this encounter
--- OUTSIDE RECORDS SUMMARY | 2024-07-18 15:07 | XMS_ITS | Encounter Summary ---
Author Organization [facility] Address [address] [place] [address] Care Team Providers Care Truck Rental Service Attendant Name Role Phone Porsche Etienne DO Primary Care Pro vider Unavailable Yari Lerma MD Primary Care Provider [phone] [facility], Pcp Primary Care Provider Unavailabl e Encounter Details Date Type Department Care Team Description 03/31/2020 Orders Only General Surgery [address] [place] [address] Arabella Conner NP At high risk for [...] cancer documented in this encounter Care Teams Truck Rental Service Attendant Relationship Specialty Start Date End Date Porsche Etienne DO PCP - General Internal Medicine 10/18/18 10/30/20 Yari Lerma MD [address] [place] [phone] PCP - General Internal Medicine 10/31/20 03/24/23 [facility], Pcp [address] [place] [phone] PCP - General Internal Medicine 03/25/23 documented as of this encounter
== END 2024-07-18 15:05 | disposition home or self-care (01) ==
LOC: HO.US 15:04
PROVIDERS: PCP Family Medicine; Visit Provider Family Medicine
DX: N93.9 Abnormal uterine and vaginal bleeding, unspecified (principal)
CPT/HCPCS: 76830; 76856

== ENCOUNTER → 2024-07-18 15:08 | Outpatient (BNV) | payer BC, SELFPAY | PROVIDERS: PCP Family Medicine; Visit Provider Radiology Diagnostic Radiology | DX: N92.6 Irregular menstruation, unspecified (principal) | CPT/HCPCS: 76830; 76856 ==

== ENCOUNTER 2024-08-06 11:11 | Outpatient (AMB) | payer BC, SELFPAY ==
--- NOTE | 2024-08-06 11:15 | A.OFFVIS_ITS ---
Vital Signs 08/06/24 11:20 Height 5 ft 5 in Weight 202 lb BMI 33.6 BP 118/82 Intake Visit Reasons: PMB Mentally Impaired Teacher Required: Yes Mentally Impaired Teacher Language: Tire Room Supervisor Services: Mentally Impaired Teacher Present (in person) Mentally Impaired Teacher Name: AUNG Mukherjee Information Interpreted: non-clinical & clinical Magazine Hand: Magazine Hand Present (Chika HORAN) Accompanied by: Self / Same As Patient Allergies aspirin Allergy (Unknown, Verified 08/06/24 11:21) swelling, itchy eyes;swelling of face Post menopausal: Yes HPI Comments Details: Presenting complaining of an episode of heavy bleeding after 1 year of amenorrhea 07/18/2024 pelvic ultrasound showed the following: Uterus: The uterus is normal in size, measuring 8.3 x 5.2 x 5.1 cm. Myometrium has a normal echotexture. No fibroids are identified. Endometrium: The endometrial stripe measures 7 mm in thickness. Right ovary: The right ovary measures 2.0 x 1.7 x 1.5 cm. The right ovary is normal in size and echotexture. Left ovary: The left ovary measures 2.0 x 1.4 x 1.3 cm. The left ovary is normal in size and echotexture. Pelvic fluid: none. Last co testing in 10/27 was negative with endometrial cells present, this was followed by endometrial biopsy which was negative for endometrial hyperplasia and/or malignancy PFSH Medical History Asthma Anxiety Depression Surgical History H/O breast biopsy Hx of tubal ligation Family History Father HTN (hypertension) Diabetes Parkinson disease Mother Diabetes Maternal Aunt Breast cancer Paternal Grandmother Breast cancer Maternal Grandmother Colon cancer Social History Household Members: Significant Other Housing: Apartment Are you a primary care program director to a significant other at home: No Do you presently have visiting nurse or other home services: No Alcohol intake: current Alcohol intake frequency: holidays/special occasions only Patient Tobacco Use Status: Never used Tobacco Current occupational status: employed 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 Sexual orientation: Straight/Heterosexual Gender identity: Female Review of Systems Const All systems reviewed & are unremarkable except as noted in HPI and below Physical Exam Vital Signs: Last Vital Signs BP 118/82 08/06/24 11:20 BMI result Body Mass Index 33.6 General: Yes no CVA tenderness External Female Exam: normal external appearance and normal appearance of the urethra Speculum Exam - Vagina: normal appearance of the vagina, normal palpation, no lesions and no masses Speculum Exam - Cervix: normal appearance of the cervix, normal palpation, no lesions, no masses and nontender Bimanual exam- vagina & uterus: normal bimanual exam, normal palpation, uterine size normal, normal palpation, uterine shape normal, No Cervical tenderness present and non-tender Bimanual Exam- Adnexa, other: normal adnexae Back/Spine/Pelvis Back: no CVA tenderness Office Procedures Endometrial Biopsy Details: The patient was counseled regarding the indication and benefits of endometrial sampling to rule out endometrial pathology including not limited to endometrial hyperplasia or endometrial cancer and others; The alternatives (Either do nothing vs. hysteroscopy D&C) & the risks were discussed with the patient including but not limited: pain, uterine perforation, bleeding, infection, possible injury to bladder, bowel, ureter, possible need for blood transfusion with all its possible risks. The patient verbalized understanding all questions answered and signed consent. The patient was placed into the dorsal lithotomy position; a speculum was inserted in the vagina. Using aseptic technique for the procedure, the cervix was cleansed with Betadine. The anterior lip of the cervix was grasped with a single tooth tenaculum. The uterus was sounded to 7 cm with a 4 mm Pipelle was used. Tissues samples were obtained and placed in formalin, in a patient labeled container and sent to the pathology department. At the end of the procedure, there was minimal bleeding noted The patient tolerated the procedure well and was discharged in good condition wi th the following instructions: Nothing in the vagina until the bleeding stops. No sex until the bleeding stops, to call if any of the following occurs: fever (>100.4), flu-like symptoms, abdominal pain, heavy bleeding, four smelling vaginal discharge. The patient was instructed to schedule a Follow up appointment in 2 weeks to discuss pathology results of the biopsy and treatment options. This note was generated with a voice recognition program. Some errors may have been overlooked during the review of this note. Sometimes these errors may affect the content or meaning of a given sentence. 60201-Xzvsysnatcz Biopsy Assessment & Plan Assessment & Plan (1) Postmenopausal bleeding: Code(s): N95.0 - Postmenopausal bleeding Category: Medical Plan: Co testing done. Discussed with the patient the pelvic ultrasound findings, the endometrial stripe thickenss measured by ultrasound was more than 4mm. The negative predictive value, positive predictive value, Sensitivity, specificity of using ultrasound measurement of endometrial stripe to detecting endometrial pathology including hyperplasia , polyp or cancer were discussed with the patient. Recommended to the patient that the next step is an endometrial sampling via hysteroscopy D&C possible polypectomy versus endometrial biopsy to r/o endometrial pathology including hyperplasia or cancer. All the pros and cons risks and benefits of each approach were discussed with the patient, endometrial biopsy being less invasive, office procedure with less sensitivity and inability diagnose a polyp and removal versus hysteroscopy done under anesthesia more invasive more sensitive to endometrial cancer and possibility of diagnosing and endometrial polyp with the possibility of polypectomy. All questions were answered pt verbalized understanding and decided to proceed with endometrial biopsy. EMB done, see procedure note Orders: Orders AMB Endometrial Biopsy Today N95.0 - Postmenopausal bleeding Coding Level of Care Code Est Pt Level 3 (30264) Procedure Only Diagnoses Postmenopausal bleeding N95.0 CPT Codes Endometrial Biopsy - CPT: 89709-Rapcerebrzq Biopsy ([id number])
[2024-08-06 11:20] VITALS: BP 118/82; BMI 33.6
--- OUTSIDE RECORDS SUMMARY | 2024-08-06 12:27 | XMS_ITS | Clinical Summary ---
Author Organization [facility] Address [address] [place] [address] Phone Care Team Providers Care Summer Analyst Name Role Phone Yari Lerma MD Primary Care Provider [phone] Allergies Active Allergy Reactions Criticality Noted Date [...] Name Administration Dates Next Due Hepatitis B (Qcqshqr-E-Syvqy , Recombivax HB-Adult) 19yo and older 03/29/2007,07/30/2004,07/03/2004 [...] Date Site/Laterality Comments OTHER SURGICAL HISTORY PROCEDURE: DE LIG/TRNSXJ FLP TUBE ABDL/VAG APPR UNI/BI OTHER SURGICAL HISTORY 02/27/2016 Right PROCEDURE: ---- OTHER ----; COMMENT: Excision of lipoma of the right axilla BREAST BIOPSY 05/26/2015 Right PROCEDURE: BX BREAST; PERC NEEDLE CORE W/IMAG GUID; COMMENT: fibroadenoma COLONOSCOPY 04/12/2019 PROCEDURE: HISTORICAL COLONOSCOPY; COMMENT: negative BREAST SURGERY PROCEDURE: DE UNLISTED PROCEDURE BREAST Medical History Medical History [...] 03/22/2024 9:39 PM EST Plan of Treatment Upcoming Encounters Date Type Department Care Team (Late st Contact Info) Description 08/15/2024 4:15 PM EDT Office Visit Bariatric Surgery - [place] [address] [place] [phone] Temi Motley MD [address] [place] [address] Health Maintenance Due Date Last Done Comments Social Influencers of Health Screening 02/13/2022 Colorectal Cancer Screening: Colonoscopy 04/12/2024 04/12/2019 COVID-19 Vaccine (7 - Pfizer risk season) 2024 12/23/2023, 12/10/2022, 11/27/2021, Additional history [...] is recommended in 1 year. Mammo Location: [facility], [address] [place] [address], [address], . -------- FINAL REPORT -------- Dictated By: Nicki Underwood Dictated Date: 03/29/2024 13:01 ET Assigned Physician: Nicki Underwood Reviewed and Electronically Signed By: Nicki Underwood Signed Date: 03/29/2024 13:08 ET Workstation ID: [id number] Transcribed By: Self Edit Transcribed Date: 03/29/2024 [...] is recommended in 1 year. Mammo Location: [facility], [address] [place] [address], [id number], . -------- FINAL REPORT -------- Dictated By: Nicki Underwood Dictated Date: 03/29/2024 13:01 ET Assigned Physician: Nicki Underwood Reviewed and Electronically Signed By: Nicki Underwood Signed Date: 03/29/2024 13:08 ET Workstation ID: [id number] Transcribed By: Self Edit Transcribed Date: 03/29/2024 13:01 ET Mayo Heath MD IM BI PROCEDURES Final Result * (ABNORMAL) Comprehensive metabolic panel (03/22/2024 10:07 PM EST) Sodium 137 133 - 145 mmol/L LAB CHEMISTRY METHOD 03/22/2024 10:56 PM [facility] Potassium 3.5 3.5 - 5.5 mmol/L LAB CHEMISTRY METHOD 03/22/2024 10:56 PM [facility] Chloride 102 96 - 110 mmol/L LAB CHEMISTRY METHOD 03/22/2024 10:56 PM [facility] CO2 29 21 - 32 mmol/L LAB CHEMISTRY METHOD 03/22/2024 10:56 PM [facility] Anion Gap 6 3 - 11 LAB CHEMISTRY METHOD 03/22/2024 10:56 PM EST [facility] Glucose 150(H) 70 - 100 mg/dL LAB CHEMISTRY METHOD 03/22/2024 10:56 PM [facility] BUN 14 5 - 25 mg/dL LAB CHEMISTRY METHOD 03/22/2024 10:56 PM [facility] Creatinine 0.91 0.50 - 1.10 mg/dL LAB CHEMISTRY METHOD 03/22/2024 10:56 PM [facility] eGFR 77 >=60 mL/min/1. 73m2 LAB CHEMISTRY METHOD 03/22/2024 10:56 PM [facility] Comment:Calculation based on the??Chronic Kidney Disease Epidemiology Collaboration (CKD-EPI) equation refit??without adjustment for race. BUN/Creatinine Ratio 15.4 LAB CHEMISTRY METHOD 03/22/2024 10:56 PM [facility] Calcium 8.8 8.5 - 10.5 mg/dL LAB CHEMISTRY METHOD 03/22/2024 10:56 PM [facility] AST (SGOT) 26 10 - 42 unit/L LAB CHEMISTRY METHOD 03/22/2024 10:56 PM [facility] ALT (SGPT) 40 10 - 60 unit/L LAB CHEMISTRY METHOD 03/22/2024 10:56 PM [facility] Alkaline Phosphatase 95 42 - 121 unit/L LAB CHEMISTRY METHOD 03/22/2024 10:56 PM [facility] Total Protein 7.8 6.0 - 8.0 g/dL LAB CHEMISTRY METHOD 03/22/2024 10:56 PM [facility] Albumin 3.7 3.2 - 5.0 g/dL LAB CHEMISTRY METHOD 03/22/2024 10:56 PM [facility] Total Bilirubin 0.4 0.0 - 1.4 mg/dL LAB CHEMISTRY METHOD 03/22/2024 10:56 PM [facility] Blood Venous blood specimen / Unknown Venipuncture / Unknown 03/22/2024 10:07 PM EST 03/22/2024 10:16 PM EST Amy Mistryny Ahsan DO LAB BLOOD ORDERABLES Priyanka l Result [facility] [address] [place] [address], [place] [phone] * HIV Screening (01/06/2021) [facility] HIV Screening abstracted Historical Provider HEALTH MAINTENANCE Final Result * Hepatitis C Screening (01/06/2021) [facility] Hepatitis C Screening abstracted [facility] Provider HEALTH MAINTENANCE Final Result * (ABNORMAL) Lipid panel (01/06/2021) [facility] LDL/HDL Ratio 4 0 - 4 Triglycerides 174(A) 0 - 150 mg/dL Cholesterol 211(A) 0 - 200 mg/dL HDL 61 >=40 mg/dL LDL Cholesterol 116(A) 0 - 100 mg/dL Blood Venous blood specimen / Unknown [facility] Provider LAB BLOOD ORDERABLES Priyanka l Result * Cervical Cancer Screening: HPV (11/24/2020) [facility] Cervical Cancer Screening: HPV abstracted, negative [facility] Provider HEALTH MAINTENANCE Final Result * Colonoscopy (04/12/2019) [facility] Colonoscopy abstracted, no interpretation Anatomical Region Laterality Modality Other Historical Provider HEALTH MAINTENANCE Final Result from Last 3 Months or Most Recently Relevant to Health Maintenance Insurance [employer] Care Teams Summer Analyst Relationship Specialty Start Date End Date Yari Lerma MD [address] [place] [address] PCP - General Internal Medicine 10/31/20
== END 2024-08-06 11:48 | disposition home or self-care (01) ==
LOC: HO.HWS 11:11
PROVIDERS: PCP Family Medicine; Visit Provider Obstetrics & Gynecology
DX: N95.0 Postmenopausal bleeding (principal)
CPT/HCPCS: 58100; 99213

== ENCOUNTER 2024-08-06 11:11 | Outpatient (REF) | payer BC, SELFPAY ==
[2024-08-13 13:12] LABS: HPV Genotype 16 Negative (Negative); HPV Genotype 18 Negative (Negative); HPV High Risk Negative (Negative)
== END 2024-08-06 11:12 | disposition home or self-care (01) ==
LOC: HO.LNP 11:11
PROVIDERS: PCP Family Medicine; Visit Provider Obstetrics & Gynecology
DX: N95.0 Postmenopausal bleeding (principal)
CPT/HCPCS: 58100; 87626; 88175; 88305

== ENCOUNTER → 2024-08-09 16:03 | Outpatient (BNV) | payer BC, SELFPAY | PROVIDERS: PCP Family Medicine; Visit Provider Internal Medicine | DX: N63.31 Unspecified lump in axillary tail of the right breast (principal); Z80.3 Family history of malignant neoplasm of breast; R92.333 Mammographic heterogeneous density, bilateral breasts | CPT/HCPCS: 77049 ==

== ENCOUNTER 2024-08-09 16:07 | Outpatient (REF) | payer BC, SELFPAY ==
--- NOTE | ~2024-08-09 | MR_ITS ---
EXAMINATION: MR BREAST WITHOUT AND WITH CONTRAST, BILATERAL CLINICAL INFORMATION: Risk screening show family history of breast cancer including a maternal aunt and paternal grandmother. Patient also has a right axillary palpable lump. COMPARISON: Screening mammography March 2023. Breast MRI dated April 2023 TECHNIQUE: MR imaging of the breast was performed using T1 and T2 and fat saturated techniques. Dynamic multiphase imaging was also performed after administration of intravenous gadolinium contrast agent. Computer generated 3-D reconstruction was performed. FINDINGS: There is heterogeneous fibroglandular breast tissue with minimal background enhancement. LEFT BREAST: No suspicious enhancing masses or areas of nonmass enhancement. No architectural distortion. No internal mammary or axillary adenopathy. RIGHT BREAST: No suspicious enhancing masses or areas of nonmass enhancement. No architectural distortion. No internal mammary or axillary adenopathy. Limited views of the chest and abdomen are unremarkable. MR/MR breast BI wo/w con IMPRESSION: 1. Patient is overdue for screening yearly mammogram. Bilateral screening mammography is recommended at this time. 2. Patient states hard mass in the right axilla. Recommend diagnostic mammography and ultrasound at this time for further evaluation. 3. No MR specific evidence of malignancy bilateral breasts. ASSESSMENT: LEFT BREAST: BI-RADS 1-Negative RIGHT BREAST: BI-RADS 1-Negative RECOMMENDATIONS: Recommend diagnostic right axillary imaging at this time with mammogram and ultrasound. Recommend bilateral screening mammography. Electronically signed by: Estefani Alvarez DO 08/12/2024 07:52 PM EDT
[2024-08-09] MEDS: gadobutroL 10 ML VIAL IVPUSH (17:02)
--- OUTSIDE RECORDS SUMMARY | 2024-08-09 18:13 | XMS_ITS | Encounter Summary ---
Author Organization [email or web address] Address [address] [facility] [address] [place] [address] Care Team Providers Care Hand Expansion Envelope Maker Name Role Phone Ada Caruso DO Primary Care Provider [phone] Encounter Details Date Type Department Care Team ([facility] st Contact Info) Description 06/02/2022 Orders Only [facility] [address] [place] [address] Karin Shepherd MD [address] [place] [address] Social History Tobacco Use Types Packs/Day Years [...] documented as of this encounter Care Teams Hand Expansion Envelope Maker Relationship Specialty Start Date End Date Ada Caruso DO [address] [place] [address] PCP - General Family Medicine 07/13/21 documented as of this encounter
== END 2024-08-09 16:08 | disposition home or self-care (01) ==
LOC: HO.MRI 16:07
PROVIDERS: PCP Family Medicine; Visit Provider Family Medicine
DX: Z12.39 Encounter for other screening for malignant neoplasm of breast (principal); Z80.3 Family history of malignant neoplasm of breast
CPT/HCPCS: 77049; A9585

== ENCOUNTER 2024-08-27 10:27 | Outpatient (AMB) | payer BC, SELFPAY ==
--- NOTE | 2024-08-27 10:50 | MHC.OFFVIS ---
Vital Signs 08/27/24 10:51 Height 5 ft 5 in Weight 202 lb BMI 33.6 Intake Visit Reasons: 3-4 emb results/ pap results Neighborhood Coordinator Required: Yes Neighborhood Coordinator Language: Fire Chief Deputy Services: Neighborhood Coordinator Present (in person) Neighborhood Coordinator Name: Chika HORAN Information Interpreted: non-clinical & clinical Accompanied by: Grand Child Allergies aspirin Allergy (Unknown, Verified 08/27/24 10:56) swelling, itchy eyes;swelling of face Is last menstrual period known: Yes HPI Comments Details: The patient is presenting after endometrial biopsy. The patient has no complaints, no vaginal bleeding, no feverishness chills or abdominal pain. The endometrial biopsy pathology report showed the following: Endometrium, biopsy: Proliferative endometrium with stromal breakdown; negative for atypia, hyperplasia or malignancy Co testing was negative The patient is complaining of right axillary lump Recent breast MRI showed the following: ASSESSMENT: LEFT BREAST: BI-RADS 1-Negative RIGHT BREAST: BI-RADS 1-Negative RECOMMENDATIONS: Recommend diagnostic right axillary imaging at this time with mammogram and ultrasound. PFSH Medical History Asthma Anxiety Depression Surgical History H/O breast biopsy Hx of tubal ligation Family History Father HTN (hypertension) Diabetes Parkinson disease Mother Diabetes Maternal Aunt Breast cancer Paternal Grandmother Breast cancer Maternal Grandmother Colon cancer Social History Household Members: Significant Other Housing: Apartment Are you a primary care management coordinator to a significant other at home: No Do you presently have visiting nurse or other home services: No Alcohol intake: current Alcohol intake frequency: holidays/special occasions only Patient Tobacco Use Status: Never used Tobacco 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 occupational status: employed 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 Sexual orientation: Straight/Heterosexual Gender identity: Female Review of Systems Const All systems reviewed & are unremarkable except as noted in HPI and below Reports as per HPI and Reports no additional complaints GI Reports no additional complaints Reports no additional complaints Physical Exam Vital Signs: BMI result Body Mass Index 33.6 Assessment & Plan Assessment & Plan (1) Postmenopausal bleeding: Comment: Proliferative endometrium by EMB High risk for breast ca Code(s): N95.0 - Postmenopausal bleeding Category: Medical Plan: Discussed with the patient the results of the pathology of the endometrial scrapings showing proliferative endometrium. Discussed with the patient the sensitivity, specificity, positive and negative predictive value, of endometrial biopsy in detecting endometrial pathology including but not limited to endometrial hyperplasia, cancer and other pathology; in addition discussed the patient the pathology of the endometrium in post menopause is associated with an increase in the risk of endometrial hyperplasia and malignancy in patient with preferred of endometrial pathology in menopause. Recommended to the patient progesterone treatment , levo norgestrel IUD for p.o. progestins in addition to repeat endometrial biopsy every 3 months for a year. All pros and cons, risks and benefits of each were discussed with the patient. The patient decided to hold off any progesterone treatment since she has increased risk of breast cancer does not want to increase it further. Instructions given to patient to schedule an EMB three-month and to call in case of abnormal uterine bleeding prior to that. All questions answered and the patient verbalized understanding and agreed with the plan. (2) Axillary lump: Comment: Right side FH breast ca Code(s): R22.30 - Localized swelling, mass and lump, unspecified upper limb Category: Medical Plan: Discussed with the patient the finding on Breast exam (right axillary lump) .The differential diagnosis includes but not limited to lump/cyst/pre cancer/cancer or dense breast tissue. The work up includes breast US and diagnostic mammogram and referred the patient for surgical breast consult. Instructed the patient to call our office back in case a referral appointment is not scheduled, missed or canceled so that we will assist on rescheduling another appointment, the patient verbalized understanding agreed with the plan. Orders: Orders US breast RT limited Today R22.30 - Localized swelling, mass and lump, unspecified upper limb MM tomosynthesis diagnostic RT Today R22.30 - Localized swelling, mass and lump, unspecified upper limb Referrals General Surgery Referral R22.30 - Localized swelling, mass and lump, unspecified upper limb Coding Level of Care Code Est Pt Level 3 (30074) Diagnoses Postmenopausal bleeding N95.0 Axillary lump R22.30
[2024-08-27 10:51] VITALS: BMI 33.6
--- OUTSIDE RECORDS SUMMARY | 2024-08-27 11:40 | XMS_ITS | Encounter Summary ---
Author Organization [employer] Address [address] [facility] [address] [place] [address] Care Team Providers Care Excellence Manager Name Role Phone Ada Caruso DO Primary Care Provider + [phone] Encounter Details Date Type Department Care Team ([facility] st Contact Info) Description 06/02/2022 Orders Only [facility] [address] [place] [address] Karin Shepherd MD [address] [place] [address] Social History Tobacco Use Types Packs/Day Years [...] documented as of this encounter Care Teams Excellence Manager Relationship Specialty Start Date End Date Ada Caruso DO [address] [place] [address] PCP - General Family Medicine 07/13/21 documented as of this encounter
== END 2024-08-27 11:15 | disposition home or self-care (01) ==
LOC: HO.HWS 10:27
PROVIDERS: PCP Family Medicine; Visit Provider Obstetrics & Gynecology
DX: N95.0 Postmenopausal bleeding (principal); R22.30 Localized swelling, mass and lump, unspecified upper limb
CPT/HCPCS: 99213

== ENCOUNTER 2024-10-11 11:45 | Outpatient (REF) | payer BC, SELFPAY ==
--- NOTE | ~2024-10-11 | MM_ITS ---
EXAMINATION: MM DIAGNOSTIC DIGITAL BREAST TOMOSYNTHESIS, RIGHT CLINICAL INFORMATION: Palpable right axillary lump. COMPARISON: Mammography: Priors on PACS. TECHNIQUE: Digital breast tomosynthesis is performed in both the craniocaudal and mediolateral oblique views along with computer-aided detection (CAD). Synthesized 2D images are generated from the tomosynthesis. FINDINGS: There are scattered areas of fibroglandular density (ACR BI-RADS breast composition Category b). Limited images the patient had a vasovagal episode and the exam was ended before full imaging could take place today. Within these limitations no suspicious masses calcifications or other abnormal findings. MM/MM tomosynthesis diagnostic RT IMPRESSION: Mammogram and ultrasound imaging could not be performed as the patient had a vasovagal episode and full imaging evaluation could not be performed. Patient will be rescheduled for mammogram and ultrasound images for right axillary palpable lump. Patient was sent to the emergency department for further workup. ASSESSMENT: BI-RADS BI-RADS 0 - Incomplete: Needs additional Imaging. RECOMMENDATION: Additional Imaging required Additional mammogram and ultrasound diagnostic imaging will be scheduled for the patient for the right axillary palpable lump. Electronically signed by: Estefani Alvarez DO 10/11/2024 01:45 PM EDT
--- OUTSIDE RECORDS SUMMARY | 2024-10-11 12:18 | XMS_ITS | Encounter Summary ---
Author Organization [facility] Address [address] [place] [address] Care Team Providers Care Site Worker Name Role Phone Porsche Etienne DO Primary Care Pro vider Unavailable Yari Lerma MD Primary Care Provider [phone] [facility] Primary Care Provider Unavailabl e Reason for Visit * Reason Comments E-prescribe Rx Request Encounter Details Date Type Department Care Team Description 02/06/2020 Refill Adult Medicine [address] [address] Porsche Etienne DO E-prescribe Rx Request Social [...] AETNA / Plan: POS $20/30 EL YARED [id number] [employer] TRADITNAL / Product Type: POS [id number] documented in this encounter Plan of Treatment Not on file documented as of this encounter Visit Diagnoses Not on filedocumented in this encounter Care Teams Site Worker Relationship Specialty Start Date End Date Porsche Etienne DO PCP - General Internal Medicine 10/18/18 10/30/20 Yari Lerma MD [address] [place] [address] PCP - General Internal Medicine 10/31/20 03/24/23 [facility], Pcp [address] [place] [address] PCP - General Internal Medicine 03/25/23 documented as of this encounter
--- OUTSIDE RECORDS SUMMARY | 2024-10-11 12:18 | XMS_ITS | Encounter Summary ---
Author Organization [employer] Address [address] [place] [address] Care Team Providers Care Senior Environmental Technician Name Role Phone Yari Lerma MD Primary Care Provider [phone] Reason for Visit * Reason Onset Date Comments Med Refill 09/14/2024 Zepbound w/titra tion Encounter Details Date Type Department Care Team (Late st Contact Info) Description 09/14/2024 Telephone Bariatric Surgery - [place] [address] [place] [phone] Temi Motley MD [address] [facility] [place] [address] Med Refill (Zepbound w/titration ) Social History Tobacco Use Types Packs/Day Years [...] Andreina Lindquist RN documented in this encounter Progress Notes * Milka Joshi - 09/14/2024 12:48 PM EDT Patient did well on Zepbound 2.5 mgs and would like a refill with titration. If appropriate, please send script for Zepbound 5 mgs to their pharmacy. The patient does have a follow up in 10/31/2024 documented in this encounter Plan of Treatment Upcoming Encounters Date Type Department Care Team (Late st Contact Info) Description 10/31/2024 1:30 PM EDT Nutrition Bariatric Surgery - [place] [address] [phone] Marlin Peng, YOLY [address] [phone] 01/03/2025 3:45 PM EDT Office Visit Bariatric Surgery - [place] [address] [phone] Temi Motley MD [address] [phone] documented as of this encounter Visit Diagnoses Not on filedocumented in this encounter Care Teams Senior Environmental Technician Relationship Specialty Start Date End Date Yari Lerma MD [address] [place] [address] PCP - General Internal Medicine 10/31/20 documented as of this encounter
--- OUTSIDE RECORDS SUMMARY | 2024-10-11 12:18 | XMS_ITS | Encounter Summary ---
Author Organization [employer] Address [address] [facility] 7t [place] [address] Care Team Providers Care Cake Wringer Name Role Phone Ada Caruso DO Primary Care Provider + [phone] Encounter Details Date Type Department Care Team (Late st Contact Info) Description 06/02/2022 Orders Only [facility] MEDICINE [address] [place] [address] Karin Shepherd MD [address] [place] [address] Social History Tobacco Use Types Packs/Day Years [...] documented as of this encounter Care Teams Cake Wringer Relationship Specialty Start Date End Date Ada Caruso DO [address] [place] [address] PCP - General Family Medicine 07/13/21 documented as of this encounter
== END 2024-10-11 11:46 | disposition home or self-care (01) ==
LOC: HO.MAMMO 11:45
PROVIDERS: PCP Family Medicine; Visit Provider Obstetrics & Gynecology
DX: N63.31 Unspecified lump in axillary tail of the right breast (principal); Z80.3 Family history of malignant neoplasm of breast
CPT/HCPCS: 77061; 77065

== ENCOUNTER → 2024-10-11 12:00 | Outpatient (BNV) | payer BC, SELFPAY | PROVIDERS: PCP Family Medicine; Visit Provider Internal Medicine | DX: N63.31 Unspecified lump in axillary tail of the right breast (principal) | CPT/HCPCS: 77061; 77065 ==

== ENCOUNTER 2024-10-11 12:50 | Emergency (ER) | payer BC, SELFPAY ==
[2024-10-11 13:02] VITALS: BP 142/95; PULSE 81; O2SAT 94
--- NOTE | 2024-10-11 13:05 | ED.GENADULT ---
HPI - General Adult General Chief complaint: Syncope Stated complaint: SYNCOPE W/FALL & HS PER EMS Related Data Home Medications ?Medication ?Instructions ?Recorded ?Confirmed albuterol sulfate 90 mcg/actuation 2 puff inhalation Q4H PRN wheezing 02/07/23 11/24/23 aerosol inhaler (Ventolin HFA) amitriptyline 10 mg tablet 10 mg PO BEDTIME 02/07/23 11/24/23 avwwjckeuq-gsthczmjfxlqh-jzqicdeb 1 tab PO Q12H PRN headache 02/07/23 11/24/23 50 mg-325 mg-40 mg tablet cetirizine 10 mg tablet 10 mg PO QAM 02/07/23 11/24/23 cholecalciferol (vitamin D3) 50 50 mcg PO QAM 02/07/23 11/24/23 mcg (2,000 unit) capsule fluoxetine 20 mg capsule 20 mg PO DAILY 02/07/23 11/24/23 fluticasone propionate 50 2 spray intranasal DAILY 02/07/23 11/24/23 mcg/actuation nasal spray,suspension hydroxyzine pamoate 25 mg capsule 25 mg PO Q6H PRN anxiety 02/07/23 11/24/23 atorvastatin 20 mg tablet 20 mg PO DAILY 08/06/24 baclofen 10 mg tablet 10 mg PO TID 08/06/24 ferrous sulfate 325 mg (65 mg 325 mg PO 3XW 08/06/24 iron) tablet,delayed release hydrochlorothiazide 25 mg tablet 25 mg PO DAILY 08/06/24 multivitamin with folic acid 400 1 tab PO DAILY 08/06/24 mcg tablet (Daily-Rebecca (with folic acid)) Previous Rx's ?Medication ?Instructions ?Recorded ondansetron 4 mg disintegrating 4 mg PO Q8H PRN nausea and 02/20/24 tablet vomiting #60 tabs pantoprazole 20 mg tablet,delayed 20 mg PO DAILY #60 tabs 04/04/24 release Allergies Allergy/AdvReac Type Severity Reaction Status Date / Time aspirin Allergy Unknown swelling, Verified 10/11/24 13:06 itchy eyes;swelling of face PMFSH Past Medical History Medical History Asthma Anxiety Depression Surgical History H/O breast biopsy Hx of tubal ligation Family History Family History Father HTN (hypertension) Diabetes Parkinson disease Mother Diabetes Maternal Aunt Breast cancer Paternal Grandmother Breast cancer Maternal Grandmother Colon cancer Social History Social History Household Members: Significant Other Housing: Apartment Are you a primary critical care unit manager to a significant other at home: No Do you presently have visiting nurse or other home services: No Alcohol intake: current Alcohol intake frequency: holidays/special occasions only Patient Tobacco Use Status: Never used Tobacco Current occupational status: employed 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 Patient is a 49-year-old Luxembourgish speaking female presenting after syncopal episode during mammogram. Episode was witnessed, patien did hit head, complains of 6/10 occipital pain, feels slightly dizzy. Plan: EKG, labs Patient left the emergency department before myself or any of the other clinicians could review or explain physical exam findings, test results, need or lack there of for additional testing, treatment options, or a treatment plan. Discharge Plan Discharge Clinical Impression: Fall Patient Disposition: Left W/O Completing Treatment Prescriptions: No Action pantoprazole 20 mg tablet,delayed release (DR/EC) 20 mg PO DAILY Qty: 60 2RF sbecnauijc-sevstnehixshh-vpiz 50-325-40 mg tablet 1 tab PO Q12H PRN (Reason: headache) fluticasone propionate 50 mcg/actuation spray,suspension 2 spray intranasal DAILY albuterol sulfate [Ventolin HFA] 90 mcg/actuation HFA aerosol inhaler 2 puff inhalation Q4H PRN (Reason: wheezing) hydroxyzine pamoate 25 mg capsule 25 mg PO Q6H PRN (Reason: anxiety) amitriptyline 10 mg tablet 10 mg PO BEDTIME cholecalciferol (vitamin D3) 50 mcg (2,000 unit) capsule 50 mcg PO QAM cetirizine 10 mg tablet 10 mg PO QAM fluoxetine 20 mg capsule 20 mg PO DAILY ondansetron 4 mg tablet,disintegrating 4 mg PO Q8H PRN (Reason: nausea and vomiting) Qty: 60 0RF multivitamin with folic acid [Daily-Rebecca (with folic acid)] 400 mcg tablet 1 tab PO DAILY atorvastatin 20 mg tablet 20 mg PO DAILY ferrous sulfate 325 mg (65 mg iron) tablet,delayed release (DR/EC) 325 mg PO 3XW hydrochlorothiazide 25 mg tablet 25 mg PO DAILY baclofen 10 mg tablet 10 mg PO TID Discharge Date/Time: 10/11/24 17:21
[2024-10-11 13:06] VITALS: BP 122/61; PULSE 88; RESP 16; TEMP 36.2; O2SAT 94; BMI 31.3
== END 2024-10-11 17:21 | disposition left against medical advice (07) ==
LOC: HO.ED 17:01
PROVIDERS: Emergency Provider Emergency Medicine
DX: R55 Syncope and collapse (principal); Z53.21 Procedure and treatment not carried out due to patient leaving prior to being seen by health care provider
CPT/HCPCS: 99281

== ENCOUNTER 2024-10-29 13:16 | Outpatient (REF) | payer BC, SELFPAY ==
--- NOTE | ~2024-10-29 | US_ITS ---
EXAMINATION: US DIAGNOSTIC ULTRASOUND BREAST, RIGHT CLINICAL INFORMATION: Right axillary lump. Patient came to the service on October 11, 2024 for initial evaluation. She was able to have a spot mammogram of the area, but had a vasovagal episode and study could not be completed. Patient returns to the service today. After reviewing the spot mammogram from October 11, 2024, it was decided that additional standard mammogram views would not be able to include the area of concern that was located high in the axilla. Patient proceeded directly to the ultrasound. COMPARISON: Right diagnostic mammogram on October 11, 2024. Breast MRI on August 09, 2024. FINDINGS: Targeted ultrasound was performed at the location of the palpable concern as indicated by the patient in the right axillary region. Survey did not reveal suspicious sonographic findings. US/US breast RT limited mamm only IMPRESSION: Negative, no evidence of malignancy. No mammographic or sonographic findings to account for patient's palpable concern. Clinical follow-up is recommended. Otherwise, patient may return to routine screening mammogram expected in March 2005. ASSESSMENT: BI-RADS 1 - Negative RECOMMENDATION: 1. Patient should be managed based on the clinical impression. 2. Otherwise, routine annual screening mammography. This patient's information was entered into a reminder system with a target due date for their next mammogram. Electronically signed by: Linda Rivas MD 10/29/2024 02:16 PM EDT
--- OUTSIDE RECORDS SUMMARY | 2024-10-29 14:37 | XMS_ITS | Encounter Summary ---
Author Organization [facility] Address [address] [place] [address] Care Team Providers Care Can Intake Worker Name Role Phone Yari Lerma MD Primary Care Provider [phone] [facility], Pcp Primary Care Provider Unavailabl e Reason for Visit * Reason Comments E-prescribe Rx Request Encounter Details Date Type Department Care Team Description 03/18/2021 Refill Adult Medicine [address] [address] Teresa Murray PA-C E-prescribe Rx Request Social [...] an upcoming appointment? No-unable to reach left [facility] to call for appointment due to refill [...] Payor: STEPHAN/PPO POS / Plan: PPO $20 [employer] [id number] / ProductType: PPO [id number] documented in this encounter Plan of Treatment Not on file documented as of this encounter Visit Diagnoses Not on filedocumented in this encounter Care Teams Can Intake Worker Relationship Specialty Start Date End Date Yari Lerma MD [address] [place] [address] PCP - General Internal Medicine 10/31/20 03/24/23 [place] [address] PCP - General Internal Medicine 03/25/23 documented as of this encounter
--- OUTSIDE RECORDS SUMMARY | 2024-10-29 14:37 | XMS_ITS | Encounter Summary ---
Author Organization [facility] Address [address] [place] [address] Care Team Providers Care Repair Table Operator Name Role Phone Porsche Etienne DO Primary Care Pro vider Unavailable Yari Lerma MD Primary Care Provider [phone] [facility], Pcp Primary Care Provider Unavailabl e Encounter Details Date Type Department Care Team Description 12/10/2019 Agitator Operator Report Medical Records [address] [place] [address] Abstract, Provider Social History Tobacco Use Types [...] on filedocumented in this encounter Care Teams Repair Table Operator Relationship Specialty Start Date End Date Porsche Etienne DO PCP - General Internal Medicine 10/18/18 10/30/20 Yari Lerma MD [address] [place] [address] [id number] PCP - General Internal Medicine 10/31/20 03/24/23 [facility], Pcp [address] [place] [address] PCP - General Internal Medicine 03/25/23 documented as of this encounter
--- OUTSIDE RECORDS SUMMARY | 2024-10-29 14:37 | XMS_ITS | Encounter Summary ---
Author Organization [facility] Address [address] [place] [address] Care Team Providers Care Nc Manager Name Role Phone Yari Lerma MD Primary Care Provider [phone] [facility], [facility] Primary Care Provider Unavailabl e Reason for Visit * Reason Comments E-prescribe Rx Request Encounter Details Date Type Department Care Team Description 02/12/2021 Refill Adult Medicine [address] [address] Porsche Etienne DO E-prescribe Rx Request Social [...] Payor: STEPHAN/LIZY POS / Plan: PPO $20 [employer] [id number] / ProductType: PPO [id number] documented in this encounter Plan of Treatment Not on file documented as of this encounter Visit Diagnoses Not on filedocumented in this encounter Care Teams Nc Manager Relationship Specialty Start Date End Date Yari Lerma MD [address] [place] [address] PCP - General Internal Medicine 10/31/20 03/24/[address] [address] PCP - General Internal Medicine 03/25/23 documented as of this encounter
--- OUTSIDE RECORDS SUMMARY | 2024-10-29 14:37 | XMS_ITS | Encounter Summary ---
Author Organization [employer] Address 75 [facility] 7t [place] [address] Care Team Providers Care Assistant Men'S Soccer Coach Name Role Phone Ada Caruso DO Primary Care Provider [phone] Encounter Details Date Type Department Care Team (Late st Contact Info) Description 04/01/2022 Orders Only [facility] MEDICINE [address] [place] [address] Callie Lugo LPN Social History Tobacco Use [...] on filedocumented in this encounter Care Teams Assistant Men'S Soccer Coach Relationship Specialty Start Date End Date Ada Caruso DO [address] [place] [address] PCP - General Family Medicine 07/13/21 documented as of this encounter
--- OUTSIDE RECORDS SUMMARY | 2024-10-29 14:37 | XMS_ITS | Encounter Summary ---
Author Organization [employer] Address [address] [facility] 7t [place] [address] Care Team Providers Care Core Machine Tender Name Role Phone Ada Caruso DO Primary Care Provider + [phone] Encounter Details Date Type Department Care Team ([facility] st Contact Info) Description 05/14/2022 Orders Only [facility] MEDICINE [address] [place] [address] Karin Shepherd MD [address] [place], [place] [id number] Iron deficiency anemia, unspecified iron deficiency anemia [...] CBC MORPHOLOGY (05/27/2022 1:42 PM EDT) Pathologist [facility] Emergency Department CBC MORPHOLOGY [facility] Comment:Polychromasia 1 + 05/27/2022 1:42 PM EDT 05/27/2022 1:42 PM EDT us Karin Shepherd MD LAB BLOOD ORDERABLES Final Res ult [address], [place] [address] [facility] [address] [place] [address] * (ABNORMAL) CBC auto differential (05/27/2022 1:42 PM EDT) Pathologist [facility] Emergency Department White Blood Cell Count 8.6 3.8 - 10.8 Thousand/ uL [facility] Red Blood Cell Count 4.04 3.80 - 5.10 Million/u L [facility] Hemoglobin 8.5(L) 11.7 - 15.5 g/dL [facility] Hematocrit 28.2(L) 35.0 - 45.0 % [facility] MCV 69.8(L) 80.0 - 100.0 fL [facility] MCH 21.0(L) 27.0 - 33.0 pg [facility] MCHC 30.1(L) 32.0 - 36.0 g/dL [facility] RDW 19.3(H) 11.0 - 15.0 % [facility] Platelet Count 223 140 - 400 Thousand/ uL [facility] MPV 10.5 7.5 - 12.5 fL [facility] Absolute Neutrophils 4,223 1,500 - 7,800 cells/uL [facility] Absolute Lymphocytes 3,552 850 - 3,900 cells/uL [facility] Absolute Monocytes 619 200 - 950 cells/uL [facility] Absolute Eosinophils 146 15 - 500 cells/uL [facility] Absolute Basophils 60 0 - 200 cells/uL [facility] Neutrophils 49.1 % [facility] Lymphocytes 41.3 % [facility] Monocytes 7.2 % [facility] Eosinophils 1.7 % [facility] Basophils 0.7 % [facility] Blood Venous blood specimen / Unknown 05/27/2022 1:42 PM EDT 05/27/2022 1:42 PM EDT us Karin Shepherd MD LAB BLOOD ORDERABLES Final Res ult Performing Organization Address City/State/[facility] Co de Phone Number [facility] [address], [place] [address] [facility] [address] [place] [address] documented in this encounter Visit Diagnoses Diagnosis Iron deficiency anemia, unspecified iron deficiency anemia type- Primary documented in this encounter Additional Health Concerns Assessment Noted Time PHQ-9 Depression Total Score: 9 05/13/19 23 10:46 AM EST documented as of this encounter Care Teams Core Machine Tender Relationship Specialty Start Date End Date Ada Caruso DO [address] [place] [address] PCP - General Family Medicine 07/13/21 documented as of this encounter
--- OUTSIDE RECORDS SUMMARY | 2024-10-29 14:37 | XMS_ITS | Encounter Summary ---
Author Organization [employer] Address [address] [facility] 7t [place] [address] Care Team Providers Care Brass Finisher Name Role Phone Ada Caruso DO Primary Care Provider + [phone] Reason for Visit * Reason Comments Med Change Request Encounter Details Date Type Department Care Team ([facility] st Contact Info) Description 10/06/2022 Refill [facility] MEDICINE [address] [place] [address] Ada Caruso DO [address] [place] [address] Nonintractable chronic migraine Social History Tobacco Use [...] documented as of this encounter Care Teams Brass Finisher Relationship Specialty Start Date End Date Ada Caruso DO [address] [place] [address] PCP - General Family Medicine 07/13/21 documented as of this encounter
--- OUTSIDE RECORDS SUMMARY | 2024-10-29 14:37 | XMS_ITS | Encounter Summary ---
Author Organization [employer] Address 75 [facility] 7t [place] [address] Care Team Providers Care Front End Developer Name Role Phone Ada Caruso DO Primary Care Provider + [phone] Reason for Visit * Reason Onset Date Comments Nurse Triage 10/07/2022 Encounter Details Date Type Department Care Team (Late st Contact Info) Description 10/07/2022 Telephone [facility] MEDICINE [address] [place] [address] Ada Caruso DO [address] [place] [address] Nurse Triage Social History Tobacco Use Types [...] 10/07/2022 11:09 AM EDT Triage call with [facility] Worker ID [id number] Pt reports period in September was from [...] 10/07/2022 9:52 AM EDT Triage call with [facility] Worker ID [id number] Pt didn't answer. Left voice message to call [facility] At [phone]. * Telephone Encounter - Sarah Reardon - 10/07/2022 9:37 AM EDT Symptom: Vaginal Bleeding - Not Outcome: Schedule an appointment to be seen within 24 hours Reason: unusual color/discharge The caller accepted this outcome Please contact pt at [phone] (Kinyarwanda) documented in this encounter Plan of Treatment Not on file documented as of this encounter Visit Diagnoses Not on filedocumented in this encounter Additional Health Concerns Assessment Noted Time PHQ-9 Depression Total Score: 0 08/12/19 23 9:19 AM EDT documented as of this encounter Care Teams Front End Developer Relationship Specialty Start Date End Date Ada Caruso DO [address] [place] [address] PCP - General Family Medicine 07/13/21 documented as of this encounter
--- OUTSIDE RECORDS SUMMARY | 2024-10-29 14:37 | XMS_ITS | Encounter Summary ---
Author Organization [employer] Address [address] [facility] 7t [place] [address] Care Team Providers Care Property Handler Name Role Phone Ada Caruso DO Primary Care Provider + [phone] Reason for Visit * Reason Comments Med Refill Encounter Details Date Type Department Care Team ([facility] st Contact Info) Description 03/23/2023 Refill [facility] MEDICINE [address] [place] [address] Ada Caruso DO [address] [place] [address] Depression, unspecified depression type Social History Tobacco [...] documented as of this encounter Care Teams Property Handler Relationship Specialty Start Date End Date Ada Caruso DO [address] [place] [address] PCP - General Family Medicine 07/13/21 documented as of this encounter
--- OUTSIDE RECORDS SUMMARY | 2024-10-29 14:37 | XMS_ITS | Encounter Summary ---
Author Organization [facility] Address [address] [place] [address] Care Team Providers Care Electroplater Helper Name Role Phone [facility], Pcp Primary Care Provider Unavailkevin e Ada Caruso DO Primary Care Provider Unava ilable Dinora Trimble MD Primary Care Provider Un available Porsche Etienne DO Primary Care Pro vider Unavailable Yari Lerma MD Primary Care Provider [phone] [facility], Pcp Primary Care Provider Unavailabl e Encounter Details Date Type Department Care Team Description 12/30/2016 Transfer Records Medical Records [address] [place] [address] Temi Motley MD [address] [place] [address] [address] [place] [address] Social History Tobacco Use Types Packs/Day Years [...] on filedocumented in this encounter Care Teams Electroplater Helper Relationship Specialty Start Date End Date [facility], Pcp PCP - General Internal Medicine 12/28/16 03/07/18 Ada Caruso DO PCP - General Internal Medicine 03/08/18 03/22/18 Dinora Trimble MD PCP - General Internal Medicine 03/23/18 Porsche Etienne DO PCP - General Internal Medicine 10/18/18 10/30/20 Yari Lerma MD [address] [place] [address] PCP - General Internal Medicine 10/31/20 03/24/23 [facility], Pcp PCP - General Internal Medicine 03/25/23 documented as of this encounter
--- OUTSIDE RECORDS SUMMARY | 2024-10-29 14:37 | XMS_ITS | Encounter Summary ---
Author Organization [facility] Address [address] [place] [address] Care Team Providers Care Chief Radiation Therapist Name Role Phone [facility], Pcp Primary Care Provider Unavailabl e Ada Caruso DO Primary Care Provider Unava ilable Dinora Trimble MD Primary Care Provider Un available Porsche Etienne DO Primary Care Pro vider Unavailable Yari Lerma MD Primary Care Provider [phone] [facility], Pcp Primary Care Provider Unavailabl e Encounter Details Date Type Department Care Team Description 12/29/2016 Transfer Records Medical Records [address] [place] [address] Abstract, Provider Social History Tobacco Use Types [...] on filedocumented in this encounter Care Teams Chief Radiation Therapist Relationship Specialty Start Date End Date [facility], Pcp PCP - General Internal Medicine 12/28/16 03/07/18 Ada Caruso DO PCP - General Internal Medicine 03/08/18 03/22/18 Dinora Trimble MD PCP - General Internal Medicine 03/23/18 Porsche Etienne DO PCP - General Internal Medicine 10/18/18 10/30/20 Yari Lerma MD [address] [place] [address] PCP - General Internal Medicine 10/31/20 03/24/23 [facility], Pcp PCP - General Internal Medicine 03/25/23 documented as of this encounter
--- OUTSIDE RECORDS SUMMARY | 2024-10-29 14:37 | XMS_ITS | Encounter Summary ---
Author Organization [facility] Address [address] [place] [address] Care Team Providers Care Geodesist Name Role Phone Yari Lerma MD Primary Care Provider [phone] [facility], Pcp Primary Care Provider Unavailabl e Encounter Details Date Type Department Care Team Description 03/24/2021 Ux Researcher Report Medical Records [address] [place] [address] Chacorta Gómez MD Social History Tobacco Use [...] on filedocumented in this encounter Care Teams Geodesist Relationship Specialty Start Date End Date Yari Lerma MD [address] [place] [address] PCP - General Internal Medicine 10/31/20 03/24/23 [facility], [address] [address] PCP - General Internal Medicine 03/25/23 documented as of this encounter
--- OUTSIDE RECORDS SUMMARY | 2024-10-29 14:37 | XMS_ITS | Encounter Summary ---
Author Organization [facility] Address [address] [place] [address] Care Team Providers Care Underwriter Mortgage Loan Name Role Phone Porsche Etienne DO Primary Care Pro vider Unavailable Yari Lerma MD Primary Care Provider [phone] [facility], Pcp Primary Care Provider Unavailabl e Encounter Details Date Type Department Care Team Description 03/31/2020 Orders Only General Surgery [address] [place] [address] Arabella Conner NP At high risk for [...] cancer documented in this encounter Care Teams Underwriter Mortgage Loan Relationship Specialty Start Date End Date Porsche Etienne DO PCP - General Internal Medicine 10/18/18 10/30/20 Yari Lerma MD [address] [place] [address] PCP - General Internal Medicine 10/31/20 03/24/23 [facility], Pcp [address] [place] [address] PCP - General Internal Medicine 03/25/23 documented as of this encounter
--- OUTSIDE RECORDS SUMMARY | 2024-10-29 14:37 | XMS_ITS | Encounter Summary ---
Author Organization [facility] Address [address] [place] [address] Care Team Providers Care Mobile Unit Assistant Name Role Phone Porsche Etienne DO Primary Care Pro vider Unavailable Yari Lerma MD Primary Care Provider [phone] [facility] Primary Care Provider Unavailabl e Reason for Visit * Reason Comments E-prescribe Rx Request Encounter Details Date Type Department Care Team Description 02/11/2020 Refill Adult Medicine [address] [address] Porsche Etienne DO E-prescribe Rx Request Social [...] [employer] / Plan: POS $20/30 TRE VAIL [id number] [facility] TRADITNAL / Product Type: POS [id number] documented in this encounter Plan of Treatment Not on file documented as of this encounter Visit Diagnoses Not on filedocumented in this encounter Care Teams Mobile Unit Assistant Relationship Specialty Start Date End Date Porsche Etienne DO PCP - General Internal Medicine 10/18/18 10/30/20 Yari Lerma MD [address] [place], [place] [id number] PCP - General Internal Medicine 10/31/20 03/24/[address] [address] PCP - General Internal Medicine 03/25/23 documented as of this encounter
--- OUTSIDE RECORDS SUMMARY | 2024-10-29 14:37 | XMS_ITS | Encounter Summary ---
Author Organization [facility] Address [address] [place] [address] Care Team Providers Care Measurement Psychologist Name Role Phone Yari Lerma MD Primary Care Provider [phone] Formerly [facility], Pcp Primary Care Provider Unavailabl e Encounter Details Date Type Department Care Team Description 01/07/2021 Orders Only Adult Medicine [address] [address] Teresa Murray PA-C Social History Tobacco Use [...] on filedocumented in this encounter Care Teams Measurement Psychologist Relationship Specialty Start Date End Date Yari Lerma MD [address] [place] [address] PCP - General Internal Medicine 10/31/20 03/24/23 Formerly [facility], [address] [address] PCP - General Internal Medicine 03/25/23 documented as of this encounter
--- OUTSIDE RECORDS SUMMARY | 2024-10-29 14:37 | XMS_ITS | Encounter Summary ---
Author Organization [employer] Address [address] [facility] 7t [place] [address] Care Team Providers Care Casket Coverer Name Role Phone Ada Caruso DO Primary Care Provider + [phone] Encounter Details Date Type Department Care Team (Late st Contact Info) Description 06/02/2022 Orders Only [facility] MEDICINE [address] [place] [address] Karin Shepherd MD [address] [place] [address] Social History Tobacco Use Types Packs/Day Years [...] documented as of this encounter Care Teams Casket Coverer Relationship Specialty Start Date End Date Ada Caruso DO [address] [place] [address] PCP - General Family Medicine 07/13/21 documented as of this encounter
--- OUTSIDE RECORDS SUMMARY | 2024-10-29 14:37 | XMS_ITS | Encounter Summary ---
Author Organization [facility] Address [address] [place] [address] Care Team Providers Care Food Packer Name Role Phone Dinora Trimble MD Primary Care Provider Un available Porsche Etienne DO Primary Care Pro vider Unavailable Yari Lerma MD Primary Care Provider [phone] [facility], Pcp Primary Care Provider Unavailabl e Encounter Details Date Type Department Care Team Description 08/16/2018 Release of Information Medical Records [address] [place] [id number] Abstract, Provider Social History Tobacco Use Types [...] on filedocumented in this encounter Care Teams Food Packer Relationship Specialty Start Date End Date Dinora Trimble MD PCP - General Internal Medicine 03/23/18 Porsche Etienne DO PCP - General Internal Medicine 10/18/18 10/30/20 Yari Lerma MD [address] [place] [address] PCP - General Internal Medicine 10/31/20 03/24/23 [facility], [address] [place] [address] PCP - General Internal Medicine 03/25/23 documented as of this encounter
--- OUTSIDE RECORDS SUMMARY | 2024-10-29 14:37 | XMS_ITS | Clinical Summary ---
Author Organization [facility] Address [address] [place] [address] Phone Care Team Providers Care Caser Up Name Role Phone Yari Lerma MD Primary Care Provider [phone] Allergies Active Allergy Reactions Criticality Noted Date Comments Aspirin Wheezing High 12/28/2016 Other Reaction(s): Hives/Urticaria Reaction occurred 1997 Ibuprofen 04/16/2019 Graded challenge, patient developed diffuse itching and red splotches on face with 100 mg dose Other 11/15/2018 Beta-blockers, beta adrenergic blocking agents-GERD Topiramate Hallucinations 04/14/2021 Medications cholecalcifero l (VITAMIN D-3) 50 mcg (2,000 unit) capsule [...] (one) time each day. 02/13/20 21 Active butalbital-nba taminophen-caf feine (FIORICET, ESGIC) 50-325-40 mg per tablet TAKE [...] (eight) hours. 30 tablet 03/23/19 25 Active atorvastatin (LIPITOR) 20 mg tablet Take 1 tablet (20 mg total) by mouth daily. 07/16/19 25 026 Active tirzepatide, weight loss, (Zepbound) 7.5 mg/0.5 mL injection Inject 0.5 mL (7.5 mg total) under the skin every 7 (seven) days for 28 days. 2 mL 10/13/19 25 025 Active tirzepatide, weight loss, (Zepbound) 5 mg/0.5 mL injection Inject 0.5 mL (5 mg total) under the skin every 7 (seven) days for 28 days. 2 mL 09/18/19 25 025 Discontinued Active Problems Problem Noted Date Diagnosed Date Asthma 02/21/2024 Migraine headache 02/21/2024 GERD (gastroesophageal reflux disease) 9 Irritable bowel syndrome 11/15/2018 Perennial allergic rhinitis 11/15/2018 Prediabetes 11/15/2018 Eczema 08/17/2018 Nasal polyps 08/17/2018 Encounters Date Type Department Care Team Description 10/12/2024 Telephone Bariatric Surgery [address] [phone] Temi Motley MD 09/14/2024 Telephone Bariatric Surgery [address] [address] Temi Motley MD 08/15/2024 4:15 PM EDT Office Visit Bariatric Surgery - [place] 175 [facility] [address] [place] [address] Temi Motley MD Class 2 obesity due to excess calories with body mass index (BMI) of 35.0 to 35.9 in adult, unspecified whether serious comorbidity present (Primary Dx) from Last 3 Months Immunizations Name Administration Dates Next Due Hepatitis B (Sribwwt-W-Rnjgi , Recombivax HB-Adult) 19yo and older 03/29/2007,07/30/2004,07/03/2004 [...] Date Site/Laterality Comments OTHER SURGICAL HISTORY PROCEDURE: LA LIG/TRNSXJ FLP TUBE ABDL/VAG APPR UNI/BI OTHER SURGICAL HISTORY 02/27/2016 Right PROCEDURE: ---- OTHER ----; COMMENT: Excision of lipoma of the right axilla BREAST BIOPSY 05/26/2015 Right PROCEDURE: BX BREAST; PERC NEEDLE CORE W/IMAG GUID; COMMENT: fibroadenoma COLONOSCOPY 04/12/2019 PROCEDURE: HISTORICAL COLONOSCOPY; COMMENT: negative BREAST SURGERY PROCEDURE: LA UNLISTED PROCEDURE BREAST Medical History Medical History [...] Sign Reading Time Taken Comments Blood Pressure 117/71 08/15/2024 3:25 PM EDT Pulse 90 08/15/2024 3:25 PM EDT Temperature 36.6 C (97.8 F) 08/15/2024 3:25 PM EDT Respiratory Rate 18 03/23/2024 5:05 AM EST Oxygen Saturation 96% 03/23/2024 5:05 AM EST Inhaled Oxygen Concentration - - Weight 93.9 kg (207 lb) 08/15/2024 3:25 PM EDT Height 162.6 cm (5' 4 ) 08/15/2024 3:25 PM EDT Body Mass Index 35.53 08/15/2024 3:25 PM EDT Plan of Treatment Upcoming Encounters Date Type Department Care Team (Late st Contact Info) Description 10/31/2024 7:45 AM EDT Nutrition Bariatric Surgery - [place] [address] [phone] Marlin Peng, YOLY [address] [address] 01/03/2025 3:45 PM EDT Office Visit Bariatric Surgery - [place] [address] [address] Temi Motley MD [address] [address] Health Maintenance Due Date Last Done Comments Social Influencers of Health Screening 02/13/2022 Depression Screening 2024 Colorectal Cancer Screening: Colonoscopy 04/12/2024 04/12/2019 Influenza Vaccine (#1) 2024 , 12/10/2022, 11/23/2021, Additional history exists Hypertension/CHF/CAD Annual BMP Blood Test 06/29/2025 06/29/2024, 03/22/2024, 12/30/2023, Additional history exists Cervical Cancer Screening: HPV 11/24/2025 11/24/2020 Breast Cancer Screening 03/28/2026 03/28/19, 03/26/2023, 03/20/2022, Additional history exists Cholesterol Screening (Lipid Panel) 06/29/2029 06/29/2024, 11/25/2023, 01/06/2021 DTaP,Tdap,and Td Vaccines (4 - Td or Tdap) 04/14/2031 04/14/2021, 01/09/2009, 02/09/2000 Hepatitis B Vaccines Completed 06/16/2023, 03/29/2007, 07/30/2004, Additional history exists Pneumococcal Vaccine: Pediatrics (0 to 5 Years) and At-Risk Patients (6 to 49 Years) Completed 06/16/2023 COVID-19 Vaccine Completed 12/23/2023, 08/2022, 11/27/2021, Additional history exists HIV Screening Completed 06/29/2024, 11/06, 01/06/2021 Hepatitis C Screening Completed 06/29/2024 , 11/25/2023, 01/06/2021 HIB Vaccines Aged Out No longer eligi [...] is recommended in 1 year. Mammo Location: [facility], [address] [place] [address], [id number], . -------- FINAL REPORT -------- Dictated By: Nicki Underwood Dictated Date: 03/29/2024 13:01 ET Assigned Physician: Nicki Underwood Reviewed and Electronically Signed By: Nicki Underwood Signed Date: 03/29/2024 13:08 ET Workstation ID: [id number] Transcribed By: Self Edit Transcribed Date: 03/29/2024 13:01 ET Narrative 03/29/2024 1:08 PM EST A BILATERAL DIGITAL 3D SCREENING MAMMOGRAPHY HISTORY: Routine screening. Family history of breast cancer in grandmother and aunt COMPARISON: Multiple priors dating back to 03/14/2021 Technique: Bilateral full field digital mammography (3D) was performed using standard CC and MLO projections CAD was [...] is recommended in 1 year. Mammo Location: [facility], [address] [place] [address], [address], . -------- FINAL REPORT -------- Dictated By: Nicki Underwood Dictated Date: 03/29/2024 13:01 ET Assigned Physician: Nicki Underwood Reviewed and Electronically Signed By: Nicki Underwood Signed Date: 03/29/2024 13:08 ET Workstation ID: [id number] Transcribed By: Self Edit Transcribed Date: 03/29/2024 [...] 11 LAB CHEMISTRY METHOD 03/22/2024 10:56 PM [facility] Glucose 150(H) 70 - 100 [...] [facility] Comment:Calculation based on the Chronic Kidney Disease Epidemiology Collaboration (CKD-EPI) equation refit without adjustment for race. BUN/Creatinine Ratio 15.4 LAB [...] DO LAB BLOOD ORDERABLES Priyanka l Result [facility] [address] [place] [address], [place] [phone] * HIV Screening (01/06/2021) [facility] HIV Screening abstracted [facility] Provider HEALTH MAINTENANCE Final Result * Hepatitis C Screening (01/06/2021) [facility] Hepatitis C Screening abstracted [facility] Provider HEALTH MAINTENANCE Final Result * (ABNORMAL) Lipid panel (01/06/2021) [facility] LDL/HDL Ratio 4 0 - 4 Triglycerides 174(A) 0 - 150 mg/dL Cholesterol 211(A) 0 - 200 mg/dL HDL 61 >=40 mg/dL LDL Cholesterol 116(A) 0 - 100 mg/dL Blood Venous blood specimen / Unknown [facility] Provider LAB BLOOD ORDERABLES Priyanka l Result * Cervical Cancer Screening: HPV (11/24/2020) [facility] Cervical Cancer Screening: HPV abstracted, negative [facility] Provider HEALTH MAINTENANCE Final Result * Colonoscopy (04/12/2019) [facility] Colonoscopy abstracted, no interpretation Anatomical Region Laterality Modality Other [facility] Provider HEALTH MAINTENANCE Final Result from Last 3 Months or Most Recently Relevant to Health Maintenance Insurance [employer] Care Teams Caser Up Relationship Specialty Start Date End Date Yari Lerma MD [address] [place] [address] PCP - General Internal Medicine 10/31/20
--- OUTSIDE RECORDS SUMMARY | 2024-10-29 14:37 | XMS_ITS | Encounter Summary ---
Author Organization [facility] Address [address] [place] [address] Care Team Providers Care Package Sealer Machine Name Role Phone Porsche Etienne DO Primary Care Pro vider Unavailable Yari Lerma MD Primary Care Provider [phone] [facility], [facility] Primary Care Provider Unavailabl e Reason for Visit * Reason Comments E-prescribe Rx Request Encounter Details Date Type Department Care Team Description 01/02/2020 Refill Adult Medicine [address] [address] Porsche Etienne DO E-prescribe Rx Request Social [...] Payor: [employer] / Plan: POS $20/30 TRE [facility] [id number] [facility] TRADITNAL / Product Type: POS [id number]-Myyadyu documented in this encounter Plan of Treatment Not on file documented as of this encounter Visit Diagnoses Not on filedocumented in this encounter Care Teams Package Sealer Machine Relationship Specialty Start Date End Date Porsche Etienne DO PCP - General Internal Medicine 10/18/18 10/30/20 Yari Lerma MD [address] [place] [address] PCP - General Internal Medicine 10/31/20 03/24/23 [facility], Pcp [address] [place] [address] PCP - General Internal Medicine 03/25/23 documented as of this encounter
--- OUTSIDE RECORDS SUMMARY | 2024-10-29 14:37 | XMS_ITS | Encounter Summary ---
Author Organization [facility] Address [address] [place] [address] Care Team Providers Care Automotive Engineer Name Role Phone Porsche Etienne DO Primary Care Pro vider Unavailable Yari Lerma MD Primary Care Provider [phone] [facility], [facility] Primary Care Provider Unavailabl e Reason for Visit * Reason Comments E-prescribe Rx Request Encounter Details Date Type Department Care Team Description 05/17/2020 Refill Adult Medicine [address] [address] Porsche Etienne DO E-prescribe Rx Request Social [...] Ziegler R.N. - 05/19/2020 3:16 PM EDT [phone] (home) [phone] (work) I left a message for the [...] [employer] / Plan: POS $20/30 TRE [facility] [id number] [facility] / Product Type: POS Qol-uig-Lmvcpbs documented in this encounter Plan of Treatment Not on file documented as of this encounter Visit Diagnoses Not on filedocumented in this encounter Care Teams Automotive Engineer Relationship Specialty Start Date End Date Porsche Etienne DO PCP - General Internal Medicine 10/18/18 10/30/20 Yari Lerma MD [address] [place] [address] PCP - General Internal Medicine 10/31/20 03/24/[address] [address] PCP - General Internal Medicine 03/25/23 documented as of this encounter
--- OUTSIDE RECORDS SUMMARY | 2024-10-29 14:37 | XMS_ITS | Encounter Summary ---
Author Organization [employer] Address [address] [facility] 7t [place] [address] Care Team Providers Care Hereditary Cancer Program Coordinator Name Role Phone Ada Caruso DO Primary Care Provider [phone] Reason for Visit * Reason Comments Med Refill Encounter Details Date Type Department Care Team (Late st Contact Info) Description 04/29/2022 Refill [facility] [address] [place], [place] [phone] Ada Caruso DO [address] [place] [address] Depression, unspecified depression type Social History Tobacco [...] type documented in this encounter Care Teams Hereditary Cancer Program Coordinator Relationship Specialty Start Date End Date Ada Caruso DO [address] [place] [address] PCP - General Family Medicine 07/13/21 documented as of this encounter
--- OUTSIDE RECORDS SUMMARY | 2024-10-29 14:37 | XMS_ITS | Encounter Summary ---
Author Organization [employer] Address [address] [facility] 7t [place] [address] Care Team Providers Care Latin American Studies Director Name Role Phone Ada Caruso DO Primary Care Provider + [phone] Reason for Visit * Reason Onset Date Comments Med Refill 09/20/2024 Encounter Details Date Type Department Care Team (Late st Contact Info) Description 09/20/2024 Refill [facility] [address] [place] [address] Ada Caruso DO [address] [place] [address] Depression, unspecified depression type Social History Tobacco [...] documented as of this encounter Care Teams Latin American Studies Director Relationship Specialty Start Date End Date Ada Caruso DO [address] [place] [address] PCP - General Family Medicine 07/13/21 documented as of this encounter
--- OUTSIDE RECORDS SUMMARY | 2024-10-29 14:37 | XMS_ITS | Encounter Summary ---
Author Organization [facility] Address [address] [place] [address] Care Team Providers Care Roll Tension Tester Name Role Phone Porsche Etienne DO Primary Care Pro vider Unavailable Yari Lerma MD Primary Care Provider [phone] [facility], [facility] Primary Care Provider Unavailabl e Reason for Visit * Reason Comments E-prescribe Rx Request Encounter Details Date Type Department Care Team Description 02/06/2020 Refill Adult Medicine [address] [address] Porsche Etienne DO E-prescribe Rx Request Social [...] [employer] / Plan: POS $20/30 [facility] [id number] [facility]ADITNAL / Product Type: POS Pad-xrz-Agcbrqt documented in this encounter Plan of Treatment Not on file documented as of this encounter Visit Diagnoses Not on filedocumented in this encounter Care Teams Roll Tension Tester Relationship Specialty Start Date End Date Porsche Etienne DO PCP - General Internal Medicine 10/18/18 10/30/20 Yari Lerma MD [address] [place] [address] PCP - General Internal Medicine 10/31/20 03/24/23 [facility], Pcp [address] [place] [address] PCP - General Internal Medicine 03/25/23 documented as of this encounter
--- OUTSIDE RECORDS SUMMARY | 2024-10-29 14:38 | XMS_ITS | Clinical Summary ---
Author Organization [employer] Address [address] [facility] [address] [place] [address] Care Team Providers Care Tailing Hand Name Role Phone Ada Caruso DO Primary Care Provider + [phone] Allergies Active Allergy Reactions Criticality Noted Date [...] per day. 90 tablet 3 12/23/19 24 025 Active ondansetron (Zofran) 4 MG tablet Take 1 tablet (4 mg) by mouth every 8 (eight) hours if needed for nausea or vomiting. 12 tablet 12/27/19 24 Active baclofen (Lioresal) 10 MG tablet [...] MD. 30 patch 3 01/17/20 24 Active famotidine (Pepcid) 40 MG/5ML suspension Take 5 mL (40 mg) by mouth at bedtime. 150 mL 3 01/18/20 24 025 Active FLUoxetine (PROzac) 40 MG capsule Take 1 capsule (40 mg) by mouth Once per day. 90 capsule 3 03/09/19 25 026 Active pantoprazole (ProtoNix) 20 MG EC tablet Take 1 tablet by mouth Once per day. 06/01/19 25 Active metroNIDAZOLE (Metrogel) 0.75 % gel Apply topically 2 times daily. 45 g 3 06/23/19 25 026 Active amitriptyline (Elavil) 10 MG tablet Take 1 tablet (10 mg) by mouth at bedtime. 30 tablet 5 06/23/19 25 025 Active Multiple Vitamin (multivitamin) tablet Take 1 tablet by mouth Once per day. 30 tablet 11 06/23/19 25 026 Active acetaminophen (Tylenol 8 Hour) 650 MG ER tablet Take 1 tablet (650 mg) by mouth every 8 (eight) hours if needed for mild pain. Do not crush, chew, or split. 60 tablet 1 07/03/19 25 026 Active ferrous sulfate (Fe Tabs) 325 (65 Fe) MG EC tablet Take 1 tablet (325 mg) by mouth 3 (three) times a week. Do not crush, chew, or split. 36 tablet 3 07/05/19 25 026 Active atorvastatin (Lipitor) 20 MG tablet Take 1 tablet (20 mg) by mouth Once per day. 90 tablet 3 07/16/19 25 026 Active hydrOXYzine pamoate (Vistaril) 25 MG capsuleIndicati ons:Depression, unspecified depression type TAKE 1 CAPSULE BY MOUTH EVERY 6 HOURS NEEDED FOR ANXIETY 40 capsule 3 09/22/19 25 Active butalbital-acet aminophen-caffe ine 50-325-40 MG tabletIndicatio ns:Nonintractab le chronic migraine TAKE 1 TABLET BY MOUTH EVERY 12 HOURS NEEDED FOR HEADACHE 20 tablet 1 10/12/19 25 Active butalbital-acet aminophen-caffe ine 50-325-40 MG tabletIndicatio ns:Nonintractab le chronic migraine TAKE 1 TABLET BY MOUTH EVERY 12 HOURS NEEDED FOR HEADACHE 20 tablet 1 08/04/19 25 025 Discontinued(Re order (will not trigger notification to Pharmacy)) Active [...] Encounters Date Type Department Care Team Description 10/11/2024 Orders Only [facility] External Provider, [facility] 10/11/2024 Refill [facility] [address] [place] [address] Ada Caruso DO Nonintractable chronic migraine 09/20/2024 Refill [facility] [address] [place] [address] Ada Caruso DO Depression, unspecified depression type 09/20/2024 Refill [facility] [address] [place] [address] Ada Caruso DO Depression, unspecified depression type 08/06/2024 Orders Only GENERIC EXTERNAL DATA DEPARTMENT Provider, Generic External Data 08/02/2024 Refill [facility] [address] [place] [address] Ada Caruso DO Nonintractable chronic migraine from Last 3 Months Immunizations Immunization Administration [...] 70 07/02/2024 11:09 AM EDT Temperature 36.6 C (97.9 F) 07/02/2024 11:09 AM EDT Respiratory Rate 18 07/02/2024 11:09 AM EDT [...] Additional history exists SDOH Screening 06/15/2024 06/16/2023 Influenza Vaccine (#1) 2024 , 12/10/2022, 11/23/2021, Additional history exists Depression Monitoring 12/22/2024 06/22/2024, 025 Zoster Vaccines (1 of 2) 2025 Alcohol/Substance Use Screening 06/22/2025 06/22/2024 Disability Screening 06/22/2025 06/22/2024 Diabetes: Hemoglobin A1C 06/29/2025 025, 11/25/2023, 05/13/2022 Tobacco Screening 07/02/2025 07/02/2024 Mammogram 10/11/2025 10/11/2024, 06/07/2024, 03/28/2024, Additional history exists Colonoscopy 04/12/2029 04/12/2019 Colorectal Cancer Screening 04/12/2029 Lipid Panel 06/29/2029 06/29/2024, 11/06, 05/13/2022 Cervical Cancer Screening 08/06/2029 HPV/Cotest 08/06/2029 08/06/2024, 10/11/2022 Pap Smear 08/06/2029 08/06/2024, 10/11/2022 DTaP/Tdap/Td Vaccines (3 - Td or Tdap) 04/14/2031 04/14/2021, 01/09/2009, 02/09/2000 RSV Patients and Patients Aged 60 years or older (1 - 1-dose 75+ series) 2050 Pneumococcal Vaccine: Pediatrics (0 to 5 Years) and At-Risk Patients (6 to 49) Years Completed 06/16/2023 COVID-19 Vaccine Completed 12/23/2023, 08/2022, [...] Procedure Name Priority Date/Time Associated Diagnosis Comments BI MAMMOGRAM DIAGNOSTIC TOMOSYNTHESIS RIGHT Routine 10/11/2024 12:00 PM EDT BI MR BREAST W AND WO CONTRAST BILATERAL Routine 08/09/2024 4:03 PM EDT Family history of breast cancer HEMATOXYLIN AND EOSIN STAIN Routine 08/06/2024 11:42 AM EDT PAP SMEAR Routine 08/06/2024 11:41 AM EDT HPV DNA, LOW/HIGH RISK Routine 08/06/2024 11:41 AM EDT HEPATITIS C AB W/REFL TO HCV [...] acquired skin tags Subcutaneous nodule Healthcare maintenance from Last 3 Months or Most Recently Relevant to Health Maintenance Results * BI Mammogram Diagnostic Tomosynthesis Right (10/11/2024 12:00 PM EDT) Anatomical Region Laterality Modality Breast Right Mammography 10/11/2024 12:0 0 PM EDT Narrative 10/11/2024 1:48 PM EDT [address] [place] [address] Mammography Report Signed Patient: Darcy Ordaz MR#: [id number] : 1975 Acct:[id number] Age/Sex: 49 / F ADM Date: 10/11/24 Loc: HO.MAMMO Attending Dr: Mayo Heath MD Ordering Physician: Mayo Heath MD Results: 0Incompl ete: Needs Additional Imaging Evaluation Date of Service: 10/11/24 Follow Up: Additional Imagi ng Procedure(s): MM tomosynthesis diagnostic RT Accession Number(s): [id number] cc: Ada Caruso Marc J MD EXAMINATION: MM DIAGNOSTIC DIGITAL BREAST TOMOSYNTHESIS, RIGHT CLINICAL INFORMATION: Palpable right axillary lump. COMPARISON: Mammography: Priors on PACS. TECHNIQUE: Digital breast tomosynthesis is performed in both the craniocaudal and mediolateral oblique views along with computer-aided detection (CAD). Synthesized 2D images are generated from the tomosynthesis. FINDINGS: There are scattered areas of fibroglandular density (ACR BI-RADS breast composition Category b). Limited images the patient had a vasovagal episode and the exam was ended before full imaging could take place today. Within these limitations no suspicious masses calcifications or other abnormal findings. MM/MM tomosynthesis diagnostic RT IMPRESSION: Mammogram and ultrasound imaging could not be performed as the patient had a vasovagal episode and full imaging evaluation could not be performed. Patient will be rescheduled for mammogram and ultrasound images for right axillary palpable lump. Patient was sent to the emergency department for further workup. ASSESSMENT: BI-RADS BI-RADS 0 - Incomplete: Needs additional Imaging. RECOMMENDATION: Additional Imaging required Additional mammogram and ultrasound diagnostic imaging will be scheduled for the patient for the right axillary palpable lump. Electronically signed by: Estefani Alvarez DO 10/11/2024 01:45 PM EDT RP Dictated By: Estefani Alvarez DO Signed By: <Electronically signed by Estefani Alvarez DO in OV> 10/11/24 1345 DD/ 1200 TD/TT: 10/11/24 1215 Public Works Technician: Procedure Note Donotuseinterpreter, Image - [facility] [address] [place] [address] Mammography Report Signed Patient: Anish Ordaz#: [id number] : 1975Acct:[id number] Age/Sex: 49 / FADM Date: 10/11/24 Loc: JENNYO Attending Dr: Mayo Heath MD Ordering Physician: Mayo Heath MDResults: 0Incompl ete: Needs Additional Imaging Evaluation Date of Service: 10/11/24Follow Up: Additional Imagi ng Procedure(s): MM tomosynthesis diagnostic RT Accession Number(s): [id number] cc: Ada Caruso DO; Mayo Heath MD EXAMINATION: MM DIAGNOSTIC DIGITAL BREAST TOMOSYNTHESIS, RIGHT CLINICAL INFORMATION: Palpable right axillary lump. COMPARISON: Mammography: Priors on PACS. TECHNIQUE: Digital breast tomosynthesis is performed in both the craniocaudal and mediolateral oblique views along with computer-aided detection (CAD). Synthesized 2D images are generated from the tomosynthesis. FINDINGS: There are scattered areas of fibroglandular density (ACR BI-RADS breast composition Category b). Limited images the patient had a vasovagal episode and the exam was ended before full imaging could take place today. Within these limitations no suspicious masses calcifications or other abnormal findings. MM/MM tomosynthesis diagnostic RT IMPRESSION: Mammogram and ultrasound imaging could not be performed as the patient had a vasovagal episode and full imaging evaluation could not be performed. Patient will be rescheduled for mammogram and ultrasound images for right axillary palpable lump. Patient was sent to the emergency department for further workup. ASSESSMENT: BI-RADS BI-RADS 0 - Incomplete: Needs additional Imaging. RECOMMENDATION: Additional Imaging required Additional mammogram and ultrasound diagnostic imaging will be scheduled for the patient for the right axillary palpable lump. Electronically signed by: Estefani Alvarez DO 10/11/2024 01:45 PM EDT Dictated By: Estefani Alvarez DO Signed By: <Electronically signed by Estefani Alvarez DO in OV> 10/11/24 1345 DD/ 1200 TD/TT: 10/11/24 1215 Public Works Technician: [facility] External Provider IMG BI PROCEDURES Final Result * BI MR Breast w and w/o Contrast Bilateral (08/09/2024 4:03 PM EDT) Anatomical Region Laterality Modality Breast Bilateral Magnetic Resonan ce 08/09/2024 4:03 PM EDT Narrative 08/12/2024 7:55 PM EDT [address] [address] Magnetic Resonance Report Signed Patient: Darcy Ordaz MR#: [id number] : 1975 Acct:[id number] Age/Sex: 49 / F ADM Date: 08/09/24 Loc: HO.MRI Attending Dr: Ada Caruso DO Ordering Physician: Ada Caruso DO Date of Service: 08/09/24 Procedure(s): MR breast BI wo/w con Accession Number(s): [id number] cc: Ada Caruso DO EXAMINATION: MR BREAST WITHOUT AND WITH CONTRAST, BILATERAL CLINICAL INFORMATION: Risk screening show family history of breast cancer including a maternal aunt and paternal grandmother. Patient also has a right axillary palpable lump. COMPARISON: Screening mammography March 2023. Breast MRI dated April 2023 TECHNIQUE: MR imaging of the breast was performed using T1 and T2 and fat saturated techniques. Dynamic multiphase imaging was also performed after administration of intravenous gadolinium contrast agent. Computer generated 3-D reconstruction was performed. FINDINGS: There is heterogeneous fibroglandular breast tissue with minimal background enhancement. LEFT BREAST: No suspicious enhancing masses or areas of nonmass enhancement. No architectural distortion. No internal mammary or axillary adenopathy. RIGHT BREAST: No suspicious enhancing masses or areas of nonmass enhancement. No architectural distortion. No internal mammary or axillary adenopathy. Limited views of the chest and abdomen are unremarkable. MR/MR breast BI wo/w con IMPRESSION: 1. Patient is overdue for screening yearly mammogram. Bilateral screening mammography is recommended at this time. 2. Patient states hard mass in the right axilla. Recommend diagnostic mammography and ultrasound at this time for further evaluation. 3. No MR specific evidence of malignancy bilateral breasts. ASSESSMENT: LEFT BREAST: BI-RADS 1-Negative RIGHT BREAST: BI-RADS 1-Negative RECOMMENDATIONS: Recommend diagnostic right axillary imaging at this time with mammogram and ultrasound. Recommend bilateral screening mammography. Electronically signed by: Estefani Alvarez DO 08/12/2024 07:52 PM EDT Dictated By: Estefani Alvarez DO Signed By: <Electronically signed by Estefani Alvarez DO in OV> 08/12/241951 DD/ 1603 TD/TT: 08/09/24 9704 Public Works Technician: Procedure Note Donotuseinterpreter, Image - 08/12/[address] [address] Magnetic Resonance Report Signed Patient: Anish Ordaz#: [id number] : 1975Acct:[id number] Age/Sex: 49 / FADM Date: 08/09/24 Loc: HO.MRI Attending Dr: Ada Caruso DO Ordering Physician: Ada Caruso DO Date of Service: 08/09/24 Procedure(s): MR breast BI wo/w con Accession Number(s): [id number] cc: Ada Caruso DO EXAMINATION: MR BREAST WITHOUT AND WITH CONTRAST, BILATERAL CLINICAL INFORMATION: Risk screening show family history of breast cancer including a maternal aunt and paternal grandmother. Patient also has a right axillary palpable lump. COMPARISON: Screening mammography March 2023. Breast MRI dated April 2023 TECHNIQUE: MR imaging of the breast was performed using T1 and T2 and fat saturated techniques. Dynamic multiphase imaging was also performed after administration of intravenous gadolinium contrast agent. Computer generated 3-D reconstruction was performed. FINDINGS: There is heterogeneous fibroglandular breast tissue with minimal background enhancement. LEFT BREAST: No suspicious enhancing masses or areas of nonmass enhancement. No architectural distortion. No internal mammary or axillary adenopathy. RIGHT BREAST: No suspicious enhancing masses or areas of nonmass enhancement. No architectural distortion. No internal mammary or axillary adenopathy. Limited views of the chest and abdomen are unremarkable. MR/MR breast BI wo/w con IMPRESSION: 1. Patient is overdue for screening yearly mammogram. Bilateral screening mammography is recommended at this time. 2. Patient states hard mass in the right axilla. Recommend diagnostic mammography and ultrasound at this time for further evaluation. 3. No MR specific evidence of malignancy bilateral breasts. ASSESSMENT: LEFT BREAST: BI-RADS 1-Negative RIGHT BREAST: BI-RADS 1-Negative RECOMMENDATIONS: Recommend diagnostic right axillary imaging at this time with mammogram and ultrasound. Recommend bilateral screening mammography. Electronically signed by: Estefani Alvarez DO 08/12/2024 07:52 PM EDT Dictated By: Estefani Alvarez DO Signed By: <Electronically signed by Estefani Alvarez DO in OV> 08/12/241951 DD/ 1603 TD/TT: 08/09/24 8284 Public Works Technician: Ada Caruso DO IMG MRI PROCEDURES Edited Re sult - Final * Hematoxylin and Eosin Stain (08/06/2024 11:42 AM EDT) 08/06/2024 11:4 2 AM EDT 08/06/2024 12:08 PM EDT [facility] - 08/07/2024 11:24 AM EDT ----- ------- Name: Javad MarinDarcy Age/Sex: 49/F : 1975 Unit#: [id number] Attend Dr: Mayo Heath MD Re08/06/24 Status: DEP REF Location: HO.LNP Disch: ----- ------- SPEC : [id number] RECD: 08/06/241208 STATUS: BOBO MURRAY NUM: [id number] CARLOS: 08/06/24-[address] [facility] [address]: Mayo Heath MD ENTERED: 08/06/24-1233 SP TYPE: Surgical OTHR DR: Ada Caruso DO ORDERED: HE Stain/2, Gross Micro L4 Diagnosis Endometrium, biopsy: Proliferative endometrium with stromal breakdown; negative for atypia, hyperplasia or malignancy. Clinical History PMB Microscopic Description Microscopic sections reviewed. Material Received EMB Gross Description Received in formalin labeled EMB is a 2.0 x 2.0 x 0.45 cm aggregate of predominantly mucus and blood and fragments of congested and hemorrhagic red-maroon tissue, submitted in toto in a cassette labeled A. CEDS IHC S/NG Disclaimer NOTE: Unless otherwise stated, all tissue is formalin-fixed and paraffin-embedded. Some or all of the immunohistochemical tests reported herein may have been developed and their performance characteristics determined by [facility]. They have not been cleared or approved by the U.S. Food and Drug Administration (FDA). However, the FDA has determined that such clearance or approval is not necessary. This laboratory is certified under the Clinical Laboratory Improvement Amendments of 1988 (CLIA) as qualified to perform high complexity clinical laboratory testing. Copies To: Ada Caruso DO [address] [address] CONTINUED ON NEXT PAGE ----- ------- Name: Darcy Ordaz Age/Sex: 49/F : 1975 Unit#: [id number] Attend Dr: Mayo Heath MD Re08/06/24 Status: DEP REF Location: [facility] Disch: ----- ------- SPEC : [id number] RECD: 08/06/24-120 STATUS: BOBO MURRAY NUM: [id number] CARLOS: 08/06/24-[address] [facility] [address]: Mayo Heath MD ENTERED: 08/06/24-1233 SP TYPE: Surgical OTHR DR: Ada Caruso DO ORDERED: HE Stain/2, Gross Micro L4 Copies To: (Continued) Mayo Heath MD [facility] [address] [place] [address] ----- ------- Signed (signature on file) Cassandra Isaac MD 08/07/24 1124 ----- ------- END OF REPORT us Generic External Data Provider LAB BLOOD ORDERAB LES Final Result [facility] [address] [place] [address] [phone] * HPV DNA, Low/High Risk (08/06/2024 11:41 AM EDT) HPV High Risk Negative Negative [facility] HPV Genotype 16 Negative Negative [facility] HPV Genotype 18 Negative Negative [facility] Comment:HPV testing performe d at [facility] (CLIA#[id number]), [address] [place] [address].Testing for HPV was performed using the [employer]system. The presence of HPV in the female genital tract isassociated with a number of diseases, including cervicalcarcinoma. The HPV DNA high risk pool tests for HPV 31, 33,35, 39, 45, 51, 52, 56, 58, 59, 66 and 68. The testing forHPV 16 and 18 genotypes has also been performed. A positiveresult indicates detection of nucleic acid sequences fromone or more subtypes, whereas a negative result indicatessuch sequences were not detected. 08/06/2024 11:4 1 AM EDT 08/06/2024 2:18 PM EDT us Generic External Data Provider LAB BLOOD ORDERAB LES Final Result [facility] [address] [place] [phone] * Pap Smear (08/06/2024 11:41 AM EDT) 08/06/2024 11:4 1 AM EDT 08/06/2024 2:18 PM EDT Jennifer [facility] - 08/13/2024 10:31 AM EDT ----- ------- Name: Darcy Ordaz Age/Sex: 49/F : 1975 Unit#: [id number] Attend Dr: Mayo Heath MD Re08/06/24 Status: DEP REF Location: .LNP Disch: ----- ------- SPEC : [id number] RECD: 08/06/24 STATUS: BOBO MURRAY NUM: [id number] CARLOS: 08/06/241141 [facility] DR: Mayo Heath MD ENTERED: 08/06/24143 SP TYPE: Pap Smr OT DR: Ada Caruso DO ORDERED: Pap Smear Interpretation Satisfactory for evaluation. Negative for intraepithelial lesion or malignancy. Scant cellularity. HPV High Risk: Negative HPV Genotyping 16: Negative HPV Genotyping 18: Negative Clinical Information LMP: Postmenopausal Previous PAP test: 10/12/2022, Unknown findings Other history: Postmenopausal bleeding Material Received ThinPrep-Cervical PAP Disclaimer As of December 28, 2023, the technical services to include automated prescreening performed by the ThinPrep Imaging System, PAP screening and HPV testing will be performed at [facility] (CLIA #[id number]), [address] [place] [address]. Testing for HPV was performed using the [employer] system. The presence of HPV in the female genital tract is associated with a number of diseases, including cervical carcinoma. The HPV DNA high risk pool tests for HPV 31, 33, 35, 39, 45, 51, 52, 56, 58, 59, 66 and 68. The testing for HPV 16 and 18 genotypes has also been performed. A positive result indicates detection of nucleic acid sequences from one or more subtypes, whereas a negative result indicates such sequences were not detected. All professional services are performed by [facility] ([address] [place], [place] [id number]; ; CLIA #[id number]). The PAP Test is a screening procedure with the inherent possibility of both false negative and false positive results. Results should be interpreted in the context of historic and current clinical findings. Reliability of the PAP Test is enhanced by performing the test on a regular repetitive basis. CONTINUED ON NEXT PAGE ----- ------- Name: Darcy Ordaz Age/Sex: 49/F : 1975 Unit#: [id number] Attend Dr: Mayo Heath MD Re08/06/24 Status: DEP REF Location: [facility] Disch: ----- ------- SPEC : [id number] RECD: 08/06/24-1418 STATUS: BOBO MURRAY NUM: [id number] CARLOS: 08/06/24-[address] [facility] [address]: Mayo Heath MD ENTERED: 08/06/24-1123 SP TYPE: Pap Smr OTHR DR: Ada Caruso DO ORDERED: Pap Smear Copies To: Ada Caruso DO [address] [phone] Mayo Heath MD [facility] [address] [place] [address] [place] [phone] ----- ------- Signed (signature on file) JIGNA Quinones ([facility]) 08/13/24 1031 ----- ------- END OF REPORT Generic External Data Provider LAB CYTOLOGY JENE RABANITA Final Result Performing Organization Address City/[facility]/ZIP Co de Phone Number [facility] [address] [place] [phone] * Hepatitis C Antibody with Reflex to HCV, RNA, Quantitative, Real-Time PCR (06/29/2024 9:18 AM EDT) [facility] Hepatitis C Antibody Nonreactive Nonreactive [facility] Comment:Antibodies to HCV no t detected; does not exclude early acuteHCV infection. Blood Venous blood specimen / Unknown 06/29/2024 9:18 AM EDT 06/29/2024 11:06 AM EDT Ada Caruso DO LAB BLOOD ORDERABLES Final R esult Performing Organization Address City/[facility]/ZIP Co de Phone Number [facility] [address] [place] [phone] * HIV-1/2 Antigen and Antibodies, Fourth Generation, with Reflexes (06/29/2024 9:18 AM EDT) [facility] HIV AB/AG Nonreactive Nonreactive [facility] Comment:HIV-1 p24 Ag and/or HIV-1/HIV-2 Ab not detected.A test result that is nonreactive does not exclude thepossibility of exposure to or infection with HIV-1 and/orHIV-2. Nonreactive results in this assay for individualswith prior exposure to HIV-1 and/or HIV-2 may be due toantigen and antibody levels that are below the limit ofdetection of this assay.The [employer] HIV Ag/Ab Combo assay result andsupplemental assay results should be interpreted inconjunction with the patient's clinical presentation,history and other laboratory results. If the results areinconsistent with clinical evidence, additional testing issuggested to confirm the result. Blood Venous blood specimen / Unknown 06/29/2024 9:18 AM EDT 06/29/2024 11:06 AM EDT Ada Caruso LAB BLOOD ORDERABLES Final R esult Performing Organization Address City/[facility]/ZIP Co de Phone Number [facility] [address] [place] [phone] * Hemoglobin A1c (06/29/2024 9:18 AM EDT) Hemoglobin A1c 5.6 <6.0 % [facility] Comment:Hemoglobin A1C Refer ence Range Adults: 4.8 - 6.0 % Non diabetic: < 6.0 % Goal: < 7.0 %Additional Action Suggested: > 8.0 %Note: Hemoglobin A1c results are invalid for patients with abnormal amounts of HbF. Blood transfusions may impact the HbA1c concentration in the patient sample. Estimated Average Glucose 114 mg/dL [facility] Comment:eAG = Estimated ave rage glucose which is %A1C expressed asaverage glucose, using the formula of the P8D-IlyaxupDfyrvav Glucose study (ADAG), Diabetes Care, Vol.31,#8,Oct. 2007 Blood Venous blood specimen / Unknown 06/29/2024 9:18 AM EDT 06/29/2024 11:06 AM EDT Ada Dominguezcandido DO LAB BLOOD ORDERABLES Final R esult Performing Organization Address City/[facility]/ZIP Co de Phone Number [facility] [address] [place] [phone] * (ABNORMAL) Lipid Panel, Standard (06/29/2024 9:18 AM EDT) Triglycerides 112 <150 mg/dL [facility] Comment:Desirable Triglyceri de: less than 150 mg/dLBorderline High Triglyceride 150-199 mg/dLHigh Triglyceride: 200-499 mg/dLVery High Triglyceride: greater than or equal to 5OO mg/dL Cholesterol 291(H) <200 mg/dL [facility] Comment:Desirable Cholestero l: less than 200 mg/dLBorderline High Cholesterol: 200-239 mg/dLHigh Cholesterol: greater than 239 mg/dL LDL Cholesterol Calculated 186(H) <100 mg/dL [facility] Comment:Desirable LDL: less than 100 mg/dLNear Optimal/Above Optimal LDL: 110- 129 mg/dLBorderline High LDL: 130-159 mg/dLHigh LDL: 160-189 mg/dLVery High LDL: greater than or equal to 190 mg/dL HDL Cholesterol 83 >40 mg/dL [facility] Comment:Desirable HDL: great er than 40 mg/dL Note: This HDL assay may give artificially low results in patients with liver disease. Blood Venous blood specimen / Unknown 06/29/2024 9:18 AM EDT 06/29/2024 11:06 AM EDT us Ada Caruso DO LAB BLOOD ORDERABLES Final R esult [facility] [address] [place] [address] [phone] from Last 3 Months or Most Recently Relevant to Health Maintenance Insurance HSN PARTIAL BCBS PPO Care Teams Tailing Hand Relationship Specialty Start Date End Date Ada Caruso DO [address] [place] [address] PCP - General Family Medicine 07/13/21
--- OUTSIDE RECORDS SUMMARY | 2024-10-29 14:38 | XMS_ITS | Encounter Summary ---
Author Organization [facility] Address [address] [place] [address] Care Team Providers Care Career Development Counselor Name Role Phone Porsche Etienne DO Primary Care Pro vider Unavailable Yari Lerma MD Primary Care Provider [phone] [facility], [facility] Primary Care Provider Unavailabl e Reason for Visit * Reason Onset Date Comments refill request 12/25/2018 Encounter Details Date Type Department Care Team Description 12/25/2018 Telephone Adult Medicine [address] [address] Porsche Etienne DO refill request Social History [...] on filedocumented in this encounter Care Teams Career Development Counselor Relationship Specialty Start Date End Date Porsche Etienne DO PCP - General Internal Medicine 10/18/18 10/30/20 Yari Lerma MD [address] [place] [address] PCP - General Internal Medicine 10/31/20 03/24/[address] [address] PCP - General Internal Medicine 03/25/23 documented as of this encounter
--- OUTSIDE RECORDS SUMMARY | 2024-10-29 14:38 | XMS_ITS | Encounter Summary ---
Author Organization [facility] Address [address] [place] [address] Care Team Providers Care Business Office Technology Instructor Name Role Phone Porsche Etienne DO Primary Care Pro vider Unavailable Yari Lerma MD Primary Care Provider [phone] [facility], Pcp Primary Care Provider Unavailabl e Encounter Details Date Type Department Care Team Description 04/19/2019 Release of Information Medical Records [address] [place] [id number] Abstract, Provider Social History Tobacco Use Types [...] filedocumented in this encounter Care Teams Business Office Technology Instructor Relationship Specialty Start Date End Date Porsche Etienne DO PCP - General Internal Medicine 10/18/18 10/30/20 Yari Lerma MD [address] [place], [place] [phone] PCP - General Internal Medicine 10/31/20 03/24/23 [facility], Pcp [address] [place], [place] [phone] PCP - General Internal Medicine 03/25/23 documented as of this encounter
--- OUTSIDE RECORDS SUMMARY | 2024-10-29 14:38 | XMS_ITS | Encounter Summary ---
Author Organization [facility] Address [address] [place] [address] Care Team Providers Care Video Producer Name Role Phone Porsche Etienne DO Primary Care Pro vider Unavailable Yari Lerma MD Primary Care Provider [phone] Formerly [facility], Pcp Primary Care Provider Unavailabl e Encounter Details Date Type Department Care Team Description 12/26/2018 Orders Only Adult Medicine [address] [address] Porsche Etienne DO Social History Tobacco Use [...] on filedocumented in this encounter Care Teams Video Producer Relationship Specialty Start Date End Date Porsche Etienne DO PCP - General Internal Medicine 10/18/18 10/30/20 Yari Lerma MD [address] [place] [id number] PCP - General Internal Medicine 10/31/20 03/24/23 Formerly [facility], [address] [address] PCP - General Internal Medicine 03/25/23 documented as of this encounter
--- OUTSIDE RECORDS SUMMARY | 2024-10-29 14:38 | XMS_ITS | Encounter Summary ---
Author Organization [employer] Address [address] [facility] 7t [place] [address] Care Team Providers Care Youth Corrections Officer Name Role Phone Ada Caruso DO Primary Care Provider + [phone] Reason for Visit * Reason Onset Date Comments Med Refill 11/25/2023 Encounter Details Date Type Department Care Team (Late st Contact Info) Description 11/25/2023 Refill [facility] [address] [place] [address] Ada Caruso DO [address] [place] [address] Social History Tobacco Use Types Packs/Day Years [...] documented as of this encounter Care Teams Youth Corrections Officer Relationship Specialty Start Date End Date Ada Caruso DO [address] [place] [address] PCP - General Family Medicine 07/13/21 documented as of this encounter
--- OUTSIDE RECORDS SUMMARY | 2024-10-29 14:38 | XMS_ITS | Encounter Summary ---
Author Organization [employer] Address [address] [facility] 7t [place] [address] Care Team Providers Care Net Sorter Name Role Phone Ada Caruso DO Primary Care Provider + [phone] Reason for Visit * Reason Comments Med Refill Encounter Details Date Type Department Care Team ([facility] st Contact Info) Description 09/24/2023 Refill [facility] [address] [place] [address] Ada Caruso DO [address] [place] [address] Nonintractable chronic migraine Social History Tobacco Use [...] documented as of this encounter Care Teams Net Sorter Relationship Specialty Start Date End Date Ada Caruso DO [address] [place] [address] PCP - General Family Medicine 07/13/21 documented as of this encounter
--- OUTSIDE RECORDS SUMMARY | 2024-10-29 14:38 | XMS_ITS | Encounter Summary ---
Author Organization [employer] Address [address] [facility] 7t [place] [address] Care Team Providers Care Shank Skinner Name Role Phone Ada Caruso DO Primary Care Provider + [phone] Reason for Visit * Reason Onset Date Comments Referal Questions 07/23/2024 Encounter Details Date Type Department Care Team ([facility] st Contact Info) Description 07/23/2024 Telephone [facility] [address] [place] [address] Ada Caruso DO [address] [place] [address] Referal Questions Social History Tobacco Use Types Packs/Day Years [...] encounter Miscellaneous Notes * Telephone Encounter - Bonnie Birmingham - 07/23/2024 2:21 PM EDT Tc from pt requesting status on therapist referral Contact pt at [phone] documented in this encounter Plan of Treatment Not on file documented as of this encounter Visit Diagnoses Not on filedocumented in this encounter Additional Health Concerns Assessment Noted Time PHQ-9 Depression Total Score: 20 025 12:04 PM EDT documented as of this encounter Care Teams Shank Skinner Relationship Specialty Start Date End Date Ada Caruso DO [address] [place] [address] PCP - General Family Medicine 07/13/21 documented as of this encounter
--- OUTSIDE RECORDS SUMMARY | 2024-10-29 14:38 | XMS_ITS | Encounter Summary ---
Author Organization [employer] Address [address] [facility] 7t [place] [address] Care Team Providers Care Conveyor Line Battery Charger Name Role Phone Ada Caruso DO Primary Care Provider + [phone] Reason for Visit * Reason Onset Date Comments Medication Question 07/23/2024 Encounter Details Date Type Department Care Team ([facility] st Contact Info) Description 07/23/2024 Telephone [facility] [address] [place], [place] [phone] Ada Caruso DO [address] [place] [address] Medication Question Social History Tobacco Use Types [...] Telephone Encounter - Bonnie Birmingham - 07/23/2024 2:26 PM EDT Tc from pt stating script for Zedbound requires a prior authorization for clarification contact the pt at [phone] documented in this encounter Plan of Treatment Not on file documented as of this encounter Visit Diagnoses Not on filedocumented in this encounter Additional Health Concerns Assessment Noted Time PHQ-9 Depression Total Score: 20 025 12:04 PM EDT documented as of this encounter Care Teams Conveyor Line Battery Charger Relationship Specialty Start Date End Date Ada Caruso DO [address] [place] [address] PCP - General Family Medicine 07/13/21 documented as of this encounter
--- OUTSIDE RECORDS SUMMARY | 2024-10-29 14:38 | XMS_ITS | Encounter Summary ---
Author Organization [facility] Address [address] [place] [address] Care Team Providers Care Eyelet Punch Operator Name Role Phone Porsche Etienne DO Primary Care Pro vider Unavailable Yari Lerma MD Primary Care Provider [phone] [facility], [facility] Primary Care Provider Unavailabl e Reason for Visit * Reason Onset Date Comments APPOINTMENT 06/11/2019 Please reschedul e this nonessential full skin exam unless the patient has a concern Encounter Details Date Type Department Care Team Description 06/11/[address] [place] [address] Juan Burgos PA-C APPOINTMENT (Please reschedule this [...] on filedocumented in this encounter Care Teams Eyelet Punch Operator Relationship Specialty Start Date End Date Porsche Etienne DO PCP - General Internal Medicine 10/18/18 10/30/20 Yari Lerma MD [address] [place] [address] PCP - General Internal Medicine 10/31/20 03/24/[address] [address] PCP - General Internal Medicine 03/25/23 documented as of this encounter
== END 2024-10-29 13:17 | disposition home or self-care (01) ==
LOC: HO.MAMMO 13:16
PROVIDERS: PCP Obstetrics & Gynecology; Visit Provider Obstetrics & Gynecology
DX: R22.30 Localized swelling, mass and lump, unspecified upper limb (principal)
CPT/HCPCS: 76642

== ENCOUNTER → 2024-10-29 14:00 | Outpatient (BNV) | payer BC, SELFPAY | PROVIDERS: PCP Obstetrics & Gynecology; Visit Provider Radiology Body Imaging | DX: N63.31 Unspecified lump in axillary tail of the right breast (principal) | CPT/HCPCS: 76642 ==

== ENCOUNTER 2024-11-19 12:23 | Outpatient (AMB) | payer BC, SELFPAY ==
--- NOTE | 2024-11-19 12:47 | A.OFFVIS_ITS ---
Vital Signs 11/19/24 12:51 Height 5 ft 4 in Weight 176 lb 5.917 oz BMI 30.3 BP 108/54 L Blood Pressure Location Lt brachial Position Sitting Pulse 78 Intake Visit Reasons: 4 month follow up Intake Note: Darcy presents in the office as a 4 month follow up. CC: states she only has constipation and she is not sure if it is the iron or the zepbound. Media Production Support Manager Required: No Allergies aspirin Allergy (Unknown, Verified 11/19/24 12:51) swelling, itchy eyes;swelling of face HPI HPI 4 month follow up: Details: 49 yr old f here for f/u RECAP: Was seeing [facility] HAD scopes 11/28 Endoscopy Findings: gastric polyp gastritis esophagitis, mild Colonoscopy Findings: diverticulosis colon polyp internal hemorrhoids Plan: Await Pathology results Repeat Colonoscopy in 5 years due to polyp or earlier if clinically indicated High fiber diet leaflet avoid straining at stool, epsom salts and sitz bath, anusol supps or cream if H pylori pos then treat Path: hyperplastic stomach polyp colon tubular adenoma active esophagitis I gave her h pylori treatment and f/u testing was negative INTERIM: she has constipation she is on iron due to SHEILA from heavy periods she is also on zepbound last colo as above she has no nausea no vomiting no abdominal pain tsh nml EXAM: GENERAL: The patient is well developed and nontoxic. VITAL SIGNS:see workflow HEENT: Nonicteric sclerae, PERRLA, EOMI. Oropharynx clear. Moist mucous membranes. Conjunctivae appear well perfused. No thyroid mass. CHEST: Chest wall is nontender. HEART: Regular rate and rhythm without murmurs. LUNGS: Clear to auscultation bilaterally. ABDOMEN: Soft, positive bowel sounds, tender epigastrium, no organomegaly.no flank tenderness SKIN: No rash, no excessive bruising, petechiae, or purpura. NEUROLOGIC: Cranial nerves II-XII intact without motor/sensory deficit. Psych: normal affect A/p: 1/ H pylori now eradicated 2/ TUbular adenoma 3/ constipation from medications PLAN: 1/advised on healthy diet, more fiber, metamucil, increase fluid intake 2/ can try colace BID, miralax prn PFSH Medical History (Updated 11/19/24 @ 13:24 by Magdaleno Michaud MD) Asthma Anxiety Depression Surgical History (Updated 11/19/24 @ 12:51 by AUNG Kline) Hx of colonoscopy History of esophagogastroduodenoscopy (EGD) H/O breast biopsy Hx of tubal ligation Family History Father HTN (hypertension) Diabetes Parkinson disease Mother Diabetes Maternal Aunt Breast cancer Paternal Grandmother Breast cancer Maternal Grandmother Colon cancer Social History Household Members: Significant Other Housing: Apartment Are you a primary healthcare management to a significant other at home: No Do you presently have visiting nurse or other home services: No Alcohol intake: current Alcohol intake frequency: holidays/special occasions only Patient Tobacco Use Status: Never used Tobacco Current occupational status: employed 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
[2024-11-19 12:51] VITALS: BP 108/54; PULSE 78; BMI 30.3
--- OUTSIDE RECORDS SUMMARY | 2024-11-19 17:04 | XMS_ITS | Encounter Summary ---
Author Organization [facility] Address [address] [facility] 7t [place] [address] Care Team Providers Care Manager Gyn Name Role Phone Ada Caruso DO Primary Care Provider + [phone] Reason for Visit * Reason Onset Date Comments Med Refill 09/20/2024 Encounter Details Date Type Department Care Team (Late st Contact Info) Description 09/20/2024 Refill [facility] [address] [place] [address] Ada Caruso DO [address] [place] [address] Depression, unspecified depression type Social History Tobacco [...] as of this encounter Plan of Treatment Upcoming Encounters Date Type Department Care Team (Late st Contact Info) Description 01/18/2025 3:30 PM EST Office Visit [facility] [address] [place] [address] Harris Ayala MD [address] [place] [address] documented as of this encounter Visit Diagnoses Diagnosis Depression, unspecified depression type documented in this encounter Additional Health Concerns Assessment Noted Time PHQ-9 Depression Total Score: 20 025 12:04 PM EDT documented as of this encounter Care Teams Manager Gyn Relationship Specialty Start Date End Date Ada Caruso DO [address] [place] [address] PCP - General Family Medicine 07/13/21 documented as of this encounter
--- OUTSIDE RECORDS SUMMARY | 2024-11-19 17:04 | XMS_ITS | Encounter Summary ---
Author Organization [employer] Address [address] [place] [address] 7t [place] [address] Care Team Providers Care Balance Weigher Name Role Phone Ada Caruso DO Primary Care Provider [phone] Encounter Details Date Type Department Care Team (Late st Contact Info) Description 04/01/2022 Orders Only [facility] [address] [place] [address] Callie Lugo LPN Social History Tobacco Use [...] Description 01/18/2025 3:30 PM EST Office Visit [facility] [address] [place] [address] Harris Ayala MD [address] [place] [address] documented as of this encounter Visit Diagnoses Not on filedocumented in this encounter Care Teams Balance Weigher Relationship Specialty Start Date End Date Ada Caruso DO [address] [place] [address] PCP - General Family Medicine 07/13/21 documented as of this encounter
--- OUTSIDE RECORDS SUMMARY | 2024-11-19 17:04 | XMS_ITS | Encounter Summary ---
Author Organization [employer] Address [address] [facility] 7t [place] [address] Care Team Providers Care Retail Asset Protection Specialist Name Role Phone Ada Caruso DO Primary Care Provider + [phone] Reason for Visit * Reason Onset Date Comments Nurse Triage 10/07/2022 Encounter Details Date Type Department Care Team (Late st Contact Info) Description 10/07/2022 Telephone [facility] [address] [place] [address] Ada Caruso DO [address] [place] [address] Nurse Triage Social History Tobacco Use Types [...] 10/07/2022 11:09 AM EDT Triage call with [place] [facility] [place] [id number] Pt reports period in September was from [...] 10/07/2022 9:52 AM EDT Triage call with [employer] [place] [place] [id number] Pt didn't answer. Left voice message to call [facility] At [phone]. * Telephone Encounter - Sarah Reardon - 10/07/2022 9:37 AM EDT Symptom: Vaginal Bleeding - Not Outcome: Schedule an appointment to be seen within 24 hours Reason: unusual color/discharge The caller accepted this outcome Please contact pt at [phone] (Serbian) documented in this encounter Plan of Treatment Upcoming Encounters Date Type Department Care Team (Late st Contact Info) Description 01/18/2025 3:30 PM EST Office Visit [facility] [address] [place], [place] [phone] Harris Ayala MD [address] [place], [place] [phone] documented as of this encounter Visit Diagnoses Not on filedocumented in this encounter Additional Health Concerns Assessment Noted Time PHQ-9 Depression Total Score: 0 08/12/19 9:19 AM EDT documented as of this encounter Care Teams Retail Asset Protection Specialist Relationship Specialty Start Date End Date Ada Caruso DO [address] [place] [address] PCP - General Family Medicine 07/13/21 documented as of this encounter
--- OUTSIDE RECORDS SUMMARY | 2024-11-19 17:04 | XMS_ITS | Encounter Summary ---
Author Organization [employer] Address [address] [facility] 7t [place] [address] Care Team Providers Care Promotional Model Name Role Phone Aad Caruso DO Primary Care Provider + [phone] Encounter Details Date Type Department Care Team ([facility] st Contact Info) Description 05/14/2022 Orders Only [facility] [address] [place] [address] Karin Shepherd MD [address] [place], [place] [phone] Iron deficiency anemia, unspecified iron deficiency anemia [...] Description 01/18/2025 3:30 PM EST Office Visit [facility] [address] [place], [place] [phone] Harris Ayala MD [address] [place], [place] [phone] documented as of this encounter Procedures Procedure Name Priority Date/Time Associated Diagnosis Comments CBC MORPHOLOGY Routine 05/27/2022 1:42 PM EDT CBC WITH AUTO DIFFERENTIAL Routine 05/27/2022 1:42 PM EDT Iron deficiency anemia, unspecified iron deficiency anemia type documented in this encounter Results * CBC MORPHOLOGY (05/27/2022 1:42 PM EDT) CBC MORPHOLOGY [facility] Comment:Polychromasia 1 + 05/27/2022 1:42 PM EDT 05/27/2022 1:42 PM EDT us Karin Shepherd MD LAB BLOOD ORDERABLES Final Res ult [facility] [address], [place] [address] [facility] [address] [place] [address] * (ABNORMAL) CBC auto differential (05/27/2022 1:42 PM EDT) White Blood Cell Count 8.6 3.8 - 10.8 Thousand/ uL [facility] Red Blood Cell Count 4.04 3.80 - 5.10 Million/u L [facility] Hemoglobin 8.5(L) 11.7 - 15.5 g/dL [facility] Hematocrit 28.2(L) 35.0 - 45.0 % [facility] MCV 69.8(L) 80.0 - 100.0 fL [facility] MCH 21.0(L) 27.0 - 33.0 pg [facility] MCHC 30.1(L) 32.0 - 36.0 g/dL [facility] RDW 19.3(H) 11.0 - 15.0 % [facility] Platelet Count 223 140 - 400 Thousand/ uL [facility] MPV 10.5 7.5 - 12.5 fL [facility] Absolute Neutrophils 4,223 1,500 - 7,800 cells/uL [facility] Absolute Lymphocytes 3,552 850 - 3,900 cells/uL [facility] Absolute Monocytes 619 200 - 950 cells/uL [facility] Absolute Eosinophils 146 15 - 500 cells/uL [facility] Absolute Basophils 60 0 - 200 cells/uL [facility] Neutrophils 49.1 % [facility] [place] [facility] Lymphocytes 41.3 % [facility] Monocytes 7.2 % [facility] [place] [facility] Eosinophils 1.7 % [facility] [place] [facility] Basophils 0.7 % [facility] [place] [facility] Blood Venous blood specimen / Unknown 05/27/2022 1:42 PM EDT 05/27/2022 1:42 PM EDT us Karin Shepherd MD LAB BLOOD ORDERABLES Final Res ult [facility] [address], [place] [address] [facility] [address] [place] [address] documented in this encounter Visit Diagnoses Diagnosis Iron deficiency anemia, unspecified iron deficiency anemia type- Primary documented in this encounter Additional Health Concerns Assessment Noted Time PHQ-9 Depression Total Score: 9 05/13/19 23 10:46 AM EST documented as of this encounter Care Teams Promotional Model Relationship Specialty Start Date End Date Ada Caruso DO [address] [place] [address] PCP - General Family Medicine 07/13/21 documented as of this encounter
--- OUTSIDE RECORDS SUMMARY | 2024-11-19 17:04 | XMS_ITS | Encounter Summary ---
Author Organization [employer] Address 75 [facility] 7t [place] [address] Care Team Providers Care Director Of Parks And Recreation Name Role Phone Ada Caruso DO Primary Care Provider + [phone] Encounter Details Date Type Department Care Team (Late Contact Info) Description 06/02/2022 Orders Only [facility] MEDICINE [address] [place] [phone] Karin Shepherd MD [address] [place] [address] [phone] Social History Tobacco Use Types Packs/Day Years [...] Encounters Date Type Department Care Team (Late Contact Info) Description 01/18/2025 3:30 PM EST Office Visit [facility] MEDICINE [address] [place] [phone] Harris Ayala MD [address] [place] [phone] documented as of this encounter Visit Diagnoses Not on filedocumented in this encounter Additional Health Concerns Assessment Noted Time PHQ-9 Depression Total Score: 9 05/13/19 23 10:46 AM EST documented as of this encounter Care Teams Director Of Parks And Recreation Relationship Specialty Start Date End Date Ada Caruso DO [address] [place] [address] PCP - General Family Medicine 07/13/21 documented as of this encounter
--- OUTSIDE RECORDS SUMMARY | 2024-11-19 17:04 | XMS_ITS | Clinical Summary ---
Author Organization [facility] Address [address] [place] [address] Phone Care Team Providers Care Filling Layer Up Name Role Phone Yari Lerma MD Primary Care Provider [phone] Allergies Active Allergy Reactions Criticality Noted Date [...] 8 (eight) hours. 30 tablet 5 Active atorvastatin (LIPITOR) 20 mg tablet Take 1 tablet (20 mg total) by mouth daily. 5 07/16/19 26 Active tirzepatide, weight loss, (Zepbound) 10 mg/0.5 mL injection Inject 0.5 mL (10 mg total) under the skin every 7 (seven) days for 28 days. 2 mL 5 12/15/19 25 Active tirzepatide, weight loss, (Zepbound) 7.5 mg/0.5 mL injection Inject 0.5 mL (7.5 mg total) under the skin every 7 (seven) days for 28 days. 2 mL 5 11/10/19 25 Active Problems Problem Noted Date Diagnosed Date Class 1 obesity with serious comorbidity and body mass index (BMI) of 31.0 to 31.9 in adult 10/31/2024 Asthma 02/21/2024 Migraine headache 02/21/2024 GERD (gastroesophageal reflux disease) 9 Irritable bowel syndrome 11/15/2018 Perennial allergic rhinitis 11/15/2018 Prediabetes 11/15/2018 Eczema 08/17/2018 Nasal polyps 08/17/2018 Encounters Date Type Department Care Team Description 10/31/2024 7:45 AM EDT Nutrition Bariatric Surgery - [address] [address] Marlin Peng, YOLY Class 1 obesity with serious comorbidity and body mass index (BMI) of 31.0 to 31.9 in adult, unspecified obesity type (Primary Dx) 10/12/2024 Telephone Bariatric Surgery - [place] [facility] [address] [place] [address] Temi Motley MD 09/14/2024 Telephone Bariatric Surgery - [place] [address] [facility] [address] [place] [address] Temi Motley MD from Last 3 Months Immunizations Name Administration Dates Next Due Hepatitis B (Hrtiyzg-J-Ttpyx , Recombivax HB-Adult) 19yo and older 03/29/2007,07/30/2004,07/03/2004 [...] Date Site/Laterality Comments OTHER SURGICAL HISTORY PROCEDURE: DC LIG/TRNSXJ FLP TUBE ABDL/VAG APPR UNI/BI OTHER SURGICAL HISTORY 02/27/2016 Right PROCEDURE: ---- OTHER ----; COMMENT: Excision of lipoma of the right axilla BREAST BIOPSY 05/26/2015 Right PROCEDURE: BX BREAST; PERC NEEDLE CORE W/IMAG GUID; COMMENT: fibroadenoma COLONOSCOPY 04/12/2019 PROCEDURE: HISTORICAL COLONOSCOPY; COMMENT: negative BREAST SURGERY PROCEDURE: DC UNLISTED PROCEDURE BREAST Medical History Medical History [...] EST Inhaled Oxygen Concentration - - Weight 82.6 kg (182 lb) 10/31/2024 7:43 AM EDT Height 162.6 cm (5' 4 ) 08/15/2024 3:25 PM EDT Body Mass Index 31.24 08/15/2024 3:25 PM EDT Plan of Treatment Upcoming Encounters Date Type Department Care Team (Late st Contact Info) Description 01/03/2025 3:45 PM EDT Office Visit Bariatric Surgery - [place] [address] [address] Temi Motley MD [address] [place] [address] 01/24/2025 10:30 AM EST Nutrition Bariatric Surgery - [place] [address] [address] [address] Health Maintenance Due Date Last Done Comments [...] is recommended in 1 year. Mammo Location: [facility], [address] [place] [address], [id number], . -------- FINAL REPORT -------- Dictated By: Nicki Underwood Dictated Date: 03/29/2024 13:01 ET Assigned Physician: Nicki Underwood Reviewed and Electronically Signed By: Nicki Underwood Signed Date: 03/29/2024 13:08 ET Workstation ID: [id number] Transcribed By: Self Edit Transcribed Date: 03/29/2024 [...] is recommended in 1 year. Mammo Location: [facility], [address] [place] [address], [id number], . -------- FINAL REPORT -------- Dictated By: Nicki Underwood Dictated Date: 03/29/2024 13:01 ET Assigned Physician: Nicki Underwood Reviewed and Electronically Signed By: Nicki Underwood Signed Date: 03/29/2024 13:08 ET Workstation ID: [id number] Transcribed By: Self Edit Transcribed Date: 03/29/2024 13:01 ET Mayo Heath MD IMG BI PROCEDURES Final Result * (ABNORMAL) Comprehensive metabolic panel (03/22/2024 10:07 PM EST) Sodium 137 133 - 145 mmol/L LAB CHEMISTRY METHOD 03/22/2024 10:56 PM [facility] Potassium 3.5 3.5 - 5.5 mmol/L LAB CHEMISTRY METHOD 03/22/2024 10:56 PM [facility] Chloride 102 96 - 110 mmol/L LAB CHEMISTRY METHOD 03/22/2024 10:56 PM [facility] CO2 29 21 - 32 mmol/L LAB CHEMISTRY METHOD 03/22/2024 10:56 PM [facility] Anion Gap 6 3 - 11 LAB CHEMISTRY METHOD 03/22/2024 10:56 PM [facility] Glucose 150(H) 70 - 100 mg/dL LAB CHEMISTRY METHOD 03/22/2024 10:56 PM [facility] BUN 14 5 - 25 mg/dL LAB CHEMISTRY METHOD 03/22/2024 10:56 PM [facility] Creatinine 0.91 0.50 - 1.10 mg/dL LAB CHEMISTRY METHOD 03/22/2024 10:56 PM [facility] eGFR 77 >=60 mL/min/1. 73m2 LAB CHEMISTRY METHOD 03/22/2024 10:56 PM [facility] Comment:Calculation based on the Chronic Kidney Disease Epidemiology Collaboration (CKD-EPI) equation refit without adjustment for race. BUN/Creatinine Ratio 15.4 LAB CHEMISTRY METHOD 03/22/2024 10:56 PM [facility] Calcium 8.8 8.5 - 10.5 mg/dL LAB CHEMISTRY METHOD 03/22/2024 10:56 PM [facility] AST (SGOT) 26 10 - 42 unit/L LAB CHEMISTRY METHOD 03/22/2024 10:56 PM [facility] ALT (SGPT) 40 10 - 60 unit/L LAB CHEMISTRY METHOD 03/22/2024 10:56 PM [facility] Alkaline Phosphatase 95 42 - 121 unit/L LAB CHEMISTRY METHOD 03/22/2024 10:56 PM [facility] Total Protein 7.8 6.0 - 8.0 g/dL LAB CHEMISTRY METHOD 03/22/2024 10:56 PM [facility] Albumin 3.7 3.2 - 5.0 g/dL LAB CHEMISTRY METHOD 03/22/2024 10:56 PM [facility] Total Bilirubin 0.4 0.0 - 1.4 mg/dL LAB CHEMISTRY METHOD 03/22/2024 10:56 PM [facility] Blood Venous blood specimen / Unknown Venipuncture / Unknown 03/22/2024 10:07 PM EST 03/22/2024 10:16 PM EST Amy Foreman DO LAB BLOOD ORDERABLES Priyanka l Result [facility] [address] [place] [address], * HIV Screening (01/06/2021) [facility] HIV Screening abstracted [facility] Provider HEALTH MAINTENANCE Final Result * Hepatitis C Screening (01/06/2021) [facility] Hepatitis C Screening abstracted [facility] Provider HEALTH MAINTENANCE Final Result * (ABNORMAL) Lipid panel (01/06/2021) [facility] LDL/HDL Ratio 4 0 - 4 Triglycerides 174(A) 0 - 150 mg/dL Cholesterol 211(A) 0 - 200 mg/dL HDL 61 >=40 mg/dL LDL Cholesterol 116(A) 0 - 100 mg/dL Blood Venous blood specimen / Unknown [facility] Provider LAB BLOOD ORDERABLES Priyanka l Result * Cervical Cancer Screening: HPV (11/24/2020) [facility] Cervical Cancer Screening: HPV abstracted, negative [facility] Provider HEALTH MAINTENANCE Final Result * Colonoscopy (04/12/2019) [facility] Colonoscopy abstracted, no interpretation Anatomical Region Laterality Modality Other [facility] Provider HEALTH MAINTENANCE Final Result from Last 3 Months or Most Recently Relevant to Health Maintenance Insurance [facility] Care Teams Filling Layer Up Relationship Specialty Start Date End Date Yari Lerma MD [address] [place] [address] PCP - General Internal Medicine 10/31/20
--- OUTSIDE RECORDS SUMMARY | 2024-11-19 17:04 | XMS_ITS | Encounter Summary ---
Author Organization [employer] [facility] Address [address] [place] [address] [address] [place] [address] Care Team Providers Care Marionette Performer Name Role Phone Ada Caruso DO Primary Care Provider + [phone] Reason for Visit * Reason Comments Med Change Request Encounter Details Date Type Department Care Team (Late st Contact Info) Description 10/06/2022 Refill [facility] MEDICINE [address] [place] [address] [phone] Ada Caruso DO [address] [place] [phone] Nonintractable chronic migraine Social History Tobacco Use [...] Description 01/18/2025 3:30 PM EST Office Visit [facility] MEDICINE [address] [place] [phone] Harris Ayala MD [address] [place] [address] [phone] documented as of this encounter Visit Diagnoses Diagnosis Nonintractable chronic migraine documented in this encounter Additional Health Concerns Assessment Noted Time PHQ-9 Depression Total Score: 0 08/12/19 23 9:19 AM EDT documented as of this encounter Care Teams Marionette Performer Relationship Specialty Start Date End Date Ada Caruso DO [address] [place] [address] PCP - General Family Medicine 07/13/21 documented as of this encounter
--- OUTSIDE RECORDS SUMMARY | 2024-11-19 17:04 | XMS_ITS | Encounter Summary ---
Author Organization [employer] Address [address] [facility] [address]t [place] [address] Care Team Providers Care Adoption Counselor Name Role Phone Ada Caruso DO Primary Care Provider + [phone] Reason for Visit * Reason Comments Med Refill Encounter Details Date Type Department Care Team ([facility] st Contact Info) Description 09/24/2023 Refill [facility] MEDICINE [address] [place] [address] Ada Caruso DO [address] [place] [address] Nonintractable chronic migraine Social History Tobacco Use [...] 3:30 PM EST Office Visit [facility] MED[facility]INE [address] [place] [address] Harris Ayala MD [address] [place] [address] documented as of this encounter Visit Diagnoses Diagnosis Nonintractable chronic migraine documented in this encounter Additional Health Concerns Assessment Noted Time PHQ-9 Depression Total Score: 0 08/12/19 23 9:19 AM EDT documented as of this encounter Care Teams Adoption Counselor Relationship Specialty Start Date End Date Ada Caruso DO [address] [place], [place] [phone] PCP - General Family Medicine 07/13/21 documented as of this encounter
--- OUTSIDE RECORDS SUMMARY | 2024-11-19 17:04 | XMS_ITS | Encounter Summary ---
Author Organization [employer] Address [address] [facility] [address] [place] [address] Care Team Providers Care Community Relations Representative Name Role Phone Ada Caruso DO Primary Care Provider + [phone] Reason for Visit * Reason Onset Date Comments Med Refill 11/25/2023 Encounter Details Date Type Department Care Team (Late st Contact Info) Description 11/25/2023 Refill [facility] MEDICINE [address] [place] [address] Ada Caruso DO [address] [place] [address] Social History Tobacco Use Types Packs/Day Years [...] Description 01/18/2025 3:30 PM EST Office Visit [facility] MEDICINE [address] [place] [address] Harris Ayala MD [address] [place] [address] documented as of this encounter Visit Diagnoses Not on filedocumented in this encounter Additional Health Concerns Assessment Noted Time PHQ-9 Depression Total Score: 4 11/23/19 24 11:01 AM EDT documented as of this encounter Care Teams Community Relations Representative Relationship Specialty Start Date End Date Ada Caruso DO [address] [place] [address] PCP - General Family Medicine 07/13/21 documented as of this encounter
--- OUTSIDE RECORDS SUMMARY | 2024-11-19 17:04 | XMS_ITS | Encounter Summary ---
Author Organization [employer] Address [address] [facility] [address] [place] [address] Care Team Providers Care Field Laborer Name Role Phone Ada Caruso DO Primary Care Provider + [phone] Reason for Visit * Reason Comments Med Refill Encounter Details Date Type Department Care Team ([facility] st Contact Info) Description 03/23/2023 Refill [facility] MEDICINE [address] [place] [address] Ada Caruso DO [address] [place] [address] Depression, unspecified depression type Social History Tobacco [...] Description 01/18/2025 3:30 PM EST Office Visit [facility] MEDICINE [address] [place] [address] Harris Ayala MD [address] [place] [address] documented as of this encounter Visit Diagnoses Diagnosis Depression, unspecified depression type documented in this encounter Additional Health Concerns Assessment Noted Time PHQ-9 Depression Total Score: 0 08/12/19 23 9:19 AM EDT documented as of this encounter Care Teams Field Laborer Relationship Specialty Start Date End Date Ada Caruso DO [address] [place] [address] PCP - General Family Medicine 07/13/21 documented as of this encounter
--- OUTSIDE RECORDS SUMMARY | 2024-11-19 17:04 | XMS_ITS | Clinical Summary ---
Author Organization [employer] Address [address] [place] [address] Care Team Providers Care Gold Letterer Name Role Phone Ada Caruso DO Primary Care Provider + [phone] Allergies Active Allergy Reactions Criticality Noted Date [...] DAY IN THE MORNING 90 tablet 3 4 Active fluticasone (Flonase) 50 MCG/ACT nasal spray SPRAY 2 SPRAYS INTO EACH NOSTRIL EVERY DAY 48 mL 4 Active cholecalciferol VITAMIN D (Vitamin D-3) 50 MCG (1999 UT) capsule TAKE 1 CAPSULE BY MOUTH EVERY MORNING 90 capsule 3 4 Active albuterol 108 (90 Base) MCG/ACT inhaler INHALE 2 PUFFS INTO THE LUNGS EVERY 4 HOURS NEEDED FOR COUGH OR WHEEZING. 8.5 g 11 4 Active Blood Pressure kit 1 each 1 (one) time per week. 1 kit 4 Active hydroCHLOROthiaz cindy (HYDRODiuril) 25 MG tablet Take 1 tablet (25 mg) by mouth Once per day. 90 tablet 3 4 12/23/19 25 Active ondansetron (Zofran) 4 MG tablet Take 1 tablet (4 mg) by mouth every 8 (eight) hours if needed for nausea or vomiting. 12 tablet 4 Active baclofen (Lioresal) 10 MG tablet Take 1 tablet (10 mg) by mouth if needed in the morning, at noon, and at bedtime for muscle spasms. 60 tablet 3 4 01/17/20 25 Active lidocaine (Lidoderm) 5 % patch Apply 1 patch topically if needed each day for mild pain (pain). Remove & discard patch within 12 hours or as directed by MD. 30 patch 3 4 Active famotidine (Pepcid) 40 MG/5ML suspension Take 5 mL (40 mg) by mouth at bedtime. 150 mL 3 4 01/18/20 25 Active FLUoxetine (PROzac) 40 MG capsule Take 1 capsule (40 mg) by mouth Once per day. 90 capsule 3 5 03/09/19 26 Active pantoprazole (ProtoNix) 20 MG EC tablet Take 1 tablet by mouth Once per day. 5 Active metroNIDAZOLE (Metrogel) 0.75 % gel Apply topically 2 times daily. 45 g 3 5 06/23/19 26 Active amitriptyline (Elavil) 10 MG tablet Take 1 tablet (10 mg) by mouth at bedtime. 30 tablet 5 5 12/20/19 25 Active Multiple Vitamin (multivitamin) tablet Take 1 tablet by mouth Once per day. 30 tablet 11 5 06/23/19 26 Active acetaminophen (Tylenol 8 Hour) 650 MG ER tablet Take 1 tablet (650 mg) by mouth every 8 (eight) hours if needed for mild pain. Do not crush, chew, or split. 60 tablet 1 5 07/03/19 26 Active ferrous sulfate (Fe Tabs) 325 (65 Fe) MG EC tablet Take 1 tablet (325 mg) by mouth 3 (three) times a week. Do not crush, chew, or split. 36 tablet 3 5 07/05/19 26 Active atorvastatin (Lipitor) 20 MG tablet Take 1 tablet (20 mg) by mouth Once per day. 90 tablet 3 5 07/16/19 26 Active hydrOXYzine pamoate (Vistaril) 25 MG capsuleIndicatio ns:Depression, unspecified depression type TAKE 1 CAPSULE BY MOUTH EVERY 6 HOURS NEEDED FOR ANXIETY 40 capsule 3 5 Active butalbital-aceta minophen-caffein e 50-325-40 MG tabletIndication s:Nonintractable chronic migraine TAKE 1 TABLET BY MOUTH EVERY 12 HOURS NEEDED FOR HEADACHE 20 tablet 1 5 Active Active Problems Problem Noted Date [...] Department Care Team Description 10/11/2024 Orders Only [facility] External Provider, [facility] 10/11/2024 Refill [facility] [address] [place] [address] Ada aCruso DO Nonintractable chronic migraine 09/20/2024 Refill [facility] [address], [place] [phone] Ada Caruso DO Depression, unspecified depression type 09/20/2024 Refill [facility] [address], [place] [phone] Ada Caruso DO Depression, unspecified depression type from Last 3 Months Immunizations Immunization Administration [...] 06/22/2024 9:26 AM EDT Plan of Treatment Upcoming Encounters Date Type Department Care Team (Late st Contact Info) Description 01/18/2025 3:30 PM EST Office Visit [facility] [address] [place] [address] Harris Ayala MD [address] [place] [address] Health Maintenance Due Date Last Done Comments CT Colonography 1975 FIT DNA/Cologuard 1975 FIT 1975 FOBT 1975 Sigmoidoscopy 1975 Family Planning (PISQ) 1990 Hepatitis B Vaccines (2 of 3 - 19+ 3-dose series) 07/14/2023 06/16/2023, 03/29/2007, 03/29/2007, Additional history exists SDOH Screening 06/15/2024 06/16/2023 Influenza Vaccine (#1) 2024 4, 12/10/2022, 11/23/2021, Additional history exists Depression Monitoring 12/22/2024 06/22/2024, 025 Zoster Vaccines (1 of 2) 2025 Alcohol/Substance Use Screening 06/22/2025 06/22/2024 Disability Screening 06/22/2025 06/22/2024 Diabetes: Hemoglobin A1C 06/29/2025 025, 11/25/2023, 05/13/2022 Tobacco Screening 07/02/2025 07/02/2024 Mammogram 10/11/2025 10/11/2024, 0607/2024, 03/28/2024, Additional history exists Colonoscopy 04/12/2029 04/12/2019 [...] TOMOSYNTHESIS RIGHT Routine 10/11/2024 12:00 PM EDT HPV DNA, LOW/HIGH RISK Routine 08/06/2024 11:41 AM EDT PAP SMEAR Routine 08/06/2024 11:41 AM EDT HEPATITIS C [...] PM EDT Narrative 10/11/2024 1:48 PM EDT [address] [place] [address] Mammography Report Signed Patient: Darcy Ordaz MR#: [id number] : 1975 Acct:[id number] Age/Sex: 49 / F ADM Date: 10/11/24 Loc: [facility] Attending Dr: Mayo Heath MD Ordering Physician: Mayo Heath MD Results: 0Incompl ete: Needs Additional Imaging Evaluation Date of Service: 10/11/24 Follow Up: Additional Imagi ng Procedure(s): MM tomosynthesis diagnostic RT Accession Number(s): [id number] cc: Ada Caruso Marc J MD EXAMINATION: [...] 10/11/24 1345 DD/ 1200 TD/TT: 10/11/24 1215 Lube Attendant: Procedure Note Donotuseinterpreter, Image - 10/11/2024 [facility] [address] [place] [address] Mammography Report Signed Patient: Anish Ordaz#: [id number] : 1975Acct:[id number] Age/Sex: 49 / FADM Date: 10/11/24 Loc: HO.MAMMO Attending Dr: Mayo Heath MD Ordering Physician: Mayo Heathesults: 0Incompl ete: Needs Additional Imaging Evaluation Date of Service: 10/11/24Follow Up: Additional Imagi ng Procedure(s): MM tomosynthesis diagnostic RT Accession Number(s): [id number] cc: Ada Caruso Marc J MD EXAMINATION: [...] Alvarez DO 10/11/2024 01:45 PM EDT RP Workstation: [employer] Dictated By: Estefani Alvarez DO Signed By: <Electronically signed by Estefani Alvarez DO in OV> 10/11/24 1345 DD/ 1200 TD/TT: 10/11/24 1215 Lube Attendant: [facility] External Provider IMG BI PROCEDURES Final Result * HPV DNA, Low/High Risk (08/06/2024 11:41 AM EDT) HPV High Risk Negative Negative [facility] HPV Genotype 16 Negative Negative [facility] HPV Genotype 18 Negative Negative [facility] Comment:HPV testing performe d at [facility] (CLIA#[id number]), [address] [place] [address].Testing for HPV was performed using the Khadijah NORM 6800system. The presence of HPV in the female [...] Provider LAB BLOOD ORDERAB LES Final Result [facility] [address] [place] [phone] * Pap Smear (08/06/2024 11:41 AM EDT) 08/06/2024 11:4 1 AM EDT 08/06/2024 2:18 PM EDT Narrative [facility] - 08/13/2024 10:31 AM EDT ----- ------- Name: Javad MarinDarcy Age/Sex: 49/F : 1975 Unit#: [id number] Attend Dr: Mayo Heath MD Re08/06/24 Status: DEP REF Location: [facility] Disch: ----- ------- SPEC : [id number] RECD: 08/06/24 STATUS: BOBO MURRAY NUM: [id number] CARLOS: 08/06/24-[address] [facility] [address]: Mayo Heath MD ENTERED: 08/06/24-9520 SP TYPE: Pap Smr OTHR DR: Ada [...] and HPV testing will be performed at [facility] (CLIA #[id number]), [address] [place] [address]. Testing for HPV was performed using the CS-KeysAS Rizzoma0 system. The presence of HPV in the [...] detected. All professional services are performed by [facility] ([address] [place] [address]; ; CLIA #[id number]). The PAP Test is a screening procedure with the inherent possibility of both false negative and false positive results. Results should be interpreted in the context of historic and current clinical findings. Reliability of the PAP Test is enhanced by performing the test on a regular repetitive basis. CONTINUED ON NEXT PAGE ----- ------- Name: Darcy Ordaz Age/Sex: 49/F : 1975 Unit#: [id number] Attend Dr: Mayo Heath MD Re08/06/24 Status: DEP REF Location: [facility] Disch: ----- ------- SPEC : [id number] RECD: 08/06/24 STATUS: BOBO MURRAY NUM: [id number] CARLOS: 08/06/241141 SUBM DR: Mayo Heath MD ENTERED: 08/06/247893 SP TYPE: Pap Smr OTHR DR: Ada Caruso DO ORDERED: Pap Smear Copies To: Ada Caruso DO [address] [address] Mayo Heath MD [facility] [address] [place] [address] Drive [address] [place] [address] ----- ------- Signed (signature on file) JIGNA Quinones ([facility]) 08/13/24 1031 ----- ------- END OF REPORT us Generic External Data Provider LAB CYTOLOGY JEREMY GOODRICH Final Result [facility] [address] [place], [place] [phone] * Hepatitis C Antibody with Reflex to HCV, RNA, Quantitative, Real-Time PCR (06/29/2024 9:18 AM EDT) Pathologist [facility] Hepatitis C Antibody Nonreactive Nonreactive [facility] Comment:Antibodies to HCV no t detected; does not exclude early acuteHCV infection. Blood Venous blood specimen / Unknown 06/29/2024 9:18 AM EDT 06/29/2024 11:06 AM EDT Ada Caruso LAB BLOOD ORDERABLES Final R esult Performing Organization Address [facility]/ZIP Co de Phone Number [facility] [address] [place] [phone] * HIV-1/2 Antigen and Antibodies, Fourth Generation, with Reflexes (06/29/2024 9:18 AM EDT) [facility] HIV AB/AG Nonreactive Nonreactive [facility] Comment:HIV-1 p24 Ag and/or HIV-1/HIV-2 Ab not detected.A test result that is nonreactive does not exclude thepossibility of exposure to or infection with HIV-1 and/orHIV-2. Nonreactive results in this assay for individualswith prior exposure to HIV-1 and/or HIV-2 may be due toantigen and antibody levels that are below the limit ofdetection of this assay.[employer] HIV Ag/Ab Combo assay result andsupplemental assay results should be interpreted inconjunction with the patient's clinical presentation,history and other laboratory results. If the results areinconsistent with clinical evidence, additional testing issuggested to confirm the result. Blood Venous blood specimen / Unknown 06/29/2024 9:18 AM EDT 06/29/2024 11:06 AM EDT us Ada Jurcandido LAB BLOOD ORDERABLES Final R esult Performing Organization Address [facility]/ZIP Co de Phone Number [facility] [address] [place] [phone] * Hemoglobin A1c (06/29/2024 9:18 AM EDT) Hemoglobin A1c 5.6 <6.0 % [facility] Comment:Hemoglobin A1C Refer ence Range Adults: 4.8 - 6.0 % Non diabetic: < 6.0 % Goal: < 7.0 %Additional Action Suggested: > 8.0 %Note: Hemoglobin A1c results are invalid for patients with abnormal amounts of HbF. Blood transfusions may impact the HbA1c concentration in the patient sample. Estimated Average Glucose 114 mg/dL [facility] Comment:eAG = Estimated ave rage glucose which is %A1C expressed asaverage glucose, using the formula of the Z7M-KvvsktoBkazccm Glucose study (ADAG), Diabetes Care, Vol.31,#8,Oct. 2007 Blood Venous blood specimen / Unknown 06/29/2024 9:18 AM EDT 06/29/2024 11:06 AM EDT us Ada Caruso DO LAB BLOOD ORDERABLES Final R esult [facility] [address] [place] [phone] * (ABNORMAL) Lipid Panel, Standard (06/29/2024 9:18 AM EDT) Triglycerides 112 <150 mg/dL [facility] Comment:Desirable Triglyceri de: less than 150 mg/dLBorderline High Triglyceride 150-199 mg/dLHigh Triglyceride: 200-499 mg/dLVery High Triglyceride: greater than or equal to 5OO mg/dL Cholesterol 291(H) <200 mg/dL [facility] Comment:Desirable Cholestero l: less than 200 mg/dLBorderline High Cholesterol: 200-239 mg/dLHigh Cholesterol: greater than 239 mg/dL LDL Cholesterol Calculated 186(H) <100 mg/dL [facility] Comment:Desirable LDL: less than 100 mg/dLNear Optimal/Above Optimal LDL: 110- 129 mg/dLBorderline High LDL: 130-159 mg/dLHigh LDL: 160-189 mg/dLVery High LDL: greater than or equal to 190 mg/dL HDL Cholesterol 83 >40 mg/dL [facility] Comment:Desirable HDL: great er than 40 mg/dL Note: This HDL assay may give artificially low results in patients with liver disease. Blood Venous blood specimen / Unknown 06/29/2024 9:18 AM EDT 06/29/2024 11:06 AM EDT us Ada Caruso DO LAB BLOOD ORDERABLES Final R esult [facility] [address] [place] [address] [phone] from Last 3 Months or Most Recently Relevant to Health Maintenance Insurance [employer] PPO Care Teams Gold Letterer Relationship Specialty Start Date End Date Ada Caruso DO [address] [place] [phone] PCP - General Family Medicine 07/13/21
--- OUTSIDE RECORDS SUMMARY | 2024-11-19 17:04 | XMS_ITS | Encounter Summary ---
Author Organization [employer] Address [address] [place] [address] [address] [place] [address] Care Team Providers Care Logging Equipment Mechanic Name Role Phone Ada Caruso DO Primary Care Provider + [phone] Reason for Visit * Reason Comments Med Refill Encounter Details Date Type Department Care Team (Late st Contact Info) Description 04/29/2022 Refill [facility] [address] [place] [phone] Ada Caruso DO [address] [place] [phone] Depression, unspecified depression type Social History Tobacco [...] Description 01/18/2025 3:30 PM EST Office Visit [facility] [address] [place] [phone] Harris Ayala MD [address] [place], [place] [phone] documented as of this encounter Visit Diagnoses Diagnosis Depression, unspecified depression type documented in this encounter Care Teams Logging Equipment Mechanic Relationship Specialty Start Date End Date Ada Caruso DO [address] [place] [phone] PCP - General Family Medicine 07/13/21 documented as of this encounter
== END 2024-11-19 13:24 | disposition home or self-care (01) ==
LOC: HO.HGI 12:24
PROVIDERS: PCP Family Medicine; Visit Provider Internal Medicine Gastroenterology
DX: K59.00 Constipation, unspecified (principal)
CPT/HCPCS: 99213